=== PATIENT | female | born 1960 | race Caucasian/White ===

== ENCOUNTER → 2017-10-16 | Outpatient (CLI) | payer BC ==
[~2017-10-16] MED LIST: ACYC5OIN3 TOP; ATV/1 PO; CHOL100027 PO; DULO60CA44 PO; HYDR200T5 PO; HYZ/50125 PO; MELO7.5T5 PO; MULT-506 PO; OXYC-57 PO; POLY335040 PO; PREG1CAP70 PO; PROM25TA9 PO; tumeric PO
[2017-10-16 12:16] LABS: BASO % 0.4 %; BASO ABS # 0.06 K/uL (0-0.2); COMPLETE YES; EOS % 3.5 %; HEMATOCRIT 36.4 % (37-47); IG% 0.4 %; LYMPH % 27.6 %; LYMPH ABS # 4.04 K/uL (1.2-3.4); MEAN CELL VOLUME 90.1 fL (80-100); MEAN CORPUSCULAR HGB CONC 33.2 g/dl (32-36); MEAN PLATELET VOLUME 10.3 fL (7.4-10.4); MONO % 4.8 %; NEUT % 63.3 %; PLATELET COUNT 277 K/uL (130-400); RED BLOOD COUNT 4.04 M/uL (4.2-5.4); WHITE BLOOD COUNT 14.62 K/uL (4.8-10.8)
== END | disposition home or self-care (01) ==
LOC: C.LAB 11:33
PROVIDERS: ATTEND Physician Assistant Medical
DX: Z01.812 Encounter for preprocedural laboratory examination (principal)

== ENCOUNTER → 2018-01-15 | Outpatient (CLI) | payer OTHER ==
[~2018-01-15] VITALS: Ht 154.9 cm; Wt 88.5 kg
[~2018-01-15] MED LIST changes: +B-CO-25 PO; +CYCL5TAB PO; +FLUT0.15; +HYDR-4079 PO; +MRLP17X PO; +PRLSR20 PO; -tumeric PO
[2018-01-15 11:57] VITALS: Ht 154.9 cm; Wt 88.5 kg
--- NOTE | 2018-01-15 12:35 | PAT Medication Instructions ---
Service Date Jan 15, 2018. Current Home Medication List B-Complex W/ Folic Acid (Super B Complex Maxi), 1 TAB PO QD@1400 Cholecalciferol (Vitamin D 1000 Unit), 2,000 INTER.UNIT PO QDD Cyclobenzaprine Hcl (Flexeril), 1 TAB PO TID PRN for Muscle Spasms Duloxetine Hcl (Cymbalta), 120 MG PO QAM Fluticasone Propionate (Nasal) (Flonase Allergy Relief), 2 SPRAYS NA QAM Hctz/Losartan (Hyzaar 12.5MG/50MG), 1 TAB PO QAM Hydrocodone/Acetaminophen 10MG/325MG ([place] 10MG/325MG), 1-2 TABS PO Q4H PRN for Pain Hydroxychloroquine Sulfate (Plaquenil), 400 MG PO QD@1400 Lorazepam (Ativan), 0.5 MG PO DAILY PRN for Anxiety Meloxicam (Mobic), 15 MG PO QAM Multivitamin (Multivitamin), 1 TAB PO QD@1400 Omeprazole (Prilosec), 20 MG PO QAM Polyethylene (Miralax), 2 DOSE PO QAM Pregabalin (Lyrica), 150 MG PO TID Promethazine Hcl (Phenergan), 25 MG PO Q4H PRN for Nausea Medication Instructions For Your Scheduled Surgery -Contact your prescriber and surgeon for instructions for: Hydroxychloroquine Sulfate (Plaquenil), 400 MG PO QD@1400 -Contact your surgeon for instructions for: Meloxicam (Mobic), 15 MG PO QAM - Hold the following medications the morning of surgery: Cyclobenzaprine Hcl (Flexeril), 1 TAB PO TID PRN for Muscle Spasms Hctz/Losartan (Hyzaar 12.5MG/50MG), 1 TAB PO QAM Polyethylene (Miralax), 2 DOSE PO QAM - Take the following medications the morning of surgery with a sip of water: Duloxetine Hcl (Cymbalta), 120 MG PO QAM Fluticasone Propionate (Nasal) (Flonase Allergy Relief), 2 SPRAYS NA QAM Hydrocodone/Acetaminophen 10MG/325MG ([place] 10MG/325MG), 1-2 TABS PO Q4H PRN for Pain (if needed, can be taken up to four hours before surgery) Lorazepam (Ativan), 0.5 MG PO DAILY PRN for Anxiety (if needed) Omeprazole (Prilosec), 20 MG PO QAM Pregabalin (Lyrica), 150 MG PO TID Promethazine Hcl (Phenergan), 25 MG PO Q4H PRN for Nausea (if needed) - Take the following medications as scheduled the night before surgery: B-Complex W/ Folic Acid (Super B Complex Maxi), 1 TAB PO QD@1400 Cholecalciferol (Vitamin D 1000 Unit), 2,000 INTER.UNIT PO QDD Cyclobenzaprine Hcl (Flexeril), 1 TAB PO TID PRN for Muscle Spasms (if needed) Hydrocodone/Acetaminophen 10MG/325MG ([place] 10MG/325MG), 1-2 TABS PO Q4H PRN for Pain (if needed) Lorazepam (Ativan), 0.5 MG PO DAILY PRN for Anxiety (if needed) Multivitamin (Multivitamin), 1 TAB PO QD@1400 If you have any questions please call us at [phone] or [phone] or [phone]
[2018-01-15 13:05] LABS: BASO % 0.3 %; BASO ABS # 0.05 K/uL (0-0.2); EOS % 2.4 %; EOS ABS # 0.43 K/uL (0-0.5); HEMATOCRIT 37.8 % (37-47); HEMOGLOBIN 12.9 g/dL (12.0-16.0); IG# 0.06 K/uL (0.00-0.02); LYMPH % 24.6 %; LYMPH ABS # 4.46 K/uL (1.2-3.4); MEAN CELL VOLUME 89.6 fL (80-100); MEAN CORPUSCULAR HEMOGLOBIN 30.6 pg (25-34); MEAN CORPUSCULAR HGB CONC 34.1 g/dl (32-36); MEAN PLATELET VOLUME 9.8 fL (7.4-10.4); MONO % 4.4 %; MONO ABS # 0.79 K/uL (0.11-0.59); NEUT ABS # 12.36 K/uL (1.4-6.5); PLATELET COUNT 319 K/uL (130-400); RED CELL DISTRIBUTION WIDTH CV 14.8 % (11.5-14.5); RED CELL DISTRIBUTION WIDTH SD 48.2 fL (36.4-46.3); WHITE BLOOD COUNT 18.15 K/uL (4.8-10.8)
[2018-01-15 13:19] LABS: PTT PATIENT 33.4 SECONDS (21.0-31.0)
--- NOTE | 2018-01-15 13:24 | DIAGNOSTIC IMAGING REPORT ---
CHEST 2 VIEWS ROUTINE HISTORY: Preop. COMPARISON: Chest 08/13/2014. FINDINGS: The cardiac silhouette is mildly enlarged. There are low lung volumes. The lungs are clear. No pleural effusions. No pneumothorax. IMPRESSION: Cardiac silhouette is mildly enlarged. This may be accentuated by the low lung volumes. Otherwise, no acute process within the chest. Electronically signed by: Suleman Wayne M.D. 01/15/2018 1:23 PM Dictated Date/Time: 01/15/2018 1:17 PM
[2018-01-15 16:42] LABS: CALCIUM 9.8 mg/dl (8.5-10.1); CREATININE 1.01 mg/dl (0.60-1.20); POTASSIUM 3.7 mmol/L (3.5-5.1)
== END | disposition home or self-care (01) ==
LOC: C.LAB 08:00 → EDSTATUS 01-27 07:15
PROVIDERS: ATTEND Orthopaedic Surgery Orthopaedic Surgery of the Spine
DX: M48.00 Spinal stenosis, site unspecified (principal); Z01.818 Encounter for other preprocedural examination

== ENCOUNTER → 2018-01-23 | Outpatient (CLI) | payer OTHER ==
[~2018-01-23] MED LIST changes: -ACYC5OIN3 TOP; +GADAVIST IV PRN; -OXYC-57 PO; -POLY335040 PO
--- NOTE | 2018-01-23 11:42 | DIAGNOSTIC IMAGING REPORT ---
LUMBAR SPINE MRI WITH AND WITHOUT CONTRAST HISTORY: LUMBAR PAIN TECHNIQUE: Multiplanar multisequence MRI of the lumbar spine was performed both before and after the intravenous administration of contrast. COMPARISON: None. FINDINGS: For the purpose of the report the L5-S1 disc space will be located on axial image 23 of 25. No fracture or subluxation. Posterior decompression and fusion from L4 through S1 with pedicle screws and rods. The conus terminates at the L1-L2 disc space level. There is a disc spacer in partial fusion at the L5-S1 level. Mild to moderate disc space narrowing at L4-L5. The retroperitoneal soft tissues are unremarkable. Small amount of fluid and enhancement at the appendectomy site. This favors residual postoperative change. There is lumbar subcutaneous edema. L1-L2: No significant central canal or neural foraminal narrowing. L2-L3: Small focal central disc protrusion without significant central canal or neural foraminal narrowing. L3-L4: No significant central canal or neural foraminal narrowing. L4-L5: No significant central canal or neural foraminal narrowing. L5-S1: No significant central canal or neural foraminal narrowing. IMPRESSION: 1. No significant central canal or neural foraminal narrowing. 2. Small focal central disc protrusion at L2-L3 without central canal narrowing. 3. Posterior decompression and fusion at L4-S1 with pedicle screws and rods. 4. Small amount of fluid and enhancement at the laminectomy sites. This favors postoperative change. Electronically signed by: Suleman Wayne M.D. 01/23/2018 11:41 AM Dictated Date/Time: 01/23/2018 11:29 AM
== END | disposition home or self-care (01) ==
LOC: C.MRIBC 10:14
PROVIDERS: ATTEND Orthopaedic Surgery Orthopaedic Surgery of the Spine
DX: M54.5 Low back pain (principal); M51.26 Other intervertebral disc displacement, lumbar region

== ENCOUNTER → 2018-02-13 | Day surgery (SDC) | payer OTHER ==
[2018-01-30 12:18] VITALS: Ht 154.9 cm; Wt 88.5 kg
[~2018-02-13] VITALS: Ht 154.9 cm; Wt 88.5 kg
[~2018-02-13] MED LIST changes: +DEXAMETHASONE SOD INJ 4 MG/ML VIAL ONE; -GADAVIST IV PRN; +LIDOCAINE HCL 1% MPF 5 ML VIAL ONE; +OXYC-57 PO
--- NOTE | 2018-02-13 07:05 | History & Physical Bridge - SC ---
H&P Re-Evaluation Bridge Note: I have examined the patient, reviewed the History & Physical and in the interval since the performance of the History & Physical I have noted the following changes of clinical significance: No changes noted; ENMANUEL L5-S1
[2018-02-13 07:23] VITALS: TEMP 37
--- NOTE | 2018-02-13 07:24 | Discharge Instructions-SurgCtr ---
Discharge Instructions Date of Service Feb 13, 2018. Visit Reason for Visit: Spinal Stenosis Discharge Discharge Diagnosis / Problem: same Discharge Goals Goal(s): Improve function Medications Stopped Medications Name(s): 01-08-18 Meloxicam last dose Activity Recommendations Activity Limitations: resume your previous activity Anesthesia . Post Anesthesia Instructions: If you have had General Anesthesia or IV Sedation: * Do not drive today. * Resume driving when surgeon permits. * Do not make important decisions or sign legal documents today. * Call surgeon for: 1. Temperature elevations greater than 101 degrees F. 2. Uncontrollable pain. 3. Excessive bleeding. 4. Persistent nausea and vomiting. 5. Medication intolerance (nausea, vomiting or rash). * For nausea and vomiting use only clear liquids such as: tea, soda, bouillon until nausea subsides, then gradually increase diet as tolerated. * If you have any concerns or questions, call your surgeon's office. If physician is unavailable and it is an emergency, call 911 or go to the nearest emergency room. . Diet Recommendations Home Diet: no limitations Procedures Procedures Performed: EPIDURAL STEROID INJECTION LUMBAR L5-S1 Pending Studies Studies pending at discharge: no Medical Emergencies . Who to Call and When: Medical Emergencies: If at any time you feel your situation is an emergency, please call 911 immediately. . Non-Emergent Contact Non-Emergency issues call your: Primary Care Provider, Gis Technician Call Non-Emergent contact if: your pain is not controlled . . "Provider Documentation" section prepared by Otto William. .
--- NOTE | 2018-02-13 07:25 | [facility] Post Operative Brief Note ---
Immediate Operative Summary Operative Date Feb 13, 2018. Pre-Operative Diagnosis SPINAL STENOSIS Post-Operative Diagnosis SPINAL STENOSIS Procedure(s) Performed EPIDURAL STEROID INJECTION LUMBAR L5-S1 Surgeon DR. Aquiles GENAO Model Artists' Surgeon(s) none Estimated Blood Loss NONE Findings Consistent with Post-Op Diagnosis Specimens none Drains None Anesthesia Type Local
[2018-02-13 07:47] VITALS: BP 163/81; PULSE 65; O2SAT 97
--- NOTE | 2018-02-13 08:47 | OPERATIVE REPORT ---
DATE OF OPERATION: 02/13/2018 PREOPERATIVE DIAGNOSIS: Stenosis and nerve root compromise, L5-S1. POSTOPERATIVE DIAGNOSIS: Stenosis and nerve root compromise, L5-S1. PROCEDURE: Included an epidural steroid at L5-S1 lumbar spine. DESCRIPTION OF PROCEDURE: The patient was taken to minor procedure room, prepped and draped sterile. I used biplanar imaging, I was able to advance the Tuohy needle to the epidural space at L5-S1. 2 mL of dexamethasone injected at this area without incident. She tolerated it well and returned to PACU stable. No complications. I attest to the content of the Intraoperative Record and any orders documented therein. Any exception s are noted below.
== END | disposition home or self-care (01) ==
LOC: X.SURG 06:11
PROVIDERS: ATTEND Orthopaedic Surgery Orthopaedic Surgery of the Spine
DX: M48.061 Spinal stenosis, lumbar region without neurogenic claudication (principal); M54.5 Low back pain; I10 Essential (primary) hypertension; Z90.710 Acquired absence of both cervix and uterus; Z90.49 Acquired absence of other specified parts of digestive tract; Z88.1 Allergy status to other antibiotic agents

== ENCOUNTER 2020-05-02 05:28 | Observation (INO) ==
--- NOTE | 2020-04-29 09:12 | Anesthesiology Consultation ---
Date of Service April 29, 2020 Assessment & Plan (1) Encounter for pre-operative examination: Chart Review Chart Review: Acceptable Risk for Surgery and Patient NOT seen in Pre Admission Testing Consults Requested none History Surgery Operation Date: 05/02/20 07:00 Proposed Procedures p Laparoscopic Incisional Hernia Repair - Malick Olivo MD, FACS Height/Weight Height: 5 ft 0.75 in Weight: 77.111 kg Allergies Allergy/AdvReac Type Severity Reaction Status Date / Time bacitracin Allergy Unknown RASH Verified 04/28/20 09:34 cephalexin AdvReac Unknown HEADACHES, Verified 04/28/20 09:34 G I UPSET Medications Home Medications Medication Instructions Recorded Confirmed Last Taken acyclovir [Zovirax] 1 dose TOPICAL DAILY PRN 08/12/18 04/28/20 01/26/19 cholecalciferol (vitamin D3) 2,000 unit PO QPM 08/12/18 04/28/20 01/26/19 [Vitamin D3] cyclobenzaprine 10 mg PO DAILY PRN 08/12/18 04/28/20 08/20/18 duloxetine [Cymbalta] 120 mg PO QAM 08/12/18 04/28/20 01/26/19 lorazepam 1 mg PO DAILY PRN 08/12/18 04/28/20 08/20/18 magnesium 500 mg PO QPM 08/12/18 04/28/20 01/26/19 multivitamin 1 tab PO QPM 08/12/18 04/28/20 01/26/19 polyethylene glycol 3350 [Miralax] 2 dose PO QAM 08/12/18 04/28/20 01/26/19 pregabalin [Lyrica] 150 mg PO TID 08/12/18 04/28/20 01/26/19 loratadine 10 mg tablet 10 mg PO DAILY PRN 01/08/19 04/28/20 Unknown vitamin B complex 1 tab PO DAILY 01/08/19 04/28/20 01/26/19 metformin 500 mg tablet 500 mg PO DAILY 04/15/20 04/28/20 Unknown oxycodone 10 mg tablet 10 mg PO Q4H PRN 04/15/20 04/28/20 Unknown pravastatin 10 mg tablet 10 mg PO HS 04/15/20 04/28/20 Unknown Nystatin Lozenge 1 marci PO TID 04/28/20 04/28/20 Unknown hydrochlorothiazide 12.5 mg PO QAM 04/28/20 04/28/20 Unknown losartan 50 mg PO QAM 04/28/20 04/28/20 Unknown nystatin 1 applic TOPICAL UD PRN 04/28/20 04/28/20 Unknown pantoprazole [Protonix] 20 mg PO QAM 04/28/20 04/28/20 Unknown Past Medical History Medical History Anemia (Chronic) Anxiety (Chronic) Chronic back pain (Chronic) Chronic headaches daily Degenerative disc disease (Chronic) Depression (Chronic) Endometriosis (Chronic) Fibromyalgia (Chronic) GERD (gastroesophageal reflux disease) (Chronic) Herpes (Chronic) History of ovarian cyst (Chronic) History of subdural hematoma (Chronic) 1991 REQU[facility]ING EMERGENCY SURGERY Hypertension (Chronic) IBS (irritable bowel syndrome) (Chronic) Migraine headache (Chronic) Obesity (BMI 30-39.9) (Chronic) Sciatica (Chronic) Spinal cord stimulator status in place 10/2019 [facility] (advised to bring remote/magnet for surgery) Thrush, oral chronic --- nystatin lozenges TID. dx'd 05/2019, follows with PCP & ENT Dr Knox. Past Family History Family History Mother Family history of reaction to anesthesia PONV Breast cancer Diabetes Heart disease Hypertension Grandfather (Paternal) Family history of diabetes mellitus Diabetes Father Family history of diabetes mellitus Heart disease Hypertension Mother Family history of diabetes mellitus Grandmother (Paternal) Family hx of colon cancer Past Surgical History Surgical History Fusion of spine (Chronic) L4-L5, L5-S1 (after discectomy surgeries) History of anesthesia complications (Chronic) DIFFICULTY WAKING UP History of brain surgery (Chronic) 1991 (removed a subdural hematoma) History of carpal tunnel release (Chronic) RT History of cholecystectomy (Chronic) History of discectomy (Chronic) L4-L5, L5-S1 (2 different surgeries) History of rotator cuff surgery (Chronic) right 08/2018 [facility] History of tonsillectomy (Chronic) History of tooth extraction (Chronic) History of tubal ligation (Chronic) +tubal reversal Hx of colonoscopy S/P BSO (bilateral salpingo-oophorectomy) S/P knee surgery right knee S/P [place] (total abdominal hysterectomy) Social History Smoking Status: Former smoker tobacco type: cigarettes Do You Dip or Chew Tobacco: No Smoking End Date: 1993 Hx Alcohol Use: Yes Alcohol type: wine and hard liquor alcohol intake frequency: holidays/special occasions only Hx Substance Use: Yes ("street" (daily)) substance use type: marijuana Last Used Substance Other:: 04.27.20 Testing Laboratory Results Laboratory Tests 04/27/20 04/27/20 10:12 10:12 WBC 13.44 H Hgb 13.0 Hct 40.3 Plt Count 278 Sodium 136 Potassium 3.7 Chloride 101 Carbon Dioxide 26 BUN 9 Creatinine 0.94 Glucose 144 H Electrocardiogram Date: 04/27/20 Findings: + NSR @ (35)
[2020-05-02] MEDS ORDERED: CLINDAMYCIN 900 MG in DEXTROSE 5% 50 ML IV SCH (06:00)
[2020-05-02] MEDS ORDERED: LR 15ML/HR IV SCH (06:00)
[2020-05-02] MEDS ORDERED: DEXAMETHASONE SOD INJ 4 MG/ML VIAL ONE (06:29)
[2020-05-02] MEDS ORDERED: LIDOCAINE HCL 2% 2 ML VIAL/AMP(20MG/ML) INFIL ONE (06:29)
[2020-05-02] MEDS ORDERED: PROPOFOL IV EMULSION 10 MG/ML 20 ML VIAL IV ONE (06:29)
[2020-05-02] MEDS ORDERED: MIDAZOLAM HCL 1 MG/ML 2ML VIAL ONE (06:29)
[2020-05-02] MEDS ORDERED: ONDANSETRON INJ 2 MG/ML 2 ML VIAL ONE (06:29)
[2020-05-02] MEDS ORDERED: fentaNYL citrate 100 MCG/2 ML VIAL ONE (06:29)
[2020-05-02] MEDS ORDERED: ROCURONIUM BROMIDE 10 MG/ML 5 ML VIAL IV ONE (06:29)
[2020-05-02] MEDS ORDERED: GLYCOPYRROLATE 0.2 MG/ML VIAL ONE (06:29)
[2020-05-02] MEDS ORDERED: NEOSTIGMINE METHYLSULFATE 5 MG/5 ML SYR ONE (06:29)
--- NOTE | 2020-05-02 06:36 | History & Physical Bridge Note ---
Date of Service May 02, 2020 History & Physical Bridge Note I have examined the patient, reviewed the History & Physical and in the interval since the performance of the History & Physical I have noted the following changes of clinical significance: no changes noted
[2020-05-02] MEDS ORDERED: BUPIVACAINE 0.5 % 5 MG/1 ML MPF 30ML VIAL ONE (06:50)
[2020-05-02] MEDS ORDERED: HYDROmorphone INJ 2 MG/ML SYR/VIAL ONE (07:07)
[2020-05-02] MEDS ORDERED: ATROPINE SULFATE 0.1 MG/ML 10ML SYR IV PRN (07:23)
[2020-05-02] MEDS ORDERED: PROMETHAZINE HCL 6.25 MG in SODIUM CHLORIDE 0.9% 50 ML IV PRN (07:23)
[2020-05-02] MEDS ORDERED: ePHEDrine sulfate 50 MG/ML AMP IV PRN (07:23)
[2020-05-02] MEDS ORDERED: ONDANSETRON INJ 2 MG/ML 2 ML VIAL IV PRN ×2 (07:23→09:29)
[2020-05-02] MEDS ORDERED: SUGAMMADEX SODIUM 200 MG/2 ML VIAL IV ONE (07:41)
[2020-05-02] MEDS ORDERED: ACETAMINOPHEN 1,000 MG/100 ML VIAL IV ONE (07:45)
--- NOTE | 2020-05-02 07:45 | Post Operative Brief Note ---
[facility] Immediate Post Op with CF Date of Surgery May 02, 2020 Pre & Post Diagnosis Operation Date: 05/02/20 07:00 Pre-Op Diagnosis: Incisional Hernia Post-Op Diagnosis: Incisional Hernia I identified the patient and participated in the time-out.: Yes Procedure Operation Date: 05/02/20 07:00 Actual Procedures p Laparoscopic Incisional Hernia Repair(Not Applicable) - Malick Olivo MD, FACS Surgeon Malick Olivo MD, FACS Director Of Logistics Russel Leary Estimated Blood Loss 5 Findings Consistent with Post-Op Diagnosis Specimens Specimen Description: None per surgeon
[2020-05-02] MEDS: fentaNYL citrate 100 MCG/2 ML VIAL IV PRN ×2 (08:06→08:11)
[2020-05-02] MEDS: HYDROmorphone INJ 2 MG/ML SYR/VIAL IV PRN ×4 (08:23→08:38)
[2020-05-02] MEDS ORDERED: IBUPROFEN 600 MG TAB PO PRN (09:29)
[2020-05-02] MEDS ORDERED: ACETAMINOPHEN 325 MG TAB PO PRN (09:29)
[2020-05-02] MEDS ORDERED: PROMETHAZINE HCL 25 MG in SODIUM CHLORIDE 0.9% 50 ML IV PRN (09:29)
[2020-05-02] MEDS ORDERED: PROMETHAZINE HCL 12.5 MG in SODIUM CHLORIDE 0.9% 50 ML IV PRN (09:29)
[2020-05-02] MEDS ORDERED: LORazepam 1 MG/2 ML VIAL IV PRN (09:29)
[2020-05-02] MEDS ORDERED: LORazepam 0.5 MG/1 ML VIAL IV PRN (09:29)
[2020-05-02] MEDS: POLYETHYLENE (MIRALAX) 17 GM PACK PO SCH ×2 (09:40→11:03)
--- NOTE | 2020-05-02 10:07 | Anesthesiology Progress Note ---
Date of Service May 02, 2020 Anesthesia Post Procedure Vital Signs Vital Signs: Temp Pulse Resp BP BP Pulse Ox 05/02/20 09:44 36.4 C L 61 16 114/69 95 05/02/20 09:17 36.5 C 68 18 121/71 99 05/02/20 08:55 36.4 C L 78 20 131/73 98 05/02/20 08:45 66 12 125/70 100 05/02/20 08:35 79 17 133/74 97 05/02/20 08:25 74 10 L 135/76 99 05/02/20 08:15 72 12 133/79 100 05/02/20 08:05 83 12 143/89 H 100 05/02/20 07:57 36.0 C L 98 H 13 146/84 H 100 05/02/20 05:51 36.7 C 70 18 138/72 99 Pain Intensity Back: Pain Intensity: 3 Abdomen: Pain Intensity: 5 Transfer of Care Handoff Completed per policy Notes Mental Status: alert / awake / arousable Patient Amnestic to Procedure: Yes Nausea / Vomiting: adequately controlled Pain: adequately controlled Airway Patency, RR, SpO2: stable & adequate BP & HR: stable & adequate Hydration State: stable & adequate Anesthetic Complications: no major complications apparent
[2020-05-02] MEDS: HYDROmorphone INJ 1 MG/ML SYRINGE IV PRN ×4 (10:15→20:03)
[2020-05-02] MEDS: SODIUM CHLORIDE 0.9% 1000ML 1,000 ML IV SCH (10:17)
--- NOTE | 2020-05-02 10:24 | Hospitalist Consultation ---
Date of Consultation May 02, 2020 Assessment & Plan (1) S/P hernia repair: - Pain management, bowel regimen and DVT ppx per the primary team - PT/OT consults as needed - Follow am CBC to monitor for acute blood loss - surgical incision site over abdomen glued shut, no bleeding (2) Hypertension: -Continue hydrochlorothiazide 12.5 mg daily, losartan 50 mg daily (3) Diabetes: - ISS with accuchecks achs - Check A1C with am labs as there is not one within our system - Hold metformin (4) Subdural hemorrhage: -History of such in 1991 (5) Anemia: -Check a.m. CBC (6) GERD (gastroesophageal reflux disease): - Continue Protonix 20 mg daily (7) Fusion of spine: -Neurostimulator -Continue oxycodone 10 mg q4h prn (8) IBS (irritable bowel syndrome): -History of such Takes MiraLAX 2 doses daily (9) Fibromyalgia: Noted (10) Anxiety: (11) Depression: -Continue lorazepam 1 mg daily as needed, Lyrica 150 p.o. 3 times daily (12) Leukocytosis: Noted on labs going back to the year 1999 This may be normal for her Follow-up with PCP Follow CBC in the morning (13) Hepatic steatosis: Noted on recent CT scan of the abdomen/pelvis Needs weight loss (14) Constipation: Continue MiraLAX (15) DVT prophylaxis: - teds, scds CODE: Full Dispo: From home, likely to remain in the hospital x 1-2 days Supervising Physician Co-Signing Physician Notes PA Supervision Note: I personally saw and examined the patient. I verified all kuhn points and agree with VINNIE Dalal with the following exceptions and/or additions: This patient is a 59-year-old female here for an incisional hernia repair with Dr. Olivo. The hospital service is consulted for medical management in the postoperative period History and ROS reviewed as above Vitals reviewed Gen: AAOx3, NAD HEENT: anicteric sclerae, EOMI CV: RRR no mgr nl S1S2 Pulm: CTAB no wcr Abd: +BS soft Mild tenderness to palpation over incision sites ND no masses or hernias Ext: no edema, 2+ DP pulses Skin: no rashes, warm/dry Neuro: full strength throughout 59-year-old female here with history noted as above, for incisional hernia repair -Plan outlined as above Follow BMP, CBC in the morning We will closely follow blood pressures Hospitalist service will follow along History of Present Illness Reason for Consultation: Medical management Requesting Physician: Dr. Olivo Attending Physician: Malick Olivo MD, [facility] History of Present Illness This is a 59-year-old female with PMHx of anemia, HTN, history of subdural hematoma in 1991, endometriosis, fibromyalgia, GERD, depression, degenerative disc disease, history of lumbar decompression fusion by Dr. Ahn, sciatica, obesity, spinal cord stimulator in place as of October 2019 by [facility] who presented for elective laparoscopic hernia repair by Dr. Olivo. Patient was seen and examined and states that she feels well after surgical procedure. She feels abdominal distention but no pain. No nausea or vomiting. She is waiting on her coffee, has not yet had anything else to eat or drink. She has not yet peed or had a bowel movement today. She reports having some left leg pain for which she has the stimulator in place, and that was turned off for her procedure, nurse at bedside helping her to turn it back on. She denies any other acute complaints. Allergies Allergy/AdvReac Type Severity Reaction Status Date / Time bacitracin Allergy Unknown RASH Verified 05/02/20 05:58 cephalexin AdvReac Unknown HEADACHES, Verified 05/02/20 05:58 G I UPSET Home Medications Home Medications Medication Instructions Recorded Confirmed Type acyclovir [Zovirax] 1 dose TOPICAL DAILY PRN 08/12/18 05/02/20 History cholecalciferol (vitamin D3) 2,000 unit PO QPM 08/12/18 05/02/20 History [Vitamin D3] cyclobenzaprine 10 mg PO DAILY PRN 08/12/18 05/02/20 History duloxetine [Cymbalta] 120 mg PO QAM 08/12/18 05/02/20 History lorazepam 1 mg PO DAILY PRN 08/12/18 05/02/20 History magnesium 500 mg PO QPM 08/12/18 05/02/20 History multivitamin 1 tab PO QPM 08/12/18 05/02/20 History polyethylene glycol 3350 [Miralax] 2 dose PO QAM 08/12/18 05/02/20 History pregabalin [Lyrica] 150 mg PO TID 08/12/18 05/02/20 History loratadine 10 mg tablet 10 mg PO DAILY PRN 01/08/19 05/02/20 History vitamin B complex 1 tab PO DAILY 01/08/19 05/02/20 History metformin 500 mg tablet 500 mg PO DAILY 04/15/20 05/02/20 History oxycodone 10 mg tablet 10 mg PO Q4H PRN 04/15/20 05/02/20 History pravastatin 10 mg tablet 10 mg PO HS 04/15/20 05/02/20 History Nystatin Lozenge 1 marci PO TID 04/28/20 05/02/20 History hydrochlorothiazide 12.5 mg PO QAM 04/28/20 05/02/20 History losartan 50 mg PO QAM 04/28/20 05/02/20 History nystatin 1 applic TOPICAL UD PRN 04/28/20 05/02/20 History pantoprazole [Protonix] 20 mg PO QAM 04/28/20 05/02/20 History Patient History Medical History (Updated 05/02/20 @ 18:03 by Val Ferreira MD) Anemia (Chronic) Anxiety (Chronic) Chronic back pain (Chronic) Chronic headaches daily Constipation Degenerative disc disease (Chronic) Depression (Chronic) Endometriosis (Chronic) Fibromyalgia (Chronic) GERD (gastroesophageal reflux disease) (Chronic) Hepatic steatosis Herpes (Chronic) History of ovarian cyst (Chronic) History of subdural hematoma (Chronic) 1991 REQUIRING EMERGENCY SURGERY Hypertension (Chronic) IBS (irritable bowel syndrome) (Chronic) Leukocytosis (Acute) Migraine headache (Chronic) Obesity (BMI 30-39.9) (Chronic) Sciatica (Chronic) Spinal cord stimulator status in place 10/2019 [facility] (advised to bring remote/magnet for surgery) Thrush, oral chronic --- nystatin lozenges TID. dx'd 05/2019, follows with PCP & ENT Dr Knox. Surgical History (Updated 05/02/20 @ 10:23 by Samira Dalal PA-C) Fusion of spine (Chronic) L4-L5, L5-S1 (after discectomy surgeries) History of anesthesia complications (Chronic) DIFFICULTY WAKING UP History of brain surgery (Chronic) 1991 (removed a subdural hematoma) History of carpal tunnel release (Chronic) RT History of cholecystectomy (Chronic) History of discectomy (Chronic) L4-L5, L5-S1 (2 different surgeries) History of incisional hernia repair (05/02/20) Laparoscopic Incisional Hernia Repair Dr. Olivo 05/02/20 History of rotator cuff surgery (Chronic) right 08/2018 [facility] History of tonsillectomy (Chronic) History of tooth extraction (Chronic) History of tubal ligation (Chronic) +tubal reversal Hx of colonoscopy S/P BSO (bilateral salpingo-oophorectomy) S/P knee surgery right knee S/P CHAPINCITO (total abdominal hysterectomy) Family History Mother Family history of reaction to anesthesia PONV Breast cancer Diabetes Heart disease Hypertension Grandfather (Paternal) Family history of diabetes mellitus Diabetes Father Family history of diabetes mellitus Heart disease Hypertension Mother Family history of diabetes mellitus Grandmother (Paternal) Family hx of colon cancer Social History Preferred Language: Hungarian Communication Ability: Effective Visual Impairment: Limited Hearing Ability: Normal 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 Beliefs That Will Affect Care: None marital status: Current Living Situation: Spouse current occupational status: disabled Other Information That Helps Us Care for You: No Feels Safe at Home: Yes Safety Concerns: Feels Safe At This Time Smoking Status: Former smoker Tobacco Type: cigarettes ; Do You Dip or Chew Tobacco: No ; Smoking End Date: 1993 ; Second Hand Exposure: No ; Tobacco Cessation Education Requested by Patient: No Hx Alcohol Use: Yes Alcohol type: wine and hard liquor Hx Substance Use: Yes ("street" (daily)) substance use type: marijuana Last Used Substance Other:: 04.27.20 Review of Systems Review of Systems: Constitutional: No fever, sweats or chills Eyes: No diplopia, no worsening or blurred vision ENT: normal hearing, no trouble swallowing Respiratory: No cough, sputum, dyspnea at rest or on exertion Cardiovascular: No chest pain, tightness or palpitations Abdomen: + Distention, No pain, nausea, vomiting, diarrhea or constipation Musculoskeletal: + As per HPI,No joint pain, calf pain, swelling Neurologic: No weakness, numbness/tingling, or balance problems Psychiatric: No anxiety or depression Skin: No rash or itch Physical Exam Physical Exam: General: awake, alert, no apparent distress Head: Normocephalic, atraumatic ENT: PERRL, EOMI, no pharyngeal exudate, mucous membranes moist Chest: Clear to auscultation, on room air, no adventitious breath sounds Cardiac: Regular rate and rhythm, no murmur, no JVD, normal peripheral pulses, good capillary refill Abdominal: NABS x 4 quadrants, + mildly distended, laparoscopic incision sites glued shut, nontender to palpation, no rebound, guarding or tenderness Extremities: Normal inspection, no peripheral edema or erythema, calfs nontender to palpation Psych: Normal mood and affect Neuro: AAO x 3, strength intact bilaterally and related 5/5, no motor deficits, speech is clear, no peripheral sensory deficits Skin: no rash or erythema Results & Data Results & Data ([facility]) Vital Signs (Past 12 Hours) Vital Signs Temp Pulse Resp BP BP Pulse Ox 05/02/20 09:44 36.4 C L 61 16 114/69 95 05/02/20 09:17 36.5 C 68 18 121/71 99 05/02/20 08:55 36.4 C L 78 20 131/73 98 05/02/20 08:45 66 12 125/70 100 05/02/20 08:35 79 17 133/74 97 05/02/20 08:25 74 10 L 135/76 99 05/02/20 08:15 72 12 133/79 100 05/02/20 08:05 83 12 143/89 H 100 05/02/20 07:57 36.0 C L 98 H 13 146/84 H 100 05/02/20 05:51 36.7 C 70 18 138/72 99 PG Care Time/CCT Total # of Minutes Spent Total Time Spent with Patient: Total time spent is greater than 50% in coordination of care (as documented) at patient's floor/unit and/or counseling patient: Coding Level of Care Code 33479 Inpt Consult Level 3 Diagnoses S/P hernia repair Z98.890; Z87.19 Hypertension I10 Diabetes E11.9 Subdural hemorrhage I62.00 Anemia D64.9 GERD (gastroesophageal reflux disease) K21.9 Fusion of spine M43.20 IBS (irritable bowel syndrome) K58.9 Fibromyalgia M79.7 Anxiety F41.9 Depression F32.9 Leukocytosis D72.829 Hepatic steatosis K76.0 Constipation K59.00 DVT prophylaxis Z29.9
[2020-05-02] MEDS ORDERED: CARBOHYDRATES FOR HYPOGLYCEMIA PO PRN (10:25)
[2020-05-02] MEDS ORDERED: GLUCOSE 40% GEL 15 GM TUBE PO PRN (10:25)
[2020-05-02] MEDS ORDERED: DEXTROSE 50% 50 ML SYRINGE IV PRN (10:25)
[2020-05-02] MEDS ORDERED: GLUCAGON FOR INJ 1 MG VIAL SQ PRN (10:25)
[2020-05-02] MEDS ORDERED: GLUCOSE 10 TABS/TUBE PO PRN (10:25)
[2020-05-02] MEDS: DULOXETINE HCL 60 MG CAP PO SCH (11:01)
[2020-05-02] MEDS: PREGABALIN 150 MG CAP PO SCH ×3 (11:01→21:14)
[2020-05-02] MEDS: LOSARTAN POTASSIUM 50 MG TAB PO SCH (11:01)
[2020-05-02] MEDS: PANTOprazole 40 MG TAB PO SCH (11:01)
[2020-05-02] MEDS: DOCUSATE SODIUM/SENNA 50/8.6MG TAB PO SCH ×2 (11:02→21:14)
[2020-05-02] MEDS: hydroCHLOROthiazide 25 MG TAB PO SCH (11:02)
[2020-05-02] MEDS: MAGNESIUM HYDROXIDE SUSP 30 ML UDC PO SCH ×2 (11:05→21:14)
--- NOTE | 2020-05-02 11:38 | Operative Report (OR) ---
DATE OF OPERATION: 05/02/2020 NAME OF OPERATION: Laparoscopic incisional hernia repair. PREOPERATIVE DIAGNOSIS: Incisional hernia. POSTOPERATIVE DIAGNOSIS: Incisional hernia. STAFF SURGEON: Malick Olivo MD. ANESTHESIA: General. RESOURCE MANAGER: Ralph Leary PA-C. DESCRIPTION OF PROCEDURE: The patient was brought in the operating room and placed on the operating table in supine position. Her abdomen was prepped and draped in usual fashion. My certified ophthalmic assistant helped with prepping, draping, repair of the hernia and closure of the wounds. 0.5% plain Marcaine was used to anesthetize all incisions. Incision was made in the left upper quadrant carrying dissection down to the fascia, placing a Veress needle. Pneumoperitoneum was produced. An 11 mm port placed at this level and then under visualization, four 5 mm ports were placed, two on the left, two on the right. She had also a small incision at the hernia defect in the skin for the suture passer. She did have 1 adhesion of the omentum, which was taken down and then a 12.5 cm piece of Surgimesh was obtained. It was rolled up and placed into the abdomen. Using the suture, it was brought up to the abdominal wall with the polypropylene toward the fascia, silicone toward the bowel. It was then secured in 2 layers, 1 outer and 1 inner row of absorbable tacks. At this point, all ports were removed. The pneumoperitoneum was reduced. The fascia in the left upper quadrant closed using 0 Vicryl suture. Skin reapproximated using subcuticular 4-0 Monocryl, Steri-Strips in the left upper quadrant, Dermabond at all other sites, 5-0 Prolene at the umbilical site. As a note, the patient did have 2 incisions, one from a prior laparoscopy and one from, I think, an umbilical hernia repair. I attest to the content of the Intraoperative Record and any orders documented therein. Any exception s are noted below.
[2020-05-02] MEDS: OXYCODONE HCL IR 5 MG TAB (IMMEDIATE RELEASE) PO PRN ×2 (12:24→22:18)
[2020-05-02] MEDS: INSULIN ASPART 100 UNITS/ML 3 ML PEN SC SCH ×3 (12:39→21:15)
[2020-05-02] MEDS: CLINDAMYCIN 900 MG in DEXTROSE 5% 50 ML IV SCH ×2 (14:27→22:19)
[2020-05-02] MEDS ORDERED: POLYETHYLENE (MIRALAX) 17 GM PACK PO ONE (18:25)
[2020-05-02] MEDS: PRAVASTATIN SOD 10 MG TAB PO SCH (21:14)
[2020-05-02] MEDS: MAGNESIUM OXIDE 400 MG TAB PO SCH (21:14)
[2020-05-02] MEDS: HYDROmorphone INJ 0.5 MG/0.5 ML SYR IV PRN (23:37)
[2020-05-03] MEDS: OXYCODONE HCL IR 5 MG TAB (IMMEDIATE RELEASE) PO PRN ×4 (03:22→18:29)
[2020-05-03] MEDS: SODIUM CHLORIDE 0.9% 1000ML 1,000 ML IV SCH (03:24)
[2020-05-03] MEDS: HYDROmorphone INJ 0.5 MG/0.5 ML SYR IV PRN ×5 (04:25→20:21)
[2020-05-03 06:06] LABS: Basophils # (auto) 0.02 K/uL (0-0.2); Basophils % (auto) 0.1 %; Eosinophils # (auto) 0.17 K/uL (0-0.5); Eosinophils % (auto) 1.1 %; Hematocrit (blood only) 39.5 % (37-47); Hemoglobin 12.6 g/dL (12.0-16.0); Immature Granulocytes # (auto) 0.05 K/uL (0.00-0.02); Immature Granulocytes % (auto) 0.3 %; Lymphocytes # (auto) 4.62 K/uL (1.2-3.4); Lymphocytes % (auto) 30.4 %; Mean Corpuscular Hemoglobin 29.1 pg (25-34); Mean Corpuscular Hgb Conc 31.9 g/dL (32-36); Mean Corpuscular Volume 91.2 fL (80-100); Mean Platelet Volume 10.3 fL (7.4-10.4); Monocytes # (auto) 0.65 K/uL (0.11-0.59); Monocytes % (auto) 4.3 %; Neutrophils # (auto) 9.71 K/uL (1.4-6.5); Neutrophils % (auto) 63.8 %; Platelet Count 277 K/uL (130-400); RDW Standard Deviation 50.7 fL (36.4-46.3); Red Blood Count 4.33 M/uL (4.2-5.4); White Blood Count 15.22 K/uL (4.8-10.8)
[2020-05-03] MEDS: CLINDAMYCIN 900 MG in DEXTROSE 5% 50 ML IV SCH ×3 (06:08→22:29)
[2020-05-03 06:34] LABS: Albumin Level 3.8 gm/dl (3.4-5.0); BUN Creatinine Ratio 16.7 (10-20); Creatinine Clr Calc Pharmacy 61.6 ml/min; Est GFR (African American) 78.1; Est GFR (Non-African American) 67.3; Magnesium 2.8 mg/dl (1.8-2.4); Potassium 3.6 mmol/L (3.5-5.1)
[2020-05-03 06:37] LABS: Albumin Globulin Ratio 0.9 (0.9-2); Bilirubin,Total 0.2 mg/dl (0.2-1); Globulin 4.1 gm/dl (2.5-4.0); Phosphorus 3.5 mg/dl (2.5-4.9); Total Protein 7.9 gm/dl (6.4-8.2)
[2020-05-03 06:51] LABS: Estimated Average Glucose 143 mg/dl; Hemoglobin A1C 6.6 % (4.5-5.6)
--- NOTE | 2020-05-03 07:41 | Anesthesiology Progress Note ---
Date of Service May 03, 2020 Anesthesia Post Procedure Vital Signs Vital Signs: Temp Pulse Resp BP BP Pulse Ox 05/03/20 07:13 36.4 C L 66 16 132/76 94 05/03/20 03:15 36.4 C L 62 15 110/71 98 05/03/20 00:52 36.4 C L 57 L 16 101/62 96 05/02/20 20:10 36.4 C L 54 L 18 104/63 94 05/02/20 15:18 36.6 C 62 18 104/62 92 05/02/20 12:17 69 16 114/66 93 05/02/20 11:18 66 18 110/67 97 05/02/20 10:21 36.7 C 69 18 108/66 93 05/02/20 09:44 36.4 C L 61 16 114/69 95 05/02/20 09:17 36.5 C 68 18 121/71 99 05/02/20 08:55 36.4 C L 78 20 131/73 98 05/02/20 08:45 66 12 125/70 100 05/02/20 08:35 79 17 133/74 97 05/02/20 08:25 74 10 L 135/76 99 05/02/20 08:15 72 12 133/79 100 05/02/20 08:05 83 12 143/89 H 100 05/02/20 07:57 36.0 C L 98 H 13 146/84 H 100 Pain Intensity Back: Pain Intensity: 5 Abdomen: Pain Intensity: 5 Notes Mental Status: alert / awake / arousable and participated in evaluation Patient Amnestic to Procedure: Yes Nausea / Vomiting: adequately controlled Pain: adequately controlled Airway Patency, RR, SpO2: stable & adequate BP & HR: stable & adequate Hydration State: stable & adequate Anesthetic Complications: no major complications apparent
--- NOTE | 2020-05-03 08:14 | Surgery Progress Note ---
Date of Service May 03, 2020 Assessment & Plan (1) S/P laparoscopic hernia repair: pt awake, alert She is having some pain We will ask pain management to help us with suggestions secondary to her chronic oxycodone use We will try Dulcolax suppository at the patient's request, continue other stool softeners Continue IV antibiotics Probable discharge home tomorrow Results & Data Vital Signs (Past 12 Hours) Vital Signs Temp Pulse Resp BP Pulse Ox 05/03/20 07:13 36.4 C L 66 16 132/76 94 05/03/20 03:15 36.4 C L 62 15 110/71 98 05/03/20 00:52 36.4 C L 57 L 16 101/62 96 PG Care Time/CCT Total # of Minutes Spent Total Time Spent with Patient: Total time spent is greater than 50% in coordination of care (as documented) at patient's floor/unit and/or counseling patient: Coding Level of Care Code None Diagnoses S/P laparoscopic hernia repair Z98.890; Z87.19
[2020-05-03] MEDS: DULOXETINE HCL 60 MG CAP PO SCH (08:38)
[2020-05-03] MEDS: LOSARTAN POTASSIUM 50 MG TAB PO SCH (08:38)
[2020-05-03] MEDS: hydroCHLOROthiazide 25 MG TAB PO SCH (08:39)
[2020-05-03] MEDS: DOCUSATE SODIUM/SENNA 50/8.6MG TAB PO SCH ×2 (08:40→20:21)
[2020-05-03] MEDS: PANTOprazole 40 MG TAB PO SCH (08:40)
[2020-05-03] MEDS: POLYETHYLENE (MIRALAX) 17 GM PACK PO SCH (08:41)
[2020-05-03] MEDS: PREGABALIN 150 MG CAP PO SCH ×3 (08:44→20:20)
[2020-05-03] MEDS: MAGNESIUM HYDROXIDE SUSP 30 ML UDC PO SCH ×2 (08:44→20:21)
[2020-05-03] MEDS: HEPARIN SOD 5,000 UNIT/0.5 ML VIAL SQ SCH ×2 (08:45→20:20)
[2020-05-03] MEDS: INSULIN ASPART 100 UNITS/ML 3 ML PEN SC SCH ×4 (08:49→22:04)
[2020-05-03] MEDS ORDERED: bisacodyL 10 MG SUPP PR ONE (09:00)
--- NOTE | 2020-05-03 09:59 | Pain Management Consultation ---
Date of Consultation May 03, 2020 Assessment & Plan (1) S/P laparoscopic hernia repair: Postoperatively I would recommend a 1 week prescription for Oxycodone 10mg BID- TID PRN pain. After one week, she should return back to her typical regimen. Do not recommend any changes to Cymbalta or Lyrica. I have urged the patient to limit the use of IV Dilaudid to prepare her for discharge tomorrow and she is understanding. Thank you for the consultation. Please call with any questions or concerns. (2) Chronic headache: (3) History of back surgery: (4) Occipital neuralgia: (5) Fibromyalgia: (6) Fusion of spine: (7) Chronic back pain: (8) History of discectomy: History of Present Illness Attending Physician: Malick Olivo MD, [facility] History of Present Illness Mrs. Marshall is a 59 year old female that is status post laparoscopic incisional hernia repair by Dr. Olivo. She does have several nonspecific pain complaints to which she is taking Oxycodone 10mg QD-BID (Receives #50 by PCP each month). Oxycodone, Lyirca, and Cymbalta does typically control her chronic pains. Postoperatively she has been utilizing IV Dilaudid 0.5mg x 3 hour and PO Oxycodone 10mg x 4 hours with adequate pain relief. She was having some difficulty with constipation but was able to have a bowel movement this morning. Patient states that her is in control of her Oxycodone pills and will not allow her to take more than prescribed. She states, "I really like pain pills so he makes sure I don't take too many." Patient states that her abdominal pain is well controlled currently. Pain is rated 3/10. No constitutional complaints. Pain Assessment Full Body Front + Back: 1. [facility] Combined Pain Scale: 3-Mild - Interferes with pleasures of life. Stops some activities Allergies Allergy/AdvReac Type Severity Reaction Status Date / Time bacitracin Allergy Unknown RASH Verified 05/02/20 05:58 cephalexin AdvReac Unknown HEADACHES, Verified 05/02/20 05:58 G I UPSET Home Medications Home Medications Medication Instructions Recorded Confirmed Type acyclovir [Zovirax] 1 dose TOPICAL DAILY PRN 08/12/18 05/02/20 History cholecalciferol (vitamin D3) 2,000 unit PO QPM 10/09/18 06/29/20 History [Vitamin D3] cyclobenzaprine 10 mg PO DAILY PRN 08/12/18 05/02/20 History duloxetine [Cymbalta] 120 mg PO QAM 08/12/18 05/02/20 History lorazepam 1 mg PO DAILY PRN 08/12/18 05/02/20 History magnesium 500 mg PO QPM 08/12/18 05/02/20 History multivitamin 1 tab PO QPM 08/12/18 05/02/20 History polyethylene glycol 3350 [Miralax] 2 dose PO QAM 08/12/18 05/02/20 History pregabalin [Lyrica] 150 mg PO TID 08/12/18 05/02/20 History loratadine 10 mg tablet 10 mg PO DAILY PRN 01/08/19 05/02/20 History vitamin B complex 1 tab PO DAILY 01/08/19 05/02/20 History metformin 500 mg tablet 500 mg PO DAILY 04/15/20 05/02/20 History oxycodone 10 mg tablet 10 mg PO Q4H PRN 04/15/20 05/02/20 History pravastatin 10 mg tablet 10 mg PO HS 04/15/20 05/02/20 History Nystatin Lozenge 1 marci PO TID 04/28/20 05/02/20 History hydrochlorothiazide 12.5 mg PO QAM 04/28/20 05/02/20 History losartan 50 mg PO QAM 04/28/20 05/02/20 History nystatin 1 applic TOPICAL UD PRN 04/28/20 05/02/20 History pantoprazole [Protonix] 20 mg PO QAM 04/28/20 05/02/20 History Patient History Medical History Anemia (Chronic) Anxiety (Chronic) Chronic back pain (Chronic) Chronic headaches daily Constipation Degenerative disc disease (Chronic) Depression (Chronic) Endometriosis (Chronic) Fibromyalgia (Chronic) GERD (gastroesophageal reflux disease) (Chronic) Hepatic steatosis Herpes (Chronic) History of ovarian cyst (Chronic) History of subdural hematoma (Chronic) 1991 REQUIRING EMERGENCY SURGERY Hypertension (Chronic) IBS (irritable bowel syndrome) (Chronic) Leukocytosis (Acute) Migraine headache (Chronic) Obesity (BMI 30-39.9) (Chronic) Sciatica (Chronic) Spinal cord stimulator status in place 10/2019 [facility] (advised to bring remote/magnet for surgery) Thrush, oral chronic --- nystatin lozenges TID. dx'd 05/2019, follows with PCP & ENT Dr Knox. Surgical History Fusion of spine (Chronic) L4-L5, L5-S1 (after discectomy surgeries) History of anesthesia complications (Chronic) DIFFICULTY WAKING UP History of brain surgery (Chronic) 1991 (removed a subdural hematoma) History of carpal tunnel release (Chronic) RT History of cholecystectomy (Chronic) History of discectomy (Chronic) L4-L5, L5-S1 (2 different surgeries) History of incisional hernia repair (05/02/20) Laparoscopic Incisional Hernia Repair Dr. Olivo 05/02/20 History of rotator cuff surgery (Chronic) right 08/2018 [facility] History of tonsillectomy (Chronic) History of tooth extraction (Chronic) History of tubal ligation (Chronic) +tubal reversal Hx of colonoscopy S/P BSO (bilateral salpingo-oophorectomy) S/P knee surgery right knee S/P [place] (total abdominal hysterectomy) Family History Mother Family history of reaction to anesthesia PONV Breast cancer Diabetes Heart disease Hypertension Grandfather (Paternal) Family history of diabetes mellitus Diabetes Father Family history of diabetes mellitus Heart disease Hypertension Mother Family history of diabetes mellitus Grandmother (Paternal) Family hx of colon cancer Social History Preferred Language: Faroese Communication Ability: Effective Visual Impairment: Limited Hearing Ability: Normal Pantry Goods Maker Required: No Beliefs That Will Affect Care: None marital status: Current Living Situation: Spouse current occupational status: disabled Other Information That Helps Us Care for You: No Feels Safe at Home: Yes Safety Concerns: Feels Safe At This Time Smoking Status: Former smoker Tobacco Type: cigarettes ; Do You Dip or Chew Tobacco: No ; Smoking End Date: 1993 ; Second Hand Exposure: No ; Tobacco Cessation Education Requested by Patient: No Hx Alcohol Use: Yes Alcohol type: wine and hard liquor Hx Substance Use: Yes ("street" (daily)) substance use type: marijuana Last Used Substance Other:: 04.27. Physical Exam Physical Exam: GENERAL: This is a 59 year old female in no acute distress. HEAD/FACE: Normocephalic and atraumatic. EYES: No drainage or conjunctival injection. ENT: Nose without bleeding or discharge. Oral mucosa moist. CHEST/AXILLA: Chest movement symmetrical. No deformities noted. ABDOMEN/GI: Laparoscopic incisions appear to be healing well. Mild upper abdominal pain. No distension. No guarding or peritoneal signs. BACK: Moves without difficulty SKIN: [place], warm and dry. No rash noted. MS/EXTREMITY: Moving extremities appropriately. NEURO: Alert and appears oriented. Speech is fluent. Cranial Nerves are grossly intact. PSYCH: Alert, pleasant, affect is calm
[2020-05-03] MEDS ORDERED: POLYETHYLENE (MIRALAX) 17 GM PACK PO ONE (11:37)
--- NOTE | 2020-05-03 11:53 | Hospitalist Progress Note ---
Date of Service May 03, 2020 Assessment & Plan (1) S/P hernia repair: - Pain management, bowel regimen and DVT ppx per the primary team - PT/OT consults as needed - hgb stable at 12 -vira reg diet, ambulating -add extra Miralax at lunchtime today (2) Hypertension: BPs controlled -Continue hydrochlorothiazide 12.5 mg daily, losartan 50 mg daily (3) Diabetes: - ISS with accuchecks achs - HgbA1C here well controlled at 6.6% - Hold metformin while inpatient and restart as outpt (4) Subdural hemorrhage: -History of such in 1991 (5) Anemia: -hgb stable at 12 (6) GERD (gastroesophageal reflux disease): - Continue Protonix 20 mg daily (7) Fusion of spine: -Neurostimulator -Continue oxycodone 10 mg q4h prn Seen by Pain Eric here (8) IBS (irritable bowel syndrome): -History of such Takes MiraLAX 2 doses daily add extra dose now at lunch of Miralax continue senna/docusate (9) Fibromyalgia: Noted continue cymbalta and Lyrica (10) Anxiety: ativan prn (11) Depression: (12) Leukocytosis: Noted on labs going back to the year 1999 This may be normal for her vs CLL? Follow-up with PCP Mild increase today to 15k due to stress of surgery -check peripheral smear discussed with patient (13) Hepatic steatosis: Noted on recent CT scan of the abdomen/pelvis Needs weight loss (14) Constipation: as above (15) DVT prophylaxis: - teds, scds, heparin SQ CODE: Full Dispo: continued stay hospitalist service will follow along Admission and Anticipated Discharge Date Admission Date: May 02, 2020 Subjective Still feeling bloated and constipated, no BM yet in 4 days. Passing flatus and eating reg meals. Has abd pain and is taking IV dilaudid regularly. Seen by Pain Eric who advised oxycodone 10 tid max but yet pt asking me if this can be increased-I said no. Denies CP or SOB Review of Systems Review of Systems: All systems reviewed & are unremarkable except as noted in HPI & below Physical Exam Constitutional: WD/WN, vitals as above + obese Eyes: + anicteric sclerae Neck: trachea midline, no thyromegaly Respiratory: normal respiratory effort, lungs clear to auscultation Cardiovascular: RRR, no murmur, no edema Extremities: no calf tenderness Chest (Breasts): Chest: normal inspection of chest Gastrointestinal (Abdomen): Inspection/Auscultation: + abdomen distended (mild) and normal bowel sounds; + abdomen abnormal to inspection (incisions) Percussion/Palpation: + abdomen tender (mild at incision sites w/o guarding or rebound) and abdomen soft Musculoskeletal: Extremities: extremities normal to inspection; no cyanosis and no clubbing Skin: no rashes, warm and dry Neurologic: moves all extremities and awake; no focal motor deficits Psychiatric: A+Ox3, euthymic affect Lymphatic: no lymphedema Results & Data Results & Data ([facility]) Vital Signs (Past 12 Hours) Vital Signs Temp Pulse Resp BP Pulse Ox 05/03/20 11:18 64 16 131/81 95 05/03/20 08:36 62 152/84 H 05/03/20 07:13 36.4 C L 66 16 132/76 94 05/03/20 03:15 36.4 C L 62 15 110/71 98 05/03/20 00:52 36.4 C L 57 L 16 101/62 96 Laboratory Results 05/03/20 05/03/20 05/03/20 Range/Units 08:06 05:47 05:47 WBC 15.22 H (4.8-10.8) K/uL RBC 4.33 (4.2-5.4) M/uL Hgb 12.6 (12.0-16.0) g/dL Hct 39.5 (37-47) % MCV 91.2 (80-100) fL MCH 29.1 (25-34) pg MCHC 31.9 L (32-36) g/dL RDW Std Deviation 50.7 H (36.4-46.3) fL RDW Coeff of [place] 15.0 H (11.5-14.5) % Plt Count 277 (130-400) K/uL MPV 10.3 (7.4-10.4) fL Immature Gran % (Auto) 0.3 % Neut % (Auto) 63.8 % Lymph % (Auto) 30.4 % [place] % (Auto) 4.3 % Eos % (Auto) 1.1 % Baso % (Auto) 0.1 % Neut # (Auto) 9.71 H (1.4-6.5) K/uL Lymph # (Auto) 4.62 H (1.2-3.4) K/uL [place] # (Auto) 0.65 H (0.11-0.59) K/uL Eos # (Auto) 0.17 (0-0.5) K/uL Baso # (Auto) 0.02 (0-0.2) K/uL Immature Gran # (Auto) 0.05 H (0.00-0.02) K/uL Sodium 139 (136-145) mmol/L Potassium 3.6 (3.5-5.1) mmol/L Chloride 106 (98-107) mmol/L Carbon Dioxide 30 (21-32) mmol/L Anion Gap 3.0 (3-11) BUN 16 (7-18) mg/dl Creatinine 0.94 (0.6-1.2) mg/dl Est Cr Clr Drug Dosing 61.6 ml/min Est GFR ( Amer) 78.1 Est GFR (Non-Af Amer) 67.3 BUN/Creatinine Ratio 16.7 (10-20) Glucose 100 H (70-99) mg/dl POC Glucose 99 (70-99) mg/dl Estimat Average Glucose mg/dl Hemoglobin A1c (4.5-5.6) % Calcium 9.0 (8.5-10.1) mg/dl Phosphorus 3.5 (2.5-4.9) mg/dl Magnesium 2.8 H (1.8-2.4) mg/dl Total Bilirubin 0.2 (0.2-1) mg/dl AST 21 (15-37) U/L ALT 36 (12-78) U/L Alkaline Phosphatase 88 (45-117) U/L Total Protein 7.9 (6.4-8.2) gm/dl Albumin 3.8 (3.4-5.0) gm/dl Globulin 4.1 H (2.5-4.0) gm/dl Albumin/Globulin Ratio 0.9 (0.9-2) 05/03/20 05/02/20 05/02/20 Range/Units 05:47 20:54 17:08 WBC (4.8-10.8) K/uL RBC (4.2-5.4) M/uL Hgb (12.0-16.0) g/dL Hct (37-47) % MCV (80-100) fL MCH (25-34) pg MCHC (32-36) g/dL RDW Std Deviation (36.4-46.3) fL RDW Coeff of [place] (11.5-14.5) % Plt Count (130-400) K/uL MPV (7.4-10.4) fL Immature Gran % (Auto) % Neut % (Auto) % Lymph % (Auto) % [place] % (Auto) % Eos % (Auto) % Baso % (Auto) % Neut # (Auto) (1.4-6.5) K/uL Lymph # (Auto) (1.2-3.4) K/uL [place] # (Auto) (0.11-0.59) K/uL Eos # (Auto) (0-0.5) K/uL Baso # (Auto) (0-0.2) K/uL Immature Gran # (Auto) (0.00-0.02) K/uL Sodium (136-145) mmol/L Potassium (3.5-5.1) mmol/L Chloride (98-107) mmol/L Carbon Dioxide (21-32) mmol/L Anion Gap (3-11) BUN (7-18) mg/dl Creatinine (0.6-1.2) mg/dl Est Cr Clr Drug Dosing ml/min Est GFR ( Amer) Est GFR (Non-Af Amer) BUN/Creatinine Ratio (10-20) Glucose (70-99) mg/dl POC Glucose 114 H 112 H (70-99) mg/dl Estimat Average Glucose 143 mg/dl Hemoglobin A1c 6.6 H (4.5-5.6) % Calcium (8.5-10.1) mg/dl Phosphorus (2.5-4.9) mg/dl Magnesium (1.8-2.4) mg/dl Total Bilirubin (0.2-1) mg/dl AST (15-37) U/L ALT (12-78) U/L Alkaline Phosphatase (45-117) U/L Total Protein (6.4-8.2) gm/dl Albumin (3.4-5.0) gm/dl Globulin (2.5-4.0) gm/dl Albumin/Globulin Ratio (0.9-2) // Range/Units 12:13 WBC (4.8-10.8) K/uL RBC (4.2-5.4) M/uL Hgb (12.0-16.0) g/dL Hct (37-47) % MCV (80-100) fL MCH (25-34) pg MCHC (32-36) g/dL RDW Std Deviation (36.4-46.3) fL RDW Coeff of [place] (11.5-14.5) % Plt Count (130-400) K/uL MPV (7.4-10.4) fL Immature Gran % (Auto) % Neut % (Auto) % Lymph % (Auto) % [place] % (Auto) % Eos % (Auto) % Baso % (Auto) % Neut # (Auto) (1.4-6.5) K/uL Lymph # (Auto) (1.2-3.4) K/uL [place] # (Auto) (0.11-0.59) K/uL Eos # (Auto) (0-0.5) K/uL Baso # (Auto) (0-0.2) K/uL Immature Gran # (Auto) (0.00-0.02) K/uL Sodium (136-145) mmol/L Potassium (3.5-5.1) mmol/L Chloride (98-107) mmol/L Carbon Dioxide (21-32) mmol/L Anion Gap (3-11) BUN (7-18) mg/dl Creatinine (0.6-1.2) mg/dl Est Cr Clr Drug Dosing ml/min Est GFR ( Amer) Est GFR (Non-Af Amer) BUN/Creatinine Ratio (10-20) Glucose (70-99) mg/dl POC Glucose 182 H (70-99) mg/dl Estimat Average Glucose mg/dl Hemoglobin A1c (4.5-5.6) % Calcium (8.5-10.1) mg/dl Phosphorus (2.5-4.9) mg/dl Magnesium (1.8-2.4) mg/dl Total Bilirubin (0.2-1) mg/dl AST (15-37) U/L ALT (12-78) U/L Alkaline Phosphatase (45-117) U/L Total Protein (6.4-8.2) gm/dl Albumin (3.4-5.0) gm/dl Globulin (2.5-4.0) gm/dl Albumin/Globulin Ratio (0.9-2) PG Care Time/CCT Total # of Minutes Spent Total Time Spent with Patient: Total time spent is greater than 50% in coordination of care (as documented) at patient's floor/unit and/or counseling patient: Coding Level of Care Code 59703 Subseq Hosp Care Lvl 2 Diagnoses S/P hernia repair Z98.890; Z87.19 Hypertension I10 Diabetes E11.9 Subdural hemorrhage I62.00 Anemia D64.9 GERD (gastroesophageal reflux disease) K21.9 Fusion of spine M43.20 IBS (irritable bowel syndrome) K58.9 Fibromyalgia M79.7 Anxiety F41.9 Depression F32.9 Leukocytosis D72.829 Hepatic steatosis K76.0 Constipation K59.00 DVT prophylaxis Z29.9
[2020-05-03] MEDS: PRAVASTATIN SOD 10 MG TAB PO SCH (20:21)
[2020-05-03] MEDS: MAGNESIUM OXIDE 400 MG TAB PO SCH (20:21)
[2020-05-04] MEDS: HYDROmorphone INJ 0.5 MG/0.5 ML SYR IV PRN ×3 (00:22→08:47)
[2020-05-04] MEDS: CLINDAMYCIN 900 MG in DEXTROSE 5% 50 ML IV SCH (06:05)
[2020-05-04] MEDS: INSULIN ASPART 100 UNITS/ML 3 ML PEN SC SCH (08:39)
[2020-05-04] MEDS: DULOXETINE HCL 60 MG CAP PO SCH (08:41)
[2020-05-04] MEDS: PANTOprazole 40 MG TAB PO SCH (08:41)
[2020-05-04] MEDS: LOSARTAN POTASSIUM 50 MG TAB PO SCH (08:42)
[2020-05-04] MEDS: hydroCHLOROthiazide 25 MG TAB PO SCH (08:42)
[2020-05-04] MEDS: DOCUSATE SODIUM/SENNA 50/8.6MG TAB PO SCH (08:43)
[2020-05-04] MEDS: POLYETHYLENE (MIRALAX) 17 GM PACK PO SCH (08:44)
[2020-05-04] MEDS: MAGNESIUM HYDROXIDE SUSP 30 ML UDC PO SCH (08:44)
[2020-05-04] MEDS: PREGABALIN 150 MG CAP PO SCH (08:47)
[2020-05-04] MEDS: HEPARIN SOD 5,000 UNIT/0.5 ML VIAL SQ SCH (08:48)
[2020-05-04] MEDS: OXYCODONE HCL IR 5 MG TAB (IMMEDIATE RELEASE) PO PRN (11:31)
--- NOTE | 2020-05-04 13:13 | Discharge Summary (DS) ---
PRINCIPAL DIAGNOSIS: Incisional hernia. PROCEDURES: The patient underwent laparoscopic incisional hernia repair. HISTORY OF PRESENT ILLNESS: The patient is a 59-year-old female undergoing previous laparoscopic surgery, now with an incisional hernia in the umbilical area. HOSPITAL COURSE: She was brought into the hospital on 05/02/2020 where she underwent laparoscopic incisional hernia repair with mesh. She tolerated the procedure very well. She did progress in both diet and activity and was felt stable for discharge home on 05/04/2020 to be followed in the surgical clinic within 1 week.
== END 2020-05-04 12:23 | disposition home or self-care (01) ==
LOC: ASU 05:28 → 3E 05:28

== ENCOUNTER 2020-07-05 12:33 | Observation (INO) ==
[2020-07-05] MEDS ORDERED: ONDANSETRON INJ 2 MG/ML 2 ML VIAL IV STA (13:07)
[2020-07-05] MEDS ORDERED: SODIUM CHLORIDE 0.9% 1000ML 1,000 ML IV ONE (13:07)
[2020-07-05 13:40] LABS: Basophils # (auto) 0.02 K/uL (0-0.2); Basophils % (auto) 0.1 %; Eosinophils # (auto) 0.21 K/uL (0-0.5); Eosinophils % (auto) 1.1 %; Hematocrit (blood only) 37.1 % (37-47); Hemoglobin 12.2 g/dL (12.0-16.0); Immature Granulocytes # (auto) 0.06 K/uL (0.00-0.02); Immature Granulocytes % (auto) 0.3 %; Lymphocytes # (auto) 3.54 K/uL (1.2-3.4); Lymphocytes % (auto) 18.2 %; Mean Corpuscular Hemoglobin 28.8 pg (25-34); Mean Corpuscular Hgb Conc 32.9 g/dL (32-36); Mean Corpuscular Volume 87.5 fL (80-100); Mean Platelet Volume 10.1 fL (7.4-10.4); Monocytes # (auto) 0.63 K/uL (0.11-0.59); Monocytes % (auto) 3.2 %; Neutrophils # (auto) 15.04 K/uL (1.4-6.5); Neutrophils % (auto) 77.1 %; Platelet Count 289 K/uL (130-400); RDW Coefficient of Variation 15.2 % (11.5-14.5); RDW Standard Deviation 49.2 fL (36.4-46.3); Red Blood Count 4.24 M/uL (4.2-5.4)
--- NOTE | 2020-07-05 13:43 | CT Scan Report ---
CT OF THE HEAD WITHOUT CONTRAST CLINICAL HISTORY: Altered mental status. COMPARISON STUDY: Head CT June 01, 2007 and MRI of the brain October 11, 2011. CT DOSE: 690.05 mGycm TECHNIQUE: Helical axial images of the head were obtained without IV contrast. Automated exposure con trol was utilized for the study. A dose lowering technique was utilized adhering to the principles o f ALARA. FINDINGS: No acute intracranial hemorrhage, midline shift or mass effect is present. Ventricular syst em is normal. Basilar cisterns are patent. There are no extra-axial collections. There are no finding s to suggest acute dural sinus thrombosis or acute territorial infarct. Postoperative appearance of t he left occipital craniectomy is unchanged. The appearance of the brain is unchanged. There is no florinda varial fracture. Visualized portions of the sinuses and mastoid air cells are clear. IMPRESSION: 1. No acute intracranial findings. 2. Status post left occipital craniectomy. Unchanged postoperative appearance. ACT 112: Negative or not required by law. Electronically signed by: Carlton Cornejo M.D. 07/05/2020 1:42 PM
--- NOTE | 2020-07-05 13:43 | XRay Report ---
XR chest 1V portable HISTORY: 59 years-old Female SEPSIS COMPARISON: Chest radiograph 01/15/2018 TECHNIQUE: Portable AP view of the chest FINDINGS: Cardiac silhouette is upper limits of normal in size, unchanged. There is no pneumothorax, pleural ef fusion, airspace consolidation or overt pulmonary edema. Bones of the chest appear grossly intact. St imulator leads are noted overlying the midthoracic spine. IMPRESSION: No acute process. ACT 112: Negative or not required by law. The above report was generated using voice recognition software. It may contain grammatical, syntax o r spelling errors. Electronically signed by: Farzad Gates M.D. 07/05/2020 1:41 PM
--- NOTE | 2020-07-05 13:54 | CT Scan Report ---
CT OF THE ABDOMEN AND PELVIS WITHOUT CONTRAST CLINICAL HISTORY: Abdominal pain. COMPARISON STUDY: CT of the abdomen and pelvis April 21, 2020. TECHNIQUE: Axial images of the abdomen and pelvis were obtained without IV contrast. Images were revi ewed in the axial, sagittal, and coronal planes. Automated exposure control was utilized for the juvencio dy. A dose lowering technique was utilized adhering to the principles of ALARA. FINDINGS: No pneumatosis, free air or portal venous gas is present. Intrauterine canalicular electrod e is noted. Postoperative findings within the lumbosacral spine are noted. There is no biliary ductal dilatation status post cholecystectomy. Liver morphology is normal. Unenhanced images of the spleen, adrenal glands and kidneys are unremarkable. No renal, ureteral or bladder calculi are present. Ther e is no hydronephrosis or hydroureter. Bladder is distended. A fat attenuation 7.2 cm left lower quad rant lesion is similar to prior exam. This has only mildly increased in size since CT of December 07, 2008. This is pathologically indeterminate but favors a lipoma. There is no evidence for bowel obstru ction. A large amount stool within the cecum, ascending colon and transverse colon is noted. The appe ndix is not visualized. Previous ventral hernia repair with mesh is noted. There is no lymphadenopath y or ascites. There are no suspicious osseous lesions. Sigmoid diverticulosis is noted without eviden ce for acute diverticulitis. IMPRESSION: 1. No urinary calculi or hydronephrosis. 2. No acute process within the abdomen or pelvis on unenhanced exam. 3. Large amount of stool within the cecum, ascending colon and transverse colon. No bowel obstruction . Nonvisualization of the appendix. 4. Sigmoid diverticulosis without evidence for acute diverticulitis. 5. Mild distention of the bladder. ACT 112: Negative or not required by law. Electronically signed by: Carlton Cornejo M.D. 07/05/2020 1:53 PM
[2020-07-05 13:57] LABS: Albumin Level 4.4 gm/dl (3.4-5.0); Aspartate Aminotransferase 18 U/L (15-37); BUN Creatinine Ratio 11.9 (10-20); Blood Urea Nitrogen 12 mg/dl (7-18); Calcium 9.5 mg/dl (8.5-10.1); Carbon Dioxide 28 mmol/L (21-32); Chloride 96 mmol/L (98-107); Est GFR (African American) 74.2; Glucose 127 mg/dl (70-99); Magnesium 2.3 mg/dl (1.8-2.4); Potassium 3.6 mmol/L (3.5-5.1); Sodium 131 mmol/L (136-145)
[2020-07-05] MEDS ORDERED: cefTRIAXone SODIUM 2,000 MG/70 ML BAG IV STA (13:57)
[2020-07-05] MEDS ORDERED: VANCOMYCIN CONSULT ACTIVE PRN (13:57)
[2020-07-05] MEDS ORDERED: VANCOMYCIN HCL 1,750 MG in SODIUM CHLORIDE 0.9% 500 ML IV ONE (13:57)
[2020-07-05] MEDS ORDERED: DEXAMETHASONE SOD INJ 10 MG/ML VIAL IV ONE (13:57)
[2020-07-05 14:02] LABS: Partial Thromboplastin Ratio 1.6; Prothrombin Time 10.1 Seconds (9.0-12.0)
[2020-07-05 14:07] LABS: Alanine Aminotransferase 21 U/L (12-78); Albumin Globulin Ratio 1.1 (0.9-2); Alkaline Phosphatase 91 U/L (45-117); Bilirubin,Total 0.5 mg/dl (0.2-1); Globulin 4.1 gm/dl (2.5-4.0); Total Protein 8.5 gm/dl (6.4-8.2); Troponin I < 0.015 ng/ml (0-0.045)
[2020-07-05 14:09] LABS: Base Excess VBG 0.6 mEq/L; HCO3 VBG 28 mmol/L; PCO2 VBG 56 mmHg (38-50); PO2 VBG 29 mmHg; pH VBG 7.32 (7.36-7.41)
[2020-07-05 14:11] LABS: Oxygen Saturation VBG < 60.0 %
--- NOTE | 2020-07-05 14:32 | Emergency Department Note ---
Impression & Plan Acute alteration in mental status, Elevated WBC count, Hypothermia, Headache ED Provider Note NAME: JACKELYN WIN AGE: 59 SEX: F : 1960 ARRIVES VIA: Walk-In INFORMANT: Patient, ED PROVIDER(S): Enoch Clark DO CHIEF COMPLAINT: Altered mental status HPI: The patient is a 59-year-old female who presented to the emergency department for an evaluation of altered mental status. According to her she started having symptoms earlier today. They appear to be acute in onset. The patient complained of a headache as well as nausea. She denied any abdominal pain. She is had no falls. She does have a history of craniotomy in the past for subdural hematoma but this was many years ago. There is no reported fever but the patient felt very cold and diaphoretic. The patient came through triage. She was moved directly into a room and made a priority. She denies having any chest pain. She denies having any cough or cold exposures. She has no COVID exposures as far she knows. She is had no recent travel. She was not seen by her primary care physician for these complaints. ROS: See above HPI for pertinent positives & negatives. A total of 10 systems reviewed and were otherwise negative. PAST MEDICAL HISTORY: See Below PAST SURGICAL HISTORY: See Below FAMILY HISTORY: See Below SOCIAL HISTORY: See Below HOME MEDICATIONS: See Below ALLERGIES: See Below VITALS: See Below PHYSICAL EXAMINATION: GENERAL: The patient is listless and slow to respond to questioning. She does not appear to be uncomfortable. EYES: The conjunctivae are clear. The pupils are round and reactive. EARS, NOSE, MOUTH AND THROAT: The nose is without any evidence of any deformity. Mucous membranes are dry. NECK: The neck is nontender and supple. RESPIRATORY: Normal respiratory effort is noted there is no evidence of wheezing rhonchi or rales CARDIOVASCULAR: Regular rate and rhythm noted there no murmurs rubs or gallops normal S1 normal S2. GASTROINTESTINAL: The abdomen is soft. Abdomen is nontender. MUSCULOSKELETAL/EXTREMITIES: There is no evidence of gross deformity full range of motion is noted in the hips and shoulders. SKIN: There is no obvious evidence of any rash. There are no petechiae, pallor or cyanosis noted. NEUROLOGIC: The patient is awake and alert. She responds to verbal commands. She falls asleep easily when not being verbally stimulated. Patellar tendon reflexes are 2+ bilaterally. MEDICAL DECISION MAKING: The patient is a 59-year-old female who presented to the emergency department for an evaluation of altered mental status. The patient arrived at the emergency department with her significant other. The patient was complaining of headache and then the patient's noted that she was not responding ap propriately. She was diaphoretic and appeared to be in significant distress. He brought her directly to the emergency department. She was brought directly back from triage. A septic work-up was undertaken given the patient's complaints. The patient was found to have an elevated white blood cell count. For this reason further radiographic and laboratory studies were obtained to rule out DISTRIBUTION OPERATION SUPERVISOR infection. There were no elevation in the white or red blood cells in the CSF. There was an elevation in the protein. The patient was treated with IV steroids as well as IV antibiotics to cover a DISTRIBUTION OPERATION SUPERVISOR infection. I discussed the patient's laboratory and radiographic studies with her and her significant other. Her condition slowly improved. Given the patient's previous records and reviewing her PDMP I would wonder if the patient took too much of her prescription medications because of this headache. There does not appear to be any signs of subarachnoid hemorrhage on CSF or CT the head. I did discuss this case with the on-call [facility] group. They have agreed to evaluate the patient in the emergency department for further management and disposition. The patient was placed on a bear hugger and her temperature as well as her condition improved. Triage Nursing notes reviewed. Prior medical records reviewed Vital Signs: reviewed and remarkable for hypothermia Differential diagnosis: Infection, hypoglycemia, electrolyte abnormalities, overdose, toxicologic, cardiac sources, intracerebral event, neurologic, trauma, as well as other pathologies. ER treatment provided: See below Diagnostics interpreted by me: ECG: EKG was obtained in the emergency department. My interpretation is sinus bradycardia at [address] depressions were noted. There was no ectopy. This was compared to a tracing from April [id number]. No significant changes were noted. Cardiac Monitoring: An order was placed for continuous cardiac monitoring. The monitor shows a rate of 75 bpm with sinus rhythm. Laboratory studies: As stated above and show below. Imaging studies: See below Consultation(s): 1630: I discussed this case with Kyra Evangelista who is on-call for the [facility] hospitalist group team. They will evaluate the patient in the emergency department for further management and disposition. ED COURSE: Procedures: Lumbar Puncture Indication: Headache and altered mental status. Verbal consent was obtained after the risks and benefits were explained, including but not limited to headache, bleeding/clotting, scarring, infection, pain, and bone/joint/nerve damage. At this time, the risks of the procedure are less than the risks of NOT performing the procedure. A time out was taken and the correct patient and site identified. The patient was placed in the seated position and the back was prepped with betadine and draped in the standard fashion. The L3 intervertebral space was identified, anesthetized locally with 1% lidocaine without epinephrine, and the spinal needle was inserted through the skin with the bevel parallel to the dural fibers. The needle was carefully ad vanced into the lumbar cistern and 4 tubes of clear CSF was obtained. The stylet was replaced and the needle was removed. A bandaid was placed and the patient was placed in the supine position. The patient tolerated the procedure well and there were no complications. PDMP:reviewed and the patient has received multiple controlled substances especially over the last 24 hours. Critical Care: I have personally spent greater than 45 minutes of critical care time in the direct management of this patient. This includes bedside care, interpretation of diagnostic studies, and testing, discussion with consultants, patient, and family members, and other required patient management activities. This 45 minutes is in excess of all separately billable procedures. Past Med/Surg History Medical History Anemia Anxiety Chronic back pain Chronic headaches daily Constipation Degenerative disc disease Depression Endometriosis Fibromyalgia GERD (gastroesophageal reflux disease) Hepatic steatosis Herpes History of ovarian cyst History of subdural hematoma 1991 [facility] Hypertension IBS (irritable bowel syndrome) Leukocytosis Migraine headache Obesity (BMI 30-39.9) Sciatica Spinal cord stimulator status in place 10/2019 [facility] (advised to bring remote/magnet for surgery) Thrush, oral chronic --- nystatin lozenges TID. dx'd 05/2019, follows with PCP & ENT Dr Knox. Surgical History Fusion of spine L4-L5, L5-S1 (after discectomy surgeries) History of anesthesia complications DIFFICULTY WAKING UP History of brain surgery 1991 (removed a subdural hematoma) History of carpal tunnel release RT History of cholecystectomy History of discectomy L4-L5, L5-S1 (2 different surgeries) History of incisional hernia repair (05/02/20) Laparoscopic Incisional Hernia Repair Dr. Olivo 05/02/20 History of rotator cuff surgery right 08/2018 [facility] History of tonsillectomy History of tooth extraction History of tubal ligation +tubal reversal Hx of colonoscopy S/P BSO (bilateral salpingo-oophorectomy) S/P knee surgery right knee S/P [place] (total abdominal hysterectomy) Family History Mother Family history of reaction to anesthesia PONV Breast cancer Diabetes Heart disease Hypertension Grandfather (Paternal) Family history of diabetes mellitus Diabetes Father Family history of diabetes mellitus Heart disease Hypertension Mother Family history of diabetes mellitus Grandmother (Paternal) Family hx of colon cancer Social History Smoking Status: Never smoker Second Hand Exposure: No; Hx Alcohol Use: Yes Alcohol type: wine and hard liquor Hx Substance Use: Yes ("street" (daily)) Last Used Substance Other:: 04.27. Preferred Language: Tamazight Communication Ability: Effective Visual Impairment: Limited Hearing Ability: Normal Truss Designer Required: No Beliefs That Will Affect Care: None marital status: Current Living Situation: Spouse current occupational status: disabled Feels Safe at Home: Yes Allergies Allergies Allergy/AdvReac Type Severity Reaction Status Date / Time bacitracin Allergy Unknown RASH Verified 07/05/20 13:37 cephalexin AdvReac Unknown HEADACHES, Verified 07/05/20 13:37 G I UPSET Home Meds Home Medications Medication Instructions Recorded Confirmed cholecalciferol (vitamin D3) 2,000 unit PO QPM 08/12/18 07/05/20 [Vitamin D3] cyclobenzaprine 10 mg PO DAILY PRN 08/12/18 07/05/20 duloxetine [Cymbalta] 120 mg PO QAM 08/12/18 07/05/20 lorazepam 1 mg PO DAILY PRN 08/12/18 07/05/20 magnesium 500 mg PO QPM 08/12/18 07/05/20 multivitamin 1 tab PO QPM 08/12/18 07/05/20 pregabalin [Lyrica] 150 mg PO TID 08/12/18 07/05/20 loratadine 10 mg tablet 10 mg PO DAILY PRN 01/08/19 07/05/20 vitamin B complex 1 tab PO QAM 01/08/19 07/05/20 pravastatin 10 mg tablet 10 mg PO HS 04/15/20 07/05/20 hydrochlorothiazide 12.5 mg PO QAM 04/28/20 07/05/20 losartan 50 mg PO QAM 04/28/20 07/05/20 pantoprazole [Protonix] 20 mg PO QAM 04/28/20 07/05/20 metformin 500 mg PO DAILY@1400 07/05/20 07/05/20 Previous Rx's Medication Instructions Recorded oxycodone 10 mg PO Q8H PRN #21 tab 05/04/20 Results & Data (ED) Vital Signs Vital Signs - 24 hr 07/05/20 12:41 07/05/20 13:00 07/05/20 13:02 Temperature 36.4 C L 35.3 C L Temperature Source Oral Rectal Pulse Rate 64 59 L 60 Pulse Rate [Left Finger] Pulse Rate from SpO2 Sensor 61 59 L Respiratory Rate 18 16 13 Respiratory Effort / Characteristics Non-Labored Respiratory Depth Normal Blood Pressure 157/78 H 147/67 H Blood Pressure [Left Arm] Blood Pressure Mean 104 94 Blood Pressure Mean [Left Arm] Pulse Oximetry 99 99 97 Oxygen Delivery Method Room Air Room Air Sepsis Recent Fever Within 48 Hours No Sepsis New/Unexplained Change in Mental Status N/A Sepsis Action Taken by Nursing No Action Required 07/05/20 13:10 07/05/20 13:35 07/05/20 13:40 Temperature Temperature Source Pulse Rate 73 70 67 Pulse Rate [Left Finger] Pulse Rate from SpO2 Sensor 72 72 67 Respiratory Rate 14 17 21 Respiratory Effort / Characteristics Respiratory Depth Blood Pressure 154/79 H Blood Pressure [Left Arm] Blood Pressure Mean 99 Blood Pressure Mean [Left Arm] Pulse Oximetry 98 96 98 Oxygen Delivery Method Room Air Room Air Room Air Sepsis Recent Fever Within 48 Hours Sepsis New/Unexplained Change in Mental Status Sepsis Action Taken by Nursing 07/05/20 13:50 07/05/20 14:00 07/05/20 14:02 Temperature Temperature Source Pulse Rate 62 70 59 L Pulse Rate [Left Finger] Pulse Rate from SpO2 Sensor 62 71 67 Respiratory Rate 13 12 24 Respiratory Effort / Characteristics Respiratory Depth Blood Pressure 171/95 H Blood Pressure [Left Arm] Blood Pressure Mean 132 Blood Pressure Mean [Left Arm] Pulse Oximetry 95 96 97 Oxygen Delivery Method Room Air Room Air Room Air Sepsis Recent Fever Within 48 Hours Sepsis New/Unexplained Change in Mental Status Sepsis Action Taken by Nursing 07/05/20 14:10 07/05/20 14:11 07/05/20 14:12 Temperature Temperature Source Pulse Rate 67 Pulse Rate [Left Finger] 63 Pulse Rate from SpO2 Sensor 70 Respiratory Rate 17 16 16 Respiratory Effort / Characteristics Non-Labored Respiratory Depth Blood Pressure Blood Pressure [Left Arm] 171/95 H Blood Pressure Mean Blood Pressure Mean [Left Arm] 120 Pulse Oximetry 94 100 95 Oxygen Delivery Method Room Air Room Air Room Air Sepsis Recent Fever Within 48 Hours Sepsis New/Unexplained Change in Mental Status Sepsis Action Taken by Nursing 07/05/20 14:20 07/05/20 14:30 07/05/20 14:35 Temperature Temperature Source Pulse Rate 70 63 68 Pulse Rate [Left Finger] Pulse Rate from SpO2 Sensor 70 62 67 Respiratory Rate 18 14 11 L Respiratory Effort / Characteristics Respiratory Depth Blood Pressure 128/89 128/89 Blood Pressure [Left Arm] Blood Pressure Mean 106 106 Blood Pressure Mean [Left Arm] Pulse Oximetry 95 97 98 Oxygen Delivery Method Room Air Room Air Room Air Sepsis Recent Fever Within 48 Hours Sepsis New/Unexplained Change in Mental Status Sepsis Action Taken by Nursing 07/05/20 14:40 07/05/20 14:50 07/05/20 15:00 Temperature Temperature Source Pulse Rate 61 74 67 Pulse Rate [Left Finger] Pulse Rate from SpO2 Sensor 62 73 69 Respiratory Rate 18 17 16 Respiratory Effort / Characteristics Respiratory Depth Blood Pressure 123/77 Blood Pressure [Left Arm] Blood Pressure Mean 98 Blood Pressure Mean [Left Arm] Pulse Oximetry 96 100 97 Oxygen Delivery Method Room Air Room Air Room Air Sepsis Recent Fever Within 48 Hours Sepsis New/Unexplained Change in Mental Status Sepsis Action Taken by Nursing 07/05/20 15:10 07/05/20 15:20 Temperature Temperature Source Pulse Rate 68 70 Pulse Rate [Left Finger] Pulse Rate from SpO2 Sensor 72 70 Respiratory Rate 20 17 Respiratory Effort / Characteristics Respiratory Depth Blood Pressure Blood Pressure [Left Arm] Blood Pressure Mean Blood Pressure Mean [Left Arm] Pulse Oximetry 94 90 Oxygen Delivery Method Room Air Room Air Sepsis Recent Fever Within 48 Hours Sepsis New/Unexplained Change in Mental Status Sepsis Action Taken by Correction Medications Current Medication List: was personally reviewed by me Laboratory Data Attestation: I reviewed the patient's lab results. Result diagrams: 07/05/20 13:16 07/05/20 13:16 Lab Results 07/05/20 07/05/20 07/05/20 Range/Units 13:16 13:16 13:16 WBC 19.50 H (4.8-10.8) K/uL RBC 4.24 (4.2-5.4) M/uL Hgb 12.2 (12.0-16.0) g/dL Hct 37.1 (37-47) % MCV 87.5 (80-100) fL MCH 28.8 (25-34) pg MCHC 32.9 (32-36) g/dL RDW Std Deviation 49.2 H (36.4-46.3) fL RDW Coeff of [place] 15.2 H (11.5-14.5) % Plt Count 289 (130-400) K/uL MPV 10.1 (7.4-10.4) fL Immature Gran % (Auto) 0.3 % Neut % (Auto) 77.1 % Lymph % (Auto) 18.2 % Carter % (Auto) 3.2 % Eos % (Auto) 1.1 % Baso % (Auto) 0.1 % Neut # (Auto) 15.04 H (1.4-6.5) K/uL Lymph # (Auto) 3.54 H (1.2-3.4) K/uL Carter # (Auto) 0.63 H (0.11-0.59) K/uL Eos # (Auto) 0.21 (0-0.5) K/uL Baso # (Auto) 0.02 (0-0.2) K/uL Immature Gran # (Auto) 0.06 H (0.00-0.02) K/uL Hypersegmented Neuts Occasional PT 10.1 (9.0-12.0) Seconds INR 1.0 (0.9-1.1) APTT 45.1 H* (21.0-31.0) Seconds PTT Ratio 1.6 VBG pH (7.36-7.41) VBG pCO2 (38-50) mmHg VBG pO2 mmHg VBG HCO3 mmol/L VBG O2 Saturation % VBG Base Excess mEq/L Barometric Pressure mm/Hg Sodium 131 L (136-145) mmol/L Potassium 3.6 (3.5-5.1) mmol/L Chloride 96 L (98-107) mmol/L Carbon Dioxide 28 (21-32) mmol/L Anion Gap 8.0 (3-11) BUN 12 (7-18) mg/dl Creatinine 0.98 (0.6-1.2) mg/dl Est Cr Clr Drug Dosing Not Reportable Est GFR ( Amer) 74.2 Est GFR (Non-Af Amer) 64.0 BUN/Creatinine Ratio 11.9 (10-20) Glucose 127 H (70-99) mg/dl Lactate (0.4-2.0) mmol/L Calcium 9.5 (8.5-10.1) mg/dl Magnesium 2.3 (1.8-2.4) mg/dl Total Bilirubin 0.5 (0.2-1) mg/dl AST 18 (15-37) U/L ALT 21 (12-78) U/L Alkaline Phosphatase 91 (45-117) U/L Ammonia (11-32) umol/L Troponin I < 0.015 (0-0.045) ng/ml Total Protein 8.5 H (6.4-8.2) gm/dl Albumin 4.4 (3.4-5.0) gm/dl Globulin 4.1 H (2.5-4.0) gm/dl Albumin/Globulin Ratio 1.1 (0.9-2) Procalcitonin (0-0.5) ng/ml TSH 2.110 (0.300-4.500) uIu/ml Random Cortisol mcg/dl Urine Color Urine Appearance (Clear) Urine pH (4.5-7.5) Ur Specific [place] (1.000-1.030) Urine Protein (Negative) Urine Glucose (UA) (Negative) Urine Ketones (Negative) Urine Blood (Negative) Urine Nitrite (Negative) Urine Bilirubin (Negative) Urine Urobilinogen (Negative) Ur Leukocyte Esterase (Negative) CSF Appearance CSF Color Xanthrochromic CSF WBC (0-5) /uL CSF RBC (0-) /uL CSF Cell Count Tube # CSF Chemistry Tube # CSF Glucose (40-70) mg/dl CSF Total Protein (15-45) mg/dl Urine Opiates Screen (Neg) Ur Methadone, Qual (Neg) Urine Barbiturates (Neg) Ur Phencyclidine (PCP) (Neg) U Amphetamin/Meth Scrn (Neg) MDMA (Ecstasy) Screen (Neg) U Benzodiazepines Scrn (Neg) Ur Cocaine Metabolite (Neg) U Marijuana (THC) Screen (Neg) Ethyl Alcohol mg/dL (0-3) mg/dl Anaplasma Smear See Comment Lyme Disease IgG Ab (Negative) Lyme Disease IgM Ab (Negative) 07/05/20 07/05/20 07/05/20 Range/Units 13:16 13:16 13:16 WBC (4.8-10.8) K/uL RBC (4.2-5.4) M/uL Hgb (12.0-16.0) g/dL Hct (37-47) % MCV (80-100) fL MCH (25-34) pg MCHC (32-36) g/dL RDW Std Deviation (36.4-46.3) fL RDW Coeff of [place] (11.5-14.5) % Plt Count (130-400) K/uL MPV (7.4-10.4) fL Immature Gran % (Auto) % Neut % (Auto) % Lymph % (Auto) % Carter % (Auto) % Eos % (Auto) % Baso % (Auto) % Neut # (Auto) (1.4-6.5) K/uL Lymph # (Auto) (1.2-3.4) K/uL Carter # (Auto) (0.11-0.59) K/uL Eos # (Auto) (0-0.5) K/uL Baso # (Auto) (0-0.2) K/uL Immature Gran # (Auto) (0.00-0.02) K/uL Hypersegmented Neuts PT (9.0-12.0) Seconds INR (0.9-1.1) APTT (21.0-31.0) Seconds PTT Ratio VBG pH (7.36-7.41) VBG pCO2 (38-50) mmHg VBG pO2 mmHg VBG HCO3 mmol/L VBG O2 Saturation % VBG Base Excess mEq/L Barometric Pressure mm/Hg Sodium (136-145) mmol/L Potassium (3.5-5.1) mmol/L Chloride (98-107) mmol/L Carbon Dioxide (21-32) mmol/L Anion Gap (3-11) BUN (7-18) mg/dl Creatinine (0.6-1.2) mg/dl Est Cr Clr Drug Dosing Est GFR ( Amer) Est GFR (Non-Af Amer) BUN/Creatinine Ratio (10-20) Glucose (70-99) mg/dl Lactate 0.9 (0.4-2.0) mmol/L Calcium (8.5-10.1) mg/dl Magnesium (1.8-2.4) mg/dl Total Bilirubin (0.2-1) mg/dl AST (15-37) U/L ALT (12-78) U/L Alkaline Phosphatase (45-117) U/L Ammonia (11-32) umol/L Troponin I (0-0.045) ng/ml Total Protein (6.4-8.2) gm/dl Albumin (3.4-5.0) gm/dl Globulin (2.5-4.0) gm/dl Albumin/Globulin Ratio (0.9-2) Procalcitonin < 0.05 (0-0.5) ng/ml TSH (0.300-4.500) uIu/ml Random Cortisol 39.59 mcg/dl Urine Color Urine Appearance (Clear) Urine pH (4.5-7.5) Ur Specific [place] (1.000-1.030) Urine Protein (Negative) Urine Glucose (UA) (Negative) Urine Ketones (Negative) Urine Blood (Negative) Urine Nitrite (Negative) Urine Bilirubin (Negative) Urine Urobilinogen (Negative) Ur Leukocyte Esterase (Negative) CSF Appearance CSF Color Xanthrochromic CSF WBC (0-5) /uL CSF RBC (0-) /uL CSF Cell Count Tube # CSF Chemistry Tube # CSF Glucose (40-70) mg/dl CSF Total Protein (15-45) mg/dl Urine Opiates Screen (Neg) Ur Methadone, Qual (Neg) Urine Barbiturates (Neg) Ur Phencyclidine (PCP) (Neg) U Amphetamin/Meth Scrn (Neg) MDMA (Ecstasy) Screen (Neg) U Benzodiazepines Scrn (Neg) Ur Cocaine Metabolite (Neg) U Marijuana (THC) Screen (Neg) Ethyl Alcohol mg/dL (0-3) mg/dl Anaplasma Smear Lyme Disease IgG Ab (Negative) Lyme Disease IgM Ab (Negative) 07/05/20 07/05/20 07/05/20 Range/Units 13:56 13:56 13:56 WBC (4.8-10.8) K/uL RBC (4.2-5.4) M/uL Hgb (12.0-16.0) g/dL Hct (37-47) % MCV (80-100) fL MCH (25-34) pg MCHC (32-36) g/dL RDW Std Deviation (36.4-46.3) fL RDW Coeff of [place] (11.5-14.5) % Plt Count (130-400) K/uL MPV (7.4-10.4) fL Immature Gran % (Auto) % Neut % (Auto) % Lymph % (Auto) % Carter % (Auto) % Eos % (Auto) % Baso % (Auto) % Neut # (Auto) (1.4-6.5) K/uL Lymph # (Auto) (1.2-3.4) K/uL Carter # (Auto) (0.11-0.59) K/uL Eos # (Auto) (0-0.5) K/uL Baso # (Auto) (0-0.2) K/uL Immature Gran # (Auto) (0.00-0.02) K/uL Hypersegmented Neuts PT (9.0-12.0) Seconds INR (0.9-1.1) APTT (21.0-31.0) Seconds PTT Ratio VBG pH 7.32 L (7.36-7.41) VBG pCO2 56 H (38-50) mmHg VBG pO2 29 mmHg VBG HCO3 28 mmol/L VBG O2 Saturation < 60.0 % VBG Base Excess 0.6 mEq/L Barometric Pressure 733.4 mm/Hg Sodium (136-145) mmol/L Potassium (3.5-5.1) mmol/L Chloride (98-107) mmol/L Carbon Dioxide (21-32) mmol/L Anion Gap (3-11) BUN (7-18) mg/dl Creatinine (0.6-1.2) mg/dl Est Cr Clr Drug Dosing Est GFR ( Amer) Est GFR (Non-Af Amer) BUN/Creatinine Ratio (10-20) Glucose (70-99) mg/dl Lactate (0.4-2.0) mmol/L Calcium (8.5-10.1) mg/dl Magnesium (1.8-2.4) mg/dl Total Bilirubin (0.2-1) mg/dl AST (15-37) U/L ALT (12-78) U/L Alkaline Phosphatase (45-117) U/L Ammonia 22.2 (11-32) umol/L Troponin I (0-0.045) ng/ml Total Protein (6.4-8.2) gm/dl Albumin (3.4-5.0) gm/dl Globulin (2.5-4.0) gm/dl Albumin/Globulin Ratio (0.9-2) Procalcitonin (0-0.5) ng/ml TSH (0.300-4.500) uIu/ml Random Cortisol mcg/dl Urine Color Urine Appearance (Clear) Urine pH (4.5-7.5) Ur Specific [place] (1.000-1.030) Urine Protein (Negative) Urine Glucose (UA) (Negative) Urine Ketones (Negative) Urine Blood (Negative) Urine Nitrite (Negative) Urine Bilirubin (Negative) Urine Urobilinogen (Negative) Ur Leukocyte Esterase (Negative) CSF Appearance CSF Color Xanthrochromic CSF WBC (0-5) /uL CSF RBC (0-) /uL CSF Cell Count Tube # CSF Chemistry Tube # CSF Glucose (40-70) mg/dl CSF Total Protein (15-45) mg/dl Urine Opiates Screen (Neg) Ur Methadone, Qual (Neg) Urine Barbiturates (Neg) Ur Phencyclidine (PCP) (Neg) U Amphetamin/Meth Scrn (Neg) MDMA (Ecstasy) Screen (Neg) U Benzodiazepines Scrn (Neg) Ur Cocaine Metabolite (Neg) U Marijuana (THC) Screen (Neg) Ethyl Alcohol mg/dL < 3.0 (0-3) mg/dl Anaplasma Smear Lyme Disease IgG Ab (Negative) Lyme Disease IgM Ab (Negative) 07/05/20 07/05/20 07/05/20 Range/Units 14:15 14:15 14:24 WBC (4.8-10.8) K/uL RBC (4.2-5.4) M/uL Hgb (12.0-16.0) g/dL Hct (37-47) % MCV (80-100) fL MCH (25-34) pg MCHC (32-36) g/dL RDW Std Deviation (36.4-46.3) fL RDW Coeff of [place] (11.5-14.5) % Plt Count (130-400) K/uL MPV (7.4-10.4) fL Immature Gran % (Auto) % Neut % (Auto) % Lymph % (Auto) % Carter % (Auto) % Eos % (Auto) % Baso % (Auto) % Neut # (Auto) (1.4-6.5) K/uL Lymph # (Auto) (1.2-3.4) K/uL Carter # (Auto) (0.11-0.59) K/uL Eos # (Auto) (0-0.5) K/uL Baso # (Auto) (0-0.2) K/uL Immature Gran # (Auto) (0.00-0.02) K/uL Hypersegmented Neuts PT (9.0-12.0) Seconds INR (0.9-1.1) APTT (21.0-31.0) Seconds PTT Ratio VBG pH (7.36-7.41) VBG pCO2 (38-50) mmHg VBG pO2 mmHg VBG HCO3 mmol/L VBG O2 Saturation % VBG Base Excess mEq/L Barometric Pressure mm/Hg Sodium (136-145) mmol/L Potassium (3.5-5.1) mmol/L Chloride (98-107) mmol/L Carbon Dioxide (21-32) mmol/L Anion Gap (3-11) BUN (7-18) mg/dl Creatinine (0.6-1.2) mg/dl Est Cr Clr Drug Dosing Est GFR ( Amer) Est GFR (Non-Af Amer) BUN/Creatinine Ratio (10-20) Glucose (70-99) mg/dl Lactate (0.4-2.0) mmol/L Calcium (8.5-10.1) mg/dl Magnesium (1.8-2.4) mg/dl Total Bilirubin (0.2-1) mg/dl AST (15-37) U/L ALT (12-78) U/L Alkaline Phosphatase (45-117) U/L Ammonia (11-32) umol/L Troponin I (0-0.045) ng/ml Total Protein (6.4-8.2) gm/dl Albumin (3.4-5.0) gm/dl Globulin (2.5-4.0) gm/dl Albumin/Globulin Ratio (0.9-2) Procalcitonin (0-0.5) ng/ml TSH (0.300-4.500) uIu/ml Random Cortisol mcg/dl Urine Color Yellow Urine Appearance Clear (Clear) Urine pH 6.5 (4.5-7.5) Ur Specific [place] 1.011 (1.000-1.030) Urine Protein Negative (Negative) Urine Glucose (UA) Negative (Negative) Urine Ketones Negative (Negative) Urine Blood Negative (Negative) Urine Nitrite Negative (Negative) Urine Bilirubin Negative (Negative) Urine Urobilinogen Negative (Negative) Ur Leukocyte Esterase Negative (Negative) CSF Appearance CSF Color Xanthrochromic CSF WBC (0-5) /uL CSF RBC (0-) /uL CSF Cell Count Tube # CSF Chemistry Tube # CSF Glucose (40-70) mg/dl CSF Total Protein (15-45) mg/dl Urine Opiates Screen Pos H (Neg) Ur Methadone, Qual Neg (Neg) Urine Barbiturates Pos H (Neg) Ur Phencyclidine (PCP) Neg (Neg) U Amphetamin/Meth Scrn Neg (Neg) MDMA (Ecstasy) Screen Neg (Neg) U Benzodiazepines Scrn Neg (Neg) Ur Cocaine Metabolite Neg (Neg) U Marijuana (THC) Screen Pos H (Neg) Ethyl Alcohol mg/dL (0-3) mg/dl Anaplasma Smear Lyme Disease IgG Ab Negative (Negative) Lyme Disease IgM Ab Negative (Negative) 07/05/20 Range/Units 14:50 WBC (4.8-10.8) K/uL RBC (4.2-5.4) M/uL Hgb (12.0-16.0) g/dL Hct (37-47) % MCV (80-100) fL MCH (25-34) pg MCHC (32-36) g/dL RDW Std Deviation (36.4-46.3) fL RDW Coeff of [place] (11.5-14.5) % Plt Count (130-400) K/uL MPV (7.4-10.4) fL Immature Gran % (Auto) % Neut % (Auto) % Lymph % (Auto) % Carter % (Auto) % Eos % (Auto) % Baso % (Auto) % Neut # (Auto) (1.4-6.5) K/uL Lymph # (Auto) (1.2-3.4) K/uL Carter # (Auto) (0.11-0.59) K/uL Eos # (Auto) (0-0.5) K/uL Baso # (Auto) (0-0.2) K/uL Immature Gran # (Auto) (0.00-0.02) K/uL Hypersegmented Neuts PT (9.0-12.0) Seconds INR (0.9-1.1) APTT (21.0-31.0) Seconds PTT Ratio VBG pH (7.36-7.41) VBG pCO2 (38-50) mmHg VBG pO2 mmHg VBG HCO3 mmol/L VBG O2 Saturation % VBG Base Excess mEq/L Barometric Pressure mm/Hg Sodium (136-145) mmol/L Potassium (3.5-5.1) mmol/L Chloride (98-107) mmol/L Carbon Dioxide (21-32) mmol/L Anion Gap (3-11) BUN (7-18) mg/dl Creatinine (0.6-1.2) mg/dl Est Cr Clr Drug Dosing Est GFR ( Amer) Est GFR (Non-Af Amer) BUN/Creatinine Ratio (10-20) Glucose (70-99) mg/dl Lactate (0.4-2.0) mmol/L Calcium (8.5-10.1) mg/dl Magnesium (1.8-2.4) mg/dl Total Bilirubin (0.2-1) mg/dl AST (15-37) U/L ALT (12-78) U/L Alkaline Phosphatase (45-117) U/L Ammonia (11-32) umol/L Troponin I (0-0.045) ng/ml Total Protein (6.4-8.2) gm/dl Albumin (3.4-5.0) gm/dl Globulin (2.5-4.0) gm/dl Albumin/Globulin Ratio (0.9-2) Procalcitonin (0-0.5) ng/ml TSH (0.300-4.500) uIu/ml Random Cortisol mcg/dl Urine Color Urine Appearance (Clear) Urine pH (4.5-7.5) Ur Specific [place] (1.000-1.030) Urine Protein (Negative) Urine Glucose (UA) (Negative) Urine Ketones (Negative) Urine Blood (Negative) Urine Nitrite (Negative) Urine Bilirubin (Negative) Urine Urobilinogen (Negative) Ur Leukocyte Esterase (Negative) CSF Appearance Clear CSF Color Colorless Xanthrochromic No xanthochromia CSF WBC 1 (0-5) /uL CSF RBC 0 (0-) /uL CSF Cell Count Tube # 3 CSF Chemistry Tube # 1 CSF Glucose 62 (40-70) mg/dl CSF Total Protein 84.4 H (15-45) mg/dl Urine Opiates Screen (Neg) Ur Methadone, Qual (Neg) Urine Barbiturates (Neg) Ur Phencyclidine (PCP) (Neg) U Amphetamin/Meth Scrn (Neg) MDMA (Ecstasy) Screen (Neg) U Benzodiazepines Scrn (Neg) Ur Cocaine Metabolite (Neg) U Marijuana (THC) Screen (Neg) Ethyl Alcohol mg/dL (0-3) mg/dl Anaplasma Smear Lyme Disease IgG Ab (Negative) Lyme Disease IgM Ab (Negative) Administered Medications Vancomycin HCl 1,750 mg/ (Sodium Chloride) 535 mls @ 200 mls/hr IV NOW ONE Stop: 07/05/20 16:37 Last Admin: 07/05/20 14:31 Dose: 200 mls/hr Documented by: [id number] Discontinued Medications Dexamethasone (Dexamethasone Sod Inj 10 Mg/Ml Vial) 10 mg IV NOW ONE Stop: 07/05/20 13:58 Last Admin: 07/05/20 14:31 Dose: 10 mg Documented by: [id number] Sodium Chloride (Nss 1000ml) 1,000 mls @ 999 mls/hr IV .Q1H1M ONE Stop: 07/05/20 14:07 Last Infusion: 07/05/20 14:32 Dose: 0 mls/hr Documented by: [id number] Admin: 07/05/20 13:30 Dose: 999 mls/hr Documented by: [id number] Ceftriaxone Sodium (Rocephin) 2,000 mg in 70 mls @ 140 mls/hr IV NOW STA Stop: 07/05/20 14:26 Last Infusion: 07/05/20 14:50 Dose: 0 mls/hr Documented by: [id number] Admin: 07/05/20 14:31 Dose: 140 mls/hr Documented by: [id number] Ondansetron HCl (Ondansetron Inj 2 Mg/Ml 2 Ml Vial) 4 mg IV NOW STA Stop: 07/05/20 13:08 Last Admin: 07/05/20 14:32 Dose: 4 mg Documented by: [id number] Imaging Data Radiologist's Impression: CT OF THE ABDOMEN AND PELVIS WITHOUT CONTRAST CLINICAL HISTORY: Abdominal pain. COMPARISON STUDY: CT of the abdomen and pelvis April 21, 2020. TECHNIQUE: Axial images of the abdomen and pelvis were obtained without IV contrast. Images were reviewed in the axial, sagittal, and coronal planes. Automated exposure control was utilized for the study. A dose lowering technique was utilized adhering to the principles of ALARA. FINDINGS: No pneumatosis, free air or portal venous gas is present. Intrauterine canalicular electrode is noted. Postoperative findings within the lumbosacral spine are noted. There is no biliary ductal dilatation status post cholecystectomy. Liver morphology is normal. Unenhanced images of the spleen, adrenal glands and kidneys are unremarkable. No renal, ureteral or bladder calculi are present. There is no hydronephrosis or hydroureter. Bladder is distended. A fat attenuation 7.2 cm left lower quadrant lesion is similar to prior exam. This has only mildly increased in size since CT of December 07, 2008. This is pathologically indeterminate but favors a lipoma. There is no evidence for bowel obstruction. A large amount stool within the cecum, ascending colon and transverse colon is noted. The appendix is not visualized. Previous ventral hernia repair with mesh is noted. There is no lymphadenopathy or ascites. There are no suspicious osseous lesions. Sigmoid diverticulosis is noted without evidence for acute diverticulitis. IMPRESSION: 1. No urinary calculi or hydronephrosis. 2. No acute process within the abdomen or pelvis on unenhanced exam. 3. Large amount of stool within the cecum, ascending colon and transverse colon. No bowel obstruction. Nonvisualization of the appendix. 4. Sigmoid diverticulosis without evidence for acute diverticulitis. 5. Mild distention of the bladder. ACT 112: Negative or not required by law. Electronically signed by: Carlton Cornejo M.D. 07/05/2020 1:53 PM Dictated: 07/05/20 1345 Transcribed: 07/05/[address] OF THE HEAD WITHOUT CONTRAST CLINICAL HISTORY: Altered mental status. COMPARISON STUDY: Head CT June 01, 2007 and MRI of the brain October 11, 2011. CT DOSE: 690.05 mGycm TECHNIQUE: Helical axial images of the head were obtained without IV contrast. Automated exposure control was utilized for the study. A dose lowering technique was utilized adhering to the principles of ALARA. FINDINGS: No acute intracranial hemorrhage, midline shift or mass effect is present. Ventricular system is normal. Basilar cisterns are patent. There are no extra-axial collections. There are no findings to suggest acute dural sinus thrombosis or acute territorial infarct. Postoperative appearance of the left occipital craniectomy is unchanged. The appearance of the brain is unchanged. There is no calvarial fracture. Visualized portions of the sinuses and mastoid air cells are clear. IMPRESSION: 1. No acute intracranial findings. 2. Status post left occipital craniectomy. Unchanged postoperative appearance. ACT 112: Negative or not required by law. Electronically signed by: Carlton Cornejo M.D. 07/05/2020 1:42 PM Dictated: 07/05/20 1338 Transcribed: 07/05/20 1338 XR chest 1V portable HISTORY: 59 years-old Female SEPSIS COMPARISON: Chest radiograph 01/15/2018 TECHNIQUE: Portable AP view of the chest FINDINGS: Cardiac silhouette is upper limits of normal in size, unchanged. There is no pneumothorax, pleural effusion, airspace consolidation or overt pulmonary edema. Bones of the chest appear grossly intact. Stimulator leads are noted overlying the midthoracic spine. IMPRESSION: No acute process. ACT 112: Negative or not required by law. The above report was generated using voice recognition software. It may contain grammatical, syntax or spelling errors. Electronically signed by: Farzad Gates M.D. 07/05/2020 1:41 PM Dictated: 07/05/20 1340 Transcribed: 07/05/20 1340 Discharge Plan Visit Data Chief Complaint: Fever Stated Complaint: FEVER, COLD, NAUSEAUS, CONFUSED ED Provider: Enoch Clark Discharge Problem: Acute alteration in mental status, Elevated WBC count, Hypothermia, Headache Patient Disposition: Being Evaluated by Hospitalist Condition: Good Forms Stand Alone Forms: My [facility] Prescriptions Prescriptions: No Action vitamin B complex tablet 1 tab PO QAM RF: 0 pravastatin 10 mg tablet 10 mg PO HS RF: 0 metformin 500 mg tablet extended release 24 hr 500 mg PO DAILY@1400 RF: 0 multivitamin Tablet 1 tab PO QPM RF: 0 magnesium 250 mg Tablet 500 mg PO QPM RF: 0 lorazepam 1 mg Tablet 1 mg PO DAILY PRN (Reason: Anxiety) RF: 0 cholecalciferol (vitamin D3) [Vitamin D3] 1,000 unit Capsule 2,000 unit PO QPM RF: 0 duloxetine [Cymbalta] 60 mg Capsule,Delayed Release(Dr/Ec) 120 mg PO QAM RF: 0 pregabalin [Lyrica] 150 mg Capsule 150 mg PO TID RF: 0 cyclobenzaprine 10 mg Tablet 10 mg PO DAILY PRN (Reason: Muscle Spasm) RF: 0 loratadine [Claritin] 10 mg tablet 10 mg PO DAILY PRN (Reason: allergy symptoms) RF: 0 losartan 50 mg Tablet 50 mg PO QAM RF: 0 pantoprazole [Protonix] 20 mg Tablet,Delayed Release (Dr/Ec) 20 mg PO QAM RF: 0 hydrochlorothiazide 12.5 mg Tablet 12.5 mg PO QAM RF: 0 oxycodone 10 mg tablet 10 mg PO Q8H PRN (Reason: pain) Qty: 21 RF: 0 Referrals Referrals: Marion Miles CRNP [Primary Care Provider] -
[2020-07-05 14:35] LABS: Appearance Urine Clear (Clear); Bilirubin Urine Negative (Negative); Blood Urine Negative (Negative); Color Urine Yellow; Glucose Urine UA Negative (Negative); Ketones Urine Negative (Negative); Leukocyte Esterase Urine Negative (Negative); Nitrite Urine Negative (Negative); Protein Urine Negative (Negative); Specific Gravity Urine 1.011 (1.000-1.030); Urobilinogen Urine Negative (Negative); pH Urine 6.5 (4.5-7.5)
[2020-07-05 14:48] LABS: Partial Thromboplastin Time 45.1 Seconds (21.0-31.0)
[2020-07-05 15:11] LABS: CSF Count Tube # 3
[2020-07-05 15:12] LABS: Appearance CSF Clear; CSF Xanthrochromic No xanthochromia; Color CSF Colorless; Red Blood Cell CSF (A) 0 /uL (0-); Red Blood Cell CSF (B) 0 /uL (0-); White Blood Cell CSF (A) 1 /uL (0-5); White Blood Cell CSF (B) 2 /uL (0-5)
[2020-07-05 15:21] LABS: Amphetamines+Metham, Urine Neg (Neg); Barbiturates, Urine Pos (Neg); Benzodiazepine, Urine Neg (Neg); Cocaine, Urine Neg (Neg); MDMA (Ecstacy), Urine Neg (Neg); Methadone, Urine Neg (Neg); Opiate, Urine Pos (Neg); Phencyclidine, Urine Neg (Neg)
[2020-07-05 15:25] LABS: CSF Glucose 62 mg/dl (40-70); Total Protein CSF 84.4 mg/dl (15-45)
[2020-07-05 15:37] LABS: Lyme Ab IgG w/WB Rflx Negative (Negative); Lyme Ab IgM w/WB Rflx Negative (Negative)
[2020-07-05 15:48] LABS: CSF Chemistry Tube # 1
[2020-07-05] MEDS: ACYCLOVIR SOD 650 MG in DEXTROSE 5% 100 ML IV STA ×2 (17:19→17:38)
--- NOTE | 2020-07-05 18:08 | Hospitalist Progress Note ---
Date of Service July 05, 2020 Assessment & Plan (1) Toxic encephalopathy: admit obs med-surg Likely secondary to polypharmacy - patient had more than her usual dosing of oxycodone, lorazepam and flexeril yesterday combined with marijuana LP in ED showed elevated protein but was otherwise unremarkable - full range of motion in neck Lyme negative, peripheral smear without inclusion bodies VBG with very mild alkalosis - 7.32 Leukocytosis appears chronic head CT wnl, CT a/p without acute process, CXR without acute process Hold sedating medications for now I do think the episode today was likely polypharmacy, however, she appears to have a constellation of inflammatory findings of unclear etiology - elevated PTT, elevated CSF protein, increased neutrophils, mild acidosis. Would repeat lab work in the morning and consider discussing with neurology given her acute on chronic headache which lead her to take increased pain medication. (2) Hypothermia: Last temperature check showed patient to be 35.3 however her presenting temp was 36.4 . Continue Mauricio hugger (3) Occipital neuralgia: Chronic, sees pain management and has had radio ablations in the past Currently experiencing a headache, narcotics are held but will give a dose of Toradol LP as above (4) Leukocytosis: Chronic. Cytology 05/03/20 without abnormality Neutrophils are slightly higher than is normal for her Repeat cbc am and follow (5) GERD (gastroesophageal reflux disease): Continue ppi (6) Fibromyalgia: Hold Lyrica for now, continue duloxetine (7) Hypertension: Continue losartan (8) Chronic back pain: With history of nerve stimulator Hold narcotics for now (9) Prolonged PTT: 45.1 - unclear etiology Repeat level am (10) Hyponatremia: Patient reports poor intake over the last 24 hours or so Recheck am (11) DMII (diabetes mellitus, type 2): Hold home metformin SS, bsgs ac & hs (12) DVT prophylaxis: SCDs Supervising Physician Co-Signing Physician Notes Patient seen and examined with Kyra MORALES. I agree with her exam findings, review of systems, assessment and plan. I personally reviewed the lab work and imaging as well. patient most likely exhibiting altered mental status due to polypharmacy, took oxycodone, Ativan, Flexeril and marijuana all close together LP reviewed, no signs of infection, elevated protein likely chronic finding - TOXIC ENCEPHALOPATHY: due to combination of opiates, benzodiazepines, muscle relaxer and marijuana will hold above medications, provide supportive care with IV fluids, monitor for improvement consult neurology please note, this should be an H&P, wrong document was selected initially please bill as Observation initial H&P level 3 Subjective Ms. Marshall presents with complaints of an episode of diaphoresis, somnolence, and unsteadiness. Her reports that she became very sleepy during dinner last night. Then today she began sweating and appeared to be falling asleep on her feet. She was nauseas but no emesis. She does take a number of sedating medications. Upon going through her medications it appears that normally she takes about 1 each of her prn oxycodone, Flexeril, and lorazepam on days when she needs them but yesterday she took two doses of all three. She is also a daily marijuana user. She has not eaten all day. She is currently awake and alert and back to her usual mentation. She reports a headache and some neck stiffness but these are chronic. 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 Patient received ceftriaxone and dexamethasone in the ED prior to LP results Pmhx: htn, DMII, subdural hematoma, GERD, fusion of the spine with neurostimulator, IBS, fibromyalgia, chronic leukocytosis, Social: lives with , on disability, no alcohol, daily marijuana smoker, quit smoking Family: htn, CHF, breast cancer, DMII Review of Systems Review of Systems: All systems reviewed & are unremarkable except as noted in Subjective Physical Exam Physical Exam: General: no distress Eyes: normal inspection, PERLL Neck: full range of motion, no nuchal rigidity Respiratory: chest non tender, clear to auscultation, normal breath sounds, no respiratory distress, no accessory muscle use Cardiac: regular rate and rhythm, no rub or gallop, no murmur, no edema, no jvd GI/: active bowel sounds, no abd pain or tenderness, soft, non distended Extremities: normal range of motion, normal strength, non tender Neuro/Psych: alert and oriented x 3, normal mood and affect Skin: normal color, dry Results & Data Results & Data ([facility]) Vital Signs (Past 12 Hours) Vital Signs Temp Pulse Pulse Resp BP BP Pulse Ox 07/05/20 17:07 83 16 114/72 99 07/05/20 15:20 70 17 90 07/05/20 15:10 68 20 94 07/05/20 15:00 67 16 123/77 97 07/05/20 14:50 74 17 100 07/05/20 14:40 61 18 96 07/05/20 14:35 68 11 L 128/89 98 07/05/20 14:30 63 14 128/89 97 07/05/20 14:20 70 18 95 07/05/20 14:12 63 16 171/95 H 95 07/05/20 14:11 16 100 07/05/20 14:10 67 17 94 07/05/20 14:02 59 L 24 97 07/05/20 14:00 70 12 171/95 H 96 07/05/20 13:50 62 13 95 07/05/20 13:40 67 21 98 07/05/20 13:35 70 17 154/79 H 96 07/05/20 13:10 73 14 98 07/05/20 13:02 60 13 97 07/05/20 13:00 35.3 C L 59 L 16 147/67 H 99 07/05/20 12:41 36.4 C L 64 18 157/78 H 99 PG Care Time/CCT Total # of Minutes Spent Total Time Spent with Patient: Total time spent is greater than 50% in coordination of care (as documented) at patient's floor/unit and/or counseling patient: Coding Level of Care Code 84281 Subseq Hosp Care Lvl 3 Diagnoses Toxic encephalopathy G92 Hypothermia T68.XXXA Encounter type: initial encounter Occipital neuralgia M54.81 Leukocytosis D72.829 GERD (gastroesophageal reflux disease) K21.9 Fibromyalgia M79.7 Hypertension I10 Chronic back pain M54.9; G89.29 Prolonged PTT R79.1 Hyponatremia E87.1 DMII (diabetes mellitus, type 2) E11.9 DVT prophylaxis Z29.9 (1) Hypothermia Encounter type: initial encounter Qualified Code(s): T68.XXXA - Hypothermia, initial encounter
[2020-07-05] MEDS ORDERED: ONDANSETRON INJ 2 MG/ML 2 ML VIAL IV PRN (19:59)
[2020-07-05] MEDS ORDERED: KETOROLAC TROMETHAMINE 15 MG/ML VIAL IV ONE (19:59)
[2020-07-05] MEDS ORDERED: ACETAMINOPHEN 325 MG TAB PO PRN (19:59)
[2020-07-05] MEDS ORDERED: GLUCAGON FOR INJ 1 MG VIAL IM PRN (20:30)
[2020-07-05] MEDS ORDERED: DEXTROSE 50% 50 ML SYRINGE IV PRN (20:30)
[2020-07-05] MEDS ORDERED: CARBOHYDRATES FOR HYPOGLYCEMIA PO PRN (20:30)
[2020-07-05] MEDS ORDERED: GLUCOSE 40% GEL 15 GM TUBE PO PRN (20:30)
[2020-07-05] MEDS ORDERED: GLUCOSE 10 TABS/TUBE PO PRN (20:30)
[2020-07-05] MEDS ORDERED: PRAVASTATIN SOD 10 MG TAB PO SCH (21:00)
[2020-07-05] MEDS ORDERED: CHOLECALCIFEROL 1,000 UNITS 25 MCG TAB PO SCH (21:00)
[2020-07-05] MEDS ORDERED: MAGNESIUM OXIDE 400 MG TAB PO SCH (21:00)
[2020-07-05] MEDS ORDERED: MULTIVITAMIN TAB PO SCH (21:00)
[2020-07-05] MEDS ORDERED: PHARMACY GLYCEMIC MGMT CONSULT PRN (21:00)
[2020-07-05] MEDS ORDERED: KETOROLAC TROMETHAMINE 15 MG/ML VIAL ONE (22:08)
[2020-07-05] MEDS: INSULIN ASPART 100 UNITS/ML 3 ML PEN SC SCH (22:13)
[2020-07-05 23:13] VITALS: TEMP 97.7
[2020-07-06 05:51] LABS: Hematocrit (blood only) 36.9 % (37-47); Hemoglobin 11.7 g/dL (12.0-16.0); Immature Granulocytes # (auto) 0.03 K/uL (0.00-0.02); Immature Granulocytes % (auto) 0.3 %; Lymphocytes # (auto) 1.94 K/uL (1.2-3.4); Lymphocytes % (auto) 16.6 %; Mean Corpuscular Hemoglobin 28.3 pg (25-34); Mean Corpuscular Hgb Conc 31.7 g/dL (32-36); Mean Corpuscular Volume 89.1 fL (80-100); Mean Platelet Volume 10.4 fL (7.4-10.4); Monocytes # (auto) 0.56 K/uL (0.11-0.59); Monocytes % (auto) 4.8 %; Neutrophils # (auto) 9.14 K/uL (1.4-6.5); Neutrophils % (auto) 78.3 %; Platelet Count 313 K/uL (130-400); RDW Coefficient of Variation 15.2 % (11.5-14.5); RDW Standard Deviation 49.1 fL (36.4-46.3); Red Blood Count 4.14 M/uL (4.2-5.4); White Blood Count 11.67 K/uL (4.8-10.8)
[2020-07-06 05:58] LABS: Partial Thromboplastin Ratio 1.5; Partial Thromboplastin Time 41.8 Seconds (21.0-31.0)
--- NOTE | 2020-07-06 05:59 | Electrocardiogram Report ---
Test Reason : Blood Pressure : / mmHG Vent. Rate : 057 BPM Atrial Rate : 057 BPM P-R Int : 162 ms QRS Dur : 090 ms QT Int : 430 ms P-R-T Axes : 060 025 064 degrees QTc Int : 418 ms Sinus bradycardia When compared with ECG of 27-APR-2020 10:33, No significant change Confirmed by Clemente Iverson ([id number]) on 07/06/2020 5:59:23 AM Referred By: REFERRED SELF Confirmed By:Clemente Iverson
[2020-07-06 06:36] LABS: Albumin Globulin Ratio 0.9 (0.9-2); Albumin Level 3.5 gm/dl (3.4-5.0); BUN Creatinine Ratio 14.5 (10-20); Bilirubin,Total 0.3 mg/dl (0.2-1); Calcium 9.1 mg/dl (8.5-10.1); Creatinine Clr Calc Pharmacy 70.6 ml/min; Est GFR (African American) 93.4; Est GFR (Non-African American) 80.6; Globulin 3.9 gm/dl (2.5-4.0); Potassium 4.1 mmol/L (3.5-5.1); Total Protein 7.4 gm/dl (6.4-8.2)
[2020-07-06 07:39] VITALS: BP 125/75; PULSE 67; O2SAT 97
[2020-07-06] MEDS ORDERED: OXYCODONE HCL IR 5 MG TAB (IMMEDIATE RELEASE) PO STA (08:18)
[2020-07-06] MEDS ORDERED: hydroCHLOROthiazide 25 MG TAB PO SCH (09:00)
[2020-07-06] MEDS ORDERED: DULOXETINE HCL 60 MG CAP PO SCH (09:00)
[2020-07-06] MEDS ORDERED: VITAMIN B COMPLEX TAB PO SCH (09:00)
[2020-07-06] MEDS ORDERED: PANTOprazole 40 MG TAB PO SCH (09:00)
[2020-07-06] MEDS ORDERED: LOSARTAN POTASSIUM 50 MG TAB PO SCH (09:00)
[2020-07-06] MEDS: INSULIN ASPART 100 UNITS/ML 3 ML PEN SC SCH ×2 (09:12→13:00)
--- NOTE | 2020-07-06 10:22 | Pharmacy Report ---
Glycemic Control Consultation - Date of Service July 06, 2020 - Scope Scope: Glycemic Pharmacist consulted for glycemic control and to write orders per [facility] inpatient glycemic control protocol. - Objective Weight: 74.1 kg Accuchecks BSG (last 24hrs): 07/05/20 07/05/20 07/05/20 13:16 20:15 22:18 Glucose 127 H POC Glucose 170 H 234 H 07/06/20 07/06/20 05:11 08:09 Glucose 100 H POC Glucose 100 H Laboratory Data (last 24hrs): 07/05/20 07/06/20 13:16 05:11 Potassium 3.6 4.1 Carbon Dioxide 28 27 Anion Gap 8.0 7.0 Creatinine 0.98 0.81 Est Cr Clr Drug Dosing Not Reportable 70.6 - Recent Pertinent Medications Outpatient Anti-diabetic Regimen: * metformin 500 ER daily * A1c = 6.6 % 04/2020 Risk Factors for Insulin Resistance: * Steroids: DXM in ED 07/05 * Diet: t2dm - Assessment & Plan Assessment & Plan: ASSESSMENT: * 59 year old with toxic encephalopathy, likely secondary to polypharmacy. Type 2 diabetic managed only on metformin at home. * Plan to hold oral agents until diet established - utilize novolog insulin for glucose control PLAN FOR INPATIENT GLYCEMIC CONTROL: * Holding outpatient oral diabetes medications * Basal insulin * Lantus - hold * Bolus insulin * NovoLog per scale ACHS or Q6hrs while NPO * Goal Range: Low 110 mg/dL - High 140 mg/dL * Correction Factor: 30 mg/dL/unit * Nutritional / Prandial insulin per carb ratio of 1 unit per 11 grams CHO consumed DISCHARGE PLAN: * A1C of 6.6% - recommend continuation of home metformin on discharge as long as no contraindications present * Please note that the plan above was derived based on current level of insulin resistance and hospital stress. These recommendations are appropriate for inpatient admission only. Plan of care upon discharge will need to be reassessed to avoid potential outpatient hypo/hyperglycemia. Thank you.
--- NOTE | 2020-07-06 10:52 | Neurology Consultation ---
Date of Consultation July 06, 2020 Assessment & Plan (1) Toxic encephalopathy: (2) Headache: (3) History of brain surgery: Resolved encephalopathy. Patient's confusion was likely related to overuse/misuse of her medications which include a combination of pregabalin, narcotic analgesics, benzodiazepines, and muscle relaxants. She has a history of chronic headaches and follows periodically with the [facility] pain clinic for this issue. Her headaches are complex and include a combination of chronic daily headache and occipital neuralgia. She does report some migrainous elements to her headache as well and reports an adverse reaction to a trial of topiramate in the past. Currently, however, her headache is improved. If patient's headache persists during this hospitalization it would be reasonable to continue with IV Toradol and Zofran. Would also consider giving another dose of dexamethasone if necessary. I do not really have any further more specific recommendations for this patient currently. She is neurologically intact and appears to be improved this morning. Furthermore, I am not really certain if she would be a good candidate for a trial of a CGRP antagonist for migraine prevention as an outpatient as she likely has an element of medication overuse headache/rebound headache due to reliance/dependency on oxycodone. Furthermore, this patient's history of remote () subdural hematoma with left occipital craniectomy is noted. She does not have any evidence of underlying encephalomalacia or injury within the cerebellum. She does not have any evidence of ataxia or a specific neurological deficit in this regard. There is no evidence of hemorrhage or acute process on her recently completed CT of the head. I do not think a brain MRI or additional imaging is necessary at this point in time. I also note her elevated CSF protein. This finding is nonspecific. There is no evidence of ANALYTICS CONSULTANT infection thus far. CSF culture pending, would follow-up with results. Elevated CSF protein may be encountered in individuals with a history of craniectomy as well as spinal surgery. History of Present Illness Reason for Consultation: Acute on chronic headache, history of subdural hematoma Requesting Physician: Kaykay Márquez PA-C Attending Physician: Ramo Hagan DO History of Present Illness The patient is a 59-year-old female who presented to the emergency department yesterday for further evaluation of altered mental status in the context of headache. The patient has a history of chronic headaches, likely a combination of occipital neuralgia and chronic daily headache. She follows periodically with the [facility] pain clinic. Her history is also notable for chronic spinal pain, history of lumbar spinal fusion, and fibromyalgia. She is prescribed several different medications to address her chronic pain including duloxetine, pregabalin, oxycodone, cyclobenzaprine and Lorazepam. The patient does admit that she probably took too many of her medications together yesterday including oxycodone, Lorazepam, and cyclobenzaprine. She is no longer confused or encephalopathic at this time. She does complain of a low-grade diffuse headache, frontal location, ache-like quality with perhaps some mild associated nausea and light sensitivity. This particular headache seems to be typical for her and occurs most days of the week. She also experiences an episodic more severe right sided occipital to frontal headache for which the pain clinic has done a series of injections and nerve ablations. She does not carry a formal diagnosis of migraine although does recall a previous trial of topiramate that was not well-tolerated due to adverse mood changes. The patient did have some specific neurological testing during her initial evaluation in the emergency department including CT of the head and lumbar puncture. These tests were generally unrevealing and are described in further detail below. Past medical history is also notable for a traumatic intracranial hemorrhage that occurred in the which required a left occipital craniectomy. The patient indicates that she had jumped up on her fianc at that time and unfortunately fell backwards, striking her head on the ground. She reports development of chronic occipital cephalgia/occipital neuralgia as a consequence of this head injury and surgical treatment for which she continues to follow with the pain clinic as above. Allergies Allergy/AdvReac Type Severity Reaction Status Date / Time bacitracin Allergy Unknown RASH Verified 07/05/20 13:37 cephalexin AdvReac Unknown HEADACHES, Verified 07/05/20 13:37 G I UPSET Home Medications Home Medications Medication Instructions Recorded Confirmed Type cholecalciferol (vitamin D3) 2,000 unit PO QPM 08/12/18 07/05/20 History [Vitamin D3] cyclobenzaprine 10 mg PO DAILY PRN 08/12/18 07/05/20 History duloxetine [Cymbalta] 120 mg PO QAM 08/12/18 07/05/20 History lorazepam 1 mg PO DAILY PRN 08/12/18 07/05/20 History magnesium 500 mg PO QPM 08/12/18 07/05/20 History multivitamin 1 tab PO QPM 08/12/18 07/05/20 History pregabalin [Lyrica] 150 mg PO TID 08/12/18 07/05/20 History loratadine 10 mg tablet 10 mg PO DAILY PRN 01/08/19 07/05/20 History vitamin B complex 1 tab PO QAM 01/08/19 07/05/20 History pravastatin 10 mg tablet 10 mg PO HS 04/15/20 07/05/20 History hydrochlorothiazide 12.5 mg PO QAM 04/28/20 07/05/20 History losartan 50 mg PO QAM 04/28/20 07/05/20 History pantoprazole [Protonix] 20 mg PO QAM 04/28/20 07/05/20 History oxycodone 10 mg PO Q8H PRN #21 tab 05/04/20 07/05/20 Rx metformin 500 mg PO DAILY@1400 07/05/20 07/05/20 History Patient History Medical History Anemia Anxiety Chronic back pain Chronic headaches daily Constipation Degenerative disc disease Depression Endometriosis Fibromyalgia GERD (gastroesophageal reflux disease) Hepatic steatosis Herpes History of ovarian cyst History of subdural hematoma 1991 [facility]QU[facility] EMERGENCY SURGERY Hypertension IBS (irritable bowel syndrome) Leukocytosis Migraine headache Obesity (BMI 30-39.9) Sciatica Spinal cord stimulator status in place 10/2019 [facility] (advised to bring remote/magnet for surgery) Thrush, oral chronic --- nystatin lozenges TID. dx'd 05/2019, follows with PCP & ENT Dr Knox. Surgical History Fusion of spine L4-L5, L5-S1 (after discectomy surgeries) History of anesthesia complications DIFFICULTY WAKING UP History of brain surgery 1991 (removed a subdural hematoma) History of carpal tunnel release RT History of cholecystectomy History of discectomy L4-L5, L5-S1 (2 different surgeries) History of incisional hernia repair (05/02/20) Laparoscopic Incisional Hernia Repair Dr. Olivo 05/02/20 History of rotator cuff surgery right 08/2018 [facility] History of tonsillectomy History of tooth extraction History of tubal ligation +tubal reversal Hx of colonoscopy S/P BSO (bilateral salpingo-oophorectomy) S/P knee surgery right knee S/P [place] (total abdominal hysterectomy) Family History Mother Family history of reaction to anesthesia PONV Breast cancer Diabetes Heart disease Hypertension Grandfather (Paternal) Family history of diabetes mellitus Diabetes Father Family history of diabetes mellitus Heart disease Hypertension Mother Family history of diabetes mellitus Grandmother (Paternal) Family hx of colon cancer Social History Smoking Status: Never smoker Second Hand Exposure: No; Hx Alcohol Use: No Hx Substance Use: Yes Last Used Substance: Just Prior to Arrival Last Used Substance Other:: oxicodone 0700, ativan 0930 Preferred Language: Slovak Communication Ability: Effective Communication Ability Comment: glasses Visual Impairment: Limited Hearing Ability: Normal Global Logistics Analyst Required: No Beliefs That Will Affect Care: None marital status: Current Living Situation: Spouse current occupational status: disabled Other Information That Helps Us Care for You: No Feels Safe at Home: Yes Safety Concerns: Feels Safe At This Time Review of Systems Constitutional: no fever and no chills Eyes: no blind spots and no diplopia Ear, Nose, Mouth, Throat: no ear pain and no hearing loss Respiratory: no cough and no dyspnea Cardiovascular: no chest pain and no palpitations Gastrointestinal: as per Subjective / HPI and + nausea Genitourinary: no dysuria Musculoskeletal: + back pain, + neck pain and + myalgia Integumentary: no rash and no lesions Neurologic: as per Subjective / HPI and + headache(s); no localized weakness, no loss of sensation, no tremor(s), no seizure-like activity and no syncope Psychiatric: no depression and no anxiety History of anxiety/depression, stable on medication Hematologic / Lymphatic: no easy bleeding, no easy bruising and no lymphadenopathy Exam (Neuro) Constitutional: well developed and well nourished; no acute distress Eyes: normal visual rodriguez by confrontation, PERRL, normal accommodation and EOM intact bilaterally; no fundoscopic abnormality, no nystagmus and no papilledema Cardiovascular: Vessels: normal carotid upstroke; no carotid bruit Neurologic: Oriented to:: Person, Place and Time Memory: Short Term Intact and Remote Intact Attention: Span Intact and Concentration Intact Language: Naming Objects and Repeating Phrases Speech Fluency: negative D ysarthria Speech Aphasia: negative Aphasia Fund of Knowledge: Current Events, Past History and Vocabulary Cranial Nerves: Normal II (Visual rodriguez full to confrontation, visual acuity normal), III, IV, (Pupils equal round reactive to light and accommodation, eye movements normal), V (Facial sensation intact), VII (There is no facial droop or weakness), VIII (Hearing intact), IX, X (Palate elevates to midline), XI (Shoulder shrug intact) and XII (Tongue protrudes to midline) Motor Strength: Normal Lower Extremities and Normal Upper Extremities; negative Pronator Drift Motor Tone: Normal Lower Extremities and Normal Upper Extremities Muscle Bulk/Involuntary Movements: No Involuntary Movements; negative Muscle Atrophy Sensation: Light Touch Intact, Pain/Temperature Intact, Vibration Intact and Proprioception Intact Coordination: Normal; negative Limited Balance, Dysdiadochokinesia, Finger-Nose Abnormal and Heel-Mayo Abnormal Deep Tendon Reflexes: Rt Triceps: 2+, Lt Triceps: 2+, Rt Biceps: 2+, Lt Biceps: 2+, Rt Brachioradialis: 2+, Lt Brachioradialis: 2+, Rt Patellar: 2+, Lt Patellar: 2+, Rt Ankle: 2+ and Lt Ankle: 2+ Special Tests: negative Babinski Present Gait: Normal Station and Gait Results & Data ([facility]) Vital Signs (Past 12 Hours) Vital Signs Temp Pulse Resp BP Pulse Ox 07/06/20 07:38 36.5 C 67 16 125/75 97 07/06/20 04:00 36.5 C 68 18 116/74 93 07/05/20 23:12 36.5 C 68 16 87/49 L 93 Laboratory Results WBC 11.67, hemoglobin 11.7, hematocrit 36.9, platelet count 313, sodium 139, potassium 4.1, BUN 12, creatinine 0.81, glucose 100, calcium 9.1, AST 14, ALT 20, ammonia 22.2, TSH 2.110, urine tox screen positive for opiates, barbiturates, and marijuana, Lyme antibody screening negative. Lumbar puncture/CSF analysis, CSF clear, colorless, no xanthochromia, CSF WBC 1, RBC 0, glucose 62, total protein 84.4, Gram stain rare WBCs, no organisms Diagnostic Findings CT of the head reveals changes suggestive of a remote left occipital craniectomy, unchanged compared with previous imaging done in 2007 in 2011. No acute process. I reviewed the images as well as the radiologist's in terpretation of this test. An electrocardiogram reveals sinus bradycardia, 57 bpm. Coding Level of Care Code 08356 Inpt Consult Level 5 Diagnoses Toxic encephalopathy G92 Headache R51 Headache chronicity pattern: acute headache Headache type: unspecified Intractability: not intractable History of brain surgery Z98.890 (1) Headache Headache chronicity pattern: acute headache Headache type: unspecified Intractability: not intractable Qualified Code(s): R51 - Headache
--- NOTE | 2020-07-06 11:23 | Hospitalist Progress Note ---
Date of Service July 06, 2020 Assessment & Plan Admission and Anticipated Discharge Date Admission Date: July 05, 2020 Results & Data Results & Data ([facility]) Vital Signs (Past 12 Hours) Vital Signs Temp Pulse Resp BP Pulse Ox 07/06/20 07:38 36.5 C 67 16 125/75 97 07/06/20 04:00 36.5 C 68 18 116/74 93 PG Care Time/CCT Total # of Minutes Spent Total Time Spent with Patient: Total time spent is greater than 50% in coor dination of care (as documented) at patient's floor/unit and/or counseling patient: Coding
--- NOTE | 2020-07-06 13:20 | Discharge Summary ---
Date of Service July 06, 2020 Admission HPI Per Admitting Provider Ms. Marshall presents with complaints of an episode of diaphoresis, somnolence, and unsteadiness. Her reports that she became very sleepy during dinner last night. Then today she began sweating and appeared to be falling asleep on her feet. She was nauseas but no emesis. She does take a number of sedating medications. Upon going through her medications it appears that normally she takes about 1 each of her prn oxycodone, Flexeril, and lorazepam on days when she needs them but yesterday she took two doses of all three. She is also a daily marijuana user. She has not eaten all day. She is currently awake and alert and back to her usual mentation. She reports a headache and some neck stiffness but these are chronic. 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 Patient received ceftriaxone and dexamethasone in the ED prior to LP results Pmhx: htn, DMII, subdural hematoma, GERD, fusion of the spine with neurostimulator, IBS, fibromyalgia, chronic leukocytosis, Social: lives with , on disability, no alcohol, daily marijuana smoker, quit smoking Family: htn, CHF, breast cancer, DMII Admission Exam Per Admitting Provider General: no distress Eyes: normal inspection, PERLL Neck: full range of motion, no nuchal rigidity Respiratory: chest non tender, clear to auscultation, normal breath sounds, no respiratory distress, no accessory muscle use Cardiac: regular rate and rhythm, no rub or gallop, no murmur, no edema, no jvd GI/: active bowel sounds, no abd pain or tenderness, soft, non distended Extremities: normal range of motion, normal strength, non tender Neuro/Psych: alert and oriented x 3, normal mood and affect Skin: normal color, dry Principal Diagnosis Polypharmacy, Toxic Encephalopathy Discharge Exam Constitutional WD/WN, vitals as above no acute distress Eyes + anicteric sclerae and PERRL ENMT external ear and nose normal, oropharynx normal Neck normal visual inspection Respiratory normal respiratory effort, lungs clear to auscultation Cardiovascular RRR, no murmur, no edema Gastrointestinal (Abdomen) normal bowel sounds, soft, nontender, no hepatosplenomegaly Musculoskeletal no cyanosis or clubbing, extremities motor strength 5/5 Skin no rashes, warm and dry Neurologic patellar DTR's 2+ bilat, sensation intact and PERRL, EOMI, accommodation nl, no face palsy, no dysarthria Psychiatric A+Ox3, euthymic affect Lymphatic no cervical or axillary lymphadenopathy Discharge Data Allergies Allergy/AdvReac Type Severity Reaction Status Date / Time bacitracin Allergy Unknown RASH Verified 07/05/20 13:37 cephalexin AdvReac Unknown HEADACHES, Verified 07/05/20 13:37 G I UPSET Consultations 07/05/20 16:29 ED Decision to Admit Stat 07/06/20 08:35 Consult Neurology Routine Ordered Studies 07/05/20 13:07 CT head/brain wo con Stat CXR 07/05/20 13:12 CT abd pelvis wo con Stat Hospital Course (1) Toxic encephalopathy: Likely secondary to polypharmacy - patient had more than her usual dosing of oxycodone, lorazepam and flexeril 07/04 combined with marijuana (took twice as much without eating) LP in ED showed elevated protein but was otherwise unremarkable - full range of motion in neck --> per Neurology, protein elevation may be normal in patient with hx craniotomy/spinal surgery and is nonspecific. Also does not believe infectious in etiology Lyme negative, peripheral smear without inclusion bodies VBG with very mild alkalosis - 7.32 Leukocytosis appears chronic --> Returned to her "elevated baseline" 11k on repeat. . Rec'd f/u with Hematology and patient will be called with appointment. CT Head without acute findings CTA/P negative for acute process CXR negative Neurology consulted -- not specifically candidate for newer injectables as beliefs medication overuse/rebound d/t pain medications Sedating medications held and patient with significant improvement by morning 07/06 except for headache, relieved with her usual oxycodone. Discussed trying to cut back and to further discuss with PCP. Patient educated to call her PCP with any ongoing issues and prior to taking extra doses of medications to prevent this in the future. (2) Hypothermia: Last temperature check showed patient to be 35.3 however her presenting temp was 36.4 . Continue Mauricio ravindraer (3) Occipital neuralgia: Chronic, sees pain management and has had radio ablations in the past LP as above (4) Leukocytosis: Chronic. Cytology 05/03/20 without abnormality Neutrophils are slightly higher than is normal for her which returned to normal as well. 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 Total Time Total Time Spent Total Time Spent (In Minutes): 70 Discharge Plan Discharge Items Patient Disposition: Home - Self-Care Reason For Visit: AMS Discharge Diagnosis: Polypharmacy Condition on Discharge: Good Goals: You have been hospitalized for an acute medical problem. During your stay at [facility], we have made an effort to correct the problem that brought you to the hospital while keeping you as comfortable as possible. Medications were used to bring your condition under control and your discharge instructions will include directions for any medications you should take after leaving the hospital. Please make sure you see your Primary Care Provider as part of your follow up plan. Activity: Resume your previous activity Non-emergency contact: Primary Care Provider Call non-emergency contact if: you have any medication questions, your symptoms worsen and your pain is concerning for you Follow-up/Referrals: Marion Miles CRNP [Primary Care Provider] - 07/09/20 10:10 am Diet: Carb Consistent or DM2 and Heart Healthy Addtl Attending Provider Instructions: You have been hospitalized and work-up for infectious origin has been ruled out. A lumbar puncture was performed which showed elevated protein, however given your history of craniotomy this may be chronic. There were no elevation in white blood counts in this fluid to suggest a meningitis. CT of your head was negative for acute findings. It is likely that this was a combination of dehydration and doubling up on your medications. It is advised that you contact your primary care provider in the future prior to taking extra medication to prevent this issue in the future. Regarding your headache, it is likely that you have some component of rebound headache from opioid pain medication and it is recommended to only utilize when absolutely necessary. You may want to discuss with your neurologist about additional medications in the future to avoid this from happening. You should follow up with your primary care provider in the next week to monitor your progress. If you notice any daytime sleepiness/snoring, you may want to consider a sleep sutdy outpatient to make sure no apnea while taking your usual medications as they have a tendency to decrease your respiratory drive and should be taken with caution. You have had elevated white blood counts, which seem to be chronic as all previous values have also been elevated. You are being set up an appointment with our hematology group to follow up at discharge for further evaluation of these elevations. Please return to the emergency department with any worsening confusion, headache, or for any other symptoms that are concerning for you. Take care! Pending Studies at Discharge: Yes Studies:: Blood cultures -- no growth to date Stand-Alone Forms: My [facility] [email or web address], Smoking Cessation Medications and DC Order Prescriptions: Continued vitamin B complex tablet 1 tab PO QAM RF: 0 pravastatin 10 mg tablet 10 mg PO HS RF: 0 metformin 500 mg tablet extended release 24 hr 500 mg PO DAILY@1400 RF: 0 multivitamin Tablet 1 tab PO QPM RF: 0 magnesium 250 mg Tablet 500 mg PO QPM RF: 0 lorazepam 1 mg Tablet 1 mg PO DAILY PRN (Reason: Anxiety) RF: 0 cholecalciferol (vitamin D3) [Vitamin D3] 1,000 unit Capsule 2,000 unit PO QPM RF: 0 duloxetine [Cymbalta] 60 mg Capsule,Delayed Release(Dr/Ec) 120 mg PO QAM RF: 0 pregabalin [Lyrica] 150 mg Capsule 150 mg PO TID RF: 0 cyclobenzaprine 10 mg Tablet 10 mg PO DAILY PRN (Reason: Muscle Spasm) RF: 0 loratadine [Claritin] 10 mg tablet 10 mg PO DAILY PRN (Reason: allergy symptoms) RF: 0 losartan 50 mg Tablet 50 mg PO QAM RF: 0 pantoprazole [Protonix] 20 mg Tablet,Delayed Release (Dr/Ec) 20 mg PO QAM RF: 0 hydrochlorothiazide 12.5 mg Tablet 12.5 mg PO QAM RF: 0 oxycodone 10 mg tablet 10 mg PO Q8H PRN (Reason: pain) Qty: 21 RF: 0 Discharge Orders: Discharge Order (Routine); Ordered 07/06/20 Ordered By: Kaykay Márquez Admission Data Admit Date/Time: 07/05/20 17:54 Attending Provider: Ramo Hagan Admit Provider: Kyra Evangelista Primary Care Provider: Marion Miles Other Providers: Ramo Hagan ; Jj Hernandez Other Interventions: Discharge Summary Assessment (RN) Last Done: 07/06/20 13:39 Supervising Physician Co-Signing Physician Notes Patient seen and examined with Kaykay Márquez PA. I agree with her exam findings, review of systems. I personally reviewed the lab work and imaging as well. I agree with her discharge summary. - TOXIC ENCEPHALOPATHY: due to combination of opiates, benzodiazepines, muscle relaxer and marijuana much improved after holding medications she is mentating clearly, oriented, wishes to go home she knows to only take medications as prescribed, to not take them all at once Coding Level of Care Code D/C Day Management >30 mins Diagnoses Toxic encephalopathy G92 Hypothermia T68.XXXA Encounter type: initial encounter Occipital neuralgia M54.81 Leukocytosis D72.829 GERD (gastroesophageal reflux disease) K21.9 Fibromyalgia M79.7 Hypertension I10 Chronic back pain M54.9; G89.29 Prolonged PTT R79.1 Hyponatremia E87.1 DMII (diabetes mellitus, type 2) E11.9 DVT prophylaxis Z29.9
[2020-07-08 10:06] LABS: Amobarbital, Urine Conf NEGATIVE ng/mL (<100); Butalbital, Urine NEGATIVE ng/mL (<100); Codeine Urine NEGATIVE ng/mL (<50); Hydrocodone Urine NEGATIVE ng/mL (<50); Hydromor Urine NEGATIVE ng/mL (<50); Marijuana Quant, GCMS Urine 55 ng/mL (<5); Morphine Urine NEGATIVE ng/mL (<50); Norhydrocodone Conf Ur NEGATIVE ng/mL (<50); Noroxycodone Urine 6080 ng/mL (<50); Oxycodone Urine 1840 ng/mL (<50); Oxymorph Urine 1210 ng/mL (<50); Pentobarbital, Urine Conf NEGATIVE ng/mL (<100); Phenobarbital, Urine 856 ng/mL (<100); Secobarbital, Urine Conf NEGATIVE ng/mL (<100)
== END 2020-07-06 15:33 | disposition home or self-care (01) ==
LOC: ED 12:33 → 3N 12:33
DX: K21.9 Gastro-esophageal reflux disease without esophagitis; T40.601A Poisoning by unspecified narcotics, accidental (unintentional), initial encounter; I10 Essential (primary) hypertension; M54.81 Occipital neuralgia; T40.7X1A Poisoning by cannabis (derivatives), accidental (unintentional), initial encounter; E87.1 Hypo-osmolality and hyponatremia; Z79.899 Other long term (current) drug therapy; T42.4X1A Poisoning by benzodiazepines, accidental (unintentional), initial encounter; Z88.8 Allergy status to other drugs, medicaments and biological substances; E66.9 Obesity, unspecified; Z68.30 Body mass index [BMI] 30.0-30.9, adult; R68.0 Hypothermia, not associated with low environmental temperature; M79.7 Fibromyalgia; G92 Toxic encephalopathy; Z98.1 Arthrodesis status; Z79.84 Long term (current) use of oral hypoglycemic drugs; E11.9 Type 2 diabetes mellitus without complications

== ENCOUNTER 2021-04-19 11:12 | Inpatient (IN) ==
--- NOTE | 2021-04-19 11:21 | Emergency Department Note ---
History of Present Illness General Chief complaint: Headache Stated complaint: MIGRAINE,NOT DRINKING OR EATING A LOT Time Seen by Provider: 04/19/21 11:20 History of Present Illness Maximum Pain Intensity: 8 60-year-old female who presents to the emergency department with complaint of a migraine headache. The reports that the patient was here both Saturday and yesterday for migraine headache. The patient reports that she felt fine at the time of discharge of each one of these visits, but only went home to have rebound migraines. The is also concerned because the patient has not been eating or drinking. The patient reports that her headache is similar to all prior migraines. The reports that the patient has had extensive history of migraines, and has been to multiple neurologist and migraine/headache clinics, including the [facility], without any definitive treatment options. The patient reports that she is on a regular opioids as prescribed by her PCP for her migraines and other chronic pain issues. The patient has not been able to take her medication because of not feeling well and nausea. She denies any fever or chills, and rates her migraine an 8 out of 10. Home Medications Medication Instructions Recorded Confirmed Type cholecalciferol (vitamin D3) 2,000 unit PO QPM 08/12/18 04/19/21 History [Vitamin D3] cyclobenzaprine 10 mg PO DAILY PRN 08/12/18 04/19/21 History duloxetine [Cymbalta] 120 mg PO QAM 08/12/18 04/19/21 History lorazepam 1 mg PO DAILY PRN 08/12/18 04/19/21 History magnesium 500 mg PO QPM 08/12/18 04/19/21 History multivitamin 1 tab PO QPM 08/12/18 04/19/21 History pregabalin [Lyrica] 150 mg PO TID 08/12/18 04/19/21 History loratadine 10 mg tablet 10 mg PO DAILY PRN 01/08/19 04/19/21 History vitamin B complex 1 tab PO QAM 01/08/19 04/19/21 History pravastatin 10 mg tablet 10 mg PO HS 04/15/20 04/19/21 History hydrochlorothiazide 12.5 mg PO QAM 04/28/20 04/19/21 History losartan 50 mg PO QAM 04/28/20 04/19/21 History pantoprazole [Protonix] 20 mg PO QAM 04/28/20 04/19/21 History metformin 500 mg PO DAILY@1400 07/05/20 04/19/21 History azithromycin 250 mg PO UD #6 tab 04/17/21 04/19/21 Rx clotrimazole 10 mg PO TID PRN 04/17/21 04/19/21 History oxycodone-acetaminophen [Endocet] 1 tab PO DAILY 04/17/21 04/19/21 History Allergies Allergy/AdvReac Type Severity Reaction Status Date / Time bacitracin Allergy Mild RASH Verified 04/19/21 12:45 cephalexin AdvReac Intermediate HEADACHES, Verified 04/19/21 12:45 G I UPSET Past Med/Surg History Medical History Anemia Anxiety Chronic back pain Chronic headaches daily; has been to [facility], [facility], [facility] for evaluations Constipation Degenerative disc disease Depression Endometriosis Fibromyalgia GERD (gastroesophageal reflux disease) Hepatic steatosis Herpes History of ovarian cyst History of subdural hematoma 1991 REQUIRING EMERGENCY SURGERY Hypertension IBS (irritable bowel syndrome) Leukocytosis Migraine headache Obesity (BMI 30-39.9) Sciatica Spinal cord stimulator status in place 10/2019 [facility] (advised to bring remote/magnet for surgery) Thrush, oral chronic --- nystatin lozenges TID. dx'd 05/2019, follows with PCP & ENT Dr Knox. Surgical History Fusion of spine L4-L5, L5-S1 (after discectomy surgeries) History of anesthesia complications DIFFICULTY WAKING UP History of brain surgery 1991 (removed a subdural hematoma) History of carpal tunnel release RT History of cholecystectomy History of discectomy L4-L5, L5-S1 (2 different surgeries) History of incisional hernia repair (05/02/20) Laparoscopic Incisional Hernia Repair Dr. Olivo 05/02/20 History of rotator cuff surgery right 08/2018 [facility] History of tonsillectomy History of tooth extraction History of tubal ligation +tubal reversal Hx of colonoscopy S/P BSO (bilateral salpingo-oophorectomy) S/P knee surgery right knee S/P [place] (total abdominal hysterectomy) Family History Mother Family history of reaction to anesthesia PONV Breast cancer Diabetes Heart disease Hypertension Grandfather (Paternal) Family history of diabetes mellitus Diabetes Father Family history of diabetes mellitus Heart disease Hypertension Mother , 12/2020 - lung cancer? Family history of diabetes mellitus Grandmother (Paternal) Family hx of colon cancer Sister Migraine Social History Smoking Status: Former smoker Tobacco Type: Cigarettes Age Started Using Tobacco: 15; packs per day: 0.5; Smoking End Date: 1993; Second Hand Exposure: No; Hx Alcohol Use: Yes Alcohol type: wine and hard liquor Alcohol Intake Frequency: Monthly or Less Hx Substance Use: Yes Prescribed Medications: Marijuana Prescribed Medications Comment: Medical THC - for headaches Preferred Language: Lithuanian Communication Ability: Effective Visual Impairment: No Limitations Hearing Ability: Normal Manager Human Capital Required: No Beliefs That Will Affect Care: None marital status: Current Living Situation: Spouse current occupational status: disabled current occupation: finance work at [employer] How many Children do You have: 0 Feels Safe at Home: Yes Assistive Devices: None Review of Systems 10 system review was performed and was negative except for pertinent positives and negatives as indicated in history of present illness Physical Exam Vital Signs Vital Signs - 24 hr 04/19/21 11:15 04/19/21 13:56 04/19/21 14:00 Temperature 36.1 C L Temperature Source Skin Pulse Rate 78 83 75 Pulse Rate from SpO2 Sensor 84 76 Respiratory Rate 18 23 11 L Respiratory Effort / Characteristics Non-Labored Spontaneous Respiratory Depth Normal Respiratory Pattern Regular Blood Pressure 112/71 173/96 H 129/76 Blood Pressure Mean 84 121 93 Blood Pressure Position Sitting Pulse Oximetry 98 96 96 Oxygen Delivery Method Room Air Sepsis Recent Fever Within 48 Hours No Sepsis New/Unexplained Change in Mental Status N/A Sepsis Action Taken by Nursing No Action Required 04/19/21 14:30 Temperature Temperature Source Pulse Rate 65 Pulse Rate from SpO2 Sensor 66 Respiratory Rate 15 Respiratory Effort / Characteristics Respiratory Depth Respiratory Pattern Blood Pressure 162/75 H Blood Pressure Mean 104 Blood Pressure Position Pulse Oximetry 91 Oxygen Delivery Method Sepsis Recent Fever Within 48 Hours Sepsis New/Unexplained Change in Mental Status Sepsis Action Taken by Nursing CONSTITUTIONAL: Healthy and well nourished. Alert and oriented X 3. GCS 15. Patient minimizes conversation secondary to her headache. HEENT: Normocephalic, atraumatic. Pupils equal, round and reactive. Patient is photophobic, precluding funduscopic exam. Ears and nares are otherwise clear. NECK: Full active range of motion without discomfort. No nuchal rigidity, JVD or carotid bruits. LYMPHATICS: No cervical chain adenopathy. RESPIRATORY: Clear to auscultation bilaterally with no wheezing, crackles, rhonchi or stridor. CARDIOVASCULAR: Regular rate and rhythm with no murmurs, rubs or gallops. GASTROINTESTINAL: Bowel sounds present in all quadrants. MUSCULOSKELETAL: Full range of motion of all joints without discomfort. Equal handgrip bilaterally. INTEGUMENTARY: No rash or other significant dermatologic conditions noted. HEMATOLOGIC: No ecchymosis or petechiae. PSYCHIATRIC: Flat affect. NEUROLOGIC: Cranial nerves II-XII grossly intact. No focal neurologic deficits noted. Course Course Patient history and physical exam were performed. Nurses notes were reviewed. Vital signs were reviewed in triage, and were normal. I also reviewed documentation from the patient's last 2 ED visits. The patient has had extensive work-up, including CT imaging and other lab work, including Lyme screen, that were negative. On her initial visit, she was administered IV morphine and Zofran. On her second visit, she received a more extensive cocktail of medications. She returns today with complaint of rebound migraine. The is requesting admission. I explained that I would need to have some type of lab abnormalities or intractable headache condition before the h ospitalist service would likely do an admission. With the patient and were in agreement. I did discuss administering additional medications per the [facility] algorithm for migraine headache management. IV access was established, and labs were drawn. The patient was hydrated with a liter normal saline, and administered IV Toradol, Benadryl, Reglan, magnesium oxide and dexamethasone. I was also going to order valproate sodium (Depacon), however our ED pharmacist reported that the medication is on national back order, at the hospital is low in stock and being reserved for seizure patients. Review of labs showed a potassium of 2.7 and sodium of 135. AST and ALT were also elevated at 68 and 81, respectively. CBC was collected, but had to be withdrawn at the time of this dictation. I did check an ECG given the patient's hypokalemia, and showed no significant abnormalities when compared to her ECG from 2 days ago. Upon reevaluation approximately 45 minutes after medication administration, the patient reported significant reduction of her pain to a 3 out of 10. I did discuss the case further with Dr. Clark, ED attending physician, who agrees with hospitalist consultation. The case was discussed with our case investigator, as well as Dr. Buckner, [facility] hospitalist, who evaluated the patient. After this consultation, our ED pharmacist reported that they had more Depacon that should be shipped to the hospital soon, and indicated that I could administer Depacon to the patient. The patient was administered IV Depacon, and the hospitalist service was advised of this medication administration. I also placed an order for a K rider 20 mEq. She still had some mild nausea at the time of transfer of care, therefore oral potassium repletion was not attempted. Please see the hospitalist service dictations for further treatment and final disposition. Administered Medications Potassium Chloride (K Scotty / Wtr) 10 meq in 100 mls @ 100 mls/hr IV Q1H SYDNEE Stop: 04/19/21 15:59 Last Admin: 04/19/21 14:01 Dose: 100 mls/hr Documented by: [id number] Discontinued Medications Dexamethasone (Dexamethasone Sod Inj 4 Mg/Ml Vial) Confirm Administered Dose 8 mg .ROUTE .STK-MED ONE Stop: 04/19/21 12:15 Last Admin: 04/19/21 12:21 Dose: Not Given Documented by: [id number] Diphenhydramine HCl (Diphenhydramine 50 Mg/Ml Vial) 25 mg IV NOW STA Stop: 04/19/21 12:02 Last Admin: 04/19/21 12:20 Dose: 25 mg Documented by: [id number] Magnesium Sulfate/Dextrose (Magnesium Sulfate / D5w) 1 gm in 100 mls @ 100 mls/hr IV NOW ONE Stop: 04/19/21 13:00 Last Infusion: 04/19/21 13:19 Dose: 0 mls/hr Documented by: [id number] Admin: 04/19/21 12:19 Dose: 100 mls/hr Documented by: [id number] Dexamethasone 8 mg/ Syringe 2 mls @ 1 mls/min IV ONE ONE Stop: 04/19/21 12:02 Last Admin: 04/19/21 12:20 Dose: 1 mls/min Documented by: [id number] Potassium Acetate (Potassium Acetate/Nss) 10 meq in 105 mls @ 105 mls/hr IV Q1H SYDNEE Stop: 04/19/21 15:14 Last Admin: 04/19/21 14:01 Dose: Not Given Documented by: [id number] Ketorolac Tromethamine (Ketorolac 30 Mg/Ml Vial) 30 mg IM NOW STA Stop: 04/19/21 12:02 Last Admin: 04/19/21 12:20 Dose: 30 mg Documented by: [id number] Metoclopramide HCl (Metoclopramide Hcl Inj 5 Mg/Ml 2 Ml Vial) 10 mg IV NOW STA Stop: 04/19/21 12:02 Last Admin: 04/19/21 12:20 Dose: 10 mg Documented by: [id number] Medical Decision Making Medical Records Attestation: I reviewed the patient's medical records. Home Medications Current Medication List: was personally reviewed by me Laboratory Data Attestation: I reviewed the patient's lab results. Result diagrams: 04/19/21 12:23 04/19/21 12:23 Lab Results 04/19/21 04/19/21 04/19/21 Range/Units 12:23 12:23 12:23 WBC (4.8-10.8) K/uL RBC (4.2-5.4) M/uL Hgb (12.0-16.0) g/dL Hct (37-47) % MCV (80-100) fL MCH (25-34) pg MCHC (32-36) g/dL RDW Std Deviation (36.4-46.3) fL RDW Coeff of [place] (11.5-14.5) % Plt Count (130-400) K/uL MPV (7.4-10.4) fL Immature Gran % (Auto) % Neut % (Auto) % Lymph % (Auto) % [place] % (Auto) % Eos % (Auto) % Baso % (Auto) % Neut # (Auto) (1.4-6.5) K/uL Lymph # (Auto) (1.2-3.4) K/uL [place] # (Auto) (0.11-0.59) K/uL Eos # (Auto) (0-0.5) K/uL Baso # (Auto) (0-0.2) K/uL Immature Gran # (Auto) (0.00-0.02) K/uL ESR 23 (0-30) mm/hr PT 11.0 (9.0-12.0) Seconds INR 1.1 (0.9-1.1) APTT 28.2 (21.0-31.0) Seconds PTT Ratio 1.1 Carboxyhemoglobin % THgb Sodium 135 L (136-145) mmol/L Potassium 2.7 L (3.5-5.1) mmol/L Chloride 101 (98-107) mmol/L Carbon Dioxide 23 (21-32) mmol/L Anion Gap 11.0 (3-11) BUN 13 (7-18) mg/dl Creatinine 0.60 (0.6-1.2) mg/dl Est Cr Clr Drug Dosing 97.9 ml/min Est GFR ( Amer) 116.4 ml/min Est GFR (Non-Af Amer) 100.5 ml/min BUN/Creatinine Ratio 21.4 H (10-20) Glucose 126 H (70-99) mg/dl Calcium 8.7 (8.5-10.1) mg/dl Phosphorus (2.5-4.9) mg/dl Magnesium (1.8-2.4) mg/dl Total Bilirubin 0.8 (0.2-1) mg/dl AST 68 H (15-37) U/L ALT 81 H (12-78) U/L Alkaline Phosphatase 112 (45-117) U/L C-Reactive Protein (0-0.29) mg/dl Total Protein 7.8 (6.4-8.2) gm/dl Albumin 3.5 (3.4-5.0) gm/dl Globulin 4.3 H (2.5-4.0) gm/dl Albumin/Globulin Ratio 0.8 L (0.9-2) COVID-19 Eval Order SARS-CoV-2 (PCR) (Negative) 04/19/21 04/19/21 04/19/21 Range/Units 12:23 12:23 12:23 WBC 5.11 (4.8-10.8) K/uL RBC 4.11 L (4.2-5.4) M/uL Hgb 12.3 (12.0-16.0) g/dL Hct 35.9 L (37-47) % MCV 87.3 (80-100) fL MCH 29.9 (25-34) pg MCHC 34.3 (32-36) g/dL RDW Std Deviation 45.3 (36.4-46.3) fL RDW Coeff of [place] 14.1 (11.5-14.5) % Plt Count 101 L (130-400) K/uL MPV 10.3 (7.4-10.4) fL Immature Gran % (Auto) 0.8 % Neut % (Auto) 84.3 % Lymph % (Auto) 9.6 % [place] % (Auto) 5.1 % Eos % (Auto) 0.0 % Baso % (Auto) 0.2 % Neut # (Auto) 4.31 (1.4-6.5) K/uL Lymph # (Auto) 0.49 L (1.2-3.4) K/uL [place] # (Auto) 0.26 (0.11-0.59) K/uL Eos # (Auto) 0.00 (0-0.5) K/uL Baso # (Auto) 0.01 (0-0.2) K/uL Immature Gran # (Auto) 0.04 H (0.00-0.02) K/uL ESR (0-30) mm/hr PT (9.0-12.0) Seconds INR (0.9-1.1) APTT (21.0-31.0) Seconds PTT Ratio Carboxyhemoglobin 0.0 % THgb Sodium (136-145) mmol/L Potassium (3.5-5.1) mmol/L Chloride (98-107) mmol/L Carbon Dioxide (21-32) mmol/L Anion Gap (3-11) BUN (7-18) mg/dl Creatinine (0.6-1.2) mg/dl Est Cr Clr Drug Dosing ml/min Est GFR ( Amer) ml/min Est GFR (Non-Af Amer) ml/min BUN/Creatinine Ratio (10-20) Glucose (70-99) mg/dl Calcium (8.5-10.1) mg/dl Phosphorus 2.5 (2.5-4.9) mg/dl Magnesium 2.3 (1.8-2.4) mg/dl Total Bilirubin (0.2-1) mg/dl AST (15-37) U/L ALT (12-78) U/L Alkaline Phosphatase (45-117) U/L C-Reactive Protein (0-0.29) mg/dl Total Protein (6.4-8.2) gm/dl Albumin (3.4-5.0) gm/dl Globulin (2.5-4.0) gm/dl Albumin/Globulin Ratio (0.9-2) COVID-19 Eval Order SARS-CoV-2 (PCR) (Negative) 04/19/21 04/19/21 04/19/21 Range/Units 12:23 14:00 14:00 WBC (4.8-10.8) K/uL RBC (4.2-5.4) M/uL Hgb (12.0-16.0) g/dL Hct (37-47) % MCV (80-100) fL MCH (25-34) pg MCHC (32-36) g/dL RDW Std Deviation (36.4-46.3) fL RDW Coeff of [place] (11.5-14.5) % Plt Count (130-400) K/uL MPV (7.4-10.4) fL Immature Gran % (Auto) % Neut % (Auto) % Lymph % (Auto) % [place] % (Auto) % Eos % (Auto) % Baso % (Auto) % Neut # (Auto) (1.4-6.5) K/uL Lymph # (Auto) (1.2-3.4) K/uL [place] # (Auto) (0.11-0.59) K/uL Eos # (Auto) (0-0.5) K/uL Baso # (Auto) (0-0.2) K/uL Immature Gran # (Auto) (0.00-0.02) K/uL ESR (0-30) mm/hr PT (9.0-12.0) Seconds INR (0.9-1.1) APTT (21.0-31.0) Seconds PTT Ratio Carboxyhemoglobin % THgb Sodium (136-145) mmol/L Potassium (3.5-5.1) mmol/L Chloride (98-107) mmol/L Carbon Dioxide (21-32) mmol/L Anion Gap (3-11) BUN (7-18) mg/dl Creatinine (0.6-1.2) mg/dl Est Cr Clr Drug Dosing ml/min Est GFR ( Amer) ml/min Est GFR (Non-Af Amer) ml/min BUN/Creatinine Ratio (10-20) Glucose (70-99) mg/dl Calcium (8.5-10.1) mg/dl Phosphorus (2.5-4.9) mg/dl Magnesium (1.8-2.4) mg/dl Total Bilirubin (0.2-1) mg/dl AST (15-37) U/L ALT (12-78) U/L Alkaline Phosphatase (45-117) U/L C-Reactive Protein 13.90 H (0-0.29) mg/dl Total Protein (6.4-8.2) gm/dl Albumin (3.4-5.0) gm/dl Globulin (2.5-4.0) gm/dl Albumin/Globulin Ratio (0.9-2) COVID-19 Eval Order Covid19 at [facility] SARS-CoV-2 (PCR) NEGATIVE (Negative) ECG Data Attestation: I personally reviewed and interpreted this ECG as follows: Indication: + other (Migraine, hypokalemia) Rate (beats per minute): 77 Rhythm: + normal sinus ECG [place]: + Normal ECG ST segments: + ST depression Comparison ECG Date: from (04/17/2021) Change: no significant change Blood Pressure Blood Pressure Findings: Normal blood pressure MDM Narrative Patient presents to the emergency department with complaint of a headache that is similar to all prior migraines. The patient did have CT imaging performed yesterday that did not show any obvious intracranial bleed or concerning midline shift. I did discuss the possibly of subdural hematoma, and possible need for lumbar puncture. At this point, I will defer this treatment unless the hospitalist service indicates otherwise. The patient is hypokalemic, and will need IV and oral repletion. Work-up that was performed yesterday shows a negative Lyme screen. The patient is afebrile, and I do not suspect infectious etiology. Impression & Plan Migraine, Hypokalemia Discharge Plan Visit Data Chief Complaint: Headache Stated Complaint: MIGRAINE,NOT DRINKING OR EATING A LOT ED Provider: Enoch Clark ED Midlevel Provider: Aric Bryson Discharge Problem: Migraine, Hypokalemia Patient Disposition: Home - Self-Care Forms Stand Alone Forms: [facility], [facility], Virtual Emergency Department, Important Visit Information Prescriptions Prescriptions: No Action vitamin B complex tablet 1 tab PO QAM RF: 0 pravastatin 10 mg tablet 10 mg PO HS RF: 0 metformin 500 mg tablet extended release 24 hr 500 mg PO DAILY@1400 RF: 0 multivitamin Tablet 1 tab PO QPM RF: 0 magnesium 250 mg Tablet 500 mg PO QPM RF: 0 lorazepam 1 mg Tablet 1 mg PO DAILY PRN (Reason: Anxiety) RF: 0 cholecalciferol (vitamin D3) [Vitamin D3] 1,000 unit Capsule 2,000 unit PO QPM RF: 0 duloxetine [Cymbalta] 60 mg Capsule,Delayed Release(Dr/Ec) 120 mg PO QAM RF: 0 pregabalin [Lyrica] 150 mg Capsule 150 mg PO TID RF: 0 cyclobenzaprine 10 mg Tablet 10 mg PO DAILY PRN (Reason: Muscle Spasm) RF: 0 loratadine [Claritin] 10 mg tablet 10 mg PO DAILY PRN (Reason: allergy symptoms) RF: 0 losartan 50 mg Tablet 50 mg PO QAM RF: 0 pantoprazole [Protonix] 20 mg Tablet,Delayed Release (Dr/Ec) 20 mg PO QAM RF: 0 hydrochlorothiazide 12.5 mg Tablet 12.5 mg PO QAM RF: 0 clotrimazole 10 mg kiana 10 mg PO TID PRN (Reason: thrush) RF: 0 oxycodone-acetaminophen [Endocet] 7.5-325 mg tablet 1 tab PO DAILY RF: 0 azithromycin 250 mg tablet 250 mg PO UD Qty: 6 RF: 0 Referrals Referrals: Marion Miles CRNP [Primary Care Provider] - Discharge Problem: Migraine Qualifiers: Migraine type: unspecified Status migrainosus presence: without status migrainosus Intractability: not intractable Qualified Code(s): G43.909 - Migraine, unspecified, not intractable, without status migrainosus
[2021-04-19] MEDS ORDERED: dexAMETHasone 8 MG in SYRINGE 0 ML IV ONE (12:01)
[2021-04-19] MEDS ORDERED: KETOROLAC 30 MG/ML VIAL IM STA (12:01)
[2021-04-19] MEDS ORDERED: METOCLOPRAMIDE HCL INJ 5 MG/ML 2 ML VIAL IV STA (12:01)
[2021-04-19] MEDS ORDERED: diphenhydrAMINE 50 MG/ML VIAL IV STA (12:01)
[2021-04-19] MEDS ORDERED: MAGNESIUM SULFATE / D5W 1 GM/100 ML BAG IV ONE (12:01)
[2021-04-19] MEDS ORDERED: DEXAMETHASONE SOD INJ 4 MG/ML VIAL ONE (12:14)
[2021-04-19 12:44] LABS: INR 1.1 (0.9-1.1); Partial Thromboplastin Ratio 1.1; Partial Thromboplastin Time 28.2 Seconds (21.0-31.0)
[2021-04-19 12:50] LABS: Albumin Level 3.5 gm/dl (3.4-5.0); BUN Creatinine Ratio 21.4 (10-20); Calcium 8.7 mg/dl (8.5-10.1); Creatinine Clr Calc Pharmacy 97.9 ml/min; Est GFR (African American) 116.4 ml/min; Est GFR (Non-African American) 100.5 ml/min; Potassium 2.7 mmol/L (3.5-5.1)
[2021-04-19 12:53] LABS: Albumin Globulin Ratio 0.8 (0.9-2); Bilirubin,Total 0.8 mg/dl (0.2-1); Globulin 4.3 gm/dl (2.5-4.0); Total Protein 7.8 gm/dl (6.4-8.2)
[2021-04-19] MEDS ORDERED: POTASSIUM ACETATE/NSS 10 MEQ/105 ML BAG IV SCH (13:15)
[2021-04-19 13:50] LABS: Magnesium 2.3 mg/dl (1.8-2.4); Phosphorus 2.5 mg/dl (2.5-4.9)
[2021-04-19] MEDS: POTASSIUM CHLORIDE / WTR 10 MEQ/100 ML PLCT IV SCH ×2 (14:01→17:32)
--- NOTE | 2021-04-19 14:49 | History & Physical Report ---
Date of Service April 19, 2021 Assessment & Plan (1) Intractable chronic post-traumatic headache: Patient with chronic daily headaches beginning in the early following her SDH s/p craniotomy. Likely has element of rebound headaches as well as she gets 30 tabs of percocet each month for abortive Rx. She now has acute/chronic headache with 3 ED visits in the last 3 days for the headache. CT head 04/17 unremarkable. On 04/17 she had documented fever and since then has had numerous infectious symptoms as noted below. I am concerned that her current headache is being exacerbation by a viral or tickborne illness. In the ER today she received IV magnesium, IV depakote (1000mg) and IV decadron (8mg) for abortive therapy. Her headache was improved by the time I performed my admission assessment. She has no meningeal signs on physical exam. My suspicion for meningitis is low and thus will defer on LP at this time. I am reluctant to give high-dose steroids for additional abortive therapy because of concern of a tickborne process. Thus, will use fioricet prn, benadryl prn, and anti-emetics. Limit narcotic usage if possible. Doubt triptans would be helpful. Will ask [facility] Neurology to see in consult tomorrow. She deserves headache prophylaxis -- I am surprised she is not on such (topamax, depakote, beta bridget, etc) -- but suspect she has trialed these in the past without success. If headache persists consider MRI brain. If fevers, headaches, etc persist or worsen - consider LP. I don't see ANY evidence of sinusitis - stop the zithromax. (2) Hypokalemia: 2nd to poor oral intake as well as chronic HCTZ use. Hold latter. Give IV and PO replacement. Repeat K level in am. Mag noted to be normal. (3) Transaminitis: acute. given her fever, headache, flu-like symptoms, thrombocytopenia, etc I am concerned about a viral etiology (mono, CMV, etc) vs tickborne disease (anaplasmosis). repeat ast/alt in am. check anaplasmosis smear. If negative then obtain anaplasmosis DNA. Will also send Ehrlichosis. Consider mono/cmv testing. (4) Thrombocytopenia: acute. Was 207 on 04/17, then 130s yesterday, and now about 100 today. anaplasmosis? viral? other? COVID-19 negative. repeat CBC am. (5) Flu-like symptoms: with documented fever on 04/17/21. COVID-19 negative (and is vaccinated). Lyme negative. Check anaplasmosis smear. If smear is negative then send anaplasmosis DNA. Check ehrlichiosis DNA. consider viral studies (biofire, CMV, EBV, etc). while awaiting tickborne studies - start doxycycline 100mg IV BID. (6) Lab test negative for COVID-19 virus: (7) Depression: cont usual home meds (8) Hypertension: BPs are normal or low-normal today in setting of dehydration. HOLD HCTZ. Reasonable to continue losartan 50mg/day. (9) GERD (gastroesophageal reflux disease): PPI daily (10) Obesity (BMI 30-39.9): BMI 32.5 (11) Candidiasis of mouth and esophagus: chronic. follows with ENT. given antibiotic usage will start nystatin PO TID for prevention purposes. (12) History of subdural hematoma: s/p craniotomy in the early chronic headaches since then (13) DVT prophylaxis: hold off on chemical means for now given the rapidly decreasing platelet count ambulation if platelets rebound and if ambulation is poor then add chemical DVT proph updated at bedside History of Present Illness Chief Complaint: intractable headache Primary Care Provider: CARMEN Castle 60yo female with history of SDH s/p craniotomy - hospitalized at [facility] in [place] years ago for such - presents with intractable headache since Saturday. She has chronic, daily headaches for many years but acutely her headache has been much worse than baseline. Current headache is bitemporal and frontal. This is the usual location for her headaches. Has associated nausea, photophobia, phonophobia. Had dry heaves yesterday. Today is her 3rd ER visit in 3 days for the headache. With each ER visit she feels better, but then the headache returns. Uses percocet prn for abortive Rx fairly frequently at home. states that weather changes bring her headaches on. Did have fever of 101 on Saturday. Had chills on Saturday and yesterday. No sore throat. No rash. No myalgias or arthralgias. No cough or dyspnea. Some mild stomach upset/discomfort - upper portion of abdomen. No diarrhea. Poor appetite since Saturday. No tick bites but works in the yard/garden frequently. No sick contacts. Had COVID vaccine - Moderna - about 2 months ago. In the ER today received 1000mg of depakote IV as well as 8mg of decadron IV for abortive purposes. Allergies Allergy/AdvReac Type Severity Reaction Status Date / Time bacitracin Allergy Mild RASH Verified 04/19/21 12:45 cephalexin AdvReac Intermediate HEADACHES, Verified 04/19/21 12:45 G I UPSET Home Medications Medication Instructions Recorded Confirmed Type cholecalciferol (vitamin D3) 2,000 unit PO QPM 08/12/18 04/19/21 History [Vitamin D3] cyclobenzaprine 10 mg PO DAILY PRN 08/12/18 04/19/21 History duloxetine [Cymbalta] 120 mg PO QAM 08/12/18 04/19/21 History lorazepam 1 mg PO DAILY PRN 08/12/18 04/19/21 History magnesium 500 mg PO QPM 08/12/18 04/19/21 History multivitamin 1 tab PO QPM 08/12/18 04/19/21 History pregabalin [Lyrica] 150 mg PO TID 08/12/18 04/19/21 History loratadine 10 mg tablet 10 mg PO DAILY PRN 01/08/19 04/19/21 History vitamin B complex 1 tab PO QAM 01/08/19 04/19/21 History pravastatin 10 mg tablet 10 mg PO HS 04/15/20 04/19/21 History hydrochlorothiazide 12.5 mg PO QAM 04/28/20 04/19/21 History losartan 50 mg PO QAM 04/28/20 04/19/21 History pantoprazole [Protonix] 20 mg PO QAM 04/28/20 04/19/21 History metformin 500 mg PO DAILY@1400 07/05/20 04/19/21 History azithromycin 250 mg PO UD #6 tab 04/17/21 04/19/21 Rx clotrimazole 10 mg PO TID PRN 04/17/21 04/19/21 History oxycodone-acetaminophen [Endocet] 1 tab PO DAILY 04/17/21 04/19/21 History Past Med/Surg History Medical History Anemia Anxiety Chronic back pain Chronic headaches daily; has been to [facility], [facility], [facility] for evaluations Constipation Degenerative disc disease Depression Endometriosis Fibromyalgia GERD (gastroesophageal reflux disease) Hepatic steatosis Herpes History of ovarian cyst History of subdural hematoma 1991 [facility]QU[facility] EMERGENCY SURGERY Hypertension IBS (irritable bowel syndrome) Leukocytosis Migraine headache Obesity (BMI 30-39.9) Sciatica Spinal cord stimulator status in place 10/2019 [facility] (advised to bring remote/magnet for surgery) Thrush, oral chronic --- nystatin lozenges TID. dx'd 05/2019, follows with PCP & ENT Dr Knox. Surgical History Fusion of spine L4-L5, L5-S1 (after discectomy surgeries) History of anesthesia complications DIFFICULTY WAKING UP History of brain surgery 1991 (removed a subdural hematoma) History of carpal tunnel release RT History of cholecystectomy History of discectomy L4-L5, L5-S1 (2 different surgeries) History of incisional hernia repair (05/02/20) Laparoscopic Incisional Hernia Repair Dr. Olivo 05/02/20 History of rotator cuff surgery right 08/2018 [facility] History of tonsillectomy History of tooth extraction History of tubal ligation +tubal reversal Hx of colonoscopy S/P BSO (bilateral salpingo-oophorectomy) S/P knee surgery right knee S/P [place] (total abdominal hysterectomy) Family History Mother Family history of reaction to anesthesia PONV Breast cancer Diabetes Heart disease Hypertension Grandfather (Paternal) Family history of diabetes mellitus Diabetes Father Family history of diabetes mellitus Heart disease Hypertension Mother , 12/2020 - lung cancer? Family history of diabetes mellitus Grandmother (Paternal) Family hx of colon cancer Sister Migraine Social History Smoking Status: Former smoker Tobacco Type: Cigarettes Age Started Using Tobacco: 15; packs per day: 0.5; Smoking End Date: 1993; Second Hand Exposure: No; Do You Dip or Chew Tobacco: No; Tobacco Cessation Education Requested by Patient: No Hx Alcohol Use: No Hx Substance Use: Yes Prescribed Medications: Marijuana Prescribed Medications Comment: Medical THC - for headaches Last Used Substance: Days (ago) Last Used Substance Other:: 04/15/21 Preferred Language: Armenian Communication Ability: Effective Visual Impairment: No Limitations Hearing Ability: Normal Film Examiner Required: No Beliefs That Will Affect Care: None marital status: Current Living Situation: Spouse current occupational status: disabled current occupation: finance work at [employer] How many Children do You have: 0 Other Information That Helps Us Care for You: No Feels Safe at Home: Yes Safety Concerns: Feels Safe At This Time Assistive Devices: None Review of Systems Constitutional: + fever, + chills, + fatigue and + anorexia Eyes: + photophobia Ear, Nose, Mouth, Throat: no dysphagia no loss of taste or smell Respiratory: no cough and no dyspnea Cardiovascular: no chest pain and no edema Gastrointestinal: + nausea; no diarrhea/loose stools Genitourinary: no dysuria Musculoskeletal: no joint pain and no myalgia Integumentary: no rash Neurologic: no loss of sensation Psychiatric: no depression Endocrine: diabetes - metformin; BSGs this week -- 129 Hematologic / Lymphatic: no easy bleeding, no easy bruising and no lymphadenopathy Physical Exam Constitutional: + ill appearing and + obese; no acute distress and no altered mental status Eyes: PERRL; no photophobia ENMT: Mouth: + dry oral mucous membranes (but no obvious thrush seen ); no oropharynx abnormality Neck: trachea midline, no thyromegaly negative Brudzinski's sign, negative Kernig's sign and no nuchal rigidity Respiratory: normal respiratory effort, lungs clear to auscultation Cardiovascular: Rate/Rhythm: regular rate and regular rhythm Heart Sounds: normal S1 and normal S2; no murmur Vessels: posterior tibial pulses present and dorsalis pedis pulses present; no JVD Extremities: no edema Gastrointestinal (Abdomen): normal bowel sounds, soft, nontender, no hepatosplenomegaly Musculoskeletal: no cyanosis or clubbing, extremities motor strength 5/5 Skin: no rashes, warm and dry Neurologic: deep tendon reflexes 2+ bilaterally and moves all extremities; no meningeal signs Psychiatric: A+Ox3, euthymic affect Lymphatic: no cervical lymphadenopathy Results & Data Results & Data ([facility]) Vital Signs (Past 12 Hours) Vital Signs Temp Pulse Resp BP Pulse Ox 04/19/21 14:30 65 15 162/75 H 91 04/19/21 14:00 75 11 L 129/76 96 04/19/21 13:56 83 23 173/96 H 96 04/19/21 11:15 36.1 C L 78 18 112/71 98 Laboratory Results Labs 04/19/21 04/19/21 04/19/21 12:23 12:23 12:23 WBC RBC Hgb Hct MCV MCH MCHC RDW Std Deviation RDW Coeff of [place] Plt Count MPV Immature Gran % (Auto) Neut % (Auto) Lymph % (Auto) [place] % (Auto) Eos % (Auto) Baso % (Auto) Neut # (Auto) Lymph # (Auto) [place] # (Auto) Eos # (Auto) Baso # (Auto) Immature Gran # (Auto) ESR 23 PT 11.0 INR 1.1 APTT 28.2 PTT Ratio 1.1 Carboxyhemoglobin Sodium 135 L Potassium 2.7 L Chloride 101 Carbon Dioxide 23 Anion Gap 11.0 BUN 13 Creatinine 0.60 Est Cr Clr Drug Dosing 97.9 Est GFR ( Amer) 116.4 Est GFR (Non-Af Amer) 100.5 BUN/Creatinine Ratio 21.4 H Glucose 126 H POC Glucose Calcium 8.7 Phosphorus Magnesium Total Bilirubin 0.8 AST 68 H ALT 81 H Alkaline Phosphatase 112 C-Reactive Protein Total Protein 7.8 Albumin 3.5 Globulin 4.3 H Albumin/Globulin Ratio 0.8 L Anaplasma Smear COVID-19 Eval Order SARS-CoV-2 (PCR) 04/19/21 04/19/21 04/19/21 12:23 12:23 12:23 WBC 5.11 RBC 4.11 L Hgb 12.3 Hct 35.9 L MCV 87.3 MCH 29.9 MCHC 34.3 RDW Std Deviation 45.3 RDW Coeff of [place] 14.1 Plt Count 101 L MPV 10.3 Immature Gran % (Auto) 0.8 Neut % (Auto) 84.3 Lymph % (Auto) 9.6 [place] % (Auto) 5.1 Eos % (Auto) 0.0 Baso % (Auto) 0.2 Neut # (Auto) 4.31 Lymph # (Auto) 0.49 L [place] # (Auto) 0.26 Eos # (Auto) 0.00 Baso # (Auto) 0.01 Immature Gran # (Auto) 0.04 H ESR PT INR APTT PTT Ratio Carboxyhemoglobin 0.0 Sodium Potassium Chloride Carbon Dioxide Anion Gap BUN Creatinine Est Cr Clr Drug Dosing Est GFR ( Amer) Est GFR (Non-Af Amer) BUN/Creatinine Ratio Glucose POC Glucose Calcium Phosphorus 2.5 Magnesium 2.3 Total Bilirubin AST ALT Alkaline Phosphatase C-Reactive Protein Total Protein Albumin Globulin Albumin/Globulin Ratio Anaplasma Smear See Comment COVID-19 Eval Order SARS-CoV-2 (PCR) 04/19/21 04/19/21 04/19/21 12:23 14:00 14:00 WBC RBC Hgb Hct MCV MCH MCHC RDW Std Deviation RDW Coeff of [place] Plt Count MPV Immature Gran % (Auto) Neut % (Auto) Lymph % (Auto) [place] % (Auto) Eos % (Auto) Baso % (Auto) Neut # (Auto) Lymph # (Auto) [place] # (Auto) Eos # (Auto) Baso # (Auto) Immature Gran # (Auto) ESR PT INR APTT PTT Ratio Carboxyhemoglobin Sodium Potassium Chloride Carbon Dioxide Anion Gap BUN Creatinine Est Cr Clr Drug Dosing Est GFR ( Amer) Est GFR (Non-Af Amer) BUN/Creatinine Ratio Glucose POC Glucose Calcium Phosphorus Magnesium Total Bilirubin AST ALT Alkaline Phosphatase C-Reactive Protein 13.90 H Total Protein Albumin Globulin Albumin/Globulin Ratio Anaplasma Smear COVID-19 Eval Order Covid19 at [facility] SARS-CoV-2 (PCR) NEGATIVE 04/19/21 20:57 WBC RBC Hgb Hct MCV MCH MCHC RDW Std Deviation RDW Coeff of [place] Plt Count MPV Immature Gran % (Auto) Neut % (Auto) Lymph % (Auto) [place] % (Auto) Eos % (Auto) Baso % (Auto) Neut # (Auto) Lymph # (Auto) [place] # (Auto) Eos # (Auto) Baso # (Auto) Immature Gran # (Auto) ESR PT INR APTT PTT Ratio Carboxyhemoglobin Sodium Potassium Chloride Carbon Dioxide Anion Gap BUN Creatinine Est Cr Clr Drug Dosing Est GFR ( Amer) Est GFR (Non-Af Amer) BUN/Creatinine Ratio Glucose POC Glucose 176 H Calcium Phosphorus Magnesium Total Bilirubin AST ALT Alkaline Phosphatase C-Reactive Protein Total Protein Albumin Globulin Albumin/Globulin Ratio Anaplasma Smear COVID-19 Eval Order SARS-CoV-2 (PCR) Diagnostic Findings CXR and CT head on 04/17 -- no acute findings. EKG - my reading - NSR, ST segments V3-V6 with slight depression. RSR' pattern lead III only. Prominent R waves leads V1/V2. Code Status & VTE Plan Code Status full VTE Prophylaxis Plan VTE Prophylaxis will be ordered: Yes PG Care Time/CCT Total # of Minutes Spent Total Time Spent with Patient: Total time spent is greater than 50% in coordination of care (as documented) at patient's floor/unit and/or counseling patient: Coding Level of Care Code 21426 Initial Inpt Care Lvl 3 Diagnoses Intractable chronic post-traumatic headache G44.321 Hypokalemia E87.6 Transaminitis R74.01 Thrombocytopenia D69.6 Flu-like symptoms R68.89 Lab test negative for COVID-19 virus Z20.822 Depression F32.9 Hypertension I10 GERD (gastroesophageal reflux disease) K21.9 Obesity (BMI 30-39.9) E66.9 Candidiasis of mouth and esophagus B37.81; B37.0 History of subdural hematoma Z86.79 DVT prophylaxis Z29.9
[2021-04-19] MEDS ORDERED: VALPROATE SOD 1,000 MG in DEXTROSE 5% 100 ML IV ONE (15:08)
[2021-04-19 15:35] LABS: Basophils # (auto) 0.01 K/uL (0-0.2); Basophils % (auto) 0.2 %; Hematocrit (blood only) 35.9 % (37-47); Hemoglobin 12.3 g/dL (12.0-16.0); Immature Granulocytes # (auto) 0.04 K/uL (0.00-0.02); Immature Granulocytes % (auto) 0.8 %; Lymphocytes # (auto) 0.49 K/uL (1.2-3.4); Lymphocytes % (auto) 9.6 %; Mean Corpuscular Hemoglobin 29.9 pg (25-34); Mean Corpuscular Hgb Conc 34.3 g/dL (32-36); Mean Corpuscular Volume 87.3 fL (80-100); Mean Platelet Volume 10.3 fL (7.4-10.4); Monocytes # (auto) 0.26 K/uL (0.11-0.59); Monocytes % (auto) 5.1 %; Neutrophils # (auto) 4.31 K/uL (1.4-6.5); Neutrophils % (auto) 84.3 %; Platelet Count 101 K/uL (130-400); RDW Coefficient of Variation 14.1 % (11.5-14.5); RDW Standard Deviation 45.3 fL (36.4-46.3); Red Blood Count 4.11 M/uL (4.2-5.4); White Blood Count 5.11 K/uL (4.8-10.8)
[2021-04-19] MEDS ORDERED: DOXYCYCLINE HYCLATE 100 MG in DEXTROSE 5% 100 ML IV STA (15:47)
--- NOTE | 2021-04-19 17:57 | Electrocardiogram Report ---
Test Reason : Blood Pressure : / mmHG Vent. Rate : 077 BPM Atrial Rate : 077 BPM P-R Int : 162 ms QRS Dur : 098 ms QT Int : 402 ms P-R-T Axes : 056 033 043 degrees QTc Int : 454 ms Normal sinus rhythm Nonspecific ST abnormality Abnormal ECG When compared with ECG of 17-APR-2021 07:31, No significant change was found Confirmed by Chato Flores ([id number]) on 04/19/2021 5:56:53 PM Referred By: REFERRED SELF Confirmed By:Yoel Flores
[2021-04-19] MEDS ORDERED: oxyCODONE/APAP 7.5/325MG TAB PO PRN (20:34)
[2021-04-19] MEDS ORDERED: BUTALBITAL/ACETAMIN/CAFFEINE TAB PO PRN (20:34)
[2021-04-19] MEDS ORDERED: ACETAMINOPHEN 325 MG TAB PO PRN (20:34)
[2021-04-19] MEDS ORDERED: diphenhydrAMINE 50 MG/ML VIAL IV PRN (20:34)
[2021-04-19] MEDS ORDERED: ONDANSETRON INJ 2 MG/ML 2 ML VIAL IV PRN (20:34)
[2021-04-19] MEDS ORDERED: LORazepam 1 MG TAB PO PRN (20:34)
[2021-04-19] MEDS ORDERED: KETOROLAC 30 MG/ML VIAL IV PRN (20:34)
[2021-04-19] MEDS ORDERED: LORATADINE 10 MG TAB PO PRN (20:34)
[2021-04-19] MEDS ORDERED: CARBOHYDRATES FOR HYPOGLYCEMIA PO PRN (21:15)
[2021-04-19] MEDS ORDERED: GLUCOSE 40% GEL 15 GM TUBE PO PRN (21:15)
[2021-04-19] MEDS ORDERED: DEXTROSE 50% 50 ML SYRINGE IV PRN (21:15)
[2021-04-19] MEDS ORDERED: GLUCOSE 10 TABS/TUBE PO PRN (21:15)
[2021-04-19] MEDS ORDERED: GLUCAGON FOR INJ 1 MG VIAL IM PRN (21:15)
[2021-04-19] MEDS ORDERED: CYCLOBENZAPRINE HCL 10 MG TAB PO PRN (21:17)
[2021-04-19] MEDS: INSULIN ASPART 100 UNITS/ML 3 ML PEN SC SCH ×2 (21:59→23:17)
[2021-04-19] MEDS: NSS + 20MEQ KCL 20 MEQ/1,000 ML BAG IV SCH (21:59)
[2021-04-19] MEDS: CHOLECALCIFEROL 1,000 UNITS 25 MCG TAB PO SCH (22:00)
[2021-04-19] MEDS: MULTIVITAMIN TAB PO SCH (22:00)
[2021-04-19] MEDS: PRAVASTATIN SOD 10 MG TAB PO SCH (22:01)
[2021-04-19] MEDS: POTASSIUM CHLORIDE 10 MEQ TABCR PO SCH (22:01)
[2021-04-19] MEDS: MAGNESIUM OXIDE 400 MG TAB PO SCH (22:01)
[2021-04-19] MEDS: PREGABALIN 150 MG CAP PO SCH (22:04)
[2021-04-20] MEDS: DOXYCYCLINE HYCLATE 100 MG in DEXTROSE 5% 100 ML IV SCH ×2 (04:03→16:10)
[2021-04-20] MEDS: NSS + 20MEQ KCL 20 MEQ/1,000 ML BAG IV SCH ×3 (05:12→20:36)
[2021-04-20] MEDS: INSULIN ASPART 100 UNITS/ML 3 ML PEN SC SCH ×4 (07:59→21:19)
[2021-04-20] MEDS: DULoxetine HCL 60 MG CAP PO SCH (08:02)
[2021-04-20] MEDS: NYSTATIN SUSP 500,000 U/5 ML UDC PO SCH ×3 (08:03→20:40)
[2021-04-20] MEDS: LOSARTAN POTASSIUM 50 MG TAB PO SCH (08:03)
[2021-04-20] MEDS: PANTOprazole 40 MG TAB PO SCH (08:03)
[2021-04-20] MEDS: VITAMIN B COMPLEX TAB PO SCH (08:04)
[2021-04-20] MEDS: POTASSIUM CHLORIDE 10 MEQ TABCR PO SCH ×3 (08:04→20:39)
--- NOTE | 2021-04-20 08:06 | Hospitalist Progress Note ---
Date of Service April 20, 2021 Assessment & Plan (1) Intractable chronic post-traumatic headache: Patient with chronic daily headaches beginning in the early following her SDH s/p craniotomy. Likely has element of rebound headaches as well as she gets 30 tabs of percocet each month for abortive Rx. She now has acute/chronic headache with 3 ED visits in the last 3 days for the headache. CT head 04/17 unremarkable. On 04/17 she had documented fever and since then has had numerous infectious symptoms as noted below. [facility] Neurology suggest the following refractory migraine, probably status migrainosus, although significantly improved this morning after treatment with IV fluids, dexamethasone, 1 g of valproic acid, metoclopramide, and Toradol administered in the emergency department. She is actually responded favorably to Depakote and other medications as administered in the emergency department, however. For the time being, I think it would be reasonable to continue Depakote for migraine prevention. Would recommend Depakote DR p.o. 250 mg twice daily. She is already tried and failed beta-blockers and tricyclic antidepressants. May consider a trial of a CGRP monoclonal antibody such as Ajovy or Emgality as an outpatient. If patient's headache recurs today, could consider sumatriptan injections for acute treatment. Previous trials of triptan tablets have not been that helpful, however. (2) Hypokalemia: Replete potassium orally hold hydrochlorothiazide. Mag noted to be normal. (3) Transaminitis: Mild elevation of transaminases will follow may be related to fluconazole patient takes for her thrush anaplasmosis smear negative pending. anaplasmosis DNA. Lyme negative, pending Ehrlichosis. (4) Thrombocytopenia: acute. Was 207 on 04/17, then 130s yesterday, and now about 100 today. Question viral illness COVID-19 negative. repeat CBC am. (5) Flu-like symptoms: with documented fever on 04/17/21. COVID-19 negative (and is vaccinated). Lyme negative. Send note tick testing is currently pending while awaiting tickborne studies - started doxycycline 100mg IV BID. Likely recommend complete course once discharged given the fact that these other tests are pending (6) Lab test negative for COVID-19 virus: (7) Depression: cont usual home meds (8) Hypertension: BPs are normal or low-normal today in setting of dehydration. HOLD HCTZ. Reasonable to continue losartan 50mg/day. (9) GERD (gastroesophageal reflux disease): PPI daily (10) Obesity (BMI 30-39.9): BMI 32.5 (11) Candidiasis of mouth and esophagus: chronic. follows with ENT. given antibiotic usage will start nystatin PO TID for prevention purposes. (12) History of subdural hematoma: s/p craniotomy in the early chronic headaches since then (13) DVT prophylaxis: hold off on chemical means for now given the rapidly decreasing platelet count ambulation if platelets rebound and if ambulation is poor then add chemical DVT proph Admission and Anticipated Discharge Date Admission Date: April 19, 2021 Subjective Patient is much better with regard to her headaches however still has a dull mild headache. She still does not feel quite steady on her feet. She did have some incontinence of stool this morning. He was seen by neurology they feels this is a refractory migraine probably status migrainosus recommending daily twice daily Depakote 250 Review of Systems Review of Systems: Mild distress and fatigue Diffuse headache, no visual changes no speech or swallowing issues no chest pain, pressure or palpitations no shortness of breath, cough or wheezes no abdominal pain, nausea or vomiting, incontinence of stool no dysuria, hematuria or frequency no focal joint pain or swelling no back pain, CVA tenderness or radicular pain no bruising, bleeding or rashes no focal signs of weakness or numbness or altered sensation no complaints of anxiety or depression.. Physical Exam Physical Exam: The patient appeared well nourished and normally developed. Vital signs as documented. Head exam is normocephalic atraumatic Neck is without JVD, thyromegaly, or carotid bruits. Lungs are clear to auscultation, no focal loss of breath sounds Cardiac exam, Rhythm is regular.. No murmurs, rubs or gallops. Abdominal exam reveals normal bowel sounds, soft non tender, no masses Extremities are nonedematous and both pedal pulses are present Neurologic exam is alert and oriented, no focal loss of strength or sensation Skin is without bruises or rashes Psychologically is without concerns for anxiety or depression Results & Data Results & Data ([facility]) Vital Signs (Past 12 Hours) Vital Signs Temp Pulse Pulse Resp BP Pulse Ox 04/20/21 07:06 97.9 F 68 20 123/78 99 04/20/21 03:26 98.1 F 80 16 127/79 98 04/19/21 23:24 63 04/19/21 21:16 58 L 04/19/21 20:40 97.9 F 16 120/72 100 PG Care Time/CCT Total # of Minutes Spent Total Time Spent with Patient: Total time spent is greater than 50% in coordination of care (as documented) at patient's floor/unit and/or counseling patient: Coding Level of Care Code 60545 Subseq Hosp Care Lvl 3 Diagnoses Intractable chronic post-traumatic headache G44.321 Hypokalemia E87.6 Transaminitis R74.01 Thrombocytopenia D69.6 Flu-like symptoms R68.89 Lab test negative for COVID-19 virus Z20.822 Depression F32.9 Hypertension I10 GERD (gastroesophageal reflux disease) K21.9 Obesity (BMI 30-39.9) E66.9 Candidiasis of mouth and esophagus B37.81; B37.0 History of subdural hematoma Z86.79 DVT prophylaxis Z29.9
[2021-04-20] MEDS: PREGABALIN 150 MG CAP PO SCH ×3 (08:10→20:40)
[2021-04-20 08:17] LABS: Hematocrit (blood only) 37.5 % (37-47); Hemoglobin 12.7 g/dL (12.0-16.0); Mean Corpuscular Hemoglobin 29.9 pg (25-34); Mean Corpuscular Hgb Conc 33.9 g/dL (32-36); Mean Corpuscular Volume 88.2 fL (80-100); Mean Platelet Volume 10.7 fL (7.4-10.4); Platelet Count 120 K/uL (130-400); RDW Coefficient of Variation 14.3 % (11.5-14.5); RDW Standard Deviation 46.3 fL (36.4-46.3); Red Blood Count 4.25 M/uL (4.2-5.4); White Blood Count 6.53 K/uL (4.8-10.8)
[2021-04-20 08:41] LABS: Calcium 9.5 mg/dl (8.5-10.1); Creatinine Clr Calc Pharmacy 79.4 ml/min; Est GFR (African American) 105.2 ml/min; Est GFR (Non-African American) 90.8 ml/min; Potassium 3.1 mmol/L (3.5-5.1)
[2021-04-20 08:45] LABS: ALC (manual) 0.93 K/uL (1.2-3.4); ANC (manual) 5.54 K/uL (1.4-6.5); Lymphocytes # (manual) 0.93 K/uL (1.2-3.4); Lymphocytes % (manual) 14.3 %; Monocytes # (manual) 0.06 K/uL (0.11-0.59); Monocytes % (manual) 0.9 %; Neutrophils # (manual) 5.54 K/uL (1.4-6.5); Neutrophils % (manual) 84.8 %
--- NOTE | 2021-04-20 10:27 | Neurology Consultation ---
Date of Consultation April 20, 2021 Assessment & Plan (1) Migraine: Refractory migraine, probably status migrainosus, although significantly improved this morning after treatment with IV fluids, dexamethasone, 1 g of valproic acid, metoclopramide, and Toradol administered in the emergency dep artment. Patient does have a complex mixed headache disorder with a history of TBI/subdural hematoma, requiring left occipital craniectomy in the . Chronic occipital neuralgia, chronic daily headache, and episodic migraine headache. Patient's migraines occur about 2 times per month although she has been dealing with her refractory migrainous headache for the past 4 days. Patient does have a history of intolerance to topiramate, resulted in significant adverse change in mood. She is actually responded favorably to Depakote and other medications as administered in the emergency department, however. For the time being, I think it would be reasonable to continue Depakote for migraine prevention. Would recommend Depakote DR p.o. 250 mg twice daily. She is already tried and failed beta-blockers and tricyclic antidepressants. May consider a trial of a CGRP monoclonal antibody such as Ajovy or Emgality as an outpatient. If patient's headache recurs today, could consider sumatriptan injections for acute treatment. Previous trials of triptan tablets have not been that helpful, however. Patient may have an element of medication overuse headache as well as she does rely on Percocet for headache treatment as an outpatient. Attempting to limit this type of medication would be reasonable. History of Present Illness Reason for Consultation: Acute/chronic headache Requesting Physician: Hunter Buckner MD Attending Physician: Bentley Pat MD History of Present Illness The patient is a 60-year-old female with a history of chronic headaches, proba roma mixed headache disorder including occipital neuralgia, chronic daily headache, and migraine. I last evaluated this patient during an admission to the [facility] this past July for encephalopathy likely related to overuse/misuse of prescription medications at that time including Lyrica, narcotic analgesics, benzodiazepines, and muscle relaxants. This patient does not follow with me regularly in the outpatient clinic. She has been treated by pain management and has had occipital nerve blocks/ablations. History notable for fall, complicated by subdural hematoma/TBI in the , requiring left occipital craniectomy. Patient complains of chronic headaches, variable type although many of these are associated with nausea as well as light and sound sensitivity when severe, at least 2 of these migrainous headaches per month. Patient has been treating her headaches with Percocet. She presented to the emergency department yesterday afternoon complaining of a persistent migrainous headache that began over the weekend. She had actually presented several times to the emergency department for this headache, on the , , and , ultimately resulting in admission for further evaluation and treatment. She did have a CT of the head completed on April 17 that was negative for hemorrhage or acute process. The study did reveal evidence of the prior left-sided craniecto my. I reviewed the images as well as the radiologist's interpretation of this test. No significant change compared with the previous head CT done in April 2020. The patient's headache was treated with IV fluids, Toradol, Benadryl, metoclopramide, magnesium oxide, dexamethasone, and Depakote. This morning, she reports that her headache is nearly resolved. She denies experiencing any other associated neurologic symptoms such as vision loss, diplopia, or focal weakness. She does recall a previous adverse reaction to topiramate, significant negative change in mood. She has tried multiple treatments for migraines in the past including beta-blockers and tricyclic antidepressants. Allergies Allergy/AdvReac Type Severity Reaction Status Date / Time bacitracin Allergy Mild RASH Verified 04/19/21 12:45 cephalexin AdvReac Intermediate HEADACHES, Verified 04/19/21 12:45 G I UPSET Home Medications Medication Instructions Recorded Confirmed Type cholecalciferol (vitamin D3) 2,000 unit PO QPM 08/12/18 04/19/21 History [Vitamin D3] cyclobenzaprine 10 mg PO DAILY PRN 08/12/18 04/19/21 History duloxetine [Cymbalta] 120 mg PO QAM 08/12/18 04/19/21 History lorazepam 1 mg PO DAILY PRN 08/12/18 04/19/21 History magnesium 500 mg PO QPM 08/12/18 04/19/21 History multivitamin 1 tab PO QPM 08/12/18 04/19/21 History pregabalin [Lyrica] 150 mg PO TID 08/12/18 04/19/21 History loratadine 10 mg tablet 10 mg PO DAILY PRN 01/08/19 04/19/21 History vitamin B complex 1 tab PO QAM 01/08/19 04/19/21 History pravastatin 10 mg tablet 10 mg PO HS 04/15/20 04/19/21 History hydrochlorothiazide 12.5 mg PO QAM 04/28/20 04/19/21 History losartan 50 mg PO QAM 04/28/20 04/19/21 History pantoprazole [Protonix] 20 mg PO QAM 04/28/20 04/19/21 History metformin 500 mg PO DAILY@1400 07/05/20 04/19/21 History azithromycin 250 mg PO UD #6 tab 04/17/21 04/19/21 Rx clotrimazole 10 mg PO TID PRN 04/17/21 04/19/21 History oxycodone-acetaminophen [Endocet] 1 tab PO DAILY 04/17/21 04/19/21 History Patient History Medical History Anemia Anxiety Chronic back pain Chronic headaches daily; has been to [facility], [facility], [facility] for evaluations Constipation Degenerative disc disease Depression Endometriosis Fibromyalgia GERD (gastroesophageal reflux disease) Hepatic steatosis Herpes History of ovarian cyst History of subdural hematoma 1991 REQUIRING EMERGENCY SURGERY Hypertension IBS (irritable bowel syndrome) Leukocytosis Migraine headache Obesity (BMI 30-39.9) Sciatica Spinal cord stimulator status in place 10/2019 [facility] (advised to bring remote/magnet for surgery) Thrush, oral chronic --- nystatin lozenges TID. dx'd 05/2019, follows with PCP & ENT Dr Knox. Surgical History Fusion of spine L4-L5, L5-S1 (after discectomy surgeries) History of anesthesia complications DIFFICULTY WAKING UP History of brain surgery 1991 (removed a subdural hematoma) History of carpal tunnel release RT History of cholecystectomy History of discectomy L4-L5, L5-S1 (2 different surgeries) History of incisional hernia repair (05/02/20) Laparoscopic Incisional Hernia Repair Dr. Olivo 05/02/20 History of rotator cuff surgery right 08/2018 [facility] History of tonsillectomy History of tooth extraction History of tubal ligation +tubal reversal Hx of colonoscopy S/P BSO (bilateral salpingo-oophorectomy) S/P knee surgery right knee S/P [place] (total abdominal hysterectomy) Family History Mother Family history of reaction to anesthesia PONV Breast cancer Diabetes Heart disease Hypertension Grandfather (Paternal) Family history of diabetes mellitus Diabetes Father Family history of diabetes mellitus Heart disease Hypertension Mother , 12/2020 - lung cancer? Family history of diabetes mellitus Grandmother (Paternal) Family hx of colon cancer Sister Migraine Social History Smoking Status: Former smoker Tobacco Type: Cigarettes Age Started Using Tobacco: 15; packs per day: 0.5; Smoking End Date: 1993; Second Hand Exposure: No; Do You Dip or Chew Tobacco: No; Tobacco Cessation Education Requested by Patient: No Hx Alcohol Use: No Hx Substance Use: Yes Prescribed Medications: Marijuana Prescribed Medications Comment: Medical THC - for headaches Last Used Substance: Days (ago) Last Used Substance Other:: 04/15/21 Preferred Language: Estonian Communication Ability: Effective Visual Impairment: No Limitations Hearing Ability: Normal Recycling Program Manager Required: No Beliefs That Will Affect Care: None marital status: Current Living Situation: Spouse current occupational status: disabled current occupation: finance work at [employer] How many Children do You have: 0 Other Information That Helps Us Care for You: No Feels Safe at Home: Yes Safety Concerns: Feels Safe At This Time Assistive Devices: None Review of Systems Constitutional: no fever and no chills Eyes: no blind spots and no diplopia Ear, Nose, Mouth, Throat: no hearing loss Respiratory: no cough and no dyspnea Cardiovascular: no chest pain and no palpitations Gastrointestinal: no nausea and no vomiting Genitourinary: no dysuria Musculoskeletal: no myalgia Integumentary: no rash and no lesions Neurologic: + headache(s); no localized weakness and no loss of sensation Psychiatric: no depression and no anxiety Hematologic / Lymphatic: no easy bleeding and no easy bruising Exam (Neuro) Constitutional: well developed and well nourished; no acute distress Eyes: normal visual rodriguez by confrontation, PERRL, normal accommodation and EOM intact bilaterally; no fundoscopic abnormality, no nystagmus and no papilledema Cardiovascular: Vessels: normal carotid upstroke; no carotid bruit Neurologic: Oriented to:: Person, Place and Time Memory: Short Term Intact and Remote Intact Attention: Span Intact and Concentration Intact Language: Naming Objects and Repeating Phrases Speech Fluency: negative Dysarthria Speech Aphasia: negative Aphasia Fund of Knowledge: Current Events, Past History and Vocabulary Cranial Nerves: Normal II (Visual rodriguez full to confrontation, visual acuity normal), III, IV, (Pupils equal round reactive to light and accommodation, eye movements normal), V (Facial sensation intact), VII (There is no facial droop or weakness), VIII (Hearing intact), IX, X (Palate elevates to midline), XI (Shoulder shrug intact) and XII (Tongue protrudes to midline) Motor Strength: Normal Lower Extremities and Normal Upper Extremities; negative Pronator Drift Motor Tone: Normal Lower Extremities and Normal Upper Extremities Muscle Bulk/Involuntary Movements: No Involuntary Movements; negative Muscle Atrophy Sensation: Light Touch Intact, Pain/Temperature Intact, Vibration Intact and Proprioception Intact Coordination: Normal; negative Limited Balance, Dysdiadochokinesia, Finger-Nose Abnormal and Heel-Mayo Abnormal Deep Tendon Reflexes: Rt Triceps: 2+, Lt T riceps: 2+, Rt Biceps: 2+, Lt Biceps: 2+, Rt Brachioradialis: 2+, Lt Brachioradialis: 2+, Rt Patellar: 2+, Lt Patellar: 2+, Rt Ankle: 2+ and Lt Ankle: 2+ Special Tests: negative Babinski Present Gait: Normal Station and Gait Results & Data ([facility]) Vital Signs (Past 12 Hours) Vital Signs Temp Pulse Pulse Resp BP Pulse Ox 04/20/21 07:06 36.6 C 68 20 123/78 99 04/20/21 03:26 36.7 C 80 16 127/79 98 04/19/21 23:24 63 Laboratory Results WBC 6.53, hemoglobin 12.7, hematocrit 37.5, platelet count 120, ESR 23, sodium 140, potassium 3.1, BUN 19, creatinine 0.73, glucose 101, calcium 9.5, magnesium 2.3, AST 38, ALT 68, total CK [address] of the head is as described in the history of present illness. I reviewed the images as well as the radiologist interpretation of this test. Electrocardiogram reveals a normal sinus rhythm, 77 bpm. Coding Level of Care Code 33650 Initial Inpt Care Lvl 3 Diagnoses Migraine G43.909 Intractability: not intractable Migraine type: unspecified Status migrainosus presence: without status migrainosus (1) Migraine Intractability: not intractable Migraine type: unspecified Status migrainosus presence: without status migrainosus Qualified Code(s): G43.909 - Migraine, unspecified, not intractable, without status migrainosus
[2021-04-20] MEDS ORDERED: SUMAtriptan succinate 6 MG/0.5 ML VIAL SQ PRN (12:28)
[2021-04-20] MEDS ORDERED: DIVALPROEX DELAY RELEASE 250 MG TABEC PO ONE (12:28)
[2021-04-20] MEDS: CHOLECALCIFEROL 1,000 UNITS 25 MCG TAB PO SCH (20:37)
[2021-04-20] MEDS: DIVALPROEX DELAY RELEASE 250 MG TABEC PO SCH (20:38)
[2021-04-20] MEDS: MAGNESIUM OXIDE 400 MG TAB PO SCH (20:39)
[2021-04-20] MEDS: MULTIVITAMIN TAB PO SCH (20:39)
[2021-04-20] MEDS: PRAVASTATIN SOD 10 MG TAB PO SCH (20:40)
[2021-04-20] MEDS ORDERED: MELATONIN 3 MG TAB PO SCH (21:00)
[2021-04-20] MEDS ORDERED: hydrOXYzine HCl 10 MG TAB PO ONE (21:00)
[2021-04-21] MEDS: NSS + 20MEQ KCL 20 MEQ/1,000 ML BAG IV SCH (04:35)
[2021-04-21] MEDS: DOXYCYCLINE HYCLATE 100 MG in DEXTROSE 5% 100 ML IV SCH (04:35)
[2021-04-21] MEDS: VITAMIN B COMPLEX TAB PO SCH (07:52)
[2021-04-21] MEDS: DULoxetine HCL 60 MG CAP PO SCH (07:53)
[2021-04-21] MEDS: LOSARTAN POTASSIUM 50 MG TAB PO SCH (07:53)
[2021-04-21] MEDS: PANTOprazole 40 MG TAB PO SCH (07:53)
[2021-04-21] MEDS: DIVALPROEX DELAY RELEASE 250 MG TABEC PO SCH (07:54)
[2021-04-21] MEDS: POTASSIUM CHLORIDE 10 MEQ TABCR PO SCH (07:54)
[2021-04-21] MEDS: NYSTATIN SUSP 500,000 U/5 ML UDC PO SCH (07:54)
[2021-04-21] MEDS: PREGABALIN 150 MG CAP PO SCH (07:57)
[2021-04-21] MEDS: INSULIN ASPART 100 UNITS/ML 3 ML PEN SC SCH ×2 (08:57→13:01)
--- NOTE | 2021-04-21 18:48 | Discharge Summary ---
Date of Service April 21, 2021 Admission HPI Per Admitting Provider 60yo female with history of SDH s/p craniotomy - hospitalized at [facility] in [place] years ago for such - presents with intractable headache since Saturday. She has chronic, daily headaches for many years but acutely her headache has been much worse than baseline. Current headache is bitemporal and frontal. This is the usual location for her headaches. Has associated nausea, photophobia, phonophobia. Had dry heaves yesterday. Today is her 3rd ER visit in 3 days for the headache. With each ER visit she feels better, but then the headache returns. Uses percocet prn for abortive Rx fairly frequently at home. states that weather changes bring her headaches on. Did have fever of 101 on Saturday. Had chills on Saturday and yesterday. No sore throat. No rash. No myalgias or arthralgias. No cough or dyspnea. Some mild stomach upset/discomfort - upper portion of abdomen. No diarrhea. Poor appetite since Saturday. No tick bites but works in the yard/garden frequently. No sick contacts. Had COVID vaccine - Moderna - about 2 months ago. In the ER today received 1000mg of depakote IV as well as 8mg of decadron IV for abortive purposes. Principal Diagnosis refractory migraine Discharge Exam The patient appeared well Vital signs as documented. Lungs are clear to auscultation and appear unlabored Cardiac exam, Rhythm is regular.. No murmurs, rubs or gallops. Abdominal exam reveals normal bowel sounds, soft non tender, no masses Extremities are nonedematous and both pedal pulses are normal. Neurologic exam is alert and oriented, no focal loss of strength or sensation Skin is without bruises or rashes Psychologically is without concerns for anxiety or depression. Discharge Data Allergies Allergy/AdvReac Type Severity Reaction Status Date / Time bacitracin Allergy Mild RASH Verified 04/19/21 12:45 cephalexin AdvReac Intermediate HEADACHES, Verified 04/19/21 12:45 G I UPSET Consultations 04/19/21 13:56 ED Decision to Admit Stat 04/19/21 22:26 Consult Neurology Routine Hospital Course (1) Intractable chronic post-traumatic headache: Patient with chronic daily headaches beginning in the early following her SDH s/p craniotomy. Likely has element of rebound headaches as well as she gets 30 tabs of percocet each month for abortive Rx. She now has acute/chronic headache with 3 ED visits in the last 3 days for the headache. CT head 04/17 unremarkable. On 04/17 she had documented fever and since then has had numerous infectious symptoms as noted below. [facility] Neurology suggest the following refractory migraine, probably status migrainosus, although significantly improved this morning after treatment with IV fluids, dexamethasone, 1 g of valproic acid, metoclopramide, and Toradol administered in the emergency department. She is actually responded favorably to Depakote and other medications as admini stered in the emergency department, however. Neurology recommends to continue Depakote for migraine prevention. Depakote p.o. 250 mg twice daily. She is already tried and failed beta-blockers and tricyclic antidepressants. May consider a trial of a CGRP monoclonal antibody such as Ajovy or Emgality as an outpatient. (2) Hypokalemia: Replete potassium orally We will resume hydrochlorothiazide. Mag noted to be normal. (3) Transaminitis: Mild elevation of transaminases will follow may be related to fluconazole patient takes for her thrush anaplasmosis smear negative, pending. anaplasmosis DNA. Lyme negative, pending Ehrlichosis. (4) Thrombocytopenia: acute. Was 207 on 04/17, then 130s yesterday, and now about 100 today. Question viral illness COVID-19 negative. repeat CBC am. (5) Flu-like symptoms: with documented fever on 04/17/21. COVID-19 negative (and is vaccinated). Lyme negative. Send note tick testing is currently pending while awaiting tickborne studies - started doxycycline 100mg IV BID. Started on initial testing was unremarkable and anaplasmosis smear negative, continue doxycycline as an outpatient but will keep surveillance for her send out studies to return (6) Lab test negative for COVID-19 virus: (7) Depression: cont usual home meds (8) Hypertension: HCTZ. losartan 50mg/day. (9) GERD (gastroesophageal reflux disease): PPI daily (10) Obesity (BMI 30-39.9): BMI 32.5 (11) Candidiasis of mouth and esophagus: chronic. follows with ENT. (12) History of subdural hematoma: s/p craniotomy in the early chronic headaches since then Total Time Total Time Spent Total Time Spent (In Minutes): It required greater than 30 minutes to prepare this patient for discharge Discharge Plan Discharge Items Patient Disposition: Home - Self-Care Reason For Visit: INTRACTABLE HEADACHE Discharge Diagnosis: intractable headache Activity: Resume your previous activity Non-emergency contact: Primary Care Provider Call non-emergency contact if: your symptoms worsen and you have a fever Follow-up/Referrals: Marion Miles CRNP [Primary Care Provider] - 04/27/21 11:10 am (If you have any questions or need to change this appointment, please call [phone].) Diet: Regular Addtl Attending Provider Instructions: please have good rest and good sleep follow up with your primary care provider Pending Studies at Discharge: No Stand-Alone Forms: [employer], Smoking Cessation Medications and DC Order Prescriptions: New divalproex 250 mg Tablet,Delayed Release (Dr/Ec) 250 mg PO BID Qty: 60 RF: 5 Continued vitamin B complex tablet 1 tab PO QAM RF: 0 pravastatin 10 mg tablet 10 mg PO HS RF: 0 metformin 500 mg tablet extended release 24 hr 500 mg PO DAILY@1400 RF: 0 multivitamin Tablet 1 tab PO QPM RF: 0 magnesium 250 mg Tablet 500 mg PO QPM RF: 0 lorazepam 1 mg Tablet 1 mg PO DAILY PRN (Reason: Anxiety) RF: 0 cholecalciferol (vitamin D3) [Vitamin D3] 1,000 unit Capsule 2,000 unit PO QPM RF: 0 duloxetine [Cymbalta] 60 mg Capsule,Delayed Release(Dr/Ec) 120 mg PO QAM RF: 0 pregabalin [Lyrica] 150 mg Capsule 150 mg PO TID RF: 0 cyclobenzaprine 10 mg Tablet 10 mg PO DAILY PRN (Reason: Muscle Spasm) RF: 0 loratadine [Claritin] 10 mg tablet 10 mg PO DAILY PRN (Reason: allergy symptoms) RF: 0 losartan 50 mg Tablet 50 mg PO QAM RF: 0 pantoprazole [Protonix] 20 mg Tablet,Delayed Release (Dr/Ec) 20 mg PO QAM RF: 0 hydrochlorothiazide 12.5 mg Tablet 12.5 mg PO QAM RF: 0 clotrimazole 10 mg kiana 10 mg PO TID PRN (Reason: thrush) RF: 0 oxycodone-acetaminophen [Endocet] 7.5-325 mg tablet 1 tab PO DAILY RF: 0 azithromycin 250 mg tablet 250 mg PO UD Qty: 6 RF: 0 Discharge Orders: Discharge Order (Routine); Ordered 04/21/21 Ordered By: Bentley Pat Admission Data Admit Date/Time: 04/19/21 18:16 Attending Provider: Bentley Pat Admit Provider: Hunter Buckner Primary Care Provider: Marion Miles Other Providers: Jj Hernandez ; Hunter Buckner Coding Level of Care Code D/C Day Management >30 mins Diagnoses Intractable chronic post-traumatic headache G44.321 Hypokalemia E87.6 Transaminitis R74.01 Thrombocytopenia D69.6 Flu-like symptoms R68.89 Lab test negative for COVID-19 virus Z20.822 Depression F32.9 Hypertension I10 GERD (gastroesophageal reflux disease) K21.9 Obesity (BMI 30-39.9) E66.9 Candidiasis of mouth and esophagus B37.81; B37.0 History of subdural hematoma Z86.79
[2021-04-22 20:36] LABS: Ehrlichia chaff DNA Bld Not Detected (Not Detected)
== END 2021-04-21 13:57 | disposition home or self-care (01) | DRG 103 ==
LOC: ED 11:12 → EDINP 18:16 → SUATTDRO 18:16 → EDINP 18:46 → 2W 19:27 → 2N 04-20 19:31

== ENCOUNTER 2023-01-10 10:06 | Observation (INO) ==
[2023-01-10] MEDS ORDERED: ONDANSETRON 4 MG OD TAB ONE (10:37)
[2023-01-10] MEDS ORDERED: LORazepam 1 MG TAB PO STA (10:44)
[2023-01-10 11:10] LABS: Appearance Urine Turbid (Clear); Bacteria Urine Automated Negative (Negative); Blood Urine Negative (Negative); Color Urine Dark Yellow; Epithelial Cell Urine Auto >30 /lpf (0-5); Glucose Urine UA Negative (Negative); Ketones Urine 2+ (Negative); Leukocyte Esterase Urine 1+ (Negative); Nitrite Urine Negative (Negative); Protein Urine 1+ (Negative); Specific Gravity Urine 1.027 (1.000-1.030); Urobilinogen Urine Negative (Negative)
[2023-01-10 11:14] LABS: Bilirubin Urine 1+ (Negative)
[2023-01-10 11:18] LABS: Albumin Level 4.8 gm/dl (3.4-5.0); Basophils # (auto) 0.05 K/uL (0-0.2); Basophils % (auto) 0.3 %; Bilirubin,Total 0.5 mg/dl (0.2-1.0); Eosinophils # (auto) 0.01 K/uL (0-0.50); Eosinophils % (auto) 0.1 %; Hematocrit (blood only) 40.3 % (37.0-47.0); Hemoglobin 13.7 g/dl (12.0-16.0); Immature Granulocytes # (auto) 0.12 K/uL (0.01-0.20); Immature Granulocytes % (auto) 0.6 %; Lymphocytes # (auto) 2.52 K/uL (1.2-3.4); Lymphocytes % (auto) 13.5 %; Mean Corpuscular Hemoglobin 28.4 pg (25.0-34.0); Mean Corpuscular Volume 83.6 fL (80.0-100.0); Monocytes % (auto) 3.8 %; Neutrophils # (auto) 15.25 K/uL (1.40-6.50); Neutrophils % (auto) 81.7 %; Platelet Count 322 K/uL (130-400); RDW Coefficient of Variation 14.4 % (11.5-14.5); RDW Standard Deviation 43.5 fL (36.4-46.3); Red Blood Count 4.82 M/uL (4.20-5.40); White Blood Count 18.65 K/ul (4.8-10.8)
[2023-01-10 11:24] LABS: Albumin Globulin Ratio 1.3 (0.9-2); BUN Creatinine Ratio 25.3 (10-20); Est GFR (African American) 100.4 ml/min; Est GFR (Non-African American) 86.6 ml/min; Globulin 3.7 gm/dl (2.5-4.0); Total Protein 8.5 gm/dl (6.0-8.3)
[2023-01-10 11:27] LABS: Calcium Oxalate Crystals Urine Present (None Prsent)
[2023-01-10] MEDS ORDERED: SODIUM CHLORIDE 0.9% 1000ML 1,000 ML IV ONE (11:29)
[2023-01-10] MEDS ORDERED: POTASSIUM CHLORIDE CRTAB 20 MEQ TABCR PO STA (11:29)
[2023-01-10] MEDS ORDERED: POTASSIUM CHLORIDE / WTR 10 MEQ/100 ML PLCT IV ONE (11:29)
[2023-01-10] MEDS ORDERED: cefTRIAXone SODIUM 2,000 MG/70 ML BAG IV STA (11:31)
--- NOTE | 2023-01-10 12:08 | History & Physical Report ---
Date of Service January 10, 2023 Assessment & Plan (1) Generalized weakness: Plan: -Admit to med/tele -The patient is currently afebrile, hemodynamically stable, and stable on RA -Her generalized weakness is likely multifactorial including but not limited to increased depression and anxiety, poor oral intake/deconditioning, polypharmacy, and possible UTI -Patient noted increased fatigue, depressive symptoms and nervousness since 01/07 -Noted to have a leukocytosis with left shift today, UA possibly indicative of acute UTI but the patient's only symptoms at this time have been chills -She appears dehydrated on exam with potassium of 3.6, will add on mag and phos levels -Patient is currently on multiple sedating medications including Suboxone, medical marijuana, lyrica, cyclobenzaprine, and possible buspar -Urine tox screen positive for marijuana -S/P 1L NSS in and a dose of ceftriaxone in the ED, will continue ceftriaxone for now and monitor urine and blood cultures -Will continue Suboxone, Lyrica, and Cymbalta for now, will hold cyclobenzaprine buspar, and ativan for now -Psych conslt placed, follow recs -Will FU CT abd/pelvis once obtained -Will hold additional IV fluids at this time as she can eat and drink, if she is till not eating consistently can continue IV fluids as needed -Will start suicide precautions and a 1:1 until she is evaluated and cleared by Psychiatry -BL SCD's and Sub-Q lovenox for DVT PPX (2) Acute hypokalemia: Plan: -3.0 today, likely due to poor oral intake and likely still taking HCTZ -Will add on mag and phos levels on admission -S/P 10 meq IV KCL and 20 meq PO KCL in the ED -Will repeat a K level at 5 pm to reassess -Monitor on tele until electrolytes are stable -Hold HCTZ for now until electrolytes are stable (3) DMII (diabetes mellitus, type 2): Plan: -Hold metformin -Monitor BSG ACHS, goal is 110-140 -Lantus 5 units BID, correction factor of 50 with carb ratio of 15 -DMII diet (4) Depression: Plan: -Continue Cymbalta -Psych consult -Suicide precautions and 1:1 for now (5) Hypertension: Plan: -Stable -Hold HCTZ with hypokalemia and dehydration -Continue Losartan (6) Anxiety: Plan: -Continue Cymbalta -Psych consult (7) GERD (gastroesophageal reflux disease): Plan: -Continue pantoprazole (8) Chronic back pain: Plan: -Continue Suboxone, Lyrica (9) UTI (urinary tract infection): Plan The patient was discussed with Dr. Jackson at the time of the admission History of Present Illness Chief Complaint: Depression, anxiety, generalized weakness Primary Care Provider: NO PCP Makeda is a 62 year old female with a PMH significant for depression with previous intrapatient admissions, anxiety, SDH s/p craniotomy in 1991 with chronic headaches/migraines, DMII, HTN, GERD, fibromyalgia, and hyperlipidemia who presented to the [facility] ED with complaints of increased depressive symptoms, poor oral intake, and generalized weakness. In the ED the patient was found to be afebrile, hemodynamically stable, and stable on RA. Labs were remarkable for a leukocytosis of 18 with left shift of 15 (patient does have a history of chronically elevated WBC but not usually this high), stable Hgb and platelets, stable cr of 0.75 with a potassium of 3.0 otherwise stable electrolytes, Alk phos of 121 otherwise stable LFT's, TSH WNL, UA showing turbid urine, 2+ ketones, 1+ protein, 1+ leukocyte esterase, nitrite negative, 10-30 WBCs with negative bacteria and calcium oxalate positive, Covid negative, Urine tox screen positive for Marijuana but otherwise negative. CT of the abd/pelvis without con was read as " Prior to admission the patient was given 10 meq IV KCL, 20 meq PO KCL, 1L NSS, 1 mg IV ativan, and was ordered a dose of 2g Ceftriaxone. At the time of the exam the patient was resting in bed in no acute distress with her sitting bedside, history was obtained from both. Her states that the patient has had increased "nerves" since 01/07. When asked to elaborate the and the patient explain she is having increased anxiety and depressive symptoms. Due to these symptoms the patient has been in bed since 01/07 with very little oral intake. Her states that she only had a half a glass of water yesterday. The patient denies current suicidal ideations, homicidal ideations, and hallucinations. They deny recent fever but the patient has been having chills since yesterday. When confirming her med rec they state that she was taken off of Depakote and oxycodone-acetaminophen and was started on Suboxone and medical marijuana for her chronic pain and migraines. They state that she is still taking Lyrica, Duloxetine, and ativan as with prn Cyclobenzaprine for muscle spasms. The patient and her are unsure if she is still taking Buspar at this time. When asked when her last doses of Suboxone and medical marijuana were she states she had medical marijuana last night and her last dose of suboxone was on 01/08/23. She denies taking additional doses of medications over the past 3 days for her symptoms and denies alcohol and other recreational drug use. The patient denies recent changes in vision, hearing, taste, and smell, chest pain, SOB, vomiting, dysuria, hematuria, diarrhea, melena, LE swelling and recent trauma. The patient and her think that she needs to be admitted for her depression and anxiety once she is medically cleared. The patient is a Full code and wishes for her to make medica l decisions for her if she cannot make them herself. Per review of her PDMP, she was last prescribed and picked up a 30 day supply Suboxone (8-2mg) on 01/03/23, last picked up a 30 day supple of Lyrica on 11/09/22 and last received a prescription for Ativan (30 day supply) on 08/13/22. Please refer to Dr. Jackson's attestation for an changes to the treatment plan Allergies Allergy/AdvReac Type Severity Reaction Status Date / Time bacitracin Allergy Mild RASH Verified 08/07/22 10:21 cephalexin AdvReac Intermediate HEADACHES, Verified 08/07/22 10:21 G I UPSET Home Medications Medication Instructions Recorded Confirmed Type cholecalciferol (vitamin D3) 25 2,000 unit PO QPM 08/12/18 01/10/23 History mcg (1,000 unit) capsule (Vitamin D3) duloxetine 60 mg capsule,delayed 120 mg PO QAM 08/12/18 01/10/23 History release (Cymbalta) lorazepam 1 mg tablet 1 mg PO DAILY PRN Anxiety 08/12/18 01/10/23 History multivitamin 1 tab PO QPM 08/12/18 01/10/23 History pregabalin 150 mg capsule (Lyrica) 150 mg PO TID 08/12/18 01/10/23 History loratadine 10 mg tablet (Claritin) 10 mg PO DAILY PRN allergy symptoms 01/08/19 01/10/23 History vitamin B complex 1 tab PO QAM 01/08/19 01/10/23 History pravastatin 10 mg tablet 10 mg PO HS 04/15/20 01/10/23 History hydrochlorothiazide 12.5 mg tablet 12.5 mg PO QAM 04/28/20 01/10/23 History losartan 50 mg tablet 50 mg PO QAM 04/28/20 01/10/23 History pantoprazole 20 mg tablet,delayed 20 mg PO QAM 04/28/20 01/10/23 History release (Protonix) metformin 500 mg tablet,extended 500 mg PO DAILY@1400 07/05/20 01/10/23 History release 24 hr buspirone 5 mg tablet 7.5 mg PO TID 02/26/22 01/10/23 History cephalexin 250 mg capsule 250 mg PO BID 5 days #10 caps 01/11/23 Rx Past Med/Surg History Medical History Anemia Anxiety Chronic back pain Chronic headaches daily; has been to [facility], [facility], [facility] for evaluations Constipation Degenerative disc disease Depression Endometriosis Fibromyalgia GERD (gastroesophageal reflux disease) Hepatic steatosis Herpes History of ovarian cyst History of subdural hematoma 1991 REQUIRING EMERGENCY SURGERY Hypertension IBS (irritable bowel syndrome) Leukocytosis Migraine headache Obesity (BMI 30-39.9) Sciatica Spinal cord stimulator status in place 10/2019 [facility] (advised to bring remote/magnet for surgery) Thrush, oral chronic --- nystatin lozenges TID. dx'd 05/2019, follows with PCP & ENT Dr Knox. Surgical History Fusion of spine L4-L5, L5-S1 (after discectomy surgeries) History of anesthesia complications DIFFICULTY WAKING UP History of brain surgery 1991 (removed a subdural hematoma) History of carpal tunnel release RT History of cholecystectomy History of discectomy L4-L5, L5-S1 (2 different surgeries) History of incisional hernia repair (05/02/20) Laparoscopic Incisional Hernia Repair Dr. Olivo 05/02/20 History of rotator cuff surgery right 08/2018 [facility] History of tonsillectomy History of tooth extraction History of tubal ligation +tubal reversal Hx of colonoscopy S/P BSO (bilateral salpingo-oophorectomy) S/P knee surgery right knee S/P [place] (total abdominal hysterectomy) Family History Mother Family history of reaction to anesthesia PONV Breast cancer Diabetes Heart disease Hypertension Grandfather (Paternal) Family history of diabetes mellitus Diabetes Father Family history of diabetes mellitus Heart disease Hypertension Mother , 12/2020 - lung cancer? Family history of diabetes mellitus Grandmother (Paternal) Family hx of colon cancer Sister Migraine Social History Smoking Status: Never smoker Tobacco Type: Cigarettes Age Started Using Tobacco: 15; packs per day: 0.5; Second Hand Exposure: No; Hx Alcohol Use: Yes Alcohol type: wine and hard liquor Alcohol Intake Frequency: Monthly or Less Hx Substance Use: Yes Prescribed Medications: Marijuana Last Used Substance: Hours (ago) Last Used Substance Other:: 04/15/21 Preferred Language: French Communication Ability: Effective Visual Impairment: No Limitations Hearing Ability: Normal Cop Examiner Required: No Beliefs That Will Affect Care: None marital status: Current Living Situation: Spouse current occupational status: disabled current occupation: finance work at [employer] How many Children do You have: 0 Other Information That Helps Us Care for You: No Feels Safe at Home: Yes Safety Concerns: Feels Safe At This Time Gender Identity: Female Assistive Devices: Glasses Review of Systems Review of Systems: Denies current fever, chills, headache, changes in vision, hearing, taste, and smell, chest pain, SOB, cough, abdominal pain, nausea, vomiting, diarrhea, hematemesis, melena, dysuria, hematuria, and recent falls. All systems have been reviewed and are otherwise negative. Physical Exam Physical Exam: Physical Exam: General: In no acute distress, stated age, obese, por hygiene, non-toxic appearing HEENT: Normocephalic, atraumatic, no scleral icterus, pupils around round, symmetrical, and reactive to light, dry mucus membranes, trachea midline, no thyromegaly Chest/Pulm: No respiratory distress, symmetrical chest expansion, clear breath sounds throughout Cardiac: RRR, no murmurs noted Abdomen: Negative for ascites and bruising, normoactive bowel sounds, soft, mild tenderness to palpation in the central abdomen without rebound tenderness Musculoskeletal: Symmetrical and without signs of acute trauma, upper and lower extremities with full ROM, no atrophy, spasticity, or flaccidity Extremities: Radial, dorsalis pedis, and posterior tibial pulses are intact and symmetrical, no edema noted in the BL LE's Skin: Warm, dry, no rashes , lesions, or scars noted Neuro: Alert and oriented to person, place, month, year, and president, no focal defects, CN II-XII tested and intact, no tremors noted Psych: No acute distress or severe anxiety, flat affect, polite and cooperative during the exam Results & Data Results & Data ([facility]) Vital Signs (Past 12 Hours) Vital Signs Temp Pulse Resp BP Pulse Ox O2 Del Method 01/10/23 10:11 Room Air 01/10/23 09:53 36.9 C 83 22 156/106 H 97 Room Air Laboratory Results Abnormal lab results 01/10/23 01/10/23 01/10/23 Range/Units 10:21 10:21 10:29 WBC 18.65 H (4.8-10.8) K/ul Neut # (Auto) 15.25 H (1.40-6.50) K/uL [place] # (Auto) 0.70 H (0.11-0.59) K/uL Potassium (3.5-5.1) mmol/L Anion Gap (3-11) BUN/Creatinine Ratio (10-20) Glucose (70-99(Fasting)) mg/dl Phosphorus (2.5-4.9) mg/dl Alkaline Phosphatase (34-104) U/L Total Protein (6.0-8.3) gm/dl Urine Appearance Turbid A (Clear) Urine Protein 1+ H (Negative) Urine Ketones 2+ H (Negative) Urine Bilirubin 1+ H (Negative) Ur Leukocyte Esterase 1+ H (Negative) Urine WBC (Auto) 10-30 H (0-5) /hpf Urine RBC (Auto) 5-10 H (0-4) /hpf U Epithel Cells (Auto) >30 H (0-5) /lpf Urine Crystals Calcium Oxalate A (None Prsent) Calcium Oxalate Crystal Present A (None Prsent) Urine Yeast Budding A (None Prsent) Salicylates (3.0-30) mg/dl Acetaminophen (10-30) ug/ml U Marijuana (THC) Screen Pos H (Neg) 01/10/23 01/10/23 Range/Units 10:29 10:29 WBC (4.8-10.8) K/ul Neut # (Auto) (1.40-6.50) K/uL [place] # (Auto) (0.11-0.59) K/uL Potassium 3.0 L (3.5-5.1) mmol/L Anion Gap 12 H (3-11) BUN/Creatinine Ratio 25.3 H (10-20) Glucose 152 H (70-99(Fasting)) mg/dl Phosphorus 2.4 L (2.5-4.9) mg/dl Alkaline Phosphatase 121 H (34-104) U/L Total Protein 8.5 H (6.0-8.3) gm/dl Urine Appearance (Clear) Urine Protein (Negative) Urine Ketones (Negative) Urine Bilirubin (Negative) Ur Leukocyte Esterase (Negative) Urine WBC (Auto) (0-5) /hpf Urine RBC (Auto) (0-4) /hpf U Epithel Cells (Auto) (0-5) /lpf Urine Crystals (None Prsent) Calcium Oxalate Crystal (None Prsent) Urine Yeast (None Prsent) Salicylates < 3.0 L (3.0-30) mg/dl Acetaminophen < 3 L (10-30) ug/ml U Marijuana (THC) Screen (Neg) ECG Additional Comments: Sinus rhythm with Premature atrial complexes Nonspecific ST abnormality Lateral leads Nonspecific T wave abnormality Anterior leads Abnormal ECG When compared with ECG of 19-APR-2021 13:56, Premature atrial complexes are now Present Nonspecific T wave abnormality now evident in Anterior leads Confirmed by Hayder Moscoso ([id number]) on 01/10/2023 12:51:03 PM Code Status & VTE Plan Code Status Full code VTE Prophylaxis Plan VTE Prophylaxis will be ordered: Yes Supervising Physician Co-Signing Physician Notes I personally saw and examined the patient. I verified all kuhn points and agree with Matthew Medel PA-C with the following exceptions and/or additions: 62 year old female presents to the ER with chills, generalized weakness and increased anxiety over the last 3 days. Initially requested psych admission however given hypokalemia and increased WBC will need to be cleared from medical perspective first. O/E HS RRR, no murmurs, Chest CTAB, Abdo SNT, no CVA tenderness, Alert and orientated x3, anxious appearing A/P Generalized weakness / chills - possible UTI given chills but no other symptoms, ceftraixone, follow up urine culture. Possible polypharmacy. Possible migraine. Will replace potassium, treat UTI and have psychiatry see her tomorrow regarding her increased anxiety. PG Care Time/CCT Total # of Minutes Spent Total Time Spent with Patient: Total time spent is greater than 50% in coordination of care (as documented) at patient's floor/unit and/or counseling patient: C[place] [address] INT INP/OBS CARE 2/55MIN Patient Type Established Medical Decision Making Moderate Complexity Diagnoses Generalized weakness R53.1 Acute hypokalemia E87.6 DMII (diabetes mellitus, type 2) E11.9 Depression F32.9 Hypertension I10 Anxiety F41.9 GERD (gastroesophageal reflux disease) K21.9 Chronic back pain M54.5; G89.29 Back pain laterality: midline Back pain location: low back pain Sciatica presence: unspecified whether sciatica present UTI (urinary tract infection) N39.0 (8) Chronic back pain Back pain laterality: midline Back pain location: low back pain Sciatica presence: unspecified whether sciatica present Qualified Code(s): M54.5 - Low back pain; G89.29 - Other chronic pain
--- NOTE | 2023-01-10 12:09 | Emergency Department Note ---
Impression & Plan Mood disorder, Leukocytosis, Acute hypokalemia, UTI (urinary tract infection) ED Provider Note INFORMANT: Patient and ED PROVIDER(S): Otto Aburto MD CHIEF COMPLAINT: Anxiety PLAN: Disposition: Admit to medicine Condition: Good Outpatient prescription management: none Referral: None MEDICAL DECISION MAKING: Patient presented to the emergency department because of anxiety complaints. A work-up was initiated. Patient was given a dose of Zofran and Ativan for her symptoms and felt significantly better. She was found to have a significant elevation of her white blood cell count, low potassium, and findings concerning for UTI. Patient was hydrated. She was given IV and oral potassium. She was given IV Rocephin. Patient was evaluated by watershed manager as well. In light of the medical findings patient will need medical admission and then psychiatric consultation as opposed to primary psychiatric admission. Discussed with watershed manager and she was in agreement. Discussed with patient and and they are in agreement. Consultation was placed with the [facility]. Case was discussed and diagnostics were reviewed. Patient will be evaluated in mated by Dr. Jackson for further management After review of the information above and other included data, I feel the patient further management in the hospital. Triage Nursing notes reviewed and agree them. Vital Signs: reviewed and remarkable for hypertension Prior /Outside records reviewed: Pain management records reviewed regarding occipital neuralgia and prior hospitalization for intractable headache reviewed. Differential diagnosis: Mood disorder, infection, hypoglycemia, electrolyte abnormalities, cardiac sources, intracerebral event, toxicologic, trauma, neurologic, as well as other pathologies. Diagnostics, as interpreted by me: ECG: Twelve-lead ECG reveals sinus rhythm with PACs at 79 bpm. Nonspecific T wave abnormality anteriorly. No ST elevation. Cardiac Monitoring: none Medical decision rules: none Imaging studies: CT scan of the abdomen pelvis reveals mild fecal retention. No obstruction or perforation. I refer you to the EMR for further details. HPI: The patient is a 62year old female who presents to the Emergency Room with complaints of anxiety. This started to flareup about 36 hours ago per the patient and and is worsening. The patient also notes the following associated symptoms, no energy, feels generally weak poor appetite. The p atient has used her normal prescription medication for relieving factors. Current pain is rated as 0/10. After arrival to the ER the patient noted she started to feel nauseous the more anxious. Patient has a history of chronic headaches and no new changes. No trauma. Denies any SI or HI. notes that the patient has had a prior mental health evaluation and admission in the past. Pt denies LOC, fevers, chills, diaphoresis, visual changes, neck pain, chest pain, breathing difficulties, vomiting, abdominal pain, back pain, diarrhea, urinary symptoms, numbness, focal weakness, rash, or other complaints. PAST MEDICAL HISTORY: See Below, anxiety, chronic migraine, diabetes PAST SURGICAL HISTORY: See Below, SOCIAL HISTORY: See Below, HOME MEDICATIONS: See Below ALLERGIES: See Below VITALS: See Below PHYSICAL EXAMINATION: GENERAL: Awake, very anxious-appearing, in no distress HENT: Normocephalic, atraumatic. Oropharynx unremarkable. EYES: Normal conjunctiva. Sclera non-icteric. NECK: Inspection normal. Non-tender. Supple. No nuchal rigidity. FROM. No masses. RESPIRATORY: Clear to auscultation. No wheezes. No rales. Normal respiratory effort. CARDIAC: Normal rate. Normal rhythm. No murmurs. No rubs. Extremities warm and well perfused. Pulses equal. No JVD. GI: Soft, non-distended. Mild epigastric tenderness to palpation. No rebound or guarding. No masses. RECTAL: Deferred. MUSCULOSKELETAL: Atraumatic. Chest examination reveals no tenderness. The back is symmetrical on inspection without obvious abnormality. There is no CVA tenderness to palpation. No joint edema. LOWER EXTREMITIES: Calves are equal size bilaterally and non-tender. No edema. No discoloration. NEURO: Normal sensorium. No sensory or motor deficits noted. No drift. Speech normal SKIN: No rash or jaundice noted. PSYCH: No SI or HI. Anxious mood and congruent affect. No hallucinations Past Med/Surg History Medical History Anemia Anxiety Chronic back pain Chronic headaches Constipation Degenerative disc disease Depression Endometriosis Fibromyalgia GERD (gastroesophageal reflux disease) Hepatic steatosis Herpes History of ovarian cyst History of subdural hematoma Hypertension IBS (irritable bowel syndrome) Leukocytosis Migraine headache Obesity (BMI 30-39.9) Sciatica Spinal cord stimulator status Thrush, oral Surgical History Fusion of spine History of anesthesia complications History of brain surgery History of carpal tunnel release History of cholecystectomy History of discectomy History of incisional hernia repair (05/02/20) History of rotator cuff surgery History of tonsillectomy History of tooth extraction History of tubal ligation Hx of colonoscopy S/P BSO (bilateral salpingo-oophorectomy) S/P knee surgery S/P [place]IN[place]O (total abdominal hysterectomy) Family History Mother Family history of reaction to anesthesia Breast cancer Diabetes Heart disease Hypertension Grandfather (Paternal) Family history of diabetes mellitus Diabetes Father Family history of diabetes mellitus Heart disease Hypertension Mother Family history of diabetes mellitus Grandmother (Paternal) Family hx of colon cancer Sister Migraine Social History Smoking Status: Never smoker Tobacco Type: Cigarettes Age Started Using Tobacco: 15; packs per day: 0.5; Second Hand Exposure: No; Hx Alcohol Use: Yes Alcohol type: wine and hard liquor Alcohol Intake Frequency: Monthly or Less Hx Substance Use: Yes Prescribed Medications: Marijuana Last Used Substance: Hours (ago) Last Used Substance Other:: 04/15/21 Preferred Language: Micronesian Communication Ability: Effective Visual Impairment: No Limitations Hearing Ability: Normal Base Draw Operator Required: No Beliefs That Will Affect Care: None marital status: Current Living Situation: Spouse current occupational status: disabled current occupation: finance work at [employer] How many Children do You have: 0 Other Information That Helps Us Care for You: No Feels Safe at Home: Yes Safety Concerns: Feels Safe At This Time Gender Identity: Female Assistive Devices: Glasses Allergies Allergies Allergy/AdvReac Type Severity Reaction Status Date / Time bacitracin Allergy Mild RASH Verified 08/07/22 10:21 cephalexin AdvReac Intermediate HEADACHES, Verified 08/07/22 10:21 G I UPSET Home Meds Home Medications Medication Instructions Recorded Confirmed cholecalciferol (vitamin D3) 25 2,000 unit PO QPM 08/12/18 01/10/23 mcg (1,000 unit) capsule (Vitamin D3) cyclobenzaprine 10 mg tablet 10 mg PO DAILY PRN Muscle Spasm 08/12/18 01/10/23 duloxetine 60 mg capsule,delayed 120 mg PO QAM 08/12/18 01/10/23 release (Cymbalta) lorazepam 1 mg tablet 1 mg PO DAILY PRN Anxiety 08/12/18 01/10/23 multivitamin 1 tab PO QPM 08/12/18 01/10/23 pregabalin 150 mg capsule (Lyrica) 150 mg PO TID 08/12/18 01/10/23 loratadine 10 mg tablet (Claritin) 10 mg PO DAILY PRN allergy symptoms 01/08/19 01/10/23 vitamin B complex 1 tab PO QAM 01/08/19 01/10/23 pravastatin 10 mg tablet 10 mg PO HS 04/15/20 01/10/23 hydrochlorothiazide 12.5 mg tablet 12.5 mg PO QAM 04/28/20 01/10/23 losartan 50 mg tablet 50 mg PO QAM 04/28/20 01/10/23 pantoprazole 20 mg tablet,delayed 20 mg PO QAM 04/28/20 01/10/23 release (Protonix) metformin 500 mg tablet,extended 500 mg PO DAILY@1400 07/05/20 01/10/23 release 24 hr buspirone 5 mg tablet 7.5 mg PO TID 02/26/22 01/10/23 Results & Data (ED) Vital Signs Vital Signs - 24 hr 01/10/23 09:53 01/10/23 10:11 01/10/23 12:11 Temperature 36.9 C 36.6 C Temperature Source Oral Oral Pulse Rate 83 Pulse Rate [Finger] 80 Pulse Rhythm [Finger] Regular Pulse Strength [Finger] Normal Respiratory Rate 22 18 Respiratory Effort / Characteristics Non-Labored Spontaneous Non-Labored Respiratory Depth Normal Normal Respiratory Pattern Regular Blood Pressure 156/106 H Blood Pressure [Left Arm] 140/80 Blood Pressure Mean 122 Blood Pressure Mean [Left Arm] 100 Blood Pressure Position Sitting Pulse Oximetry 97 97 Oxygen Delivery Method Room Air Room Air Room Air Sepsis Recent Fever Within 48 Hours No Sepsis New/Unexplained Change in Mental Status N/A Sepsis Action Taken by Nursing No Action Required Laboratory Data 01/10/23 10:29 01/10/23 10:29 Lab Results 01/10/23 01/10/23 01/10/23 Range/Units 10:21 10:21 10:29 WBC 18.65 H (4.8-10.8) K/ul RBC 4.82 (4.20-5.40) M/uL Hgb 13.7 (12.0-16.0) g/dl Hct 40.3 (37.0-47.0) % MCV 83.6 (80.0-100.0) fL MCH 28.4 (25.0-34.0) pg MCHC 34.0 (32.0-36.0) g/dL RDW Std Deviation 43.5 (36.4-46.3) fL RDW Coeff of [place] 14.4 (11.5-14.5) % Plt Count 322 (130-400) K/uL MPV 10.0 (9.4-12.4) fL Immature Gran % (Auto) 0.6 % Neut % (Auto) 81.7 % Lymph % (Auto) 13.5 % [place] % (Auto) 3.8 % Eos % (Auto) 0.1 % Baso % (Auto) 0.3 % Neut # (Auto) 15.25 H (1.40-6.50) K/uL Lymph # (Auto) 2.52 (1.2-3.4) K/uL [place] # (Auto) 0.70 H (0.11-0.59) K/uL Eos # (Auto) 0.01 (0-0.50) K/uL Baso # (Auto) 0.05 (0-0.2) K/uL Immature Gran # (Auto) 0.12 (0.01-0.20) K/uL Sodium (136-145) mmol/L Potassium (3.5-5.1) mmol/L Chloride (98-107) mmol/L Carbon Dioxide (21-32) mmol/L Anion Gap (3-11) BUN (6-23) mg/dl Creatinine (0.6-1.2) mg/dl Est Cr Clr Drug Dosing ml/min Est GFR ( Amer) ml/min Est GFR (Non-Af Amer) ml/min BUN/Creatinine Ratio (10-20) Glucose (70-99(Fasting)) mg/dl Calcium (8.5-10.1) mg/dl Phosphorus (2.5-4.9) mg/dl Magnesium (1.7-2.4) mg/dl Total Bilirubin (0.2-1.0) mg/dl AST (13-39) U/L ALT (7-52) U/L Alkaline Phosphatase (34-104) U/L Total Protein (6.0-8.3) gm/dl Albumin (3.4-5.0) gm/dl Globulin (2.5-4.0) gm/dl Albumin/Globulin Ratio (0.9-2) TSH (0.300-4.500) uIu/ml Urine Color Dark Yellow Urine Appearance Turbid A (Clear) Urine pH 6.0 (4.5-7.5) Ur Specific [place] 1.027 (1.000-1.030) Urine Protein 1+ H (Negative) Urine Glucose (UA) Negative (Negative) Urine Ketones 2+ H (Negative) Urine Blood Negative (Negative) Urine Nitrite Negative (Negative) Urine Bilirubin 1+ H (Negative) Urine Urobilinogen Negative (Negative) Ur Leukocyte Esterase 1+ H (Negative) Urine WBC (Auto) 10-30 H (0-5) /hpf Urine RBC (Auto) 5-10 H (0-4) /hpf U Hyaline Cast (Auto) 1-5 (0-5) /lpf U Epithel Cells (Auto) >30 H (0-5) /lpf Urine Bacteria (Auto) Negative (Negative) Urine Crystals Calcium Oxalate A (None Prsent) Calcium Oxalate Crystal Present A (None Prsent) Urine Yeast Budding A (None Prsent) Salicylates (3.0-30) mg/dl Urine Opiates Screen Neg (Neg) Ur Methadone, Qual Neg (Neg) Acetaminophen (10-30) ug/ml Urine Barbiturates Neg (Neg) Ur Phencyclidine (PCP) Neg (Neg) U Amphetamin/Meth Scrn Neg (Neg) MDMA (Ecstasy) Screen Neg (Neg) U Benzodiazepines Scrn Neg (Neg) Ur Cocaine Metabolite Neg (Neg) U Marijuana (THC) Screen Pos H (Neg) Ethyl Alcohol mg/dL (<10.0) mg/dl SARS-CoV-2, RNA, NAAT (NEGATIVE) 01/10/23 01/10/23 01/10/23 Range/Units 10:29 10:29 10:29 WBC (4.8-10.8) K/ul RBC (4.20-5.40) M/uL Hgb (12.0-16.0) g/dl Hct (37.0-47.0) % MCV (80.0-100.0) fL MCH (25.0-34.0) pg MCHC (32.0-36.0) g/dL RDW Std Deviation (36.4-46.3) fL RDW Coeff of [place] (11.5-14.5) % Plt Count (130-400) K/uL MPV (9.4-12.4) fL Immature Gran % (Auto) % Neut % (Auto) % Lymph % (Auto) % [place] % (Auto) % Eos % (Auto) % Baso % (Auto) % Neut # (Auto) (1.40-6.50) K/uL Lymph # (Auto) (1.2-3.4) K/uL [place] # (Auto) (0.11-0.59) K/uL Eos # (Auto) (0-0.50) K/uL Baso # (Auto) (0-0.2) K/uL Immature Gran # (Auto) (0.01-0.20) K/uL Sodium 141 (136-145) mmol/L Potassium 3.0 L (3.5-5.1) mmol/L Chloride 104 (98-107) mmol/L Carbon Dioxide 25 (21-32) mmol/L Anion Gap 12 H (3-11) BUN 19 (6-23) mg/dl Creatinine 0.75 (0.6-1.2) mg/dl Est Cr Clr Drug Dosing 75.0 ml/min Est GFR ( Amer) 100.4 ml/min Est GFR (Non-Af Amer) 86.6 ml/min BUN/Creatinine Ratio 25.3 H (10-20) Glucose 152 H (70-99(Fasting)) mg/dl Calcium 10.0 (8.5-10.1) mg/dl Phosphorus 2.4 L (2.5-4.9) mg/dl Magnesium 2.1 (1.7-2.4) mg/dl Total Bilirubin 0.5 (0.2-1.0) mg/dl AST 17 (13-39) U/L ALT 15 (7-52) U/L Alkaline Phosphatase 121 H (34-104) U/L Total Protein 8.5 H (6.0-8.3) gm/dl Albumin 4.8 (3.4-5.0) gm/dl Globulin 3.7 (2.5-4.0) gm/dl Albumin/Globulin Ratio 1.3 (0.9-2) TSH 1.696 (0.300-4.500) uIu/ml Urine Color Urine Appearance (Clear) Urine pH (4.5-7.5) Ur Specific [place] (1.000-1.030) Urine Protein (Negative) Urine Glucose (UA) (Negative) Urine Ketones (Negative) Urine Blood (Negative) Urine Nitrite (Negative) Urine Bilirubin (Negative) Urine Urobilinogen (Negative) Ur Leukocyte Esterase (Negative) Urine WBC (Auto) (0-5) /hpf Urine RBC (Auto) (0-4) /hpf U Hyaline Cast (Auto) (0-5) /lpf U Epithel Cells (Auto) (0-5) /lpf Urine Bacteria (Auto) (Negative) Urine Crystals (None Prsent) Calcium Oxalate Crystal (None Prsent) Urine Yeast (None Prsent) Salicylates < 3.0 L (3.0-30) mg/dl Urine Opiates Screen (Neg) Ur Methadone, Qual (Neg) Acetaminophen < 3 L (10-30) ug/ml Urine Barbiturates (Neg) Ur Phencyclidine (PCP) (Neg) U Amphetamin/Meth Scrn (Neg) MDMA (Ecstasy) Screen (Neg) U Benzodiazepines Scrn (Neg) Ur Cocaine Metabolite (Neg) U Marijuana (THC) Screen (Neg) Ethyl Alcohol mg/dL (<10.0) mg/dl SARS-CoV-2, RNA, NAAT (NEGATIVE) 01/10/23 01/10/23 01/10/23 Range/Units 10:29 10:29 11:20 WBC (4.8-10.8) K/ul RBC (4.20-5.40) M/uL Hgb (12.0-16.0) g/dl Hct (37.0-47.0) % MCV (80.0-100.0) fL MCH (25.0-34.0) pg MCHC (32.0-36.0) g/dL RDW Std Deviation (36.4-46.3) fL RDW Coeff of [place] (11.5-14.5) % Plt Count (130-400) K/uL MPV (9.4-12.4) fL Immature Gran % (Auto) % Neut % (Auto) % Lymph % (Auto) % [place] % (Auto) % Eos % (Auto) % Baso % (Auto) % Neut # (Auto) (1.40-6.50) K/uL Lymph # (Auto) (1.2-3.4) K/uL [place] # (Auto) (0.11-0.59) K/uL Eos # (Auto) (0-0.50) K/uL Baso # (Auto) (0-0.2) K/uL Immature Gran # (Auto) (0.01-0.20) K/uL Sodium (136-145) mmol/L Potassium (3.5-5.1) mmol/L Chloride (98-107) mmol/L Carbon Dioxide (21-32) mmol/L Anion Gap (3-11) BUN (6-23) mg/dl Creatinine (0.6-1.2) mg/dl Est Cr Clr Drug Dosing ml/min Est GFR ( Amer) ml/min Est GFR (Non-Af Amer) ml/min BUN/Creatinine Ratio (10-20) Glucose (70-99(Fasting)) mg/dl Calcium (8.5-10.1) mg/dl Phosphorus Cancelled (2.5-4.9) mg/dl Magnesium Cancelled (1.7-2.4) mg/dl Total Bilirubin (0.2-1.0) mg/dl AST (13-39) U/L ALT (7-52) U/L Alkaline Phosphatase (34-104) U/L Total Protein (6.0-8.3) gm/dl Albumin (3.4-5.0) gm/dl Globulin (2.5-4.0) gm/dl Albumin/Globulin Ratio (0.9-2) TSH (0.300-4.500) uIu/ml Urine Color Urine Appearance (Clear) Urine pH (4.5-7.5) Ur Specific [place] (1.000-1.030) Urine Protein (Negative) Urine Glucose (UA) (Negative) Urine Ketones (Negative) Urine Blood (Negative) Urine Nitrite (Negative) Urine Bilirubin (Negative) Urine Urobilinogen (Negative) Ur Leukocyte Esterase (Negative) Urine WBC (Auto) (0-5) /hpf Urine RBC (Auto) (0-4) /hpf U Hyaline Cast (Auto) (0-5) /lpf U Epithel Cells (Auto) (0-5) /lpf Urine Bacteria (Auto) (Negative) Urine Crystals (None Prsent) Calcium Oxalate Crystal (None Prsent) Urine Yeast (None Prsent) Salicylates (3.0-30) mg/dl Urine Opiates Screen (Neg) Ur Methadone, Qual (Neg) Acetaminophen (10-30) ug/ml Urine Barbiturates (Neg) Ur Phencyclidine (PCP) (Neg) U Amphetamin/Meth Scrn (Neg) MDMA (Ecstasy) Screen (Neg) U Benzodiazepines Scrn (Neg) Ur Cocaine Metabolite (Neg) U Marijuana (THC) Screen (Neg) Ethyl Alcohol mg/dL < 10.0 (<10.0) mg/dl SARS-CoV-2, RNA, NAAT NEGATIVE (NEGATIVE) Administered Medications Discontinued Medications Sodium Chloride (Nss 1000ml) 1,000 mls @ 999 mls/hr IV .Q1H1M ONE Stop: 01/10/23 12:29 Last Infusion: 01/10/23 13:54 Dose: 0 mls/hr Documented By: Admin: 01/10/23 12:38 Dose: 999 mls/hr Documented By: ELEUTERIO Potassium Chloride (K Scotty / Wtr) 10 meq in 100 mls @ 100 mls/hr IV ONE ONE; Protocol Stop: 01/10/23 12:28 Last Infusion: 01/10/23 13:54 Dose: 0 mls/hr Documented By: Admin: 01/10/23 12:38 Dose: 100 mls/hr Documented By: ELEUTERIO Ceftriaxone Sodium (Rocephin) 2,000 mg in 70 mls @ 140 mls/hr IV NOW STA Stop: 01/10/23 12:00 Last Infusion: 01/10/23 12:45 Dose: 0 mls/hr Documented By: Admin: 01/10/23 12:11 Dose: 140 mls/hr Documented By: ELEUTERIO Lorazepam (Lorazepam 1 Mg Tab) 1 mg PO NOW STA Stop: 01/10/23 10:45 Last Admin: 01/10/23 11:03 Dose: 1 mg Documented By: ELEUTERIO Ondansetron HCl (Ondansetron 4 Mg Od Tab) Confirm Administered Dose 4 mg .ROUTE .STK-MED ONE Stop: 01/10/23 10:38 Last Admin: 01/10/23 10:38 Dose: 4 mg Documented By: AM Potassium Chloride (Potassium Chloride Crtab 20 Meq Tabcr) 20 meq PO NOW STA Stop: 01/10/23 11:30 Last Admin: 01/10/23 12:37 Dose: 20 meq Documented By: ELEUTERIO Imaging Data Radiologist's Impression: Abdomen/Pelvis CT 01/10/23 11:[address] WITHOUT CONTRAST CT DOSE: 502.66 mGy.cm HISTORY: Acute nausea with upper abdominal pain and urinary tract infection Nausea, abd pain, UTI TECHNIQUE: Multiaxial CT images of the abdomen and pelvis were performed without contrast. A dose lowering technique was utilized adhering to the principles of ALARA. COMPARISON STUDY: CT abdomen and pelvis 07/05/2020 FINDINGS: Cardiomegaly with coronary arterial calcifications. No pneumatosis or pneumoperitoneum. The unenhanced spleen, moderately atrophic pancreas and adrenal glands are unremarkable. Cholecystectomy. Hepatic steatosis. Unremarkable kidneys. No urolith or hydronephrosis. Hysterectomy. Aorta and IVC are unremarkable. No lymphadenopathy. Unchanged fatty attenuating lesion within the left retroperitoneum of the pelvis superficial to the iliacus muscle measuring 7.3 x 5.4 x 7.8 cm, similar to prior. Tiny hiatal hernia. No bowel obstruction or bowel wall thickening. Moderate to extensive colonic fecal retention. Colonic diverticulosis. The appendix is not definitively seen. No CT evidence of acute appendicitis. Diastases recti with prior ventral abdominal wall herniorrhaphy. Tiny fat filled umbilical hernia. Degenerative changes of the spine, pelvis and hips. Spinal stimulator device is noted with electrodes entering the central canal at the T9-T10 level extending superiorly outside the field of view. L2 vertebral body hemangioma. L4-S1 posterior interbody roberth and screw fusion with L5-S1 discectomy. No evidence of hardware complication. IMPRESSION: 1. No acute intra-abdominal or intrapelvic abnormality. 2. No urolith or hydronephrosis. 3. Moderate to extensive colonic fecal retention. 4. No bowel obstruction or bowel wall thickening. 5. Tiny hiatal hernia. ACT 112: Negative or not required by law. The above report was generated using voice recognition software. It may contain grammatical, syntax or spelling errors. Electronically signed by: Ángel Gates M.D. 01/10/2023 1:59 PM Discharge Plan Visit Data Chief Complaint: Mental Health Evaluation Stated Complaint: ANXIETY ED Provider: Otto Aburto Discharge Problem: Mood disorder, Leukocytosis, Acute hypokalemia, UTI (urinary tract infection) Patient Disposition: Admitted As Inpatient Discharge Instructions Interventions: ED Discharge Assessment Last Done: 01/10/23 15:52
[2023-01-10 12:16] LABS: Amphetamines+Metham, Urine Neg (Neg); Barbiturates, Urine Neg (Neg); Benzodiazepine, Urine Neg (Neg); Cocaine, Urine Neg (Neg); MDMA (Ecstacy), Urine Neg (Neg); Methadone, Urine Neg (Neg); Opiate, Urine Neg (Neg); Phencyclidine, Urine Neg (Neg)
[2023-01-10 12:27] LABS: Magnesium 2.1 mg/dl (1.7-2.4)
[2023-01-10 12:32] LABS: Phosphorus 2.4 mg/dl (2.5-4.9)
--- NOTE | 2023-01-10 12:51 | Electrocardiogram Report ---
Test Reason : Blood Pressure : / mmHG Vent. Rate : 079 BPM Atrial Rate : 079 BPM P-R Int : 174 ms QRS Dur : 092 ms QT Int : 394 ms P-R-T Axes : 037 007 081 degrees QTc Int : 451 ms Sinus rhythm with Premature atrial complexes Nonspecific ST abnormality Lateral leads Nonspecific T wave abnormality Anterior leads Abnormal ECG When compared with ECG of 19-APR-2021 13:56, Premature atrial complexes are now Present Nonspecific T wave abnormality now evident in Anterior leads Confirmed by Hayder Moscoso ([id number]) on 01/10/2023 12:51:03 PM Referred By: REFERRED SELF Confirmed By:Hayder Moscoso
[2023-01-10 12:52] LABS: Acetaminophen < 3 ug/ml (10-30); Salicylate < 3.0 mg/dl (3.0-30)
[2023-01-10] MEDS ORDERED: DEXTROSE 50% 50 ML SYRINGE IV PRN (13:02)
[2023-01-10] MEDS ORDERED: CARBOHYDRATES FOR HYPOGLYCEMIA PO PRN (13:02)
[2023-01-10] MEDS ORDERED: GLUCOSE 10 TAB/TUBE PO PRN (13:02)
[2023-01-10] MEDS ORDERED: GLUCAGON FOR INJ 1 MG VIAL SQ PRN (13:02)
[2023-01-10] MEDS ORDERED: GLUCOSE 40% GEL 15 GM TUBE PO PRN (13:02)
--- NOTE | 2023-01-10 14:01 | CT Scan Report ---
ABDOMEN AND PELVIS CT WITHOUT CONTRAST CT DOSE: 502.66 mGy.cm HISTORY: Acute nausea with upper abdominal pain and urinary tract infection Nausea, abd pain, UTI TECHNIQUE: Multiaxial CT images of the abdomen and pelvis were performed without contrast. A dose lo wering technique was utilized adhering to the principles of ALARA. COMPARISON STUDY: CT abdomen and pelvis 07/05/2020 FINDINGS: Cardiomegaly with coronary arterial calcifications. No pneumatosis or pneumoperitoneum. The unenhanced spleen, moderately atrophic pancreas and adrenal glands are unremarkable. Cholecystectomy . Hepatic steatosis. Unremarkable kidneys. No urolith or hydronephrosis. Hysterectomy. Aorta and IVC are unremarkable. No lymphadenopathy. Unchanged fatty attenuating lesion within the left retroperitoneum of the pelvis sup erficial to the iliacus muscle measuring 7.3 x 5.4 x 7.8 cm, similar to prior. Tiny hiatal hernia. No bowel obstruction or bowel wall thickening. Moderate to extensive colonic fecal retention. Colonic d iverticulosis. The appendix is not definitively seen. No CT evidence of acute appendicitis. Diastases recti with prior ventral abdominal wall herniorrhaphy. Tiny fat filled umbilical hernia. Degenerative changes of the spine, pelvis and hips. Spinal stimulator device is noted with electrodes entering the central canal at the T9-T10 level extending superiorly outside the field of view. L2 ve rtebral body hemangioma. L4-S1 posterior interbody roberth and screw fusion with L5-S1 discectomy. No adams dence of hardware complication. IMPRESSION: 1. No acute intra-abdominal or intrapelvic abnormality. 2. No urolith or hydronephrosis. 3. Moderate to extensive colonic fecal retention. 4. No bowel obstruction or bowel wall thickening. 5. Tiny hiatal hernia. ACT 112: Negative or not required by law. The above report was generated using voice recognition software. It may contain grammatical, syntax o r spelling errors. Electronically signed by: Ángel Gates M.D. 01/10/2023 1:59 PM
[2023-01-10] MEDS ORDERED: ENOXAPARIN INJ 40 MG/0.4 ML SYR SQ SCH (15:45)
[2023-01-10] MEDS: POLYETHYLENE (MIRALAX) 17 GM PACK PO SCH (17:12)
[2023-01-10] MEDS: DULoxetine HCL 60 MG CAP PO SCH (17:12)
[2023-01-10] MEDS: PANTOprazole 40 MG TAB PO SCH (17:13)
[2023-01-10] MEDS: PREGABALIN 150 MG CAP PO SCH ×2 (17:20→19:42)
[2023-01-10] MEDS: INSULIN ASPART PER UNIT SC SCH ×2 (17:59→20:57)
[2023-01-10] MEDS: LOSARTAN POTASSIUM 50 MG TAB PO SCH (18:09)
[2023-01-10] MEDS: DOCUSATE SODIUM 100 MG CAP PO SCH (19:42)
[2023-01-10] MEDS ORDERED: LACTATED RINGER'S 1,000 ML IV ONE (19:44)
[2023-01-10] MEDS: BUPRENORPHINE/NALOXONE 8/2 MG TAB SL SCH (20:56)
[2023-01-10] MEDS ORDERED: PRAVASTATIN SOD 10 MG TAB PO SCH (21:00)
[2023-01-10] MEDS: LANTUS PER UNIT CHARGE SQ SCH (21:00)
[2023-01-11 07:48] LABS: Basophils # (auto) 0.04 K/uL (0-0.2); Basophils % (auto) 0.3 %; Eosinophils # (auto) 0.26 K/uL (0-0.50); Eosinophils % (auto) 1.9 %; Hemoglobin 10.8 g/dl (12.0-16.0); Immature Granulocytes # (auto) 0.06 K/uL (0.01-0.20); Immature Granulocytes % (auto) 0.4 %; Lymphocytes # (auto) 4.74 K/uL (1.2-3.4); Lymphocytes % (auto) 33.7 %; Mean Corpuscular Hemoglobin 28.7 pg (25.0-34.0); Mean Corpuscular Hgb Conc 32.7 g/dL (32.0-36.0); Mean Corpuscular Volume 87.8 fL (80.0-100.0); Mean Platelet Volume 9.8 fL (9.4-12.4); Monocytes # (auto) 0.97 K/uL (0.11-0.59); Monocytes % (auto) 6.9 %; Neutrophils # (auto) 7.98 K/uL (1.40-6.50); Neutrophils % (auto) 56.8 %; Platelet Count 214 K/uL (130-400); RDW Coefficient of Variation 14.8 % (11.5-14.5); RDW Standard Deviation 47.5 fL (36.4-46.3); Red Blood Count 3.76 M/uL (4.20-5.40); White Blood Count 14.05 K/ul (4.8-10.8)
[2023-01-11 08:10] LABS: BUN Creatinine Ratio 21.5 (10-20); Calcium 8.8 mg/dl (8.5-10.1); Creatinine Clr Calc Pharmacy 74.6 ml/min; Est GFR (African American) 94.3 ml/min; Est GFR (Non-African American) 81.4 ml/min; Magnesium 2.1 mg/dl (1.7-2.4)
[2023-01-11] MEDS ORDERED: ACETAMINOPHEN 325 MG TAB PO PRN (08:11)
[2023-01-11] MEDS: PANTOprazole 40 MG TAB PO SCH (08:18)
[2023-01-11] MEDS: LOSARTAN POTASSIUM 50 MG TAB PO SCH (08:19)
[2023-01-11] MEDS: DULoxetine HCL 60 MG CAP PO SCH (08:19)
[2023-01-11] MEDS: BUPRENORPHINE/NALOXONE 8/2 MG TAB SL SCH (08:19)
[2023-01-11] MEDS: INSULIN ASPART PER UNIT SC SCH (08:21)
[2023-01-11] MEDS: LANTUS PER UNIT CHARGE SQ SCH (08:21)
[2023-01-11] MEDS: POLYETHYLENE (MIRALAX) 17 GM PACK PO SCH (08:23)
[2023-01-11] MEDS: PREGABALIN 150 MG CAP PO SCH (08:23)
[2023-01-11] MEDS: DOCUSATE SODIUM 100 MG CAP PO SCH (08:23)
--- NOTE | 2023-01-11 09:42 | Psychiatric Consultation ---
Date of Consultation January 11, 2023 Impression / Recommendations Impression 62 yo woman with a history of depression, anxiety admitted medically. Diagnostically consistent with depression and anxiety secondary to UTI and possible influence from missing 4 doses of Suboxone now significantly improved. Acute risk of self-harm is low given denial of SI, stable mood, bright affect. They are not interested in nor do they meet criteria for inpatient psychiatric hospitalization at this time. Overall, I spent a total of 45 minutes with this case including review of chart records, review of labwork, direct evaluation of the patient at bedside, counseling the patient, discussion of the patient with the Nurse and with the hospitalist provider, discussion with the psychiatric liason during clinical rounds and documentation in the electronic health record. (1) UTI (urinary tract infection): (2) Depressive disorder due to another medical condition with depressive features: (3) Adjustment disorder with anxiety: Plan -Stable for discharge from psychiatric standpoint, improved Psych History Identifying Data 62 yo woman with history of chronic pain, anxiety, depression admitted medically for weakness, poor appetite and found to have UTI. Psychiatry consulted for recommendations for depression. Chief Complaint "I feel 100% better". History of Present Illness Makeda presented with her for weakness, increased anxiety and depression and poor appetite. She was found to have elevated WBC and UTI and admitted medically for treatment of this. Consistently denied SI. Was seen by psych liason yesterday with further details per note from 01/10/2023: "Pt seen for initial consult regarding depressive symptoms and not eating. Pt was pleasant and cooperative during interview. Pt states she has had uncontrolled anxiety for the past few days. She states her anxiety got worse after she had to bring her to the ED a few days ago when he had severe swelling of his hand. She states she has been sleeping most of the day and her appetite has been decreased. She denies any SI, HI, SIB or hallucinations/delusions. [facility]. She states her Ativan was discontinued approximately one month ago due to sedation and "switched to something else but can't remember". She denies a present therapist but [facility] and [facility] become [facility]. Previous inpt hospitalization at [facility] in 2014 when she was having SI. No hx of SA and she is able to contract for safety currently. She states there is a gun in her home, but again adamantly denies SI or HI. She currently is prescribed medical marijuana daily for pain management. Last use on 01/09/23. PHQ9-6+0. Pt informed that Dr. Gray would meet with her tomorrow. She is denying any needs at this time as she was given a dose of Ativan in the ED and she states it was effective for her anxiety." Today she is seen shortly after breakfast. She smiling, laughing and reports her mood is now "good" and she feels "so much better". She wonders if the combination of the UTI and missing 4 doses of her Suboxone lead her to become confused, anxious and feel depression without an appetite. Slept "really well" last night and ate all her breakfast this morning. Denies SI. Denies anxiety. Future-oriented and very hopeful she can return home today. Denies any needs from psychiatry nor any concerns. Feels safe and ready to return home. [facility] who she sees when needed (lately has been stable and hasn't needed regular therapy sessions). Past Psychiatric History Current Psychiatric Diagnosis: MDD, Anxiety History of Previous Suicide Attempt: No Allergies Allergy/AdvReac Type Severity Reaction Status Date / Time bacitracin Allergy Mild RASH Verified 08/07/22 10:21 cephalexin AdvReac Intermediate HEADACHES, Verified 08/07/22 10:21 G I UPSET Home Medications Medication Instructions Recorded Confirmed Type cholecalciferol (vitamin D3) 25 2,000 unit PO QPM 08/12/18 01/10/23 History mcg (1,000 unit) capsule (Vitamin D3) duloxetine 60 mg capsule,delayed 120 mg PO QAM 08/12/18 01/10/23 History release (Cymbalta) lorazepam 1 mg tablet 1 mg PO DAILY PRN Anxiety 08/12/18 01/10/23 History multivitamin 1 tab PO QPM 08/12/18 01/10/23 History pregabalin 150 mg capsule (Lyrica) 150 mg PO TID 08/12/18 01/10/23 History loratadine 10 mg tablet (Claritin) 10 mg PO DAILY PRN allergy symptoms 01/08/19 01/10/23 History vitamin B complex 1 tab PO QAM 01/08/19 01/10/23 History pravastatin 10 mg tablet 10 mg PO HS 04/15/20 01/10/23 History hydrochlorothiazide 12.5 mg tablet 12.5 mg PO QAM 04/28/20 01/10/23 History losartan 50 mg tablet 50 mg PO QAM 04/28/20 01/10/23 History pantoprazole 20 mg tablet,delayed 20 mg PO QAM 04/28/20 01/10/23 History release (Protonix) metformin 500 mg tablet,extended 500 mg PO DAILY@1400 07/05/20 01/10/23 History release 24 hr buspirone 5 mg tablet 7.5 mg PO TID 02/26/22 01/10/23 History cephalexin 250 mg capsule 250 mg PO BID 5 days #10 caps 01/11/23 Rx Patient History Medical History Anemia Anxiety Chronic back pain Chronic headaches daily; has been to [facility], [facility], [facility] for evaluations Constipation Degenerative disc disease Depression Endometriosis Fibromyalgia GERD (gastroesophageal reflux disease) Hepatic steatosis Herpes History of ovarian cyst History of subdural hematoma 1991 REQUIRING EMERGENCY SURGERY Hypertension IBS (irritable bowel syndrome) Leukocytosis Migraine headache Obesity (BMI 30-39.9) Sciatica Spinal cord stimulator status in place 10/2019 [facility] (advised to bring remote/magnet for surgery) Thrush, oral chronic --- nystatin lozenges TID. dx'd 05/2019, follows with PCP & ENT Dr Knox. Surgical History Fusion of spine L4-L5, L5-S1 (after discectomy surgeries) History of anesthesia complications DIFFICULTY WAKING UP History of brain surgery 1991 (removed a subdural hematoma) History of carpal tunnel release RT History of cholecystectomy History of discectomy L4-L5, L5-S1 (2 different surgeries) History of incisional hernia repair (05/02/20) Laparoscopic Incisional Hernia Repair Dr. Olivo 05/02/20 History of rotator cuff surgery right 08/2018 [facility] History of tonsillectomy History of tooth extraction History of tubal ligation +tubal reversal Hx of colonoscopy S/P BSO (bilateral salpingo-oophorectomy) S/P knee surgery right knee S/P [place] (total abdominal hysterectomy) Family History Mother Family history of reaction to anesthesia PONV Breast cancer Diabetes Heart disease Hypertension Grandfather (Paternal) Family history of diabetes mellitus Diabetes Father Family history of diabetes mellitus Heart disease Hypertension Mother , 12/2020 - lung cancer? Family history of diabetes mellitus Grandmother (Paternal) Family hx of colon cancer Sister Migraine Social History Smoking Status: Never smoker Tobacco Type: Cigarettes Age Started Using Tobacco: 15; packs per day: 0.5; Second Hand Exposure: No; Hx Alcohol Use: Yes Alcohol type: wine and hard liquor Alcohol Intake Frequency: Monthly or Less Hx Substance Use: Yes Prescribed Medications: Marijuana Last Used Substance: Hours (ago) Last Used Substance Other:: 04/15/21 Preferred Language: Georgian Communication Ability: Effective Visual Impairment: No Limitations Hearing Ability: Normal Group Leader Required: No Beliefs That Will Affect Care: None marital status: Current Living Situation: Spouse current occupational status: disabled current occupation: finance work at [employer] How many Children do You have: 0 Other Information That Helps Us Care for You: No Feels Safe at Home: Yes Safety Concerns: Feels Safe At This Time Gender Identity: Female Assistive Devices: Glasses Physical Exam Psychiatric: Orientation: alert and oriented x 3 Apperance: appropriately dressed and appropriately groomed Eye Contact: good eye contact Motor Behavior: no abnormal motor movements Speech: normal rate/rhythm/volume of speech Affect: euthymic affect Mood: no depressed mood and no anxious mood Thought Process: linear/logical thought process Thought Content: reality based without delusions Suicidal Thoughts: denies suicidal thoughts H omicidal Thoughts: denies homicidal thoughts Hallucinations: no auditory hallucinations and no visual hallucinations Cognition: recent memory grossly intact, remote memory grossly intact, attention grossly intact and language grossly intact Estimated Intelligence: consistent with education level Insight: + fair insight Judgment: + fair judgement Vital Signs (Past 24 Hours): Last Vital Signs Temp 36.5 C 01/11/23 09:20 Pulse 82 01/11/23 09:20 Resp 18 01/11/23 09:20 BP 91/52 L 01/11/23 09:20 Pulse Ox 97 01/11/23 09:20 O2 Del Method Room Air 01/11/23 07:31 Review of Systems All systems reviewed & are unremarkable except as noted in HPI & below Results & Data (PSY) Medications Administered Acetaminophen (Acetaminophen 325 Mg Tab) 650 mg PO Q4H PRN PRN Reason: Pain Stop: 02/10/23 08:10 Last Admin: 01/11/23 09:02 Dose: 650 mg Documented By: [id number] Buprenorphine/Naloxone (Buprenorphine/Naloxone 8/2 Mg Tab) 1 tab SL BID [facility] Stop: 02/09/23 20:59 Last Admin: 01/11/23 08:19 Dose: 1 tab Documented By: [id number] Admin: 01/10/23 20:56 Dose: 1 tab Documented By: MONICA Docusate Sodium (Docusate Sodium 100 Mg Cap) 100 mg PO BID [facility] Stop: 02/09/23 20:59 Last Admin: 01/11/23 08:23 Dose: 100 mg Documented By: [id number] Admin: 01/10/23 19:42 Dose: 100 mg Documented By: MONICA Duloxetine HCl (Duloxetine Hcl 60 Mg Cap) 120 mg PO QAM [facility] Stop: 02/09/23 15:37 Last Admin: 01/11/23 08:19 Dose: 120 mg Documented By: [id number] Admin: 01/10/23 17:12 Dose: 120 mg Documented By: CANDACE Enoxaparin Sodium (Enoxaparin Inj 40 Mg/0.4 Ml Syr) 40 mg SQ Q24H [facility] Stop: 02/09/23 15:44 Last Admin: 01/10/23 17:20 Dose: 40 mg Documented By: CANDACE Insulin Aspart (Insulin Aspart Per Unit) 0 units SC ACHS [facility] Stop: 02/09/23 16:29 Last Admin: 01/11/23 08:21 Dose: 3 units Documented By: [id number] Co-signed By: SAURABH Admin: 01/10/23 20:57 Dose: Not Given Documented By: Admin: 01/10/23 17:59 Dose: Not Given Documented By: [id number] Insulin Glargine (Lantus Per Unit Charge) 5 units SQ BID [facility] Stop: 02/09/23 20:59 Last Admin: 01/11/23 08:21 Dose: 5 units Documented By: [id number] Co-signed By: SAURABH Admin: 01/10/23 21:00 Dose: 5 units Documented By: MONICA Co-signed By: HOWIE Losartan Potassium (Losartan Potassium 50 Mg Tab) [facility] [place]: 02/09/23 15:37 Last Admin: 01/11/23 08:19 Dose: 50 mg Documented By: [id number] Admin: 01/10/23 18:09 Dose: 50 mg Documented By: [id number] Pantoprazole Sodium (Pantoprazole 40 Mg Tab) 20 mg PO QAM [facility] Stop: 02/09/23 15:37 Last Admin: 01/11/23 08:18 Dose: 20 mg Documented By: [id number] Admin: 01/10/23 17:13 Dose: 20 mg Documented By: CANDACE Polyethylene Glycol (Polyethylene (Miralax) 17 Gm Pack) 17 gm PO DAILY [facility] Stop: 02/09/23 15:44 Last Admin: 01/11/23 08:23 Dose: 17 gm Documented By: [id number] Admin: 01/10/23 17:12 Dose: 17 gm Documented By: CANDACE Pravastatin Sodium (Pravastatin Sod 10 Mg Tab) 10 mg PO HS [facility] Stop: 02/09/23 20:59 Last Admin: 01/10/23 19:42 Dose: 10 mg Documented By: MONICA Pregabalin (Pregabalin 150 Mg Cap) 150 mg PO TID [facility] Stop: 02/09/23 15:37 Last Admin: 01/11/23 08:23 Dose: 150 mg Documented By: [id number] Admin: 01/10/23 19:42 Dose: 150 mg Documented By: Admin: 01/10/23 17:20 Dose: 150 mg Documented By: CANDACE Coding Level of Care Code 78605 IN/OBS CONSULT LVL 3,45M Diagnoses UTI (urinary tract infection) N39.0 Depressive disorder due to another medical condition with depressive features F06.31 Adjustment disorder with anxiety F43.22 Time Spent (min) 45
[2023-01-11] MEDS ORDERED: cefTRIAXone SODIUM 1,000 MG in DEXTROSE 5% AD-VAN 50 ML IV SCH (11:00)
[2023-01-11] MEDS ORDERED: cefTRIAXone SODIUM 2,000 MG in DEXTROSE 5% 50 ML IV SCH (12:00)
--- NOTE | 2023-01-11 12:33 | Discharge Summary ---
Date of Service January 11, 2023 Admission HPI Per Admitting Provider Makeda is a 62 year old female with a PMH significant for depression with previous intrapatient admissions, anxiety, SDH s/p craniotomy in 1991 with chronic headaches/migraines, DMII, HTN, GERD, fibromyalgia, and hyperlipidemia who presented to the [facility] ED with complaints of increased depressive symptoms, poor oral intake, and generalized weakness. In the ED the patient was found to be afebrile, hemodynamically stable, and stable on RA. Labs were remarkable for a leukocytosis of 18 with left shift of 15 (patient does have a history of chronically elevated WBC but not usually this high), stable Hgb and platelets, stable cr of 0.75 with a potassium of 3.0 otherwise stable electrolytes, Alk phos of 121 otherwise stable LFT's, TSH WNL, UA showing turbid urine, 2+ ketones, 1+ protein, 1+ leukocyte esterase, nitrite negative, 10-30 WBCs with negative bacteria and calcium oxalate positive, Covid negative, Urine tox screen positive for Marijuana but otherwise negative. CT of the abd/pelvis without con was read as " Prior to admission the patient was given 10 meq IV KCL, 20 meq PO KCL, 1L NSS, 1 mg IV ativan, and was ordered a dose of 2g Ceftriaxone. At the time of the exam the patient was resting in bed in no acute distress with her sitting bedside, history was obtained from both. Her states that the patient has had increased "nerves" since 01/07. When asked to elaborate the and the patient explain she is having increased anxiety and depressive symptoms. Due to these symptoms the patient has been in bed since 01/07 with very little oral intake. Her states that she only had a half a glass of water yesterday. The patient denies current suicidal ideations, homicidal ideations, and hallucinations. They deny recent fever but the patient has been having chills since yesterday. When confirming her med rec they state that she was taken off of Depakote and oxycodone-acetaminophen and was started on Suboxone and medical marijuana for her chronic pain and migraines. They state that she is still taking Lyrica, Duloxetine, and ativan as with prn Cyclobenzaprine for muscle spasms. The patient and her are unsure if she is still taking Buspar at this time. When asked when her last doses of Suboxone and medical marijuana were she states she had medical marijuana last night and her last dose of suboxone was on 01/08/23. She denies taking additional doses of medications over the past 3 days for her symptoms and denies alcohol and other recreational drug use. The patient denies recent changes in vision, hearing, taste, and smell, chest pain, SOB, vomiting, dysuria, hematuria, diarrhea, melena, LE swelling and recent trauma. The patient and her think that she needs to be admitted for her depression and anxiety once she is medically cleared. The patient is a Full code and wishes for her to make medica l decisions for her if she cannot make them herself. Per review of her PDMP, she was last prescribed and picked up a 30 day supply Suboxone (8-2mg) on 01/03/23, last picked up a 30 day supple of Lyrica on 11/09/22 and last received a prescription for Ativan (30 day supply) on 08/13/22. Principal Diagnosis acute encephalopathy, UTI Discharge Exam The patient is awake, alert and oriented 3, well developed and well nourished, normocephalic and atraumatic, lying in bed and in no acute distress. HEENT--PERRL, EOMI, mucous membranes and oropharynx mildly dry Neck--supple. No JVD. No bruits. Thyroid normal, trachea midline, no rupinder nopathy. Heart--normal S1 and S2. No murmurs, rubs or gallops. Lungs--clear bilaterally, no respiratory distress, no accessory muscle use. Abdomen--normal bowel sounds and soft. Mild epigastric and left sided abdominal pain Extremities--no cyanosis or clubbing. No edema. Dermatologic--normal skin turgor, normal color, no abnormal lymph nodes, no rash. Neurologic--cranial nerves II through XII grossly intact. Rheumatologic--normal range of motion. Psychiatric--normal affect. Discharge Data Allergies Allergy/AdvReac Type Severity Reaction Status Date / Time bacitracin Allergy Mild RASH Verified 08/07/22 10:21 cephalexin AdvReac Intermediate HEADACHES, Verified 08/07/22 10:21 G I UPSET Consultations 01/10/23 11:59 ED Decision to Admit Stat 01/10/23 12:43 Consult Psychiatry Routine Ordered Studies 01/10/23 11:31 CT Abd and Pelvis [CT abd pelvis wo con] Stat Hospital Course (1) Generalized weakness: -Her generalized weakness is likely multifactorial including but not limited to increased depression and anxiety, poor oral intake/deconditioning, polypharmacy, and possible UTI -Patient noted increased fatigue, depressive symptoms and nervousness since 01/07 -Now resolved -patient is back to baseline after IV fluids (2) Acute encephalopathy: patient said her was concerned because she was confused and then brought her to the hopsital likely due to UTI and missing 4 doses of her suboxone Now resolved Her home suboxone has been re instituted (3) Acute hypokalemia: Replaced (4) DMII (diabetes mellitus, type 2): -Hold metformin -Monitor BSG ACHS, goal is 110-140 -Lantus 5 units BID, correction factor of 50 with carb ratio of 15 -DMII diet (5) Depression: -Continue Cymbalta -Psych consult -Stable for discharge per psych (6) Hypertension: -Stable -Hold HCTZ with hypokalemia and dehydration -Continue Losartan (7) Anxiety: -Continue Cymbalta -Psych consult (8) GERD (gastroesophageal reflux disease): -Continue pantoprazole (9) Chronic back pain: -Continue Suboxone, Lyrica (10) UTI (urinary tract infection): Transition to PO keflex 250mg BID for 5 days Plan d/c home Total Time Total Time Spent Total Time Spent (In Minutes): 35 Discharge Plan Discharge Items Patient Disposition: Home - Self-Care Reason For Visit: GENERALIZED WEAKNESS Discharge Diagnosis: UTI, acute encephalopathy Activity: Resume your previous activity Non-emergency contact: Primary Care Provider Call non-emergency contact if: you have any medication questions Follow-up/Referrals: PCP,NO [Primary Care Provider] - Diet: Regular Addtl Attending Provider Instructions: Please make appointment to follow up with your PCP Pending Studies at Discharge: No Stand-Alone Forms: [employer], Smoking Cessation Medications and DC Order Prescriptions: New cephalexin 250 mg capsule 250 mg PO BID 5 Days Qty: 10 0RF Continued vitamin B complex tablet 1 tab PO QAM buspirone 5 mg tablet 7.5 mg PO TID pravastatin 10 mg tablet 10 mg PO HS metformin 500 mg tablet extended release 24 hr 500 mg PO DAILY@1400 multivitamin Tablet 1 tab PO QPM lorazepam 1 mg Tablet 1 mg PO DAILY PRN (Reason: Anxiety) cholecalciferol (vitamin D3) [Vitamin D3] 1,000 unit Capsule 2,000 unit PO QPM duloxetine [Cymbalta] 60 mg Capsule,Delayed Release(Dr/Ec) 120 mg PO QAM pregabalin [Lyrica] 150 mg Capsule 150 mg PO TID loratadine [Claritin] 10 mg tablet 10 mg PO DAILY PRN (Reason: allergy symptoms) losartan 50 mg Tablet 50 mg PO QAM pantoprazole [Protonix] 20 mg Tablet,Delayed Release (Dr/Ec) 20 mg PO QAM hydrochlorothiazide 12.5 mg Tablet 12.5 mg PO QAM Discontinued cyclobenzaprine 10 mg Tablet 10 mg PO DAILY PRN (Reason: Muscle Spasm) Discharge Orders: Discharge Order (Routine); Ordered 01/11/23 Ordered By: Marry Montaño Admission Data Admit Date/Time: 01/10/23 12:56 Attending Provider: Marry Montaño Admit Provider: Hunter Jackson Primary Care Provider: PCP,NO Other Providers: Hunter Jackson ; Kellie Gray ; Marilyn Ross ; Reyes Muniz Other Interventions: Discharge Summary Assessment (RN) Last Done: 01/11/23 09:20 Coding Level of Care Code [id number] INP/OBS DISCH >30 MIN Diagnoses Generalized weakness R53.1 Acute encephalopathy G93.40 Acute hypokalemia E87.6 DMII (diabetes mellitus, type 2) E11.9 Depression F32.9 Hypertension I10 Anxiety F41.9 GERD (gastroesophageal reflux disease) K21.9 Chronic back pain M54.5; G89.29 Back pain laterality: midline Back pain location: low back pain Sciatica presence: unspecified whether sciatica present UTI (urinary tract infection) N39.0 Time Spent (min) 35
[2023-01-12 11:17] LABS: Marijuana Quant, GCMS Urine 1830 ng/mL (<5)
== END 2023-01-11 09:53 | disposition home or self-care (01) ==
LOC: ED 10:06 → EDINP 10:06 → SUATTDRO 12:56 → 2W 17:45

== ENCOUNTER 2024-07-10 17:41 | Inpatient (IN) ==
[2024-07-10] MEDS: ONDANSETRON INJ 2 MG/ML 2 ML VIAL IV STA ×2 (18:19→23:14)
[2024-07-10] MEDS: SODIUM CHLORIDE 0.9% 1,000 ML IV ONE (18:20)
--- NOTE | 2024-07-10 18:20 | Emergency Department Note ---
Impression & Plan COVID-19, SBO (small bowel obstruction) ED Provider Note Provider: Nino Lewis MD DATE OF SERVICE: 07/10/2024 CHIEF COMPLAINT: Mid abdominal pain, COVID-positive HISTORY OF PRESENT ILLNESS: Patient is a 63-year-old female history of diabetes, IBS, migraine, and GERD presenting here today via ambulance from home. Reports was with friends over the weekend due to later tested positive for COVID and she tested positive for COVID on Saturday was having some sore throat. Talked with her doctor and started Paxlovid Saturday evening. Has been taking and the sore throat has improved. Denies severe fevers or chills. Reports just today this afternoon maybe 4 to 5 hours ago developed some mid abdominal discomfort and pain. Thought she might of a bowel movement by small bowel movement without significant relief. Maybe a little bit of nausea but again no vomiting reported. Denies chest pain or shortness of breath. PAST MEDICAL HISTORY: As noted above MEDICATIONS: Reviewed home medication list includes currently Paxlovid SOCIAL HISTORY: Former smoker PHYSICAL EXAM: GENERAL: alert and oriented in no acute distress on stretcher but fatigued in appearance Head: normocephalic and atraumatic EYES: No injection, discharge or icterus. EOMI. NECK: Trachea midline. ENT: Mucous membranes pink and moist. LUNGS: Airway patent. No retractions. Breath sounds clear with good air entry bilaterally. HEART: Regular rate and rhythm. No chest wall tenderness ABDOMEN: Soft and non-tender, without guarding or rebound. No masses SKIN: Acyanotic, warm, dry, without rashes EXTREMITIES: Without swelling, tenderness or deformity NEUROLOGICAL: No focal deficits moving all extremities. No aphasia. No facial droop or slurred speech. EK bpm sinus rhythm with PVC. No acute ST segment elevation or depression with a QTc of 456. CONTINUOUS CARDIAC MONITORING: was ordered and showed a heart rate of 60s to 70s bpm in sinus rhythm occasional PVCs Patient's laboratory studies and imaging reviewed. Differential includes Appendicitis, infections, diverticulitis, UTI, obstruction, mesenteric ischemia, aortic pathology, inflammatory bowel disease, renal colic, PUD, pancreatitis, biliary pathology, hernia, volvulus, constipation, as well as other pathologies. IMPRESSION/MEDICAL DECISION MAKING: Patient's vitals upon arrival without severe abnormality, i.e. no hypoxia, tachycardia, or hypotension. Afebrile. Is somewhat hypertensive. Will obtain a CT abdomen pelvis given pain there although not significantly tender on exam. Basic blood work to be obtained to formal COVID test to be completed. Denies significant cardiac or pulmonary symptoms. EKG and troponin were run for completeness. Chest x-ray obtained. Will give some IV fluids given decreased intake today as well as some Toradol and Zofran although she is not significantly nauseous. Does report use of Suboxone at home and is on Ozempic. Patient blood work here with significant leukocytosis. No other fever here or bacterial source noted. Will hold off on antibiotics at this point. No anemia. No significant renal dysfunction or evidence of acute cardiac injury or hepatitis. Noted to pancreatitis. Negative UA. Confirmatory positive COVID test. Patient transiently on oxygen while sleeping but on reassessment she is feeling much improved. No longer feels bloated or nauseous and off oxygen. Looks more perky. Discussed with her findings of the CT scan per radiology report concerning for small bowel obstruction. Patient with a history of abdominal surgeries in the past. Given her significant proven we will hold off on NG tube at this time but told her we have a low threshold. Will make NPO. Will bring her to the hospital further observation and monitoring. Hospitalist as well as general surgery PA were alerted to the patient but do not feel given her improvement of symptoms she requires any emergent surgery. DIAGNOSIS: COVID-19, small bowel obstruction DISPOSITION: Hospitalist will evaluate Patient was agreeable with this plan. Past Med/Surg History Problem List (Updated 07/10/24 @ 21:17 by KEY CaponeC) Chronic pain SBO (small bowel obstruction) (Acute) COVID-19 (Acute) Rotator cuff tendonitis Acute encephalopathy Adjustment disorder with anxiety Depressive disorder due to another medical condition with depressive features Generalized weakness Mood disorder (Acute) Leukocytosis (Acute) Acute hypokalemia (Acute) UTI (urinary tract infection) (Acute) Tendinitis of right rotator cuff Candidiasis of mouth and esophagus Intractable chronic post-traumatic headache Flu-like symptoms Thrombocytopenia Transaminitis Migraine (Acute) Hypokalemia (Acute) Lab test negative for COVID-19 virus (Acute) Carpal tunnel syndrome on left Trigger finger of right thumb DMII (diabetes mellitus, type 2) Hyponatremia Prolonged PTT Toxic encephalopathy Acute alteration in mental status (Acute) Elevated WBC count (Acute) Hypothermia (Acute) Headache (Acute) History of incisional hernia repair (05/02/20) Laparoscopic Incisional Hernia Repair Dr. Olivo 05/02/20 S/P laparoscopic hernia repair Constipation Leukocytosis (Acute) Hepatic steatosis DVT prophylaxis S/P hernia repair Chronic headache (Chronic) Depression (Chronic) History of back surgery (Chronic) Lumbar stenosis with neurogenic claudication (Acute 12/13/14) Suicidal ideation (Acute) History of total abdominal hysterectomy and bilateral salpingo-oophorectomy (Chronic) Umbilical hernia (Chronic) Encounter for pre-operative examination COVID 19 testing from 04/27 is pending. Occipital neuralgia (Chronic) Uterine endometriosis (Acute 11/29/12) Subdural hemorrhage (Acute 11/29/12) Osteoarthritis of hands, bilateral (Acute) Lumbar radiculopathy, acute (Acute) Inflamed seborrheic keratosis (Acute) Elevated sedimentation rate (Acute) Dysplastic nevus (Acute) Cutaneous skin tags (Acute) Diabetes Incisional hernia History of rotator cuff surgery (Chronic) right 08/2018 [facility] History of discectomy (Chronic) L4-L5, L5-S1 (2 different surgeries) Sciatica (Chronic) Fusion of spine (Chronic) L4-L5, L5-S1 (after discectomy surgeries) Chronic back pain (Chronic) Degenerative disc disease (Chronic) History of subdural hematoma (Chronic) 1991 [facility] History of brain surgery (Chronic) 1991 (removed a subdural hematoma) Hypertension (Chronic) Migraine headache (Chronic) Anxiety (Chronic) Depression (Chronic) Anemia (Chronic) GERD (gastroesophageal reflux disease) (Chronic) IBS (irritable bowel syndrome) (Chronic) Fibromyalgia (Chronic) Endometriosis (Chronic) History of ovarian cyst (Chronic) History of cholecystectomy (Chronic) History of carpal tunnel release (Chronic) RT History of tubal ligation (Chronic) +tubal reversal History of tonsillectomy (Chronic) History of tooth extraction (Chronic) Herpes (Chronic) History of anesthesia complications (Chronic) DIFFICULTY WAKING UP Obesity (BMI 30-39.9) (Chronic) Medical History Thrush, oral chronic --- nystatin lozenges TID. dx'd 05/2019, follows with PCP & ENT Dr Knox. Chronic headaches daily; has been to [facility], [facility], [facility] for evaluations Spinal cord stimulator status in place 10/2019 [facility] (advised to bring remote/magnet for surgery) Surgical History S/P BSO (bilateral salpingo-oophorectomy) S/P [place] (total abdominal hysterectomy) S/P knee surgery right knee Hx of colonoscopy Family History Mother Family history of reaction to anesthesia PONV Breast cancer Diabetes Heart disease Hypertension Grandfather (Paternal) Family history of diabetes mellitus Diabetes Father Family history of diabetes mellitus Heart disease Hypertension Mother , 12/2020 - lung cancer? Family history of diabetes mellitus Grandmother (Paternal) Family hx of colon cancer Sister Migraine Social History Smoking Status: Former smoker Tobacco Type: Cigarettes Age Started Using Tobacco: 15; packs per day: 0.5; Second Hand Exposure: No; Do You Dip or Chew Tobacco: No; Hx Alcohol Use: Yes Alcohol type: wine and hard liquor Alcohol Intake Frequency: Monthly or Less Hx Substance Use: Yes Prescribed Medications: Marijuana Last Used Substance: Hours (ago) Last Used Substance Other:: 04/15/21 Preferred Language: [place]ankan Communication Ability: Effective Communication Ability Comment: glasses Visual Impairment: No Limitations Hearing Ability: Normal Rail Gang Supervisor Required: No Beliefs That Will Affect Care: None marital status: Current Living Situation: Spouse current occupational status: disabled current occupation: finance work at [employer] How many Children do You have: 0 Feels Safe at Home: Yes Gender Identity: Female Assistive Devices: Glasses Allergies Allergies Allergy/AdvReac Type Severity Reaction Status Date / Time bacitracin Allergy Mild RASH Verified 08/28/23 10:34 cephalexin AdvReac Intermediate HEADACHES, Verified 08/28/23 10:34 G I UPSET Home Meds Home Medications Medication Instructions Recorded Confirmed cholecalciferol (vitamin D3) 25 5,000 unit PO QPM 08/12/18 07/10/24 mcg (1,000 unit) capsule (Vitamin D3) duloxetine 60 mg capsule,delayed 120 mg PO QAM 08/12/18 07/10/24 release (Cymbalta) lorazepam 1 mg tablet 1 mg PO DAILY PRN Anxiety 08/12/18 07/10/24 pregabalin 150 mg capsule (Lyrica) 150 mg PO BID 08/12/18 07/10/24 loratadine 10 mg tablet (Claritin) 10 mg PO DAILY PRN allergy symptoms 01/08/19 07/10/24 hydrochlorothiazide 12.5 mg tablet 12.5 mg PO QAM 04/28/20 07/10/24 losartan 50 mg tablet 50 mg PO QAM 04/28/20 07/10/24 pantoprazole 20 mg tablet,delayed 20 mg PO QAM 04/28/20 07/10/24 release (Protonix) metformin 500 mg tablet,extended 500 mg PO DAILY@1400 07/05/20 07/10/24 release 24 hr buspirone 5 mg tablet 7.5 mg PO TID 02/26/22 07/10/24 buprenorphine HCl 8 mg sublingual 8 mg sublingual BID 03/15/23 07/10/24 tablet ondansetron HCl 4 mg tablet 4 mg PO Q6H PRN Nausea 03/15/23 07/10/24 polyethylene glycol 3350 17 17 g PO DAILY 03/15/23 07/10/24 gram/dose oral powder (Miralax) rosuvastatin 10 mg tablet (Crestor) 10 mg PO PM 03/15/23 07/10/24 acyclovir 5 % topical ointment See Rx Instructions .Route 06/10/23 07/10/24 .COMPLEX PRN Other cyclobenzaprine 10 mg tablet 10 mg PO DAILY PRN Other 06/10/23 07/10/24 fluconazole 150 mg tablet See Rx Instructions .Route 06/10/23 07/10/24 .COMPLEX PRN Other fluticasone propionate 50 See Rx Instructions .Route 06/10/23 07/10/24 mcg/actuation nasal .COMPLEX PRN Other spray,suspension magnesium citrate 420 mg PO DAILY 06/10/23 07/10/24 nystatin 100,000 unit/gram topical See Rx Instructions .Route 06/10/23 07/10/24 powder .COMPLEX PRN Other clonidine HCl 0.1 mg tablet 0.1 mg PO UD PRN Other 11/23/23 07/10/24 nystatin 200,000 unit lozenges See Rx Instructions .Route .COMPLEX 11/23/23 07/10/24 semaglutide 0.25 mg or 0.5 mg (2 0 mg subcut WK 11/23/23 07/10/24 mg/3 mL) subcutaneous pen injector (Ozempic) Previous Rx's Medication Instructions Recorded benzonatate 100 mg capsule 100 mg PO TID PRN cough #15 caps 10/01/23 Results & Data (ED) Vital Signs Vital Signs - 24 hr 07/10/24 17:52 07/10/24 17:57 07/10/24 19:30 Temperature 36.5 C Temperature Source Oral Pulse Rate 71 72 60 Respiratory Rate 16 20 Respiratory Effort / Characteristics Non-Labored Spontaneous Respiratory Depth Normal Blood Pressure 168/90 H 146/82 H Blood Pressure Mean 116 103 Pulse Oximetry 99 97 Oxygen Delivery Method Room Air Room Air Sepsis Recent Fever Within 48 Hours No Sepsis New/Unexplained Change in Mental Status N/A Sepsis Action Taken by Nursing No Action Required 07/10/24 20:00 07/10/24 20:30 Temperature Temperature Source Pulse Rate 62 73 Respiratory Rate 18 16 Respiratory Effort / Characteristics Respiratory Depth Blood Pressure 125/78 144/85 H Blood Pressure Mean 93 104 Pulse Oximetry 96 97 Oxygen Delivery Method Sepsis Recent Fever Within 48 Hours Sepsis New/Unexplained Change in Mental Status Sepsis Action Taken by Nursing Laboratory Data 07/10/24 18:00 07/10/24 18:00 Lab Results 07/10/24 07/10/24 07/10/24 Range/Units 18:00 18:20 19:00 WBC 21.51 H (4.8-10.8) K/ul RBC 5.79 H (4.20-5.40) M/uL Hgb 15.6 (12.0-16.0) g/dl Hct 47.4 H (37.0-47.0) % MCV 81.9 (80.0-100.0) fL MCH 26.9 (25.0-34.0) pg MCHC 32.9 (32.0-36.0) g/dL RDW Std Deviation 45.7 (36.4-46.3) fL RDW Coeff of [place] 15.3 H (11.5-14.5) % Plt Count 402 H (130-400) K/uL MPV 9.9 (9.4-12.4) fL Immature Gran % (Auto) 0.7 % Neut % (Auto) 79.9 % Lymph % (Auto) 14.9 % [place] % (Auto) 4.2 % Eos % (Auto) 0.1 % Baso % (Auto) 0.2 % Neut # (Auto) 17.19 H (1.40-6.50) K/uL Lymph # (Auto) 3.20 (1.20-3.40) K/uL [place]shaw # (Auto) 0.91 H (0.11-0.59) K/uL Eos # (Auto) 0.02 (0.00-0.50) K/uL Baso # (Auto) 0.04 (0.00-0.20) K/uL Immature Gran # (Auto) 0.15 (0.01-0.20) K/uL PT 10.6 (9.0-12.0) Seconds INR 1.0 (0.9-1.1) Sodium 139 (136-145) mmol/L Potassium 4.0 (3.5-5.1) mmol/L Chloride 100 (98-107) mmol/L Carbon Dioxide 23 (21-32) mmol/L Anion Gap 16 H (3-11) BUN 24 H (6-23) mg/dl Creatinine 0.86 (0.6-1.2) mg/dl Est Cr Clr Drug Dosing 63.3 ml/min Est GFR ( Amer) 84.5 ml/min Est GFR (Non-Af Amer) 72.9 ml/min BUN/Creatinine Ratio 27.9 H (10-20) Glucose 115 H (70-99(Fasting)) mg/dl Calcium 10.9 H (8.6-10.3) mg/dl Total Bilirubin 0.5 (0.2-1.0) mg/dl AST 17 (13-39) U/L ALT 11 (7-52) U/L Alkaline Phosphatase 115 H (34-104) U/L Troponin I High Sens 4.2 (0-14) pg/ml Total Protein 9.6 H (6.0-8.3) gm/dl Albumin 5.4 H (3.4-5.0) gm/dl Globulin 4.2 H (2.5-4.0) gm/dl Albumin/Globulin Ratio 1.3 (0.9-2) Lipase 27 (11-82) U/L Procalcitonin < 0.02 (0-0.5) ng/ml Urine Color Yellow Urine Appearance Cloudy A (Clear) Urine pH 8.0 H (4.5-7.5) Ur Specific [place] 1.024 (1.000-1.030) Urine Protein 1+ H (Negative) Urine Glucose (UA) Negative (Negative) Urine Ketones Trace H (Negative) Urine Blood Negative (Negative) Urine Nitrite Negative (Negative) Urine Bilirubin Negative (Negative) Urine Urobilinogen Negative (Negative) Ur Leukocyte Esterase Trace H (Negative) Urine WBC (Auto) 0-5 (0-5) /hpf Urine RBC (Auto) 0-2 (0-2) /hpf U Hyaline Cast (Auto) 0-2 (0-2) /lpf U Epithel Cells (Auto) 0-2 (0-2) /hpf Urine Bacteria (Auto) None Seen (None Seen) SARS-CoV-2, RNA, NAAT POSITIVE A (NEGATIVE) Administered Medications Lactated Ringer's (Lr) 1,000 mls @ 125 mls/hr IV .Q8H SYDNEE Stop: 07/11/24 12:59 Last Admin: 07/10/24 22:30 Dose: 125 mls/hr Documented By: TERRI Acetaminophen (Ofirmev) 1,000 mg in 100 mls @ 400 mls/hr IV Q8H PRN PRN Reason: pain(1-4),headache,fever Stop: 07/13/24 20:57 Last Infusion: 07/11/24 00:30 Dose: Infused Documented By: Admin: 07/11/24 00:10 Dose: 400 mls/hr Documented By: THOMAS Insulin Aspart (Insulin Aspart Per Unit Charge) 0 units SC Q6H SYDNEE Stop: 08/10/24 00:00 Last Admin: 07/10/24 23:48 Dose: Not Given Documented By: THOMAS Discontinued Medications Buprenorphine/Naloxone (Buprenorphine/Naloxone 8/2 Mg Tab) 1 tab SL NOW STA Stop: 07/10/24 20:58 Last Admin: 07/10/24 21:29 Dose: 1 tab Documented By: ANA MARIA Sodium Chloride (Nss) 1,000 mls @ 999 mls/hr IV .Q1H1M ONE Stop: 07/10/24 18:57 Last Infusion: 07/10/24 19:36 Dose: Infused Documented By: Admin: 07/10/24 18:20 Dose: 999 mls/hr Documented By: CARLI Ioversol (Optiray 320 125ml) 119 ml IV ONCE ONE Stop: 07/10/24 19:24 Last Admin: 07/10/24 19:24 Dose: 119 ml Documented By: ANGEL Ketorolac Tromethamine (Ketorolac Tromethamine 15 Mg/Ml Vial) 10 mg IV NOW STA Stop: 07/10/24 18:20 Last Admin: 07/10/24 18:38 Dose: 10 mg Documented By: SUKHI Ondansetron HCl (Ondansetron Inj 2 Mg/Ml 2 Ml Vial) 4 mg IV NOW STA Stop: 07/10/24 17:58 Last Admin: 07/10/24 18:19 Dose: 4 mg Documented By: CARLI Ondansetron HCl (Ondansetron Inj 2 Mg/Ml 2 Ml Vial) 4 mg IV NOW STA Stop: 07/10/24 22:46 Last Admin: 07/10/24 23:14 Dose: 4 mg Documented By: TERRI Imaging Data Radiologist's Impression: Abdomen/Pelvis CT 07/10/24 17:57 Exam(s): CT ABDOMEN + PELVIS With Contrast IV Amt: 119ml optiray 320 EXAM: CT Abdomen and Pelvis With Intravenous Contrast CLINICAL HISTORY: Reason for exam: mid ab pain, nausea, covid 19. TECHNIQUE: Axial computed tomography images of the abdomen and pelvis with intravenous contrast. CTDI is 18 mGy and DLP is 1001 mGy-cm. Automated exposure control was utilized for the study. A dose lowering technique was utilized adhering to the principles of ALARA. CONTRAST: Patient received 119ml optiray 320 of IV contrast COMPARISON: 06/10/23 FINDINGS: Lung bases: Unremarkable. ABDOMEN: Liver: Unremarkable. No mass. Gallbladder and bile ducts: Cholecystectomy. No ductal dilation. Pancreas: Unremarkable. No mass. No ductal dilation. Spleen: Unremarkable. No splenomegaly. Adrenals: Unremarkable. No mass. Kidneys and ureters: Unremarkable. No solid mass. No hydronephrosis. Stomach and bowel: Dilated, fluid-filled loops of small bowel consistent with small bowel obstruction. Transition point at the L4 level slightly right of midline (coronal images 45-48). Increased colonic stool burden suggesting constipation. No mucosal thickening. PELVIS: Appendix: Appendix not identified. Bladder: Decompressed urinary bladder, limiting evaluation. Reproductive: Hysterectomy. ABDOMEN and PELVIS: Intraperitoneal space: Mild ascites. No pneumatosis or free air. Bones/joints: Osteopenia. Posterior decompression, posterior hardware fixation L4-S1 with interbody fusion at L5-S1. No acute fracture or dislocation. Degenerative change in the lumbar spine. Soft tissues: Stable benign lipoma in the lower left retroperitoneum; no follow-up indicated. Vasculature: Unremarkable. No abdominal aortic aneurysm. Lymph nodes: Unremarkable. No enlarged lymph nodes. Tubes, lines and devices: Simulator device in the left posterior abdominal wall with leads extending to the thoracic spinal canal. IMPRESSION: 1. Dilated, fluid-filled loops of small bowel consistent with small bowel obstruction. Transition point at the L4 level slightly right of midline (coronal images 45-48). 2. Mild ascites. No pneumatosis or free air. Electronically signed by: Nico Galarza M.D. 07/10/24 20:16 PM Chest X-Ray 07/10/24 17:57 SINGLE VIEW CHEST CLINICAL HISTORY: Covid. Generalized abdominal pain. FINDINGS: An AP, portable, upright chest radiograph is compared to study dated . The heart is enlarged. The pulmonary vasculature is noncongested. The lungs and pleural spaces are clear. No pneumothorax is seen. The skeletal structures are osteopenic. The bony thorax is grossly intact. Intrathecal leads project over the thoracic spine. IMPRESSION: Cardiomegaly with no active disease in the chest. ACT 112: Negative or not required by law. Electronically signed by: Reuben King M.D. 07/10/2024 7:07 PM Chest CTA 07/10/24 18:41 Exam(s): CTA CHEST IV Amt: 119ml optray 320 EXAM: CT Angiography Chest With Intravenous Contrast CLINICAL HISTORY: Reason for exam: PE, covid hypoxia, abd pain. TECHNIQUE: Axial computed tomographic angiography images of the chest with intravenous contrast. CTDI is 18 mGy and DLP is 1001 mGy-cm. Automated exposure control was utilized for the study. A dose lowering technique was utilized adhering to the principles of ALARA. MIP reconstructed images were created and reviewed. COMPARISON: No relevant prior studies available. FINDINGS: Pulmonary arteries: Adequate pulmonary artery opacification. Normal caliber main pulmonary artery. No evidence of pulmonary embolism. Aorta: No acute findings. No aortic aneurysm or dissection. Lungs: No consolidation. Linear atelectasis left lower lobe. No mass. Pleural space: Unremarkable. No significant effusion. No pneumothorax. Heart: Myocardium megaly. Coronary artery atherosclerosis. No pericardial effusion. Bones/joints: No acute fracture. No dislocation. Soft tissues: Unremarkable. Lymph nodes: Unremarkable. No enlarged lymph nodes. Intraperitoneal space: Mild perihepatic ascites in the upper abdomen. Tubes, lines and devices: Spinal stimulator leads extending to the thoracic spinal canal. IMPRESSION: 1. No evidence of pulmonary embolism. 2. Mild perihepatic ascites in the upper abdomen. Electronically signed by: Nico Galarza M.D. 07/10/24 21:34 PM Discharge Plan Visit Data Chief Complaint: Abdominal Pain Stated Complaint: AB PAIN ED Provider: Nino Lewis Discharge Problem: COVID-19, SBO (small bowel obstruction) Patient Disposition: Being Evaluated by Hospitalist Discharge Instructions Interventions: ED Discharge Assessment Last Done: 07/10/24 23:25
[2024-07-10 18:35] LABS: Basophils # (auto) 0.04 K/uL (0.00-0.20); Basophils % (auto) 0.2 %; Eosinophils # (auto) 0.02 K/uL (0.00-0.50); Eosinophils % (auto) 0.1 %; Hematocrit (blood only) 47.4 % (37.0-47.0); Hemoglobin 15.6 g/dl (12.0-16.0); Immature Granulocytes # (auto) 0.15 K/uL (0.01-0.20); Immature Granulocytes % (auto) 0.7 %; Lymphocytes % (auto) 14.9 %; Mean Corpuscular Hemoglobin 26.9 pg (25.0-34.0); Mean Corpuscular Hgb Conc 32.9 g/dL (32.0-36.0); Mean Corpuscular Volume 81.9 fL (80.0-100.0); Mean Platelet Volume 9.9 fL (9.4-12.4); Monocytes # (auto) 0.91 K/uL (0.11-0.59); Monocytes % (auto) 4.2 %; Neutrophils # (auto) 17.19 K/uL (1.40-6.50); Neutrophils % (auto) 79.9 %; Platelet Count 402 K/uL (130-400); RDW Coefficient of Variation 15.3 % (11.5-14.5); RDW Standard Deviation 45.7 fL (36.4-46.3); Red Blood Count 5.79 M/uL (4.20-5.40); White Blood Count 21.51 K/ul (4.8-10.8)
[2024-07-10] MEDS: KETOROLAC TROMETHAMINE 15 MG/ML VIAL IV STA (18:38)
[2024-07-10 18:52] LABS: Albumin Globulin Ratio 1.3 (0.9-2); Albumin Level 5.4 gm/dl (3.4-5.0); BUN Creatinine Ratio 27.9 (10-20); Bilirubin,Total 0.5 mg/dl (0.2-1.0); Calcium 10.9 mg/dl (8.6-10.3); Creatinine Clr Calc Pharmacy 63.3 ml/min; Est GFR (African American) 84.5 ml/min; Est GFR (Non-African American) 72.9 ml/min; Globulin 4.2 gm/dl (2.5-4.0); Total Protein 9.6 gm/dl (6.0-8.3)
[2024-07-10 18:57] LABS: Troponin I High Sensitivity 4.2 pg/ml (0-14)
[2024-07-10 19:00] LABS: Prothrombin Time 10.6 Seconds (9.0-12.0)
--- NOTE | 2024-07-10 19:09 | XRay Report ---
SINGLE VIEW CHEST CLINICAL HISTORY: Covid. Generalized abdominal pain. FINDINGS: An AP, portable, upright chest radiograph is compared to study dated . The heart is enlarged. The pulmonary vasculature is noncongested. The lungs and pleural spaces are clear. No pneum othorax is seen. The skeletal structures are osteopenic. The bony thorax is grossly intact. Intrathec al leads project over the thoracic spine. IMPRESSION: Cardiomegaly with no active disease in the chest. ACT 112: Negative or not required by law. Electronically signed by: Reuben King M.D. 07/10/2024 7:07 PM
[2024-07-10] MEDS: OPTIRAY 320 125ml IV ONE (19:24)
[2024-07-10 19:57] LABS: Appearance Urine Cloudy (Clear); Bacteria Urine Automated None Seen (None Seen); Bilirubin Urine Negative (Negative); Blood Urine Negative (Negative); Cast Urine Automated 0-2 /lpf (0-2); Color Urine Yellow; Epithelial Cell Urine Auto 0-2 /hpf (0-2); Glucose Urine UA Negative (Negative); Ketones Urine Trace (Negative); Leukocyte Esterase Urine Trace (Negative); Nitrite Urine Negative (Negative); Protein Urine 1+ (Negative); RBC Urine Automated 0-2 /hpf (0-2); Specific Gravity Urine 1.024 (1.000-1.030); Urobilinogen Urine Negative (Negative); WBC Urine Automated 0-5 /hpf (0-5)
--- NOTE | 2024-07-10 20:16 | CT Scan Report ---
Exam(s): CT ABDOMEN + PELVIS With Contrast IV Amt: 119ml optiray 320 EXAM: CT Abdomen and Pelvis With Intravenous Contrast CLINICAL HISTORY: Reason for exam: mid ab pain, nausea, covid 19. TECHNIQUE: Axial computed tomography images of the abdomen and pelvis with intravenous contrast. CTDI is 18 mGy and DLP is 1001 mGy-cm. Automated exposure control was utilized for the study. A dose lowering technique was utilized adhering to the principles of ALARA. CONTRAST: Patient received 119ml optiray 320 of IV contrast COMPARISON: 06/10/23 FINDINGS: Lung bases: Unremarkable. ABDOMEN: Liver: Unremarkable. No mass. Gallbladder and bile ducts: Cholecystectomy. No ductal dilation. Pancreas: Unremarkable. No mass. No ductal dilation. Spleen: Unremarkable. No splenomegaly. Adrenals: Unremarkable. No mass. Kidneys and ureters: Unremarkable. No solid mass. No hydronephrosis. Stomach and bowel: Dilated, fluid-filled loops of small bowel consistent with small bowel obstruction. Transition point at the L4 level slightly right of midline (coronal images 45-48). Increased colonic stool burden suggesting constipation. No mucosal thickening. PELVIS: Appendix: Appendix not identified. Bladder: Decompressed urinary bladder, limiting evaluation. Reproductive: Hysterectomy. ABDOMEN and PELVIS: Intraperitoneal space: Mild ascites. No pneumatosis or free air. Bones/joints: Osteopenia. Posterior decompression, posterior hardware fixation L4-S1 with interbody fusion at L5-S1. No acute fracture or dislocation. Degenerative change in the lumbar spine. Soft tissues: Stable benign lipoma in the lower left retroperitoneum; no follow-up indicated. Vasculature: Unremarkable. No abdominal aortic aneurysm. Lymph nodes: Unremarkable. No enlarged lymph nodes. Tubes, lines and devices: Simulator device in the left posterior abdominal wall with leads extending to the thoracic spinal canal. IMPRESSION: 1. Dilated, fluid-filled loops of small bowel consistent with small bowel obstruction. Transition point at the L4 level slightly right of midline (coronal images 45-48). 2. Mild ascites. No pneumatosis or free air. Electronically signed by: Nico Galarza M.D. 07/10/24 20:16 PM
--- NOTE | 2024-07-10 21:06 | History & Physical Report ---
Date of Service July 10, 2024 Assessment & Plan (1) SBO (small bowel obstruction): Plan: Admit to med telemetry Currently stable and nontoxic-appearing with improved symptoms compared to arrival Arrived to the ED via EMS after acute onset of severe central abdominal pain this afternoon CT of the abdomen pelvis with contrast showed findings consistent with small bowel obstruction with transition point at L4 level Patient does have a history of previous abdominal surgeries, this is her first small bowel obstruction Patient does appear to be on semaglutide, will need to consider as possible otology Patient currently in no pain at the time of exam, nausea has resolved General Surgery has been consulted and will continue to follow, no plans for OR at this time Explained to patient that if her symptoms progress she will need NG tube placement N.p.o. at this time, will continue maintenance IV fluids overnight Will obtain stat lactic with her elevated anion gap but lower suspicion for ischemia at this time due to resolved symptoms SQ Lovenox for DVT prophylaxis AM CBC, CMP, mag, PT/INR (2) COVID-19: Plan: Patient tested positive with home test on 07/07/2024, positive on PCR testing today Was started on Paxlovid on 07/08/24 with resolution of symptoms Currently stable on room air and without respiratory symptoms, chest x-ray is clear For now continue symptomatic support with incentive spirometry, as needed albuterol, as needed Tylenol If patient's brings her Paxlovid and we can continue while inpatient (3) Leukocytosis: Plan: Patient noted to have a leukocytosis of 21 with neutrophil predominance of 17 Has been afebrile without source of bacterial infection at this time Could be reactive due to recent COVID-19 infection and acute small bowel obstruction along with dehydration Will obtain blood cultures and Pro-Marciano for further evaluation but hold antibiotics at this time Will follow lactate obtained at the time of admission Will continue IV hydration overnight Monitor a.m. CBC (4) DMII (diabetes mellitus, type 2): Plan: Hold metformin and semaglutide Monitor BSG every 6 hours while NPO, goal is 110-160 Start conservative regimen with CF of 50 and CR 15 for now Adjust regimen as needed (5) Adjustment disorder with anxiety: Plan: Continue buspirone, Cymbalta (6) Chronic pain: Plan: Is on twice daily sublingual buprenorphine Will give her evening dose now Continue buprenorphine and Lyrica (7) Hypertension: Plan: Currently stable Will hold hydrochlorothiazide and losartan for now while n.p.o. Plan The patient was discussed with Dr. Vargas the time of the admission History of Present Illness Chief Complaint: Abdominal pain Primary Care Provider: April Shane Gaytan is a 63-year-old female with a past medical history significant for depression with previous intrapatient psychiatric admissions, anxiety, SDH s/p craniotomy in 1991 with chronic headaches/migraines, DMII, HTN, GERD, fibromyalgia, chronic pain on Suboxone and hyperlipidemia who presented to [facility] ED on 07/10/2024 via EMS after experiencing acute onset of central abdominal pain approximately 2 PM this afternoon. Patient reported that she tested positive for COVID-19 with a home test on 07/07/2024. Patient remained stable in the ED. Labs were significant for leukocytosis of 21 with neutrophil predominance of 17, BUN of 24, anion gap of 16 with bicarb within normal limits, calcium of 10.9, UA with cloudy urine, 1+ protein, trace ketones, and trace leukocyte Estrace, with COVID-19 PCR positive. Chest x-ray was read as cardiomegaly without active chest disease. CT abdomen pelvis with IV contrast was read as dilated fluid-filled loops of small bowel consistent with small bowel obstruction. Transition point at the L4 level slightly right of midline. Mild ascites. No pneumatosis or free air. CT of the chest with PE protocol ordered in the ED was obtained and currently yet to be read at the time admission. Prior to admission the patient was given a dose of Zofran, 1 L normal saline, and 10 mg IV Toradol. Patient was lying in bed in no acute distress at time of exam, currently stable on room air and he is hemodynamically stable. States that she initially started to develop sore throat, congestion, mild nonproductive cough, and generalized weakness on 07/06/2024. Tested positive with home COVID-19 test on 07/07/2024 and began taking Paxlovid on 07/08/24. States that today was the first day she started to feel as though she had recovered from her COVID-19 symptoms. She was in her hot tub at home around 2 PM this afternoon when she developed acute onset of central abdominal pain with associated nausea. Shortly after she had a small loose bowel movement but denies any bloody bowel movements. Never vomited with her nausea. Could not get comfortable which is why she presented to the ED. After receiving the dose of Zofran in the ED she states that her symptoms are currently resolved. Denies recent fever/chills, chest pain, shortness of breath, dysuria/hematuria, melena, lower extremity swelling, and recent trauma. States that she is due for her a.m. dose of Suboxone and does not want to start experiencing withdrawal symptoms. Confirms she is a full code and would want her to make medical decisions for her if she cannot make them herself. Please refer to Dr. Vargas Changes to the treatment plan Allergies Allergy/AdvReac Type Severity Reaction Status Date / Time bacitracin Allergy Mild RASH Verified 08/28/23 10:34 cephalexin AdvReac Intermediate HEADACHES, Verified 08/28/23 10:34 G I UPSET Home Medications Medication Instructions Recorded Confirmed Type cholecalciferol (vitamin D3) 25 5,000 unit PO QPM 08/12/18 07/10/24 History mcg (1,000 unit) capsule (Vitamin D3) duloxetine 60 mg capsule,delayed 120 mg PO QAM 08/12/18 07/10/24 History release (Cymbalta) lorazepam 1 mg tablet 1 mg PO DAILY PRN Anxiety 08/12/18 07/10/24 History pregabalin 150 mg capsule (Lyrica) 150 mg PO BID 08/12/18 07/10/24 History loratadine 10 mg tablet (Claritin) 10 mg PO DAILY PRN allergy symptoms 01/08/19 07/10/24 History hydrochlorothiazide 12.5 mg tablet 12.5 mg PO QAM 04/28/20 07/10/24 History losartan 50 mg tablet 50 mg PO QAM 04/28/20 07/10/24 History pantoprazole 20 mg tablet,delayed 20 mg PO QAM 04/28/20 07/10/24 History release (Protonix) metformin 500 mg tablet,extended 500 mg PO DAILY@1400 07/05/20 07/10/24 History release 24 hr buspirone 5 mg tablet 7.5 mg PO TID 02/26/22 07/10/24 History buprenorphine HCl 8 mg sublingual 8 mg sublingual BID 03/15/23 07/10/24 History tablet ondansetron HCl 4 mg tablet 4 mg PO Q6H PRN Nausea 03/15/23 07/10/24 History polyethylene glycol 3350 17 17 g PO DAILY 03/15/23 07/10/24 History gram/dose oral powder (Miralax) rosuvastatin 10 mg tablet (Crestor) 10 mg PO PM 03/15/23 07/10/24 History acyclovir 5 % topical ointment See Rx Instructions .Route 06/10/23 07/10/24 History .COMPLEX PRN Other cyclobenzaprine 10 mg tablet 10 mg PO DAILY PRN Other 06/10/23 07/10/24 History fluconazole 150 mg tablet See Rx Instructions .Route 06/10/23 07/10/24 History .COMPLEX PRN Other fluticasone propionate 50 See Rx Instructions .Route 06/10/23 07/10/24 History mcg/actuation nasal .COMPLEX PRN Other spray,suspension magnesium citrate 420 mg PO DAILY 06/10/23 07/10/24 History nystatin 100,000 unit/gram topical See Rx Instructions .Route 06/10/23 07/10/24 History powder .COMPLEX PRN Other benzonatate 100 mg capsule 100 mg PO TID PRN cough #15 caps 10/01/23 07/10/24 Rx clonidine HCl 0.1 mg tablet 0.1 mg PO UD PRN Other 11/23/23 07/10/24 History nystatin 200,000 unit lozenges See Rx Instructions .Route .COMPLEX 11/23/23 07/10/24 History semaglutide 0.25 mg or 0.5 mg (2 0 mg subcut WK 11/23/23 07/10/24 History mg/3 mL) subcutaneous pen injector (Ozempic) Past Med/Surg History Problem List (Updated 07/10/24 @ 21:17 by Matthew Medel PA-C) Chronic pain SBO (small bowel obstruction) (Acute) COVID-19 (Acute) Rotator cuff tendonitis Acute encephalopathy Adjustment disorder with anxiety Depressive disorder due to another medical condition with depressive features Generalized weakness Mood disorder (Acute) Leukocytosis (Acute) Acute hypokalemia (Acute) UTI (urinary tract infection) (Acute) Tendinitis of right rotator cuff Candidiasis of mouth and esophagus Intractable chronic post-traumatic headache Flu-like symptoms Thrombocytopenia Transaminitis Migraine (Acute) Hypokalemia (Acute) Lab test negative for COVID-19 virus (Acute) Carpal tunnel syndrome on left Trigger finger of right thumb DMII (diabetes mellitus, type 2) Hyponatremia Prolonged PTT Toxic encephalopathy Acute alteration in mental status (Acute) Elevated WBC count (Acute) Hypothermia (Acute) Headache (Acute) History of incisional hernia repair (05/02/20) Laparoscopic Incisional Hernia Repair Dr. Olivo 05/02/20 S/P laparoscopic hernia repair Constipation Leukocytosis (Acute) Hepatic steatosis DVT prophylaxis S/P hernia repair Chronic headache (Chronic) Depression (Chronic) History of back surgery (Chronic) Lumbar stenosis with neurogenic claudication (Acute 12/13/14) Suicidal ideation (Acute) History of total abdominal hysterectomy and bilateral salpingo-oophorectomy (Chronic) Umbilical hernia (Chronic) Encounter for pre-operative examination COVID 19 testing from 04/27 is pending. Occipital neuralgia (Chronic) Uterine endometriosis (Acute 11/29/12) Subdural hemorrhage (Acute 11/29/12) Osteoarthritis of hands, bilateral (Acute) Lumbar radiculopathy, acute (Acute) Inflamed seborrheic keratosis (Acute) Elevated sedimentation rate (Acute) Dysplastic nevus (Acute) Cutaneous skin tags (Acute) Diabetes Incisional hernia History of rotator cuff surgery (Chronic) right 08/2018 [facility] History of discectomy (Chronic) L4-L5, L5-S1 (2 different surgeries) Sciatica (Chronic) Fusion of spine (Chronic) L4-L5, L5-S1 (after discectomy surgeries) Chronic back pain (Chronic) Degenerative disc disease (Chronic) History of subdural hematoma (Chronic) 1991 [facility] History of brain surgery (Chronic) 1991 (removed a subdural hematoma) Hypertension (Chronic) Migraine headache (Chronic) Anxiety (Chronic) Depression (Chronic) Anemia (Chronic) GERD (gastroesophageal reflux disease) (Chronic) IBS (irritable bowel syndrome) (Chronic) Fibromyalgia (Chronic) Endometriosis (Chronic) History of ovarian cyst (Chronic) History of cholecystectomy (Chronic) History of carpal tunnel release (Chronic) RT History of tubal ligation (Chronic) +tubal reversal History of tonsillectomy (Chronic) History of tooth extraction (Chronic) Herpes (Chronic) History of anesthesia complications (Chronic) DIFFICULTY WAKING UP Obesity (BMI 30-39.9) (Chronic) Medical History Thrush, oral chronic --- nystatin lozenges TID. dx'd 05/2019, follows with PCP & ENT Dr Knox. Chronic headaches daily; has been to [facility], [facility], [facility] for evaluations Spinal cord stimulator status in place 10/2019 [facility] (advised to bring remote/magnet for surgery) Surgical History S/P BSO (bilateral salpingo-oophorectomy) S/P [place] (total abdominal hysterectomy) S/P knee surgery right knee Hx of colonoscopy Family History Mother Family history of reaction to anesthesia PONV Breast cancer Diabetes Heart disease Hypertension Grandfather (Paternal) Family history of diabetes mellitus Diabetes Father Family history of diabetes mellitus Heart disease Hypertension Mother , 12/2020 - lung cancer? Family history of diabetes mellitus Grandmother (Paternal) Family hx of colon cancer Sister Migraine Social History Smoking Status: Former smoker Tobacco Type: Cigarettes Age Started Using Tobacco: 15; packs per day: 0.5; Smoking End Date: quit approximately 30 years ago; Second Hand Exposure: No; Do You Dip or Chew Tobacco: No; Hx Alcohol Use: Yes Alcohol type: wine and hard liquor Alcohol Intake Frequency: Monthly or Less Hx Substance Use: Yes Prescribed Medications: Marijuana Last Used Substance: Days (ago) Last Used Substance Other:: 07/09/24 Preferred Language: Kiswahili Communication Ability: Effective Communication Ability Comment: glasses Visual Impairment: No Limitations Hearing Ability: Normal Glass Enamel Mixer Required: No Beliefs That Will Affect Care: None marital status: Current Living Situation: Spouse current occupational status: disabled current occupation: finance work at [employer] How many Children do You have: 0 Other Information That Helps Us Care for You: No Feels Safe at Home: Yes Safety Concerns: Feels Safe At This Time Gender Identity: Female Assistive Devices: Glasses Physical Exam Physical Exam: Physical Exam: General: In no acute distress, stated age, well-nourished, nontoxic-appearing HEENT: Normocephalic, atraumatic, no scleral icterus, pupils around round, symmetrical, and reactive to light, moist mucus membranes, trachea midline, no thyromegaly Chest/Pulm: No respiratory distress, symmetrical chest expansion, clear breath sounds throughout Cardiac: RRR, no murmurs noted Abdomen: Negative for ascites and bruising, hyperactive bowel sounds, soft, mildly tympanic to percussion throughout without tenderness, non-tender to palpation throughout Musculoskeletal: Symmetrical and without signs of acute trauma, upper and lower extremities with full ROM, no atrophy, spasticity, or flaccidity Extremities: Radial, dorsalis pedis, and posterior tibial pulses are intact and symmetrical, no edema noted in the BL LE's Skin: Warm, dry, no rashes , lesions, or scars noted Neuro: Alert and oriented to person, place, month, year, and president, no focal defects, no tremors noted Psych: No acute distress, calm and cooperative during the exam Results & Data Results & Data Vital Signs (Past 12 Hours) Vital Signs Temp Pulse Resp BP Pulse Ox O2 Del Method 07/10/24 20:00 62 18 125/78 96 07/10/24 19:30 60 20 146/82 H 97 Room Air 07/10/24 17:57 72 07/10/24 17:52 36.5 C 71 16 168/90 H 99 Room Air Laboratory Results Abnormal lab results 07/10/24 07/10/24 07/10/24 Range/Units 18:00 18:20 19:00 WBC 21.51 H (4.8-10.8) K/ul RBC 5.79 H (4.20-5.40) M/uL Hct 47.4 H (37.0-47.0) % RDW Coeff of [place] 15.3 H (11.5-14.5) % Plt Count 402 H (130-400) K/uL Neut # (Auto) 17.19 H (1.40-6.50) K/uL Sutter # (Auto) 0.91 H (0.11-0.59) K/uL Anion Gap 16 H (3-11) BUN 24 H (6-23) mg/dl BUN/Creatinine Ratio 27.9 H (10-20) Glucose 115 H (70-99(Fasting)) mg/dl Calcium 10.9 H (8.6-10.3) mg/dl Alkaline Phosphatase 115 H (34-104) U/L Total Protein 9.6 H (6.0-8.3) gm/dl Albumin 5.4 H (3.4-5.0) gm/dl Globulin 4.2 H (2.5-4.0) gm/dl Urine Appearance Cloudy A (Clear) Urine pH 8.0 H (4.5-7.5) Urine Protein 1+ H (Negative) Urine Ketones Trace H (Negative) Ur Leukocyte Esterase Trace H (Negative) SARS-CoV-2, RNA, NAAT POSITIVE A (NEGATIVE) Diagnostic Findings Abdomen/Pelvis CT 07/10/24 17:57 Exam(s): CT ABDOMEN + PELVIS With Contrast IV Amt: 119ml optiray 320 EXAM: CT Abdomen and Pelvis With Intravenous Contrast CLINICAL HISTORY: Reason for exam: mid ab pain, nausea, covid 19. TECHNIQUE: Axial computed tomography images of the abdomen and pelvis with intravenous contrast. CTDI is 18 mGy and DLP is 1001 mGy-cm. Automated exposure control was utilized for the study. A dose lowering technique was utilized adhering to the principles of ALARA. CONTRAST: Patient received 119ml optiray 320 of IV contrast COMPARISON: 06/10/23 FINDINGS: Lung bases: Unremarkable. ABDOMEN: Liver: Unremarkable. No mass. Gallbladder and bile ducts: Cholecystectomy. No ductal dilation. Pancreas: Unremarkable. No mass. No ductal dilation. Spleen: Unremarkable. No splenomegaly. Adrenals: Unremarkable. No mass. Kidneys and ureters: Unremarkable. No solid mass. No hydronephrosis. Stomach and bowel: Dilated, fluid-filled loops of small bowel consistent with small bowel obstruction. Transition point at the L4 level slightly right of midline (coronal images 45-48). Increased colonic stool burden suggesting constipation. No mucosal thickening. PELVIS: Appendix: Appendix not identified. Bladder: Decompressed urinary bladder, limiting evaluation. Reproductive: Hysterectomy. ABDOMEN and PELVIS: Intraperitoneal space: Mild ascites. No pneumatosis or free air. Bones/joints: Osteopenia. Posterior decompression, posterior hardware fixation L4-S1 with interbody fusion at L5-S1. No acute fracture or dislocation. Degenerative change in the lumbar spine. Soft tissues: Stable benign lipoma in the lower left retroperitoneum; no follow-up indicated. Vasculature: Unremarkable. No abdominal aortic aneurysm. Lymph nodes: Unremarkable. No enlarged lymph nodes. Tubes, lines and devices: Simulator device in the left posterior abdominal wall with leads extending to the thoracic spinal canal. IMPRESSION: 1. Dilated, fluid-filled loops of small bowel consistent with small bowel obstruction. Transition point at the L4 level slightly right of midline (coronal images 45-48). 2. Mild ascites. No pneumatosis or free air. Electronically signed by: Nico Galarza M.D. 07/10/24 20:16 PM Chest X-Ray 07/10/24 17:57 SINGLE VIEW CHEST CLINICAL HISTORY: Covid. Generalized abdominal pain. FINDINGS: An AP, portable, upright chest radiograph is compared to study dated . The heart is enlarged. The pulmonary vasculature is noncongested. The lungs and pleural spaces are clear. No pneumothorax is seen. The skeletal structures are osteopenic. The bony thorax is grossly intact. Intrathecal leads project over the thoracic spine. IMPRESSION: Cardiomegaly with no active disease in the chest. ACT 112: Negative or not required by law. Electronically signed by: Reuben King M.D. 07/10/2024 7:07 PM Code Status & VTE Plan Code Status Full code VTE Prophylaxis Plan VTE Prophylaxis will be ordered: Yes Supervising Physician Co-Signing Physician Notes Patient seen and examined, chart reviewed, case discussed with CARI Medel and I agree with the assessment and plan as above. In brief, patient with SBO, prior abdominal surgeries. Clinically improving after medications Abdomen is soft, NT/ND, diminished bowel sounds No nausea Labs and images reviewed Assessment/Plan - SBO -Conservative management with IVF, pain control, anti-emetics -Surgery consultation appreciated -Remainder as above PG Care Time/CCT Total # of Minutes Spent Total Time Spent with Patient: Total time spent is greater than 50% in coordination of care (as documented) at patient's floor/unit and/or counseling patient: Coding [place] [address] INT INP/OBS CARE 3/75MIN Patient Type Established Medical Decision Making High Complexity Diagnoses SBO (small bowel obstruction) K56.609 COVID-19 U07.1 Leukocytosis D72.829 DMII (diabetes mellitus, type 2) E11.9 Adjustment disorder with anxiety F43.22 Chronic pain G89.29 Hypertension I10
--- NOTE | 2024-07-10 21:15 | Surgery Consultation ---
Date of Consultation July 10, 2024 Assessment & Plan (1) SBO (small bowel obstruction): The patient is being admitted on the hospitalist service. From surgery perspective we recommend the following: The patient is noted to have a positive COVID test. The patient says that she first developed symptoms approximately 3 days ago was started on Paxlovid and has noted improvement regarding her symptoms. Will defer further management of this to the hospitalist service They have ordered a CT scan of the chest and we will wait for the results of these, acting accordingly Concerning her small bowel obstruction: Implement n.p.o. status Hydrate her with IV fluids Follow serial labs I did discuss the possibility of utilizing an NG tube with this patient but as she has had improvement of her symptomatology, her abdomen is soft and nondistended, and she has not had any emesis I feel we can safely hold off on this modality. I did discuss with her that if she has any deterioration of her abdominal exam or develops any nausea or vomiting the use of this modality will need to be reconsidered At the present time The patient is nontoxic-appearing. She is normotensive without tachycardia or fever. We will therefore continue with conservative management plan as noted above Additional recommendations will be forthcoming based on her clinical course as it unfolds History of Present Illness Reason for Consultation: Small bowel obstruction History of Present Illness This is a 63-year-old female who presented the emergency department secondary to upper abdominal pain that began today. The patient notes that she was in her usual state of health when she developed some pain just superior to her umbilicus. She denied any radiation of the pain. She did have some nausea but did not have any episodes of emesis. She notes that after her pain began she had a small bowel movement and passed some flatus which did improve her symptoms. She notes that she has had multiple abdominal surgeries including the following: Tubal ligation, tubal ligation reversal, partial hysterectomy, completion hysterectomy, ventral/umbilical herniorrhaphy. The patient notes th at she has never had a small bowel obstruction in the past. Her most recent oral intake was at approximately noon today. Since arrival to the emergency department the patient has had labs and imaging which independent reviewed. A chest x-ray showed no evidence of pneumonia. A CT scan of the abdomen and pelvis showed the patient had some dilated and fluid- filled loops of small bowel consistent with a small bowel obstruction. There is some mild ascites. There is no pneumatosis or free air. There is also noted of significant colonic stool burden. Labs included CBC were white blood cell count was elevated 21.5. Hemoglobin was normal and hematocrit was slightly elevated at 47.4. Platelet count was 402,000. Chemistry profile showed sodium and potassium as well as the creatinine were normal. Her BUN had a slight elevation at 24. Coagulation studies were normal. Urinalysis showed cloudy urine with trace leukocyte Estrace but was otherwise not indicative of infection. She did have a COVID test that was noted to be positive. The patient notes that she did receive some Zofran in the emergency department and since this treatment along with some intravenous fluids she feels markedly improved. At the time of my interview the patient was resting comfortably bed she was in no distress. Allergies Allergy/AdvReac Type Severity Reaction Status Date / Time bacitracin Allergy Mild RASH Verified 08/28/23 10:34 cephalexin AdvReac Intermediate HEADACHES, Verified 08/28/23 10:34 G I UPSET Home Medications Medication Instructions Recorded Confirmed Type cholecalciferol (vitamin D3) 25 5,000 unit PO QPM 08/12/18 07/10/24 History mcg (1,000 unit) capsule (Vitamin D3) duloxetine 60 mg capsule,delayed 120 mg PO QAM 08/12/18 07/10/24 History release (Cymbalta) lorazepam 1 mg tablet 1 mg PO DAILY PRN Anxiety 08/12/18 07/10/24 History pregabalin 150 mg capsule (Lyrica) 150 mg PO BID 08/12/18 07/10/24 History loratadine 10 mg tablet (Claritin) 10 mg PO DAILY PRN allergy symptoms 01/08/19 07/10/24 History hydrochlorothiazide 12.5 mg tablet 12.5 mg PO QAM 04/28/20 07/10/24 History losartan 50 mg tablet 50 mg PO QAM 04/28/20 07/10/24 History pantoprazole 20 mg tablet,delayed 20 mg PO QAM 04/28/20 07/10/24 History release (Protonix) metformin 500 mg tablet,extended 500 mg PO DAILY@1400 07/05/20 07/10/24 History release 24 hr buspirone 5 mg tablet 7.5 mg PO TID 02/26/22 07/10/24 History buprenorphine HCl 8 mg sublingual 8 mg sublingual BID 03/15/23 07/10/24 History tablet ondansetron HCl 4 mg tablet 4 mg PO Q6H PRN Nausea 03/15/23 07/10/24 History polyethylene glycol 3350 17 17 g PO DAILY 03/15/23 07/10/24 History gram/dose oral powder (Miralax) rosuvastatin 10 mg tablet (Crestor) 10 mg PO PM 03/15/23 07/10/24 History acyclovir 5 % topical ointment See Rx Instructions .Route 06/10/23 07/10/24 History .COMPLEX PRN Other cyclobenzaprine 10 mg tablet 10 mg PO DAILY PRN Other 06/10/23 07/10/24 History fluconazole 150 mg tablet See Rx Instructions .Route 06/10/23 07/10/24 History .COMPLEX PRN Other fluticasone propionate 50 See Rx Instructions .Route 06/10/23 07/10/24 History mcg/actuation nasal .COMPLEX PRN Other spray,suspension magnesium citrate 420 mg PO DAILY 06/10/23 07/10/24 History nystatin 100,000 unit/gram topical See Rx Instructions .Route 06/10/23 07/10/24 History powder .COMPLEX PRN Other benzonatate 100 mg capsule 100 mg PO TID PRN cough #15 caps 10/01/23 07/10/24 Rx clonidine HCl 0.1 mg tablet 0.1 mg PO UD PRN Other 11/23/23 07/10/24 History nystatin 200,000 unit lozenges See Rx Instructions .Route .COMPLEX 11/23/23 07/10/24 History semaglutide 0.25 mg or 0.5 mg (2 0 mg subcut WK 11/23/23 07/10/24 History mg/3 mL) subcutaneous pen injector (Ozempic) Patient History Medical History Thrush, oral chronic --- nystatin lozenges TID. dx'd 05/2019, follows with PCP & ENT Dr Knox. Chronic headaches daily; has been to [facility], [facility], [facility] for evaluations Spinal cord stimulator status in place 10/2019 [facility] (advised to bring remote/magnet for surgery) Surgical History S/P BSO (bilateral salpingo-oophorectomy) S/P [place] (total abdominal hysterectomy) S/P knee surgery right knee Hx of colonoscopy Family History Mother Family history of reaction to anesthesia PONV Breast cancer Diabetes Heart disease Hypertension Grandfather (Paternal) Family history of diabetes mellitus Diabetes Father Family history of diabetes mellitus Heart disease Hypertension Mother , 12/2020 - lung cancer? Family history of diabetes mellitus Grandmother (Paternal) Family hx of colon cancer Sister Migraine Social History Smoking Status: Former smoker Tobacco Type: Cigarettes Age Started Using Tobacco: 15; packs per day: 0.5; Smoking End Date: quit approximately 30 years ago; Second Hand Exposure: No; Do You Dip or Chew Tobacco: No; Hx Alcohol Use: Yes Alcohol type: wine and hard liquor Alcohol Intake Dmitriy quency: Monthly or Less Hx Substance Use: Yes Prescribed Medications: Marijuana Last Used Substance: Days (ago) Last Used Substance Other:: 07/09/24 Preferred Language: Emir[place] Communication Ability: Effective Communication Ability Comment: glasses Visual Impairment: No Limitations Hearing Ability: Normal Miter Sawyer Required: No Beliefs That Will Affect Care: None marital status: Current Living Situation: Spouse current occupational status: disabled current occupation: finance work at [employer] How many Children do You have: 0 Other Information That Helps Us Care for You: No Feels Safe at Home: Yes Safety Concerns: Feels Safe At This Time Gender Identity: Female Assistive Devices: Glasses Review of Systems Review of Systems: All systems reviewed & are unremarkable except as noted in HPI & below Constitutional: no fever and no chills Ear, Nose, Mouth, Throat: Scratchy/sore throat Respiratory: no cough Physical Exam Constitutional: WD/WN, vitals as above Eyes: no conjunctival abnormality ENMT: Ears: no hearing impairment and no external ear abnormality Oral mucosas dry Neck: trachea midline Respiratory: normal respiratory effort; no respiratory distress and no labored breathing No wheezing Cardiovascular: Rate/Rhythm: regular rate and regular rhythm Vessels: dorsalis pedis pulses present and radial pulses present Gastrointestinal (Abdomen): At the time of my exam her abdomen was soft, nondistended, nonrigid, and nontender to palpation. There is no rebound tenderness or guarding Musculoskeletal: No calf tenderness Skin: no rashes Neurologic: moves all extremities Psychiatric: A+Ox3, euthymic affect Results & Data Vital Signs (Past 12 Hours) Vital Signs Temp Pulse Resp BP Pulse Ox O2 Del Method 07/10/24 20:00 62 18 125/78 96 07/10/24 19:30 60 20 146/82 H 97 Room Air 07/10/24 17:57 72 07/10/24 17:52 36.5 C 71 16 168/90 H 99 Room Air PG Care Time/CCT Total # of Minutes Spent Total Time Spent with Patient: Total time spent is greater than 50% in coordination of care (as documented) at patient's floor/unit and/or counseling patient: Coding Level of Care Code 72876 IN/OBS CONSULT LVL 5,80M Diagnoses SBO (small bowel obstruction) K56.609
[2024-07-10] MEDS ORDERED: CARBOHYDRATES FOR HYPOGLYCEMIA PO PRN (21:20)
[2024-07-10] MEDS ORDERED: GLUCOSE 10 TAB/TUBE PO PRN (21:20)
[2024-07-10] MEDS ORDERED: GLUCOSE 40% GEL 15 GM TUBE PO PRN (21:20)
[2024-07-10] MEDS ORDERED: DEXTROSE 50% 50 ML SYRINGE IV PRN (21:20)
[2024-07-10] MEDS ORDERED: GLUCAGON FOR INJ 1 MG VIAL SQ PRN (21:20)
[2024-07-10 21:28] LABS: Base Excess VBG 3.1 mEq/L; HCO3 VBG 30 mmol/L; Oxygen Saturation VBG < 60.0 %; PCO2 VBG 51 mmHg (38-50); PO2 VBG 23 mmHg; pH VBG 7.37 (7.36-7.41)
[2024-07-10] MEDS: BUPRENORPHINE/NALOXONE 8/2 MG TAB SL STA (21:29)
--- NOTE | 2024-07-10 21:35 | CT Scan Report ---
Exam(s): CTA CHEST IV Amt: 119ml optray 320 EXAM: CT Angiography Chest With Intravenous Contrast CLINICAL HISTORY: Reason for exam: PE, covid hypoxia, abd pain. TECHNIQUE: Axial computed tomographic angiography images of the chest with intravenous contrast. CTDI is 18 mGy and DLP is 1001 mGy-cm. Automated exposure control was utilized for the study. A dose lowering technique was utilized adhering to the principles of ALARA. MIP reconstructed images were created and reviewed. COMPARISON: No relevant prior studies available. FINDINGS: Pulmonary arteries: Adequate pulmonary artery opacification. Normal caliber main pulmonary artery. No evidence of pulmonary embolism. Aorta: No acute findings. No aortic aneurysm or dissection. Lungs: No consolidation. Linear atelectasis left lower lobe. No mass. Pleural space: Unremarkable. No significant effusion. No pneumothorax. Heart: Myocardium megaly. Coronary artery atherosclerosis. No pericardial effusion. Bones/joints: No acute fracture. No dislocation. Soft tissues: Unremarkable. Lymph nodes: Unremarkable. No enlarged lymph nodes. Intraperitoneal space: Mild perihepatic ascites in the upper abdomen. Tubes, lines and devices: Spinal stimulator leads extending to the thoracic spinal canal. IMPRESSION: 1. No evidence of pulmonary embolism. 2. Mild perihepatic ascites in the upper abdomen. Electronically signed by: Nico Galarza M.D. 07/10/24 21:34 PM
[2024-07-10] MEDS ORDERED: ALBUTEROL 0.083% NEBU SOLN 3 ML VIAL NEB PRN (22:00)
[2024-07-10] MEDS: LACTATED RINGER'S 1,000 ML IV SCH (22:30)
[2024-07-10] MEDS ORDERED: LORazepam 1 MG TAB PO PRN (23:44)
[2024-07-10] MEDS: INSULIN ASPART PER UNIT CHARGE SC SCH (23:48)
[2024-07-11] MEDS: ACETAMINOPHEN 1,000 MG/100 ML VIAL IV PRN (00:10)
[2024-07-11] MEDS ORDERED: ONDANSETRON INJ 2 MG/ML 2 ML VIAL IV PRN (00:37)
--- NOTE | 2024-07-11 05:09 | Surgery Progress Note ---
Date of Service July 11, 2024 Assessment & Plan (1) SBO (small bowel obstruction): Plan: The patient has been admitted on the hospitalist service. From surgery perspective we recommend the following: Management of COVID as directed by the primary service CT scan of the chest was negative for pulmonary emboli Keep patient n.p.o. until she has return of bowel function Continue IV fluids until oral intake can be advanced and is reliable As the patient has not had any emesis since admission to the hospital I feel we can continue to hold on NG tube, particular since her abdominal exam is benign at this time Leukocytosis was noted at time of admission. Check a.m. labs when available The patient remains nontoxic-appearing Mobilize as able Additional recommendations will be forthcoming based on her clinical course as it unfolds as above. just had a good bowel movement. denies abdominal pain or nausea. abd: currently soft. nt. will start clear liquids. repeat KUB tomorrow Admission and Anticipated Discharge Date Admission Date: July 10, 2024 Subjective Patient is resting comfortably in bed. She denies any worsening abdominal pain but did have some slight tenderness which was not as severe as what caused her presentation. She denies any nausea or vomiting. She has not had a bowel movement or passed any flatus although she feels as though she needs to pass flatus. I discussed with nursing staff and they did not voice any concerns at this time. Physical Exam Gastrointestinal (Abdomen): At the time of my exam this morning her abdomen is soft and nondistended. There is no rigidity or tenderness. There is no rebound tenderness or guarding. Results & Data Vital Signs (Past 12 Hours) Vital Signs Temp Pulse Pulse Resp BP BP Pulse Ox 07/11/24 04:37 36.7 C 64 18 121/69 96 07/10/24 23:47 81 07/10/24 23:44 37.0 C 78 18 171/94 H 99 07/10/24 21:41 77 16 163/85 H 100 07/10/24 20:30 73 16 144/85 H 97 07/10/24 20:00 62 18 125/78 96 07/10/24 19:30 60 20 146/82 H 97 07/10/24 17:57 72 07/10/24 17:52 36.5 C 71 16 168/90 H 99 O2 Del Method 09/07/24 04:37 Room Air 07/10/24 23:47 07/10/24 23:44 Room Air 07/10/24 21:41 07/10/24 20:30 07/10/24 20:00 07/10/24 19:30 Room Air 07/10/24 17:57 07/10/24 17:52 Room Air PG Care Time/CCT Total # of Minutes Spent Total Time Spent with Patient: Total time spent is greater than 50% in coordination of care (as documented) at patient's floor/unit and/or counseling patient: Coding Level of Care Code 55445 SUB INP/OBS CARE 11/28MIN Diagnoses SBO (small bowel obstruction) K56.609
[2024-07-11] MEDS: ENOXAPARIN INJ 40 MG/0.4 ML SYR SQ SCH (05:50)
[2024-07-11 07:14] LABS: Basophils # (auto) 0.02 K/uL (0.00-0.20); Basophils % (auto) 0.1 %; Eosinophils # (auto) 0.01 K/uL (0.00-0.50); Eosinophils % (auto) 0.1 %; Hematocrit (blood only) 44.9 % (37.0-47.0); Hemoglobin 14.3 g/dl (12.0-16.0); Immature Granulocytes % (auto) 0.5 %; Lymphocytes # (auto) 2.22 K/uL (1.20-3.40); Lymphocytes % (auto) 11.2 %; Mean Corpuscular Hemoglobin 27.1 pg (25.0-34.0); Mean Corpuscular Hgb Conc 31.8 g/dL (32.0-36.0); Monocytes # (auto) 0.94 K/uL (0.11-0.59); Monocytes % (auto) 4.7 %; Neutrophils # (auto) 16.55 K/uL (1.40-6.50); Neutrophils % (auto) 83.4 %; Platelet Count 335 K/uL (130-400); RDW Coefficient of Variation 15.9 % (11.5-14.5); RDW Standard Deviation 49.7 fL (36.4-46.3); Red Blood Count 5.28 M/uL (4.20-5.40); White Blood Count 19.84 K/ul (4.8-10.8)
[2024-07-11 07:33] LABS: Prothrombin Time 10.7 Seconds (9.0-12.0)
[2024-07-11 07:54] LABS: Albumin Globulin Ratio 1.3 (0.9-2); Albumin Level 4.1 gm/dl (3.4-5.0); Bilirubin,Total 0.3 mg/dl (0.2-1.0); Calcium 8.9 mg/dl (8.6-10.3); Creatinine Clr Calc Pharmacy 64.4 ml/min; Est GFR (African American) 86.9 ml/min; Globulin 3.1 gm/dl (2.5-4.0); Potassium 4.6 mmol/L (3.5-5.1); Total Protein 7.2 gm/dl (6.0-8.3)
[2024-07-11 08:15] LABS: Magnesium 2.5 mg/dl (1.7-2.4)
[2024-07-11] MEDS: buprenorphine HCL 8 MG SUBL SL SCH (08:43)
[2024-07-11] MEDS: PREGABALIN 150 MG CAP PO SCH ×2 (10:11→21:00)
[2024-07-11] MEDS: DULoxetine HCL 60 MG CAP PO SCH (10:11)
[2024-07-11] MEDS: busPIRone 7.5 MG TAB PO SCH (10:11)
--- NOTE | 2024-07-11 13:39 | Hospitalist Progress Note ---
Date of Service July 11, 2024 Assessment & Plan (1) SBO (small bowel obstruction): Plan: Arrived to the ED via EMS after acute onset of severe central abdominal pain this afternoon CT of the abdomen pelvis with contrast showed findings consistent with small b owel obstruction with transition point at L4 level Patient does have a history of previous abdominal surgeries, this is her first small bowel obstruction Patient does appear to be on semaglutide, which could be a potential etiology General Surgery involved Patient is being managed conservatively Improved Had a bowel movement this morning Started on a clear liquid diet Follow clinically (2) COVID-19: Plan: Patient tested positive with home test on 07/07/2024, positive on PCR testing today Was started on Paxlovid on 07/08/24 with resolution of symptoms Currently stable on room air and without respiratory symptoms, chest x-ray is clear For now continue symptomatic support with incentive spirometry, as needed albuterol, as needed Tylenol If patient's brings her Paxlovid and we can continue while inpatient (3) Leukocytosis: Plan: Patient noted to have a leukocytosis of 21 Improved to 19 today Has been afebrile without source of bacterial infection at this time Could be reactive due to recent COVID-19 infection and acute small bowel obstruction along with dehydration Follow-up blood cultures Procalcitonin negative No antibiotics for now Discontinue IV fluids (4) DMII (diabetes mellitus, type 2): Plan: Hold metformin and semaglutide Monitor BSG every 6 hours while NPO, goal is 110-160 Start conservative regimen with CF of 50 and CR 15 for now Adjust regimen as needed (5) Adjustment disorder with anxiety: Plan: Continue buspirone, Cymbalta (6) Chronic pain: Plan: Is on twice daily sublingual buprenorphine Continue Continue buprenorphine and Lyrica (7) Hypertension: Plan: Currently stable Will hold hydrochlorothiazide and losartan for now Admission and Anticipated Discharge Date Admission Date: July 10, 2024 Subjective Patient feels well. Denies chest pain or shortness of breath. She says she has a bowel movement this morning. She has been advanced to a clear liquid diet. Review of Systems Review of Systems: All systems reviewed & are unremarkable except as noted in Subjective Physical Exam Physical Exam: General: Awake, conversant Heart: S1, S2/regular rate and rhythm, no murmur rubs or gallops Lungs: Clear to auscultation bilaterally. Normal effort Abdomen: Soft/nontender/nondistended. No hepatosplenomegaly Extremities: No clubbing/cyanosis. No edema Behavior: Appropriate, cooperative Results & Data Results & Data Vital Signs (Past 12 Hours) Vital Signs Temp Pulse Pulse Resp BP Pulse Ox O2 Del Method 07/11/24 12:04 37.0 C 53 L 16 117/72 93 Room Air 07/11/24 07:55 36.8 C 66 16 125/74 99 Room Air 07/11/24 07:34 71 07/11/24 04:37 36.7 C 64 18 121/69 96 Room Air Laboratory Results Abnormal lab results 07/10/24 07/10/24 07/10/24 Range/Units 18:00 18:20 19:00 WBC 21.51 H (4.8-10.8) K/ul RBC 5.79 H (4.20-5.40) M/uL Hct 47.4 H (37.0-47.0) % MCHC (32.0-36.0) g/dL RDW Std Deviation (36.4-46.3) fL RDW Coeff of [place] 15.3 H (11.5-14.5) % Plt Count 402 H (130-400) K/uL Neut # (Auto) 17.19 H (1.40-6.50) K/uL Person # (Auto) 0.91 H (0.11-0.59) K/uL VBG pCO2 (38-50) mmHg Anion Gap 16 H (3-11) BUN 24 H (6-23) mg/dl BUN/Creatinine Ratio 27.9 H (10-20) Glucose 115 H (70-99(Fasting)) mg/dl POC Glucose (70-99) mg/dl Calcium 10.9 H (8.6-10.3) mg/dl Magnesium (1.7-2.4) mg/dl Alkaline Phosphatase 115 H (34-104) U/L Total Protein 9.6 H (6.0-8.3) gm/dl Albumin 5.4 H (3.4-5.0) gm/dl Globulin 4.2 H (2.5-4.0) gm/dl Urine Appearance Cloudy A (Clear) Urine pH 8.0 H (4.5-7.5) Urine Protein 1+ H (Negative) Urine Ketones Trace H (Negative) Ur Leukocyte Esterase Trace H (Negative) SARS-CoV-2, RNA, NAAT POSITIVE A (NEGATIVE) 07/10/24 07/10/24 07/11/24 Range/Units 21:14 23:41 05:47 WBC (4.8-10.8) K/ul RBC (4.20-5.40) M/uL Hct (37.0-47.0) % MCHC (32.0-36.0) g/dL RDW Std Deviation (36.4-46.3) fL RDW Coeff of [place] (11.5-14.5) % Plt Count (130-400) K/uL Neut # (Auto) (1.40-6.50) K/uL Person # (Auto) (0.11-0.59) K/uL VBG pCO2 51 H (38-50) mmHg Anion Gap (3-11) BUN (6-23) mg/dl BUN/Creatinine Ratio (10-20) Glucose (70-99(Fasting)) mg/dl POC Glucose 130 H 138 H (70-99) mg/dl Calcium (8.6-10.3) mg/dl Magnesium (1.7-2.4) mg/dl Alkaline Phosphatase (34-104) U/L Total Protein (6.0-8.3) gm/dl Albumin (3.4-5.0) gm/dl Globulin (2.5-4.0) gm/dl Urine Appearance (Clear) Urine pH (4.5-7.5) Urine Protein (Negative) Urine Ketones (Negative) Ur Leukocyte Esterase (Negative) SARS-CoV-2, RNA, NAAT (NEGATIVE) 07/11/24 Range/Units 06:42 WBC 19.84 H (4.8-10.8) K/ul RBC (4.20-5.40) M/uL Hct (37.0-47.0) % MCHC 31.8 L (32.0-36.0) g/dL RDW Std Deviation 49.7 H (36.4-46.3) fL RDW Coeff of [place] 15.9 H (11.5-14.5) % Plt Count (130-400) K/uL Neut # (Auto) 16.55 H (1.40-6.50) K/uL Person # (Auto) 0.94 H (0.11-0.59) K/uL VBG pCO2 (38-50) mmHg Anion Gap (3-11) BUN 26 H (6-23) mg/dl BUN/Creatinine Ratio 31.0 H (10-20) Glucose 117 H (70-99(Fasting)) mg/dl POC Glucose (70-99) mg/dl Calcium (8.6-10.3) mg/dl Magnesium 2.5 H (1.7-2.4) mg/dl Alkaline Phosphatase (34-104) U/L Total Protein (6.0-8.3) gm/dl Albumin (3.4-5.0) gm/dl Globulin (2.5-4.0) gm/dl Urine Appearance (Clear) Urine pH (4.5-7.5) Urine Protein (Negative) Urine Ketones (Negative) Ur Leukocyte Esterase (Negative) SARS-CoV-2, RNA, NAAT (NEGATIVE) Diagnostic Findings Abdomen/Pelvis CT 07/10/24 17:57 Exam(s): CT ABDOMEN + PELVIS With Contrast IV Amt: 119ml optiray 320 EXAM: CT Abdomen and Pelvis With Intravenous Contrast CLINICAL HISTORY: Reason for exam: mid ab pain, nausea, covid 19. TECHNIQUE: Axial computed tomography images of the abdomen and pelvis with intravenous contrast. CTDI is 18 mGy and DLP is 1001 mGy-cm. Automated exposure control was utilized for the study. A dose lowering technique was utilized adhering to the principles of ALARA. CONTRAST: Patient received 119ml optiray 320 of IV contrast COMPARISON: 06/10/23 FINDINGS: Lung bases: Unremarkable. ABDOMEN: Liver: Unremarkable. No mass. Gallbladder and bile ducts: Cholecystectomy. No ductal dilation. Pancreas: Unremarkable. No mass. No ductal dilation. Spleen: Unremarkable. No splenomegaly. Adrenals: Unremarkable. No mass. Kidneys and ureters: Unremarkable. No solid mass. No hydronephrosis. Stomach and bowel: Dilated, fluid-filled loops of small bowel consistent with small bowel obstruction. Transition point at the L4 level slightly right of midline (coronal images 45-48). Increased colonic stool burden suggesting constipation. No mucosal thickening. PELVIS: Appendix: Appendix not identified. Bladder: Decompressed urinary bladder, limiting evaluation. Reproductive: Hysterectomy. ABDOMEN and PELVIS: Intraperitoneal space: Mild ascites. No pneumatosis or free air. Bones/joints: Osteopenia. Posterior decompression, posterior hardware fixation L4-S1 with interbody fusion at L5-S1. No acute fracture or dislocation. Degenerative change in the lumbar spine. Soft tissues: Stable benign lipoma in the lower left retroperitoneum; no follow-up indicated. Vasculature: Unremarkable. No abdominal aortic aneurysm. Lymph nodes: Unremarkable. No enlarged lymph nodes. Tubes, lines and devices: Simulator device in the left posterior abdominal wall with leads extending to the thoracic spinal canal. IMPRESSION: 1. Dilated, fluid-filled loops of small bowel consistent with small bowel obstruction. Transition point at the L4 level slightly right of midline (coronal images 45-48). 2. Mild ascites. No pneumatosis or free air. Electronically signed by: Nico Galarza M.D. 07/10/24 20:16 PM Chest X-Ray 07/10/24 17:57 SINGLE VIEW CHEST CLINICAL HISTORY: Covid. Generalized abdominal pain. FINDINGS: An AP, portable, upright chest radiograph is compared to study dated . The heart is enlarged. The pulmonary vasculature is noncongested. The lungs and pleural spaces are clear. No pneumothorax is seen. The skeletal structures are osteopenic. The bony thorax is grossly intact. Intrathecal leads project over the thoracic spine. IMPRESSION: Cardiomegaly with no active disease in the chest. ACT 112: Negative or not required by law. Electronically signed by: Reuben King M.D. 07/10/2024 7:07 PM Chest CTA 07/10/24 18:41 Exam(s): CTA CHEST IV Amt: 119ml optray 320 EXAM: CT Angiography Chest With Intravenous Contrast CLINICAL HISTORY: Reason for exam: PE, covid hypoxia, abd pain. TECHNIQUE: Axial computed tomographic angiography images of the chest with intravenous contrast. CTDI is 18 mGy and DLP is 1001 mGy-cm. Automated exposure control was utilized for the study. A dose lowering technique was utilized adhering to the principles of ALARA. MIP reconstructed images were created and reviewed. COMPARISON: No relevant prior studies available. FINDINGS: Pulmonary arteries: Adequate pulmonary artery opacification. Normal caliber main pulmonary artery. No evidence of pulmonary embolism. Aorta: No acute findings. No aortic aneurysm or dissection. Lungs: No consolidation. Linear atelectasis left lower lobe. No mass. Pleural space: Unremarkable. No significant effusion. No pneumothorax. Heart: Myocardium megaly. Coronary artery atherosclerosis. No pericardial effusion. Bones/joints: No acute fracture. No dislocation. Soft tissues: Unremarkable. Lymph nodes: Unremarkable. No enlarged lymph nodes. Intraperitoneal space: Mild perihepatic ascites in the upper abdomen. Tubes, lines and devices: Spinal stimulator leads extending to the thoracic spinal canal. IMPRESSION: 1. No evidence of pulmonary embolism. 2. Mild perihepatic ascites in the upper abdomen. Electronically signed by: Nico Galarza M.D. 07/10/24 21:34 PM PG Care Time/CCT Total # of Minutes Spent Total Time Spent with Patient: Total time spent is greater than 50% in coordination of care (as documented) at patient's floor/unit and/or counseling patient: Coding Level of Care Code 34691 SUB INP/OBS CARE 2/35MIN Diagnoses SBO (small bowel obstruction) K56.609 COVID-19 U07.1 Leukocytosis D72.829 DMII (diabetes mellitus, type 2) E11.9 Adjustment disorder with anxiety F43.22 Chronic pain G89.29 Hypertension I10
--- NOTE | 2024-07-12 05:19 | Surgery Progress Note ---
Date of Service July 12, 2024 Assessment & Plan (1) SBO (small bowel obstruction): Plan: The patient has been admitted on the hospitalist service. From surgery perspective we recommend the following: Continue management of COVID as directed by the primary service Continue clear liquids for the present time with consideration being given to advancing further as she has had return of bowel function Continue IV fluids until oral intake is noted to be reliable Leukocytosis was noted at time of admission, and had a slight improvement on yesterday's labs. Check a.m. labs when available Check KUB this morning once available The patient continues to be nontoxic-appearing Increase mobilization as able Additional recommendations will be forthcoming based on her clinical course as it unfolds Lovenox is in place for DVT prevention as above. pt not present in room. if KUB ok/improved can advance diet. no plans for surgical intervention. will continue to follow until d/c. Admission and Anticipated Discharge Date Admission Date: July 10, 2024 Subjective Patient is resting comfortably in bed. She notes that since admission she has now had a bowel movement and she is passing flatus. She notes her abdomen feels better than at time of admission and she has minimal to no pain. She denies any nausea or vomiting and is tolerating clear liquids without difficulty. Physical Exam Gastrointestinal (Abdomen): Abdomen is soft, nonrigid, and nondistended. There is no rebound tenderness or guarding and minimal to no pain with palpation. Results & Data Vital Signs (Past 12 Hours) Vital Signs Temp Pulse Pulse Resp BP Pulse Ox O2 Del Method 07/12/24 04:00 36.5 C 59 L 18 138/81 96 Room Air 07/11/24 23:00 47 L 07/11/24 22:40 36.9 C 48 L 16 137/72 96 Room Air 07/11/24 19:40 37.0 C 49 L 16 150/74 H 94 Room Air 07/11/24 18:03 Room Air PG Care Time/CCT Total # of Minutes Spent Total Time Spent with Patient: Total time spent is greater than 50% in coordination of care (as documented) at patient's floor/unit and/or counseling patient: Coding Level of Care Code 46662 SUB INP/OBS CARE 25MIN Diagnoses SBO (small bowel obstruction) K56.609
[2024-07-12 06:44] LABS: Basophils # (auto) 0.02 K/uL (0.00-0.20); Basophils % (auto) 0.1 %; Eosinophils # (auto) 0.01 K/uL (0.00-0.50); Eosinophils % (auto) 0.1 %; Hematocrit (blood only) 42.9 % (37.0-47.0); Hemoglobin 13.4 g/dl (12.0-16.0); Immature Granulocytes # (auto) 0.06 K/uL (0.01-0.20); Immature Granulocytes % (auto) 0.4 %; Lymphocytes # (auto) 2.85 K/uL (1.20-3.40); Mean Corpuscular Hemoglobin 26.5 pg (25.0-34.0); Mean Corpuscular Hgb Conc 31.2 g/dL (32.0-36.0); Monocytes # (auto) 0.66 K/uL (0.11-0.59); Monocytes % (auto) 4.6 %; Neutrophils # (auto) 10.62 K/uL (1.40-6.50); Neutrophils % (auto) 74.8 %; Platelet Count 280 K/uL (130-400); RDW Coefficient of Variation 15.9 % (11.5-14.5); RDW Standard Deviation 49.3 fL (36.4-46.3); Red Blood Count 5.05 M/uL (4.20-5.40); White Blood Count 14.22 K/ul (4.8-10.8)
[2024-07-12 06:57] LABS: Albumin Globulin Ratio 1.4 (0.9-2); Albumin Level 4.3 gm/dl (3.4-5.0); BUN Creatinine Ratio 23.1 (10-20); Bilirubin,Total 0.4 mg/dl (0.2-1.0); Calcium 9.3 mg/dl (8.6-10.3); Est GFR (African American) 111.1 ml/min; Est GFR (Non-African American) 95.8 ml/min; Globulin 3.1 gm/dl (2.5-4.0); Magnesium 2.3 mg/dl (1.7-2.4); Potassium 4.2 mmol/L (3.5-5.1); Total Protein 7.4 gm/dl (6.0-8.3)
[2024-07-12 07:08] LABS: Prothrombin Time 10.8 Seconds (9.0-12.0)
[2024-07-12] MEDS: INSULIN ASPART PER UNIT CHARGE SC SCH (08:56)
--- NOTE | 2024-07-12 10:16 | XRay Report ---
KUB HISTORY: Acute generalized abdominal pain sbo COMPARISON: CT 07/10/2024 FINDINGS: A battery pack projects over the left iliac crest with stimulator leads overlying the thora cic spine. Cholecystectomy. Lumbar spinal fusion hardware. Moderate to extensive colonic fecal retent ion. Mildly dilated loops of small bowel are redemonstrated within the lower abdomen Better seen on prior CT. No renal calculi. No ureteral calculi. No pneumoperitoneum or pneumatosis. No fracture. IMPRESSION: 1. Mild persistent small bowel dilation. Continued follow-up recommended. 2. Constipation. 3. No free air. ACT 112: Negative or not required by law. The above report was generated using voice recognition software. It may contain grammatical, syntax o r spelling errors. Electronically signed by: Ángel Gates M.D. 07/12/2024 10:14 AM
--- NOTE | 2024-07-12 13:03 | Hospitalist Progress Note ---
Date of Service July 12, 2024 Assessment & Plan (1) SBO (small bowel obstruction): Plan: Arrived to the ED via EMS after acute onset of severe central abdominal pain this afternoon CT of the abdomen pelvis with contrast showed findings consistent with small b owel obstruction with transition point at L4 level Patient does have a history of previous abdominal surgeries, this is her first small bowel obstruction Patient does appear to be on semaglutide, which could be a potential etiology General Surgery involved Patient is being managed conservatively Improved Has been having bowel movements and has been passing gas Advance to full liquid diet Follow clinically (2) COVID-19: Plan: Patient tested positive with home test on 07/07/2024, positive on PCR testing today Was started on Paxlovid on 07/08/24 with resolution of symptoms Currently stable on room air and without respiratory symptoms, chest x-ray is clear For now continue symptomatic support with incentive spirometry, as needed albuterol, as needed Tylenol If patient's brings her Paxlovid and we can continue while inpatient (3) Leukocytosis: Plan: Patient noted to have a leukocytosis of 21 Improved to 14 today Has been afebrile without source of bacterial infection at this time Could be reactive due to recent COVID-19 infection and acute small bowel obstruction along with dehydration Follow-up blood cultures Procalcitonin negative No antibiotics for now (4) DMII (diabetes mellitus, type 2): Plan: Hold metformin and semaglutide Monitor BSG every 6 hours while NPO, goal is 110-160 Start conservative regimen with CF of 50 and CR 15 for now Adjust regimen as needed (5) Adjustment disorder with anxiety: Plan: Continue buspirone, Cymbalta (6) Chronic pain: Plan: Is on twice daily sublingual buprenorphine Continue Continue buprenorphine and Lyrica (7) Hypertension: Plan: Blood pressure creeping up Resume hydrochlorothiazide and losartan Admission and Anticipated Discharge Date Admission Date: July 10, 2024 Subjective Patient feels better overall. She says that she has had a few bowel movements between yesterday and today. She is passing gas. No abdominal pain. Review of Systems Review of Systems: All systems reviewed & are unremarkable except as noted in Subjective Physical Exam Physical Exam: General: Awake, conversant Heart: S1, S2/regular rate and rhythm, no murmur rubs or gallops Lungs: Clear to auscultation bilaterally. Normal effort Abdomen: Soft/nontender/nondistended. No hepatosplenomegaly Extremities: No clubbing/cyanosis. No edema Behavior: Appropriate, cooperative Results & Data Results & Data Vital Signs (Past 12 Hours) Vital Signs Temp Pulse Pulse Resp BP Pulse Ox O2 Del Method 07/12/24 12:14 36.7 C 55 L 18 173/84 H 97 Room Air 07/12/24 09:01 46 L 07/12/24 09:01 Room Air 07/12/24 08:52 36.8 C 57 L 18 165/78 H 97 Room Air 07/12/24 04:00 36.5 C 59 L 18 138/81 96 Room Air Laboratory Results Abnormal lab results 07/11/24 07/12/24 Range/Units 22:47 06:10 WBC 14.22 H (4.8-10.8) K/ul MCHC 31.2 L (32.0-36.0) g/dL RDW Std Deviation 49.3 H (36.4-46.3) fL RDW Coeff of [place] 15.9 H (11.5-14.5) % Neut # (Auto) 10.62 H (1.40-6.50) K/uL [place] # (Auto) 0.66 H (0.11-0.59) K/uL BUN/Creatinine Ratio 23.1 H (10-20) Glucose 100 H (70-99(Fasting)) mg/dl POC Glucose 105 H (70-99) mg/dl PG Care Time/CCT Total # of Minutes Spent Total Time Spent with Patient: Total time spent is greater than 50% in coordination of care (as documented) at patient's floor/unit and/or counseling patient: Coding Level of Care Code 29550 SUB INP/OBS CARE 2/35MIN Diagnoses SBO (small bowel obstruction) K56.609 COVID-19 U07.1 Leukocytosis D72.829 DMII (diabetes mellitus, type 2) E11.9 Adjustment disorder with anxiety F43.22 Chronic pain G89.29 Hypertension I10
[2024-07-12] MEDS: LOSARTAN POTASSIUM 50 MG TAB PO SCH (14:21)
[2024-07-12] MEDS: hydroCHLOROthiazide 25 MG TAB PO SCH (14:21)
--- NOTE | 2024-07-12 21:45 | Electrocardiogram Report ---
Test Reason : Blood Pressure : */* mmHG Vent. Rate : 69 BPM Atrial Rate : 69 BPM P-R Int : 152 ms QRS Dur : 86 ms QT Int : 426 ms P-R-T Axes : -15 18 33 degrees QTcB Int : 456 ms Sinus rhythm with occasional Premature ventricular complexes Otherwise normal ECG When compared with ECG of 23-Nov-2023 11:44, Premature ventricular complexes are now Present Confirmed by Clemente Iverson ([id number]) on 07/12/2024 9:45:45 PM Referred By: REFERRED SELF Confirmed By: Clemente Iverson
[2024-07-13 07:09] LABS: Basophils # (auto) 0.04 K/uL (0.00-0.20); Basophils % (auto) 0.3 %; Eosinophils # (auto) 0.08 K/uL (0.00-0.50); Eosinophils % (auto) 0.6 %; Hematocrit (blood only) 40.8 % (37.0-47.0); Hemoglobin 13.2 g/dl (12.0-16.0); Immature Granulocytes # (auto) 0.06 K/uL (0.01-0.20); Immature Granulocytes % (auto) 0.4 %; Lymphocytes # (auto) 3.98 K/uL (1.20-3.40); Lymphocytes % (auto) 29.3 %; Mean Corpuscular Hemoglobin 26.8 pg (25.0-34.0); Mean Corpuscular Hgb Conc 32.4 g/dL (32.0-36.0); Mean Corpuscular Volume 82.9 fL (80.0-100.0); Mean Platelet Volume 9.9 fL (9.4-12.4); Monocytes # (auto) 0.92 K/uL (0.11-0.59); Monocytes % (auto) 6.8 %; Neutrophils # (auto) 8.51 K/uL (1.40-6.50); Neutrophils % (auto) 62.6 %; Platelet Count 277 K/uL (130-400); RDW Coefficient of Variation 15.8 % (11.5-14.5); RDW Standard Deviation 47.8 fL (36.4-46.3); Red Blood Count 4.92 M/uL (4.20-5.40); White Blood Count 13.59 K/ul (4.8-10.8)
[2024-07-13 07:24] LABS: Albumin Globulin Ratio 1.4 (0.9-2); Bilirubin,Total 0.4 mg/dl (0.2-1.0); Calcium 9.3 mg/dl (8.6-10.3); Creatinine Clr Calc Pharmacy 63.5 ml/min; Est GFR (African American) 85.7 ml/min; Globulin 2.9 gm/dl (2.5-4.0); Magnesium 2.3 mg/dl (1.7-2.4); Potassium 4.1 mmol/L (3.5-5.1); Total Protein 6.9 gm/dl (6.0-8.3)
[2024-07-13 07:31] LABS: Prothrombin Time 10.9 Seconds (9.0-12.0)
[2024-07-13 08:19] VITALS: PULSE 56; RESP 18; TEMP 97.7; O2SAT 96
--- NOTE | 2024-07-13 10:29 | Surgery Progress Note ---
Date of Service July 13, 2024 Assessment & Plan (1) SBO (small bowel obstruction): Plan: She is tolerating a regular diet and has return of bowel function She can be discharged from a surgical standpoint Surgical sign off at this time, please call with any questions or concerns Admission and Anticipated Discharge Date Admission Date: July 10, 2024 Subjective Patient seen and examined. Denies abdominal pain. Denies nausea or vomiting.. She is tolerating a regular diet. She is having bowel movements. Review of Systems Constitutional: no fever and no chills Respiratory: no cough and no dyspnea Cardiovascular: no chest pain and no dyspnea on exertion Gastrointestinal: no abdominal pain, no belching, no nausea and no vomiting Genitourinary: no dysuria and no urinary hesitancy Integumentary: no acne and no lesions Psychiatric: no behavioral changes and no depression Physical Exam Constitutional: WD/WN, vitals as above Eyes: PERRL, conjunctivae normal, anicteric sclerae Respiratory: normal respiratory effort, lungs clear to auscultation Cardiovascular: RRR, no murmur, no edema Gastrointestinal (Abdomen): normal bowel sounds, soft, nontender, no hepatosplenomegaly Psychiatric: A+Ox3, euthymic affect Results & Data Vital Signs (Past 12 Hours) Vital Signs Temp Pulse Pulse Resp BP Pulse Ox O2 Del Method 07/13/24 08:23 Room Air 07/13/24 08:18 36.5 C 56 L 18 137/83 96 Room Air 07/13/24 07:22 60 07/13/24 04:54 36.6 C 60 17 152/78 H 94 Room Air 07/12/24 23:29 36.6 C 58 L 18 114/67 95 Room Air PG Care Time/CCT Total # of Minutes Spent Total Time Spent with Patient: Total time spent is greater than 50% in coordination of care (as documented) at patient's floor/unit and/or counseling patient: Coding Level of Care Code 42438 SUB INP/OBS CARE 11/28MIN Diagnoses SBO (small bowel obstruction) K56.609
--- NOTE | 2024-07-13 10:42 | Discharge Summary ---
Date of Service July 13, 2024 Admission HPI Per Admitting Provider Lucila is a 63-year-old female with a past medical history significant for depression with previous intrapatient psychiatric admissions, anxiety, SDH s/p craniotomy in 1991 with chronic headaches/migraines, DMII, HTN, GERD, fibromyalgia, chronic pain on Suboxone and hyperlipidemia who presented to [facility] ED on 07/10/2024 via EMS after experiencing acute onset of central abdominal pain approximately 2 PM this afternoon. Patient reported that she tested positive for COVID-19 with a home test on 07/07/2024. Patient remained stable in the ED. Labs were significant for leukocytosis of 21 with neutrophil predominance of 17, BUN of 24, anion gap of 16 with bicarb within normal limits, calcium of 10.9, UA with cloudy urine, 1+ protein, trace ketones, and trace leukocyte Estrace, with COVID-19 PCR positive. Chest x-ray was read as cardiomegaly without active chest disease. CT abdomen pelvis with IV contrast was read as dilated fluid-filled loops of small bowel consistent with small bow el obstruction. Transition point at the L4 level slightly right of midline. Mild ascites. No pneumatosis or free air. CT of the chest with PE protocol ordered in the ED was obtained and currently yet to be read at the time admission. Prior to admission the patient was given a dose of Zofran, 1 L normal saline, and 10 mg IV Toradol. Patient was lying in bed in no acute distress at time of exam, currently stable on room air and he is hemodynamically stable. States that she initially started to develop sore throat, congestion, mild nonproductive cough, and generalized weakness on 07/06/2024. Tested positive with home COVID-19 test on 07/07/2024 and began taking Paxlovid on 07/08/24. States that today was the first day she started to feel as though she had recovered from her COVID-19 symptoms. She was in her hot tub at home around 2 PM this afternoon when she developed acute onset of central abdominal pain with associated nausea. Shortly after she had a small loose bowel movement but denies any bloody bowel movements. Never vomited with her nausea. Could not get comfortable which is why she presented to the ED. After receiving the dose of Zofran in the ED she states that her sy mptoms are currently resolved. Denies recent fever/chills, chest pain, shortness of breath, dysuria/hematuria, melena, lower extremity swelling, and recent trauma. States that she is due for her a.m. dose of Suboxone and does not want to start experiencing withdrawal symptoms. Confirms she is a full code and would want her to make medical decisions for her if she cannot make them herself. Please refer to Dr. Vargas Changes to the treatment plan Admission Exam Per Admitting Provider General: In no acute distress, stated age, well-nourished, nontoxic-appearing HEENT: Normocephalic, atraumatic, no scleral icterus, pupils around round, symmetrical, and reactive to light, moist mucus membranes, trachea midline, no thyromegaly Chest/Pulm: No respiratory distress, symmetrical chest expansion, clear breath sounds throughout Cardiac: RRR, no murmurs noted Abdomen: Negative for ascites and bruising, hyperactive bowel sounds, soft, mildly tympanic to percussion throughout without tenderness, non-tender to palpation throughout Musculoskeletal: Symmetrical and without signs of acute trauma, upper and lower extremities with full ROM, no atrophy, spasticity, or flaccidity Extremities: Radial, dorsalis pedis, and posterior tibial pulses are intact and symmetrical, no edema noted in the BL LE's Skin: Warm, dry, no rashes , lesions, or scars noted Neuro: Alert and oriented to person, place, month, year, and president, no focal defects, no tremors noted Psych: No acute distress, calm and cooperative during the exam Principal Diagnosis - Small bowel obstruction - Covid 19, asymptomaic Discharge Exam General: Awake, conversant Heart: S1, S2/regular rate and rhythm, no murmur rubs or gallops Lungs: Clear to auscultation bilaterally. Normal effort Abdomen: Soft/nontender/nondistended. No hepatosplenomegaly Extremities: No clubbing/cyanosis. No edema Behavior: Appropriate, cooperative Discharge Data Allergies Allergy/AdvReac Type Severity Reaction Status Date / Time bacitracin Allergy Mild RASH Verified 08/28/23 10:34 cephalexin AdvReac Intermediate HEADACHES, Verified 08/28/23 10:34 G I UPSET Consultations 07/10/24 20:42 ED Decision to Admit Stat 07/10/24 20:59 Consult General Surgery Routine Ordered Studies 07/10/24 17:57 CT abd pelvis IV con only Stat 07/10/24 18:41 CT angio chest PE protocol Stat Hospital Course (1) SBO (small bowel obstruction): Arrived to the ED via EMS after acute onset of severe central abdominal pain this afternoon CT of the abdomen pelvis with contrast showed findings consistent with small bowel obstruction with transition point at L4 level Patient does have a history of previous abdominal surgeries, this is her first small bowel obstruction Patient does appear to be on semaglutide, which could be a potential etiology General Surgery involved Patient is being managed conservatively Improved Has been having bowel movements and has been passing gas Tolerated solid meals today Cleared for discharge (2) COVID-19: Patient tested positive with home test on 07/07/2024, positive on PCR testing today Was started on Paxlovid on 07/08/24 with resolution of symptoms Currently stable on room air and without respiratory symptoms, chest x-ray is clear For now continue symptomatic support with incentive spirometry, as needed albuterol, as needed Tylenol (3) Leukocytosis: Patient noted to have a leukocytosis of 21 Improved to 14 today Has been afebrile without source of bacterial infection at this time Could be reactive due to recent COVID-19 infection and acute small bowel obstruction along with dehydration Blood cultures have been negative Procalcitonin negative She was not treated with any antibiotics (4) DMII (diabetes mellitus, type 2): Resume home meds (5) Adjustment disorder with anxiety: Continue buspirone, Cymbalta (6) Chronic pain: Is on twice daily sublingual buprenorphine Continue Continue buprenorphine and Lyrica (7) Hypertension: Resume hydrochlorothiazide and losartan Plan Discharge to home today Total Time Total Time Spent Total Time Spent (In Minutes): 35 Discharge Plan Discharge Items Patient Disposition: Home - Self-Care Reason For Visit: SBO, COVID 19+ Discharge Diagnosis: - Small bowel obstruction - Covid 19, asymptomaic Activity: Resume your previous activity Non-emergency contact: Primary Care Provider Call non-emergency contact if: you have any medication questions and your symptoms worsen Follow-up/Referrals: April Lynn PA-C [Primary Care Provider] - 07/22/24 10:45 am Diet: Carb Consistent or DM2 and Heart Healthy Addtl Attending Provider Instructions: - Advised to follow-up with PCP in 1 week Pending Studies at Discharge: No Stand-Alone Forms: My [facility] Medications and DC Order Prescriptions: Continued buspirone 5 mg tablet 7.5 mg PO TID metformin 500 mg tablet extended release 24 hr 500 mg PO DAILY@1400 lorazepam 1 mg Tablet 1 mg PO DAILY PRN (Reason: Anxiety) Patient Comments: Per pt she has been just using half a tablet. cholecalciferol (vitamin D3) [Vitamin D3] 1,000 unit Capsule 5,000 unit PO QPM duloxetine [Cymbalta] 60 mg Capsule,Delayed Release(Dr/Ec) 120 mg PO QAM pregabalin [Lyrica] 150 mg Capsule 150 mg PO BID Patient Comments: Per pt she's takes only once a day now Rx Instructions: Per pt she's takes only once a day now loratadine [Claritin] 10 mg tablet 10 mg PO DAILY PRN (Reason: allergy symptoms) losartan 50 mg Tablet 50 mg PO QAM pantoprazole [Protonix] 20 mg Tablet,Delayed Release (Dr/Ec) 20 mg PO QAM hydrochlorothiazide 12.5 mg Tablet 12.5 mg PO QAM benzonatate 100 mg capsule 100 mg PO TID PRN (Reason: cough) Qty: 15 0RF ondansetron HCl 4 mg Tablet 4 mg PO Q6H PRN (Reason: Nausea) polyethylene glycol 3350 [Miralax] 17 gram/dose Powder 17 g PO DAILY Rx Instructions: per spouse, she takes 1 or 2 doses daily buprenorphine HCl 8 mg Tablet, Sublingual 8 mg SUBLINGUAL BID rosuvastatin [Crestor] 10 mg Tablet 10 mg PO PM cyclobenzaprine 10 mg tablet 10 mg PO DAILY PRN (Reason: Other) fluconazole 150 mg tablet See Rx Instructions .ROUTE .COMPLEX PRN (Reason: Other) Rx Instructions: as directed acyclovir 5 % ointment See Rx Instructions .ROUTE .COMPLEX PRN (Reason: Other) Rx Instructions: as directed nystatin 100,000 unit/gram powder See Rx Instructions .ROUTE .COMPLEX PRN (Reason: Other) Rx Instructions: as directed fluticasone propionate 50 mcg/actuation spray,suspension See Rx Instructions .ROUTE .COMPLEX PRN (Reason: Other) Rx Instructions: as directed magnesium citrate 420 mg PO DAILY clonidine HCl 0.1 mg tablet 0.1 mg PO UD PRN (Reason: Other) nystatin 200,000 unit Lozenge See Rx Instructions .ROUTE .COMPLEX Rx Instructions: as directed Ozempic 0.25 mg or 0.5 mg (2 mg/3 mL) pen injector 0 mg SUBCUT WK Patient Comments: per pt she takes "50 mg" Discharge Orders: Discharge Order (Routine); Ordered 07/13/24 Ordered By: Sunita Rizo Admission Data Admit Date/Time: 07/10/24 20:56 Attending Provider: Sunita Rizo Admit Provider: Linda Vargas Primary Care Provider: April Lynn Other Providers: Linda Vargas; Leoncio Fabian
[2024-07-13 11:26] VITALS: BP 116/69
== END 2024-07-13 13:10 | disposition home or self-care (01) | DRG 388 ==
LOC: ED 17:41 → 2N 20:56 → SUATTDRO 20:56 → 2N 23:25